=== PATIENT | female | born 1950 | race Caucasian/White ===

== ENCOUNTER → 2018-06-26 09:40 | Outpatient (CLI) | payer MEDICARE, OTHER, SELFPAY ==
--- NOTE | 2018-06-26 09:49 | XR_ITS ---
XR DEXA axial skeleton HISTORY: ITS.REASON: POST MENOPAUSAL ORDERING PHYSICIAN: Saranya Gonzalez PATIENT AGE: 67 years COMPARISON: None FINDINGS: The BMD measured at the Right femoral neck is 0.884 g/cm squared with a T score of -1.1. This is considered Osteopenic according to the World Health Organization criteria. Fracture risk is Moderate. Treatment is advised. L1 L4 density has a T score of -0.4 IMPRESSION: Osteopenia with moderate fracture risk. Treatment is advised. Suggest follow-up exam June 2020
== END ==
PROVIDERS: PCP Emergency Medicine; Visit Provider Nurse Practitioner
DX: Z13.820 Encounter for screening for osteoporosis (principal); Z78.0 Asymptomatic menopausal state
CPT/HCPCS: 77080

== ENCOUNTER → 2020-05-05 09:56 | Outpatient (POV) | payer MEDICARE, OTHER, SELFPAY | PROVIDERS: Visit Provider Otolaryngology | DX: Z00.00 Encounter for general adult medical examination without abnormal findings (principal) ==

== ENCOUNTER 2020-05-26 08:40 | Outpatient (CLI) | payer MEDICARE, OTHER, SELFPAY ==
[2020-05-26 09:05] VITALS: BP 154/55; PULSE 65; RESP 18; TEMP 36.3; O2SAT 99
[2020-05-26 09:30] VITALS: BP 136/63; PULSE 56; RESP 18; O2SAT 98
== END 2020-05-26 09:30 | disposition home or self-care (01) ==
LOC: INF 08:40
PROVIDERS: Visit Provider Allergy & Immunology
DX: J45.50 Severe persistent asthma, uncomplicated (principal)
CPT/HCPCS: 96372; J2182

== ENCOUNTER 2020-06-26 08:48 | Outpatient (CLI) | payer MEDICARE, OTHER, SELFPAY ==
[2020-06-26 09:10] VITALS: BP 132/75; PULSE 65; RESP 20; TEMP 36.9; O2SAT 95
== END 2020-06-26 09:05 | disposition home or self-care (01) ==
LOC: INF 08:48
PROVIDERS: Visit Provider Allergy & Immunology
DX: J45.50 Severe persistent asthma, uncomplicated (principal)
CPT/HCPCS: 96372; J2182

== ENCOUNTER 2020-07-21 09:15 | Outpatient (CLI) | payer MEDICARE, OTHER, SELFPAY ==
[2020-07-21 09:20] VITALS: BP 120/69; PULSE 61; RESP 18; TEMP 36.4; O2SAT 95
== END 2020-07-21 09:45 | disposition home or self-care (01) ==
PROVIDERS: Visit Provider Allergy & Immunology
DX: J45.50 Severe persistent asthma, uncomplicated (principal)
CPT/HCPCS: 96372; J2182

== ENCOUNTER → 2020-08-13 14:47 | Outpatient (CLI) | payer MEDICARE, OTHER, SELFPAY ==
[2020-08-13 15:03] LABS: Basophils # 0.1 K/mm3 (0-0.2); Basophils % 0.6 % (0.1-2.0); Eosinophils # 0.1 K/mm3 (0.0-0.4); Eosinophils % 1.2 % (0.1-12.0); Hematocrit 32.3 % (37.0-47.0); Hemoglobin 10.3 g/dL (12.2-16.2); Lymphocytes % 35.4 % (10-50); Mean Corpuscular HGB Conc 31.9 g/dL (31.8-35.4); Mean Corpuscular Hemoglobin 24.1 pg (27.0-31.2); Mean Corpuscular Volume 75.4 fl (81-99); Mean Platelet Volume 7.8 fl (7.4-10.4); Monocytes # 0.6 K/mm3 (0.1-1.0); Monocytes % 6.8 % (1.7-9.3); Neutrophils # 4.7 K/mm3 (1.8-7.8); Neutrophils % 56.1 % (37.0-80.0); Platelet Count 449 K/mm3 (142-424); Red Blood Count 4.29 M/mm3 (4.20-5.40); Red Cell Distribution Width 15.5 % (11.5-17.5); White Blood Count 8.4 K/mm3 (4.8-10.8)
[2020-08-13 15:12] LABS: Alanine Aminotransferase 23 U/L (12-78); Albumin Level 4.6 g/dl (3.5-5.0); Albumin/Globulin Ratio 1.7 (1.1-1.8); Alkaline Phosphatase 78 U/L (38-126); Anion Gap 16.2 mEq/L (5-15); Aspartate Amino Transferase 38 U/L (14-36); Benzodiazepines Screen,Urine Negative ng/ml (<200); Bilirubin,Total 0.3 mg/dl (0.2-1.3); Blood Urea Nitrogen 13 mg/dl (7-17); Calcium 9.9 mg/dl (8.4-10.2); Carbon Dioxide 24 mmol/L (22.0-30.0); Chloride 103 mmol/L (98-107); Chol/HDL Ratio 6.9 (1-3.5); Cholesterol 288 mg/dl (140-200); Estimated Glomerular Filt Rate 62 ml/min (>60); GFR (African American) 75 ML/MIN (>60); Globulin 2.7 g/dL (1.3-3.2); Glucose 101 mg/dl (74-100); HDL Cholesterol 42 mg/dl (40-60); Potassium 5.2 mmoL/L (3.5-5.1); Sodium 138 mmol/L (136-145); Total Protein,Serum 7.3 g/dl (6.3-8.2)
[2020-08-13 15:13] LABS: Amphetamine/Metha Screen,Urine Negative ng/ml (<1000)
[2020-08-13 15:14] LABS: Barbiturates Screen,Urine Negative ng/ml (<200); Cannabinoid Screen,Urine Negative ng/ml (<50); Triglycerides 473 mg/dl (30-150)
[2020-08-13 15:15] LABS: Cocaine Screen,Urine Negative ng/ml (<300)
[2020-08-13 15:16] LABS: Methadone Screen,Urine Negative ng/ml (<300); Opiate Screen,Urine Positive ng/ml (<300)
[2020-08-13 15:17] LABS: Phencyclidine Screen,Urine Negative ng/ml (<25)
[2020-08-13 15:22] LABS: Direct LDL Cholesterol 172.83 mg/dL (100-129)
[2020-08-13 15:29] LABS: Free T4 (Free Thyroxine) 1.15 ng/dl (0.78-2.19)
[2020-08-13 15:37] LABS: 25-OH Vitamin D, Total 19.2 ng/mL (30-100)
[2020-08-13 15:42] LABS: Thyroid Stimulating Hormone 2.44 uIU/mL (0.465-4.68)
== END ==
PROVIDERS: Visit Provider Physician Assistant
DX: Z00.00 Encounter for general adult medical examination without abnormal findings (principal); Z79.899 Other long term (current) drug therapy; E55.9 Vitamin D deficiency, unspecified
CPT/HCPCS: 80053; 80061; 80305; 82306; 84439; 84443; 85025

== ENCOUNTER → 2020-08-19 14:48 | Outpatient (CLI) | payer MEDICARE, OTHER, SELFPAY ==
[2020-08-19 15:11] LABS: Iron 48 ug/dL (37-170)
[2020-08-19 15:26] LABS: Total Iron Binding Capacity 455 ug/dL (265-497)
== END ==
PROVIDERS: Visit Provider Physician Assistant
DX: D64.9 Anemia, unspecified (principal)
CPT/HCPCS: 83540; 83550

== ENCOUNTER → 2020-10-14 19:19 | Outpatient (CLI) | payer MEDICARE, OTHER, SELFPAY ==
[2020-10-14 20:03] LABS: Amphetamine/Metha Screen,Urine Negative ng/ml (<1000)
[2020-10-14 20:05] LABS: Benzodiazepines Screen,Urine Negative ng/ml (<200)
[2020-10-14 20:07] LABS: Cocaine Screen,Urine Negative ng/ml (<300)
[2020-10-14 20:10] LABS: Phencyclidine Screen,Urine Negative ng/ml (<25)
[2020-10-14 20:27] LABS: Barbiturates Screen,Urine Negative ng/ml (<200)
[2020-10-14 20:29] LABS: Methadone Screen,Urine Negative ng/ml (<300)
[2020-10-14 20:36] LABS: Cannabinoid Screen,Urine Negative ng/ml (<50)
[2020-10-14 21:19] LABS: Opiate Screen,Urine Positive ng/ml (<300)
== END ==
PROVIDERS: Visit Provider Nurse Practitioner Family
DX: Z79.899 Other long term (current) drug therapy (principal)
CPT/HCPCS: 80305

== ENCOUNTER 2020-12-06 09:54 | Emergency (ER) | payer MEDICARE, OTHER, SELFPAY ==
[2020-12-06 10:04] VITALS: BP 139/73; PULSE 67; RESP 15; TEMP 36.3; O2SAT 100; BMI 31.2
[2020-12-06 10:25] LABS: Apearance,Urine Turbid (Clear); Color,Urine Dark Yellow (Yellow); Glucose,Urine (UA) Negative (Negative); Protein,Urine Trace (Negative); Specific Gravity, Urine 1.025 (1.005-1.030)
[2020-12-06 10:26] LABS: Bilirubin,Urine 2+ (Negative); Blood, Urine Negative (Negative); Ketones,Urine SMALL (Negative); UTC Leukocyte Esterase,Urine 1+ (Negative); UTC Nitrate,Urine Negative (Negative); Urobilinogen,Urine 1 EU/dl (0.2)
--- NOTE | 2020-12-06 10:31 | HMH.EDUTC ---
[facility] [place] Disposition Clinical Impression: Low back pain Qualifiers: Chronicity: acute Back pain laterality: right Sciatica presence: without sciatica Qualified Code(s): M54.5 - Low back pain UTI (urinary tract infection) Qualifiers: Urinary tract infection type: site unspecified Hematuria presence: without hematuria Qualified Code(s): N39.0 - Urinary tract infection, site not specified Disposition: Home, Self-Care Condition on Discharge: Good Instructions: Urinary Tract Infection Additional Instructions: Drink plenty of fluids. Take tylenol for pain or fever. Take the medications as directed. Follow up with your regular doctor. GO TO THE ER FOR ANY WORSENING SYMPTOMS The pyridium will make your urine turn orange, this is an expected side effect. It will stain your clothes if it comes into contact with them. Prescriptions: Ciprofloxacin HCl [Cipro 500mg Tab] 500 mg PO BID 7 Days #14 tab Transmission Status: Received by [facility] #[id number] Phenazopyridine HCl [Pyridium 200mg Tablet] 200 pow PO TID #6 tab Transmission Status: Received by [facility] #[id number] Referrals: Ben Antonio MD [Primary Care Provider] - Time of Disposition: 10:43 Medical Decision Making - Medical Records Medical records reviewed: No: I reviewed the patient's medical records. - Ryan Inquiry Pt receiving controlled substance: No Vital Signs: 12/06/20 10:04 12/06/20 11:09 Temperature 97.4 F L 98 F Temperature Source Oral Pulse Rate 76 Pulse Rate [Left] 67 Respiratory Rate 15 16 Blood Pressure 143/73 H Blood Pressure [Right Arm] 139/73 Blood Pressure Mean [Right Arm] 95 02 Sat by Pulse Oximetry 100 Oxygen Delivery Method Room Air - Lab Data Lab results reviewed: Yes: I reviewed the patient's lab results. Lab Results 12/06/20 10:15: Urine Color Dark yellow, Urine Appearance Turbid, Urine pH 5.0, Ur Specific [place] 1.025, Urine Protein Trace, Urine Glucose (UA) Negative, Urine Ketones Small, Urine Blood Negative, Urine Nitrate Negative, Urine Bilirubin 2+ A, Urine Urobilinogen 1, Ur Leukocyte Esterase 1+ A Orders (Tests/Meds): ED MEDICATIONS Discontinued Medications Generic Name Dose Route Start Last Admin Trade Name Freq PRN Reason Stop Dose Admin Ceftriaxone Sodium 1 gm 12/06/20 10:41 12/06/20 11:05 Ceftriaxone 1gm Vial IM 12/06/20 10:42 1 gm ONCE ONE Administration Protocol Ketorolac Tromethamine 60 mg 12/06/20 10:39 12/06/20 11:05 Ketorolac 60mg/2ml Vial IM 12/06/20 10:40 60 mg ONCE ONE Administration Lidocaine HCl 0 ml 12/06/20 10:41 12/06/20 11:04 Lidocaine 1% 5ml Pf Vial IM 12/06/20 10:42 2.5 ml ONCE ONE Administration ORDERS Category Date Time Status Urine Culture Stat Micro 12/06/20 11:09 Ordered Medical Decision Narrative: I want to transfer her to the ER for further evaluation and possible ct scan for kidney stone, but she refuses. She states that she will return if it gets worse and follow up with her primary care doctor first thing in the morning regardless. [facility] [place] HPI - General Stated complaint: lower back pain Time Seen by Provider: 12/06/20 10:31 Mode of Arrival: Ambulatory Source of Information: Patient Limitations: No Limitations Description of Symptoms (Recalled from Triage Doc. by RN): Pt c/o R flank pain that is sharp and aching in nature at a 10/10. pt has a hx of kidney stones and states it feels like the same kind of pain. HEENT Symptoms (Recalled from RN notes): No Resp Symptoms (Recalled from RN notes): No Skin Symptoms (Recalled from RN notes): No MS Symptoms (Recalled from RN notes): No Functional Status (Recalled from RN notes): na - History of Present Illness Provider Complaint: She states that for the past 2 days she has had right sided lower back pain that does not radiate any where. It has been just about constant. She denies any known injury. She does have a history of h
[2020-12-06 11:09] VITALS: BP 143/73; PULSE 76; RESP 16; TEMP 36.6
== END 2020-12-06 11:13 | disposition home or self-care (01) ==
PROVIDERS: Emergency Provider Nurse Practitioner Family; PCP Emergency Medicine
DX: M54.5 Low back pain (principal); N30.00 Acute cystitis without hematuria; I10 Essential (primary) hypertension; K21.9 Gastro-esophageal reflux disease without esophagitis; Z79.899 Other long term (current) drug therapy
CPT/HCPCS: G0463; 81003; 87086; 90471; 99202

== ENCOUNTER 2021-01-10 09:06 | Emergency (ER) | payer MEDICARE, OTHER, SELFPAY ==
[2021-01-10 09:30] VITALS: BP 135/74; PULSE 67; RESP 18; TEMP 37.2; O2SAT 96; BMI 26.6
--- NOTE | 2021-01-10 09:54 | HMH.EDUTC ---
[facility] [place] Clinical Impression: Maxillary sinusitis, acute Qualifiers: Recurrence: non-recurrent Qualified Code(s): J01.00 - Acute maxillary sinusitis, unspecified Disposition: Home, Self-Care Condition on Discharge: Good Instructions: Sinusitis, Sinus Headache, DI for Sinusitis Additional Instructions: Start antibiotic patient to take as ordered for a full length of time even if you feel better. Sinus infections do not get better overnight. It may take 2-3 days to notice much improvement so be sure to use conservative measures as discussed for symptoms. Flonase 1 spray each nostril daily to help with nasal congestion, sinus and ear pressure/information Increase fluids Humidifier/vaporizer as needed Tylenol and ibuprofen as needed for fever or pain. If symptoms do not improve or get worse return or be seen in the ER Follow-up with primary care this week Prescriptions: Fluticasone Propionate [Flonase 50mcg nasal spray 16gm] 1 spr NS DAILY 7 Days #1 bottle Prescription Printed Azithromycin [Zithromax 250mg tab] 250 mg PO DIRECTED #6 tab Prescription Printed Referrals: Ben Antonio MD [Primary Care Provider] - Time of Disposition: 09:59 Medical Decision Making - Ryan Inquiry Pt receiving controlled substance: No Vital Signs: 01/10/21 09:30 Temperature 99.0 F Temperature Source Oral Pulse Rate [Right Brachial] 67 Respiratory Rate 18 Blood Pressure [Right Arm] 135/74 Blood Pressure Mean [Right Arm] 94 Blood Pressure Source [Right Arm] Automatic Cuff Blood Pressure Position [Right Arm] Sitting 02 Sat by Pulse Oximetry 96 Oxygen Delivery Method Room Air [facility] [place] - General Chief complaint: [facility] Stated complaint: fever, cough Time Seen by Provider: 01/10/21 09:54 Mode of Arrival: Ambulatory Source of Information: Patient Limitations: No Limitations Description of Symptoms (Recalled from Triage Doc. by RN): PATIENT C/O CONGESTION, FEVER, AND PRODUCTIVE COUGH WITH GREEN/WHITE SPUTUM SINCE MONDAY NIGHT HEENT Symptoms (Recalled from RN notes): No Resp Symptoms (Recalled from RN notes): Yes Skin Symptoms (Recalled from RN notes): No MS Symptoms (Recalled from RN notes): No Functional Status (Recalled from RN notes): WNL - History of Present Illness Provider Complaint: 70 yr old female presents for sinus congestion,sinus pressure, green drainage, cough and chest congestion since monday. pt does not want covid swab utd on vaccine - Related Data Home Medications Medication Instructions Recorded Confirmed diclofenac sodium 75 mg 75 mg PO BID 08/13/20 01/05/21 tablet,delayed release fluticasone 100 mcg-salmeterol 50 2 inh INHALATION BID each 08/13/20 01/05/21 mcg/dose blistr powdr for inhalation omeprazole 40 mg capsule,delayed 40 mg PO DAILY 08/13/20 01/05/21 release Previous Rx's Medication Instructions Recorded duloxetine 60 mg capsule,delayed 60 mg PO DAILY #90 cap 08/13/20 release levocetirizine 5 mg tablet 5 mg PO DAILY #90 tab 08/13/20 montelukast 10 mg tablet 10 mg PO PM #90 tab 08/13/20 nystatin 100,000 unit/mL oral 10 ml PO QID 10 Days #400 ml 08/13/20 suspension tiotropium bromide 2.5 See Rx Instructions .ROUTE 10/23/20 mcg/actuation mist for inhalation .COMPLEX #4 g atorvastatin 10 mg tablet 10 mg PO HS #30 tab 10/26/20 cholecalciferol (vitamin D3) 25 25 mcg PO DAILY #30 cap 10/26/20 mcg (1,000 unit) capsule albuterol sulfate 90 mcg/actuation See Rx Instructions .ROUTE 11/02/20 aerosol inhaler .COMPLEX #8.5 g ergocalciferol (vitamin D2) 1,250 1,250 mcg PO WEEKLY #14 cap 01/05/21 mcg (50,000 unit) capsule gabapentin 300 mg capsule 300 mg PO TID #90 cap 01/05/21 hydrocodone 10 mg-acetaminophen 1 tab PO Q6H PRN #120 tab 01/05/21 325 mg tablet hydroxyzine pamoate 25 mg capsule 25 mg PO TID PRN #60 cap 01/05/21 metoprolol succinate 25 mg See Rx Instructions .ROUTE 01/05/21 tablet,extended release 24 hr .COMPLEX #90 tab Essie
[2021-01-10 09:55] VITALS: BP 135/74; PULSE 67; RESP 18; TEMP 37.2; O2SAT 96
== END 2021-01-10 10:00 | disposition home or self-care (01) ==
PROVIDERS: Emergency Provider Nurse Practitioner Family; PCP Emergency Medicine
DX: J01.00 Acute maxillary sinusitis, unspecified (principal); K21.9 Gastro-esophageal reflux disease without esophagitis; Z79.899 Other long term (current) drug therapy; Z88.0 Allergy status to penicillin; Z88.5 Allergy status to narcotic agent
CPT/HCPCS: 99202; G0463

== ENCOUNTER 2021-01-13 09:25 | Emergency (ER) | payer MEDICARE, OTHER, SELFPAY ==
[2021-01-13 10:18] VITALS: BP 115/54; PULSE 78; RESP 18; TEMP 36.6; O2SAT 99; BMI 30.2
[2021-01-13 10:31] VITALS: BP 119/63; PULSE 82; RESP 16; TEMP 36.7
--- NOTE | 2021-01-13 10:32 | HMH.EDUTC ---
[facility] [place] Disposition Clinical Impression: Encounter for laboratory testing for COVID-19 virus Disposition: Home, Self-Care Condition on Discharge: Good Instructions: DI for COVID-19 (Suspected or Confirmed ), Coronavirus Disease 2019, Preventing the Spread of Coronavirus Discharge Instructions Additional Instructions: *Monitor Temp, Over the counter Motrin or Tylenol as directed/as needed Tylenol every 4 hours and Motrin every 6 hours (as long as your family doctor has told you that you can take it) for fever or pain. and straight to ER if unable to lower temp less than 101.0 after medication given Follow up IMMEDIATELY for new or worsening symptoms or no Noticeable improvement over the next 48-72 hours. 911 for difficulty breathing or swallowing You were tested for today for COVID19 your test result should be back in the next 24-48 hours, you may call to the [facility] to see if your test results are back in the next 48 hours [phone] [facility] hours are 9am-9pm You was given a handout with instructions for Self Quarantine and Self isolation for while you wait on test results and what to do if they are positive If you are positive the Health Dept will be contacting you also Make sure to take your Vitamins Vit. C Vit D and Zinc if you can take them Prescriptions: Benzonatate [Tessalon Perle 100mg Cap*] 100 mg PO TID PRN #15 cap PRN Reason: Cough Transmission Status: Received by [facility] Referrals: Ben Antonio MD [Primary Care Provider] - As needed Time of Disposition: 10:37 Medical Decision Making - Ryan Inquiry Pt receiving controlled substance: No Ryan was queried for this patient: No Vital Signs: 01/13/21 10:18 01/13/21 10:31 Temperature 97.8 F 98.1 F Temperature Source Oral Pulse Rate 82 Pulse Rate [Left] 78 Respiratory Rate 18 16 Blood Pressure 119/63 Blood Pressure [Right Arm] 115/54 L Blood Pressure Mean [Right Arm] 74 02 Sat by Pulse Oximetry [address] [facility] [place] HPI - General Stated complaint: covid test Time Seen by Provider: 01/13/21 10:32 Mode of Arrival: Ambulatory Source of Information: Patient Limitations: No Limitations Description of Symptoms (Recalled from Triage Doc. by RN): pt c/o fever and a cough ongoing for two days. HEENT Symptoms (Recalled from RN notes): No Resp Symptoms (Recalled from RN notes): Yes (cough) Skin Symptoms (Recalled from RN notes): No MS Symptoms (Recalled from RN notes): No Functional Status (Recalled from RN notes): fever - History of Present Illness Provider Complaint: Patient state that she has been having a fever, cough and body aches x 2 days State that grandson was recently exposed to COVID and also being tested due to having symptoms State that she wanted to get tested - Related Data Home Medications Medication Instructions Recorded Confirmed diclofenac sodium 75 mg 75 mg PO BID 08/13/20 01/05/21 tablet,delayed release fluticasone 100 mcg-salmeterol 50 2 inh INHALATION BID each 08/13/20 01/05/21 mcg/dose blistr powdr for inhalation omeprazole 40 mg capsule,delayed 40 mg PO DAILY 08/13/20 01/05/21 release Previous Rx's Medication Instructions Recorded duloxetine 60 mg capsule,delayed 60 mg PO DAILY #90 cap 08/13/20 release levocetirizine 5 mg tablet 5 mg PO DAILY #90 tab 08/13/20 montelukast 10 mg tablet 10 mg PO PM #90 tab 08/13/20 nystatin 100,000 unit/mL oral 10 ml PO QID 10 Days #400 ml 08/13/20 suspension tiotropium bromide 2.5 See Rx Instructions .ROUTE 10/23/20 mcg/actuation mist for inhalation .COMPLEX #4 g atorvastatin 10 mg tablet 10 mg PO HS #30 tab 10/26/20 cholecalciferol (vitamin D3) 25 25 mcg PO DAILY #30 cap 10/26/20 mcg (1,000 unit) capsule albuterol sulfate 90 mcg/actuation See Rx Instructions .ROUTE 11/02/20 aerosol inhaler .COMPLEX #8.5 g ergocalciferol (vitamin D2) 1,250 1,250 mcg PO WEEKLY #14 cap 01/05/21 mcg (50,000 unit) capsule gabapentin 300 mg capsule 300 mg PO TID #90 cap
--- NOTE | 2021-01-14 09:04 | PC.NURSE ---
notified pt of positive covid swab result
== END 2021-01-13 11:08 | disposition home or self-care (01) ==
PROVIDERS: Emergency Provider Nurse Practitioner; PCP Emergency Medicine
DX: U07.1 COVID-19 (principal); J45.909 Unspecified asthma, uncomplicated; I10 Essential (primary) hypertension; K21.9 Gastro-esophageal reflux disease without esophagitis; Z88.0 Allergy status to penicillin; Z88.5 Allergy status to narcotic agent
CPT/HCPCS: G0463; 99202; U0003

== ENCOUNTER → 2021-03-02 14:26 | Outpatient (CLI) | payer MEDICARE, OTHER, SELFPAY ==
[2021-03-02 14:48] LABS: Basophils # 0.1 K/mm3 (0-0.2); Basophils % 0.9 % (0.1-2.0); Eosinophils # 0.1 K/mm3 (0.0-0.4); Eosinophils % 0.9 % (0.1-12.0); Hematocrit 35.6 % (37.0-47.0); Hemoglobin 11.1 g/dL (12.2-16.2); Lymphocytes # 2.3 K/mm3 (0.7-4.5); Lymphocytes % 33.5 % (10-50); Mean Corpuscular HGB Conc 31.3 g/dL (31.8-35.4); Mean Corpuscular Hemoglobin 24.6 pg (27.0-31.2); Mean Corpuscular Volume 78.8 fl (81-99); Mean Platelet Volume 8.5 fl (7.4-10.4); Monocytes # 0.4 K/mm3 (0.1-1.0); Monocytes % 6.5 % (1.7-9.3); Neutrophils % 58.2 % (37.0-80.0); Platelet Count 498 K/mm3 (142-424); Red Blood Count 4.52 M/mm3 (4.20-5.40); Red Cell Distribution Width 15.5 % (11.5-17.5); White Blood Count 6.8 K/mm3 (4.8-10.8)
[2021-03-02 16:36] LABS: Alanine Aminotransferase 15 U/L (12-78); Albumin Level 4.3 g/dl (3.5-5.0); Albumin/Globulin Ratio 1.4 (1.1-1.8); Alkaline Phosphatase 81 U/L (38-126); Anion Gap 14.4 mEq/L (5-15); Aspartate Amino Transferase 29 U/L (14-36); Bilirubin,Total 0.3 mg/dl (0.2-1.3); Blood Urea Nitrogen 11 mg/dl (7-17); Calcium 9.6 mg/dl (8.4-10.2); Carbon Dioxide 23 mmol/L (22.0-30.0); Chloride 99 mmol/L (98-107); Chol/HDL Ratio 4.6 (1-3.5); Cholesterol 208 mg/dl (140-200); Estimated Glomerular Filt Rate 55 ml/min (>60); GFR (African American) 66 ML/MIN (>60); Glucose 95 mg/dl (74-100); HDL Cholesterol 45 mg/dl (40-60); Iron 44 ug/dL (37-170); Potassium 5.4 mmoL/L (3.5-5.1); Sodium 131 mmol/L (136-145); Total Protein,Serum 7.3 g/dl (6.3-8.2); Triglycerides 310 mg/dl (30-150); VLDL Cholesterol 62 mg/dL (0-40)
[2021-03-02 16:48] LABS: Direct LDL Cholesterol 103.48 mg/dL (100-129)
[2021-03-02 16:54] LABS: T4 (Thyroxine) 7.2 ug/dl (5.53-11.0)
[2021-03-02 17:07] LABS: Thyroid Stimulating Hormone 1.73 uIU/mL (0.465-4.68)
[2021-03-02 17:29] LABS: Total Iron Binding Capacity 421 ug/dL (265-497)
[2021-03-02 23:55] LABS: 25-OH Vitamin D, Total 57.9 ng/mL (30-100)
== END ==
PROVIDERS: Visit Provider Physician Assistant
DX: D64.9 Anemia, unspecified (principal); I10 Essential (primary) hypertension; J45.909 Unspecified asthma, uncomplicated; M79.7 Fibromyalgia; E55.9 Vitamin D deficiency, unspecified
CPT/HCPCS: 80053; 80061; 82306; 83540; 83550; 84436; 84443; 85025

== ENCOUNTER → 2021-03-09 08:57 | Outpatient (CLI) | payer MEDICARE, OTHER, SELFPAY ==
[2021-03-09 09:22] LABS: Basophils # 0.1 K/mm3 (0-0.2); Basophils % 0.7 % (0.1-2.0); Eosinophils % 0.5 % (0.1-12.0); Hematocrit 36.6 % (37.0-47.0); Lymphocytes # 2.1 K/mm3 (0.7-4.5); Lymphocytes % 29.1 % (10-50); Mean Corpuscular Hemoglobin 24.2 pg (27.0-31.2); Mean Corpuscular Volume 80.5 fl (81-99); Mean Platelet Volume 7.2 fl (7.4-10.4); Monocytes # 0.5 K/mm3 (0.1-1.0); Neutrophils # 4.5 K/mm3 (1.8-7.8); Neutrophils % 62.8 % (37.0-80.0); Platelet Count 438 K/mm3 (142-424); Red Blood Count 4.55 M/mm3 (4.20-5.40); White Blood Count 7.2 K/mm3 (4.8-10.8)
[2021-03-09 09:47] LABS: Chloride 96 mmol/L (98-107); Potassium 5.5 mmoL/L (3.5-5.1); Sodium 133 mmol/L (136-145)
[2021-03-09 09:49] LABS: Alanine Aminotransferase 19 U/L (12-78); Anion Gap 17.5 mEq/L (5-15); Aspartate Amino Transferase 29 U/L (14-36); Blood Urea Nitrogen 9 mg/dl (7-17); Carbon Dioxide 25 mmol/L (22.0-30.0); Estimated Glomerular Filt Rate 62 ml/min (>60); GFR (African American) 74 ML/MIN (>60)
[2021-03-09 09:50] LABS: Albumin Level 4.5 g/dl (3.5-5.0); Albumin/Globulin Ratio 1.5 (1.1-1.8); Alkaline Phosphatase 84 U/L (38-126); Bilirubin,Total 0.4 mg/dl (0.2-1.3); Calcium 9.7 mg/dl (8.4-10.2); Glucose 121 mg/dl (74-100); Iron 51 ug/dL (37-170); Total Protein,Serum 7.5 g/dl (6.3-8.2)
[2021-03-09 09:58] LABS: Total Iron Binding Capacity 462 ug/dL (265-497)
[2021-03-09 10:25] LABS: Ferritin 8.91 ng/ml (11.1-264)
[2021-03-09 15:51] LABS: Hemoglobin A1C 9.9 % (4.0-6.0)
[2021-03-11 09:00] LABS: Peripheral Smear Review Scanned Result
== END ==
PROVIDERS: Physician Assistant; Visit Provider Nurse Practitioner Family
DX: D64.9 Anemia, unspecified (principal); E87.5 Hyperkalemia; R73.09 Other abnormal glucose
CPT/HCPCS: 36415; 80053; 82728; 83036; 83540; 83550; 85025

== ENCOUNTER → 2021-03-10 09:33 | Outpatient (CLI) | payer MEDICARE, OTHER, SELFPAY ==
[2021-03-10 10:39] LABS: Chloride 98 mmol/L (98-107)
[2021-03-10 10:40] LABS: Potassium 5.6 mmoL/L (3.5-5.1); Sodium 135 mmol/L (136-145)
[2021-03-10 10:42] LABS: Alanine Aminotransferase 19 U/L (12-78); Albumin Level 4.5 g/dl (3.5-5.0); Albumin/Globulin Ratio 1.5 (1.1-1.8); Alkaline Phosphatase 84 U/L (38-126); Anion Gap 15.6 mEq/L (5-15); Aspartate Amino Transferase 31 U/L (14-36); Bilirubin,Total 0.4 mg/dl (0.2-1.3); Blood Urea Nitrogen 8 mg/dl (7-17); Carbon Dioxide 27 mmol/L (22.0-30.0); Estimated Glomerular Filt Rate 62 ml/min (>60); GFR (African American) 74 ML/MIN (>60); Total Protein,Serum 7.5 g/dl (6.3-8.2)
[2021-03-10 10:43] LABS: Calcium 9.5 mg/dl (8.4-10.2); Glucose 112 mg/dl (74-100)
== END ==
PROVIDERS: Visit Provider Physician Assistant
DX: E87.5 Hyperkalemia (principal)
CPT/HCPCS: 36415; 80053

== ENCOUNTER 2021-03-12 08:40 | Outpatient (CLI) | payer MEDICARE, OTHER, SELFPAY ==
[2021-03-12 09:10] VITALS: BP 131/60; PULSE 74; RESP 18; TEMP 36.4; O2SAT 98
== END 2021-03-12 09:25 | disposition home or self-care (01) ==
LOC: INF 08:41
PROVIDERS: PCP Emergency Medicine; Visit Provider Nurse Practitioner
DX: J45.50 Severe persistent asthma, uncomplicated (principal); Z79.899 Other long term (current) drug therapy
CPT/HCPCS: 36415; 80048; 83036; 96372; J2182

== ENCOUNTER → 2021-03-12 09:17 | Outpatient (CLI) | payer MEDICARE, OTHER, SELFPAY ==
[2021-03-12 10:12] LABS: Hemoglobin A1C 6.3 % (4.0-6.0)
[2021-03-12 10:59] LABS: Anion Gap 15.9 mEq/L (5-15); Blood Urea Nitrogen 11 mg/dl (7-17); Calcium 9.5 mg/dl (8.4-10.2); Carbon Dioxide 24 mmol/L (22.0-30.0); Chloride 96 mmol/L (98-107); Estimated Glomerular Filt Rate 62 ml/min (>60); GFR (African American) 74 ML/MIN (>60); Glucose 159 mg/dl (74-100); Potassium 4.9 mmoL/L (3.5-5.1); Sodium 131 mmol/L (136-145)
== END ==
PROVIDERS: Nurse Practitioner Family; Visit Provider Physician Assistant
DX: R73.09 Other abnormal glucose (principal); E87.5 Hyperkalemia
CPT/HCPCS: 36415; 80048; 83036

== ENCOUNTER → 2021-03-22 09:46 | Outpatient (CLI) | payer MEDICARE, OTHER, SELFPAY ==
[2021-03-22 10:46] LABS: Chloride 97 mmol/L (98-107); Potassium 5.3 mmoL/L (3.5-5.1); Sodium 132 mmol/L (136-145)
[2021-03-22 10:49] LABS: Anion Gap 15.3 mEq/L (5-15); Blood Urea Nitrogen 11 mg/dl (7-17); Calcium 9.4 mg/dl (8.4-10.2); Carbon Dioxide 25 mmol/L (22.0-30.0); Estimated Glomerular Filt Rate 55 ml/min (>60); GFR (African American) 66 ML/MIN (>60); Glucose 92 mg/dl (74-100)
== END ==
PROVIDERS: Visit Provider Nurse Practitioner Family
DX: E87.1 Hypo-osmolality and hyponatremia (principal)
CPT/HCPCS: 36415; 80048

== ENCOUNTER → 2021-04-05 09:30 | Outpatient (CLI) | payer MEDICARE, OTHER, SELFPAY ==
[2021-04-05 11:20] LABS: Anion Gap 13.4 mEq/L (5-15); Blood Urea Nitrogen 9 mg/dl (7-17); Calcium 9.4 mg/dl (8.4-10.2); Carbon Dioxide 27 mmol/L (22.0-30.0); Chloride 99 mmol/L (98-107); Estimated Glomerular Filt Rate 62 ml/min (>60); GFR (African American) 74 ML/MIN (>60); Glucose 117 mg/dl (74-100); Potassium 5.4 mmoL/L (3.5-5.1); Sodium 134 mmol/L (136-145)
== END ==
PROVIDERS: Visit Provider Nurse Practitioner Family
DX: E87.5 Hyperkalemia (principal)
CPT/HCPCS: 36415; 80048

== ENCOUNTER 2021-04-08 09:43 | Outpatient (CLI) | payer MEDICARE, OTHER, SELFPAY | END 2021-04-08 10:16 | disposition home or self-care (01) | LOC: INF 09:44 | PROVIDERS: PCP Emergency Medicine; Visit Provider Nurse Practitioner | DX: J45.50 Severe persistent asthma, uncomplicated (principal) | CPT/HCPCS: 96372; J2182 ==

== ENCOUNTER → 2021-04-19 09:12 | Outpatient (CLI) | payer SELFPAY ==
--- NOTE | 2021-04-19 09:14 | CT_ITS ---
PROCEDURE: CT HEART W CALCIUM SCORE CLINICAL HISTORY: eval for cad COMPARISON: No exams were available for comparison TECHNIQUE: Axial images obtained with sagittal and coronal reformats. All CT scans at the facility use one or more dose reduction, viz: automated exposure control, ma/kV adjustment per patient size (including targeted exams where dose is matched to indication, i.e. head), or iterative reconstruction technique. FINDINGS: Coronary artery calcium score is 0. No identifiable calcific atherosclerotic plaque with very low cardiovascular disease risk Minimal pericardial thickening anteriorly. 3 mm nodular opacity along the left major fissure nonspecific. Degenerative changes thoracic spine IMPRESSION: No identifiable calcific atherosclerotic plaque with very low cardiovascular disease risk Dictated by: Robb Almaraz MD 04/19/2021 10:17 Robb Almaraz MD in [place] 04/19/2021 10:17
== END ==
PROVIDERS: PCP Emergency Medicine; Visit Provider Internal Medicine Cardiovascular Disease
DX: R06.00 Dyspnea, unspecified (principal); I10 Essential (primary) hypertension; K21.9 Gastro-esophageal reflux disease without esophagitis; Z13.6 Encounter for screening for cardiovascular disorders
CPT/HCPCS: 75571

== ENCOUNTER → 2021-04-19 09:35 | Outpatient (CLI) | payer MEDICARE, OTHER, SELFPAY ==
--- NOTE | 2021-04-19 | CA_ITS ---
APPROVED REPORT Exam: Pharmacologic Technologist: Sharron Jackson, Ht: 5 ft 0 in Wt: 140 lbs BSA: 1.60 m2 HR: 78 bpm BP: 148/83 mmHg Rhythm: Sinus rhythm Medical History Medical History: Diabetic ??? Noninsulin, HTN Medications: Omeprazole,,,,, Metoprolol,,,,, Asa,,,,, Metformin,,,,, Gabapentin,,,,, Albuterol,,,,, Montelukast,,,,, D3,,,,, Diclofenac,,,,, DulOXETINE,,,,, FluTICASONE,,,,, Levocetirizine,,,,, Cardiac Risk Factors: HTN, Diabetes (non-insulin) Stress Test Details Test: LEXISCAN HR Resting HR: 83 bpm Max Heart Rate (APMHR): 148.444692 bpm Max HR Achieved: 114 bpm Target HR (85% APMHR): 125.429815 bpm % of APMHR: 77.03 Recovery HR: 106 bpm BP Resting BP: 148/83 mmHg Max BP: 162/86 mmHg Recovery BP: 144.0/83.0 mmHg ECG Resting ECG: Sinus rhythm Clinical Exercise duration: 04:00 min Highest Stage Achieved: Exercise capacity: 1.0 METs Stress ECG Conclusion During lexiscan pt experinced SOB during peak infusion, resolved in recovery. No CP noted. Occasional PAC and occasional PVC. Less than 1.5mm ST depression. Images to follow. Test Summary REST . . . . . . . Sitting REST 35:32 . . 83 . 148/ 83 . . Stage 1 . . . . . . . Myoview Injected Stage 1 01:00 . . 106 . . . . Stage 2 01:00 . . 105 . 128/ 54 . . Stage 3 01:00 . . 103 . 139/ 70 . . Stage 4 01:00 . . 102 . 145/ 68 . Stop exercise at 04:00 RECOVERY 01:00 . . 113 . 144/ 83 . . RECOVERY 02:00 . . 106 . 144/ 83 . . RECOVERY 03:00 . . 106 . 154/ 84 . . RECOVERY 03:56 . . 105 . 162/ 86 . . Electronically signed by : Wilder Webster MD 04/19/2021 18:14:15
--- NOTE | 2021-04-19 09:35 | NM_ITS ---
APPROVED REPORT Exam: Nuclear Stress Test Indication: SOB, HTN, DM, High cholesterol Patient Location: Outpatient Stress Tech: Sharron Jackson NM Tech:Elizabeth Stephens, ARRT, RT (R)(N) Ht: 5 ft 0 in Wt: 140 lbs Bra Size: 38B HR: 78 bpm BP: 148/83 mmHg BSA: 1.60 m2 History: SOB, HTN, DM, High cholesterol Procedure: Patient received a 0.4 mg of intravenous Lexiscan, resting heart rate 78 bpm, resting blood pressure 148/83 mmHg, with Lexiscan maximum heart rate achived was 108 bpm which is Less than 85 % of the maximum predicted heart rate and blood pressure was 128/54 mmHg. With Lexiscan, patient denied any complaint of chest pain. Electrocardiogram Resting electrocardiogram shows sinus rhythm, nonspecific ST-T changes, with Lexiscan there is less than 1.[address] segment depression noted from the baseline EKG. The EKG portion of the Lexiscan is nondiagnostic. Cardiac Stress and Resting SPECT Images: Cardiac Stress and Resting SPECT images were obtained using technetium 99m Myoview 31.1 mCi stress and 10.32 mCi at rest. Gated SPECT for analysis of segmental wall motion and calculation of the ejection fraction also done. Cardiac stress and resting SPECT images show uniform myocardial activity without segmental perfusion abnormality, computer derived ejection fraction is 58% with no regional wall motion abnormality, right ventricle is normal size and contractility. Conclusion: 1. The EKG portion of the Lexiscan is nondiagnostic. 2. No scintigraphic evidence of reversible ischemia seen, computer derived ejection fraction is 58% with no regional wall motion abnormality, right ventricle is normal size and contractility. 3. Normal Lexiscan Myoview study. Electronically signed by : Wilder Webster MD 04/19/2021 19:04:06
--- NOTE | 2021-04-19 10:53 | CA_ITS ---
APPROVED REPORT EXAM: Comprehensive 2D, Doppler, and color-flow Echocardiogram [employer]ed [employer] Assembly Repairer: Anna Yancey RT(R) Ht: 5 ft 0 in Wt: 140lbs BSA: 1.60 BP: 121/50 mmHg Indications: COPD, HTN, DM, SOB, GERD, Bradycardia Echo Enhancing Agent Indication: Endocardial border delineation Agent(s) / Amount(s) Used: Definity 2 cc 2D Dimensions LVOT 1.96 cm (M/F) 1.5-2.5 M-Mode Dimensions RVDd 2.82 cm (0.9-2.6) LA Diam 2.98 cm (1.9-4.0) LVDd 4.71 cm (3.5-5.7) Ao Diam 2.40 cm (2.0-3.7) LVDs 3.53 cm (3.5-5.7) IVSd 0.64 cm (0.6-1.1) PWd 0.71 cm (0.6-1.1) EF (Teich) 49.60% FS 25.10% EDV (Teich) 102.90 mL ESV (Teich) 51.90 mL LV Diastology E Decel Time 210.00 (160-240 msec) E/A Ratio 0.9 MED E' 7.40 (< 7 cm/sec) E'/MED E' Ratio 11.76 (>14) LAT E' 7.60 (<10 cm/sec) E/LAT E' Ratio 11.45 (>14) Mitral Valve MV E Max Ronak. 87.00 (40-130 cm/s) MV A Velocity 94.00 (40-130 cm/s) E/A Ratio 0.93 MV Decel. Time 210.00 (160-240 ms) MV PHT 62.00 ms Tricuspid Valve TR P. Velocity 252.00 cm/s RAP Estimate 10.00 mmHg RVSP 35.50 mmHg Left Ventricle Left atrium is mildly enlarged, left ventricle is normal size, visually estimated ejection fraction 50% with no regional wall motion abnormality, grade 1 diastolic dysfunction seen without tissue Doppler evidence of raise left atrial pressure. Definity contrast was utilized to delineate the endocardial surfaces, there is no left ventricular thrombus seen. Right Ventricle Right atrium and right ventricle mildly enlarged with normal contractility. Aortic Valve Aortic valve is minimally thickened and fibrosed, there is no aortic stenosis or aortic insufficiency. Mitral Valve Motor is grossly normal, there is trace mitral regurgitation. Tricuspid Valve Tricuspid grossly normal, there is trace tricuspid regurgitation, tricuspid regurgitation jet velocity is inadequate for calculation of the right ventricular systolic pressure. Pulmonic Valve Pulmonic valve is poorly visualized. Great Vessels Aortic root is normal size. Inferior vena cava is normal size with normal inspiratory collapse. Pericardium No significant pericardial effusion noted. Conclusion 1. Normal left ventricular size, preserved left ventricular systolic function, visually estimated ejection fraction 50% with grade 1 diastolic dysfunction seen, there is no regional wall motion abnormality, Definity contrast visualized to delineate the endocardial surfaces. There is no left ventricular thrombus seen. 2. Mildly enlarged right ventricle with normal contractility. 3. Trace mitral and tricuspid regurgitation. 4. No significant pericardial effusion noted. 5. Inferior vena cava is normal size with normal inspiratory collapse. Electronically signed by : Wilder Webster MD 04/19/2021 20:40:56
--- NOTE | 2021-04-19 12:49 | HMH.ITSHM ---
Current Home Medications as stated by this patient Shaunna Flynn or help desk representative. []OMEPRAZOLE MONTELUKAST METOPROLOL IPRATROPIUM HYDROXYZINE GABAPENTIN FLUTICASONE DICLOFENAC SPIRIVA METFORMIN LEVOCETERIZINE VITAMIN D2 CYMBALTA VITAMIN D3 ATORVASTATIN ASA ALBUTEROL
== END ==
PROVIDERS: PCP Emergency Medicine; Visit Provider Internal Medicine Cardiovascular Disease
DX: I10 Essential (primary) hypertension (principal); K21.9 Gastro-esophageal reflux disease without esophagitis; R06.00 Dyspnea, unspecified
CPT/HCPCS: 78452; 93017; 93306; A9502; J2785; Q9957

== ENCOUNTER → 2021-04-22 13:34 | Outpatient (CLI) | payer MEDICARE, OTHER, SELFPAY ==
[2021-04-22 14:40] LABS: Basophils % 0.6 % (0.1-2.0); Eosinophils % 0.7 % (0.1-12.0); Hematocrit 30.9 % (37.0-47.0); Hemoglobin 9.8 g/dL (12.2-16.2); Lymphocytes % 33.2 % (10-50); Mean Corpuscular HGB Conc 31.9 g/dL (31.8-35.4); Mean Corpuscular Hemoglobin 24.8 pg (27.0-31.2); Mean Corpuscular Volume 77.7 fl (81-99); Mean Platelet Volume 7.6 fl (7.4-10.4); Monocytes # 0.4 K/mm3 (0.1-1.0); Monocytes % 7.4 % (1.7-9.3); Neutrophils # 3.4 K/mm3 (1.8-7.8); Neutrophils % 57.9 % (37.0-80.0); Platelet Count 441 K/mm3 (142-424); Red Blood Count 3.97 M/mm3 (4.20-5.40); Red Cell Distribution Width 15.4 % (11.5-17.5); White Blood Count 5.9 K/mm3 (4.8-10.8)
[2021-04-22 15:28] LABS: Iron 23 ug/dL (37-170)
[2021-04-22 15:39] LABS: Total Iron Binding Capacity 410 ug/dL (265-497)
[2021-04-22 16:36] LABS: Vitamin B12 395 pg/mL (239-931)
[2021-04-22 16:41] LABS: Folate 8.46 ng/mL
[2021-04-22 17:34] LABS: Ferritin 6.58 ng/ml (11.1-264)
== END ==
PROVIDERS: Internal Medicine Medical Oncology; Visit Provider Surgery
DX: D50.9 Iron deficiency anemia, unspecified (principal)
CPT/HCPCS: 36415; 82607; 82728; 82746; 83540; 83550; 85025

== ENCOUNTER 2021-05-07 09:25 | Outpatient (CLI) | payer MEDICARE, OTHER, SELFPAY ==
[2021-05-07 09:58] VITALS: BP 114/65; PULSE 90; RESP 18; TEMP 36.3; O2SAT 100
== END 2021-05-07 10:15 | disposition home or self-care (01) ==
LOC: INF 09:26
PROVIDERS: PCP Emergency Medicine; Visit Provider Allergy & Immunology
DX: J45.50 Severe persistent asthma, uncomplicated (principal)
CPT/HCPCS: 96372; J2182

== ENCOUNTER → 2021-05-11 09:40 | Outpatient (CLI) | payer MEDICARE, OTHER, SELFPAY ==
[2021-05-11 10:35] LABS: Basophils % 0.4 % (0.1-2.0); Eosinophils % 0.3 % (0.1-12.0); Hematocrit 36.7 % (37.0-47.0); Hemoglobin 11.6 g/dL (12.2-16.2); Lymphocytes # 1.5 K/mm3 (0.7-4.5); Lymphocytes % 23.1 % (10-50); Mean Corpuscular HGB Conc 31.5 g/dL (31.8-35.4); Mean Corpuscular Hemoglobin 25.3 pg (27.0-31.2); Mean Corpuscular Volume 80.5 fl (81-99); Mean Platelet Volume 6.9 fl (7.4-10.4); Monocytes # 0.5 K/mm3 (0.1-1.0); Monocytes % 7.1 % (1.7-9.3); Neutrophils # 4.5 K/mm3 (1.8-7.8); Platelet Count 427 K/mm3 (142-424); Red Blood Count 4.56 M/mm3 (4.20-5.40); Red Cell Distribution Width 16.7 % (11.5-17.5); White Blood Count 6.5 K/mm3 (4.8-10.8)
[2021-05-14 16:23] LABS: D001-IgE D pteronyssinus <0.10 kU/L (Class 0); D002-IgE D farinae <0.10 kU/L (Class 0); E001-IgE Cat Dander <0.10 kU/L (Class 0); E005-IgE Dog Dander <0.10 kU/L (Class 0); E072-IgE Mouse Urine <0.10 kU/L (Class 0); G002-IgE Bermuda Grass <0.10 kU/L (Class 0); G006-IgE Timothy Grass <0.10 kU/L (Class 0); I006-IgE Cockroach, German <0.10 kU/L (Class 0); Immunoglobulin E, Total 7 IU/mL (6-495); M001-IgE Penicillium chrysogen <0.10 kU/L (Class 0); M002-IgE Cladosporium herbarum <0.10 kU/L (Class 0); M003-IgE Aspergillus fumigatus <0.10 kU/L (Class 0); M006-IgE Alternaria alternata <0.10 kU/L (Class 0); T001-IgE Maple/Box Elder <0.10 kU/L (Class 0); T003-IgE Common Silver Birch <0.10 kU/L (Class 0); T006-IgE Cedar, Mountain <0.10 kU/L (Class 0); T007-IgE Oak, White <0.10 kU/L (Class 0); T008-IgE Elm, American <0.10 kU/L (Class 0); T010-IgE Walnut <0.10 kU/L (Class 0); T011-IgE Maple Leaf Sycamore <0.10 kU/L (Class 0); T014-IgE Cottonwood <0.10 kU/L (Class 0); T015-IgE Ash, White <0.10 kU/L (Class 0); T022-IgE Pecan, Hickory <0.10 kU/L (Class 0); T070-IgE White Mulberry <0.10 kU/L (Class 0); W001-IgE Ragweed, Short <0.10 kU/L (Class 0); W011-IgE Thistle, Russian <0.10 kU/L (Class 0); W014-IgE Pigweed, Common <0.10 kU/L (Class 0); W018-IgE Sheep Sorrel <0.10 kU/L (Class 0)
== END ==
PROVIDERS: Internal Medicine Pulmonary Disease; Visit Provider Surgery
DX: J45.909 Unspecified asthma, uncomplicated (principal)
CPT/HCPCS: 36415; 82785; 85025; 86003; C9803; U0003; U0005

== ENCOUNTER 2021-05-13 06:09 | Day surgery (SDC) | payer MEDICARE, OTHER, SELFPAY ==
[2021-05-10 13:23] VITALS: BMI 26.7
[2021-05-13 06:26] VITALS: BP 155/61; PULSE 90; RESP 18; TEMP 36.8; O2SAT 99
--- NOTE | 2021-05-13 07:26 | HMH.ANESCL ---
[facility] Anesthesia Checklist - Patient Identification Patient Identification: Arm Band - Structural Data Admitted From: Home Planned Operative Procedure/s: colonoscopy Consent for Planned Operative Procedure(s) Verified: Yes Verified Documents: Surgical Consent, History and Physical - NPO Status Verified Time NPO: 00:00 - Additional verifications Anesthesia Reactions: No - Airway Assessment C-Spine Mobility Assessed: Yes (mp2) TMJ Mobility Assessed: Yes Dentition: Edentulous - Neurological Assessment Level of Consciousness: Awake, Alert - Anesthesia Plan Anesthesia Risk discussed: Yes Anesthesia Plan: Verified ASA Class: III Anesthesia Type: MAC [facility] History I have reviewed the patient's past medical history: Yes Medical History: Reports:: Asthma, Diabetes Mellitus Type 2, Gastroesophageal Reflux Disease(GERD), Hyperlipidemia, Hypertension, Lung Disease Denies:: Cancer, Diabetes Mellitus Type 1, Internal Pacemaker, MRSA, Seizures *Have you ever received a pneumonia vaccine?: No *Have you received a flu vaccine this season?: No Other Medical History: Reports: Arthritis, Cataracts, Sinus Problems Anesthesia experience/problems:: nac Laterality Cases: Left: Arthroscopy Knee, Bilateral: Cataract, Tonsillectomy Other Surgeries: Yes: Appendectomy, Colonoscopy, EGD. No: Pacemaker Amputation: No Fractures: No - *Social History Last grade of school completed: GED Smoking Status: Never smoker Alcohol Intake: never Substance Use Type: denies use *Occupational Status:: retired Housing: house Household Members: spouse *Travel in the last 8 weeks: None Family Hx:: Cancer
[2021-05-13 07:30] VITALS: O2SAT 97
--- NOTE | 2021-05-13 07:40 | HMH.SCOPE ---
- Procedure: Date: 05/13/21 Patient Date of :: 1950 Procedure Performed:: Colonoscopy (aborted secondary to exceedingly poor bowel preparation) Indications:: Anemia Family history of colon cancer Performing Provider:: Oumar Rivas MD Referring Provider:: . Sedation:: Monitored anesthesia care Procedure:: After informed consent was obtained the patient was taken to the endoscopy suite. Sedation ensued after the patient was transferred to the left lateral decubitus position. Pulse, blood pressure, and oxygen saturation were monitored throughout the procedure. Digital rectal exam revealed hemorrhoidal tag/cushions. The colonoscope was placed in position. Bowel preparation was exceptionally poor. The decision was made to abort the procedure and schedule short-term repeat colonoscopy with extended bowel preparation. The colonoscope was carefully removed and the patient was transferred to recovery in stable condition. Please see findings and specimens below for detail. Findings:: Hemorrhoidal tag/cushions Exceptionally poor bowel preparation Colonoscopy aborted secondary to poor bowel preparation Specimens:: None Recommendations:: Short-term repeat colonoscopy with extended bowel preparation Complications:: Colonoscopy aborted secondary to poor bowel preparation Estimated blood obtained (mL): 0
[2021-05-13 07:42] VITALS: BP 105/62; PULSE 69; RESP 18; TEMP 36.9; O2SAT 99
[2021-05-13 08:00] VITALS: BP 119/72; PULSE 73; RESP 18; TEMP 36.9; O2SAT 98
[2021-05-13 08:38] VITALS: BP 135/80; PULSE 67; RESP 18; TEMP 36.9; O2SAT 98
[2022-02-17 10:55] LABS: POC Glucose,Bedside 92 (70-110)
== END 2021-05-13 08:45 | disposition home or self-care (01) ==
LOC: OUTP 06:11
PROVIDERS: PCP Emergency Medicine; Visit Provider Surgery
PROC: 0DJD8ZZ Inspection of Lower Intestinal Tract, Via Natural or Artificial Opening Endoscopic (ICD-10-PCS; principal; 2021-05-13 07:30)
DX: D64.9 Anemia, unspecified (principal); Z80.0 Family history of malignant neoplasm of digestive organs; Z91.19 Patient's noncompliance with other medical treatment and regimen; K64.0 First degree hemorrhoids
CPT/HCPCS: 45378; 82962

== ENCOUNTER → 2021-06-02 09:28 | Outpatient (CLI) | payer MEDICARE, OTHER, SELFPAY ==
[2021-06-02 10:30] VITALS: PULSE 76; PULSE 80
== END ==
PROVIDERS: PCP Emergency Medicine; Visit Provider Internal Medicine Pulmonary Disease
DX: R06.00 Dyspnea, unspecified (principal)
CPT/HCPCS: 94060; 94618; 94640; 94727; 94729

== ENCOUNTER → 2021-08-31 16:19 | Outpatient (CLI) | payer MEDICARE, OTHER, SELFPAY ==
[2021-08-31 18:15] LABS: Basophils # 0.1 K/mm3 (0-0.2); Basophils % 1.1 % (0.1-2.0); Eosinophils # 0.1 K/mm3 (0.0-0.4); Eosinophils % 1.7 % (0.1-12.0); Hematocrit 41.9 % (37.0-47.0); Hemoglobin 13.8 g/dL (12.2-16.2); Lymphocytes # 2.2 K/mm3 (0.7-4.5); Lymphocytes % 26.8 % (10-50); Mean Corpuscular HGB Conc 32.9 g/dL (31.8-35.4); Mean Corpuscular Hemoglobin 29.5 pg (27.0-31.2); Mean Corpuscular Volume 89.7 fl (81-99); Mean Platelet Volume 9.1 fl (7.4-10.4); Monocytes # 0.4 K/mm3 (0.1-1.0); Monocytes % 5.5 % (1.7-9.3); Neutrophils # 5.2 K/mm3 (1.8-7.8); Platelet Count 404 K/mm3 (142-424); Red Blood Count 4.68 M/mm3 (4.20-5.40); Red Cell Distribution Width 14.4 % (11.5-17.5); White Blood Count 8.1 K/mm3 (4.8-10.8)
[2021-08-31 18:24] LABS: Chloride 98 mmol/L (98-107); Sodium 135 mmol/L (136-145)
[2021-08-31 18:27] LABS: Alanine Aminotransferase 24 U/L (12-78); Albumin Level 4.6 g/dl (3.5-5.0); Albumin/Globulin Ratio 1.5 (1.1-1.8); Alkaline Phosphatase 105 U/L (38-126); Aspartate Amino Transferase 36 U/L (14-36); Bilirubin,Total 0.6 mg/dl (0.2-1.3); Blood Urea Nitrogen 16 mg/dl (7-17); Calcium 9.2 mg/dl (8.4-10.2); Carbon Dioxide 27 mmol/L (22.0-30.0); Chol/HDL Ratio 4.2 (1-3.5); Cholesterol 220 mg/dl (140-200); Estimated Glomerular Filt Rate 71 ml/min (>60); GFR (African American) 85 ML/MIN (>60); Glucose 83 mg/dl (74-100); HDL Cholesterol 52 mg/dl (40-60); Total Protein,Serum 7.6 g/dl (6.3-8.2); Triglycerides 275 mg/dl (30-150); VLDL Cholesterol 55 mg/dL (0-40)
[2021-08-31 18:48] LABS: 25-OH Vitamin D, Total 67.4 ng/mL (30-100)
[2021-08-31 18:58] LABS: Direct LDL Cholesterol 119.86 mg/dL (100-129)
[2021-08-31 19:47] LABS: Thyroid Stimulating Hormone 1.53 uIU/mL (0.465-4.68)
[2021-08-31 22:52] LABS: Hemoglobin A1C 6.3 % (4.0-6.0)
== END ==
PROVIDERS: Visit Provider Physician Assistant
DX: E55.9 Vitamin D deficiency, unspecified (principal); E11.9 Type 2 diabetes mellitus without complications; F32.A Depression, unspecified; Z79.84 Long term (current) use of oral hypoglycemic drugs
CPT/HCPCS: 80053; 80061; 82043; 82306; 83036; 84443; 85025

== ENCOUNTER → 2021-12-28 17:16 | Outpatient (CLI) | payer MEDICARE, OTHER, SELFPAY ==
[2021-12-28 16:10] LABS: Amphetamine/Metha Screen,Urine Negative ng/ml (<1000)
[2021-12-28 16:11] LABS: Barbiturates Screen,Urine Negative ng/ml (<200); Benzodiazepines Screen,Urine Negative ng/ml (<200)
[2021-12-28 16:12] LABS: Cannabinoid Screen,Urine Negative ng/ml (<50)
[2021-12-28 16:13] LABS: Cocaine Screen,Urine Negative ng/ml (<300); Methadone Screen,Urine Negative ng/ml (<300)
[2021-12-28 16:14] LABS: Opiate Screen,Urine Positive ng/ml (<300)
[2021-12-28 16:16] LABS: Phencyclidine Screen,Urine Negative ng/ml (<25)
== END ==
PROVIDERS: PCP Physician Assistant; Visit Provider Physician Assistant
DX: M79.7 Fibromyalgia (principal)
CPT/HCPCS: 80305

== ENCOUNTER → 2022-04-27 14:20 | Outpatient (CLI) | payer MEDICARE, OTHER, SELFPAY ==
[2022-04-27 14:30] LABS: Barbiturates Screen,Urine Negative ng/ml (<200)
[2022-04-27 14:31] LABS: Amphetamine/Metha Screen,Urine Negative ng/ml (<1000); Benzodiazepines Screen,Urine Negative ng/ml (<200)
[2022-04-27 14:32] LABS: Methadone Screen,Urine Negative ng/ml (<300)
[2022-04-27 14:33] LABS: Cannabinoid Screen,Urine Negative ng/ml (<50); Cocaine Screen,Urine Negative ng/ml (<300)
[2022-04-27 14:34] LABS: Opiate Screen,Urine Positive ng/ml (<300)
[2022-04-27 14:35] LABS: Phencyclidine Screen,Urine Negative ng/ml (<25)
[2022-04-27 15:13] LABS: Microalbumin/Creatinine Ratio 8.9
[2022-04-27 15:17] LABS: Basophils # 0.1 K/mm3 (0-0.2); Basophils % 0.7 % (0.1-2.0); Eosinophils # 0.1 K/mm3 (0.0-0.4); Eosinophils % 1.5 % (0.1-12.0); Hematocrit 35.4 % (37.0-47.0); Hemoglobin 11.8 g/dL (12.2-16.2); Lymphocytes # 2.4 K/mm3 (0.7-4.5); Lymphocytes % 27.5 % (10-50); Mean Corpuscular HGB Conc 33.4 g/dL (31.8-35.4); Mean Corpuscular Volume 89.8 fl (81-99); Mean Platelet Volume 8.3 fl (7.4-10.4); Monocytes # 0.6 K/mm3 (0.1-1.0); Monocytes % 6.3 % (1.7-9.3); Neutrophils # 5.6 K/mm3 (1.8-7.8); Platelet Count 430 K/mm3 (142-424); Red Blood Count 3.94 M/mm3 (4.20-5.40); Red Cell Distribution Width 12.9 % (11.5-17.5); White Blood Count 8.7 K/mm3 (4.8-10.8)
[2022-04-27 15:19] LABS: Creatinine,Urine Random 73 mg/dL (Not Estab.)
[2022-04-27 16:41] LABS: Alanine Aminotransferase 24 U/L (12-78); Albumin Level 4.6 g/dl (3.5-5.0); Albumin/Globulin Ratio 1.9 (1.1-1.8); Alkaline Phosphatase 101 U/L (38-126); Anion Gap 15.5 mEq/L (5-15); Aspartate Amino Transferase 33 U/L (14-36); Bilirubin,Total 0.4 mg/dl (0.2-1.3); Blood Urea Nitrogen 17 mg/dl (7-17); Calcium 9.9 mg/dl (8.4-10.2); Carbon Dioxide 26 mmol/L (22.0-30.0); Chloride 93 mmol/L (98-107); Chol/HDL Ratio 4.5 (1-3.5); Cholesterol 179 mg/dl (140-200); Estimated Glomerular Filt Rate 61 ml/min (>60); GFR (African American) 74 ML/MIN (>60); Globulin 2.4 g/dL (1.3-3.2); Glucose 80 mg/dl (74-100); HDL Cholesterol 40 mg/dl (40-60); Potassium 5.5 mmoL/L (3.5-5.1); Sodium 129 mmol/L (136-145); Triglycerides 268 mg/dl (30-150); VLDL Cholesterol 54 mg/dL (0-40)
[2022-04-27 16:51] LABS: Direct LDL Cholesterol 88.18 mg/dL (100-129)
[2022-04-27 17:11] LABS: Thyroid Stimulating Hormone 1.41 uIU/mL (0.465-4.68)
[2022-04-27 19:55] LABS: Hemoglobin A1C 6.1 % (4.0-6.0)
== END ==
PROVIDERS: PCP Physician Assistant; Visit Provider Physician Assistant
DX: G89.4 Chronic pain syndrome; E11.69 Type 2 diabetes mellitus with other specified complication; J45.40 Moderate persistent asthma, uncomplicated
CPT/HCPCS: 80053; 80061; 80305; 82043; 82570; 83036; 84443; 85025

== ENCOUNTER → 2022-04-29 14:36 | Outpatient (CLI) | payer MEDICARE, OTHER, SELFPAY ==
[2022-04-29 14:56] LABS: Anion Gap 15.7 mEq/L (5-15); Blood Urea Nitrogen 17 mg/dl (7-17); Calcium 9.7 mg/dl (8.4-10.2); Carbon Dioxide 26 mmol/L (22.0-30.0); Chloride 92 mmol/L (98-107); Estimated Glomerular Filt Rate 70 ml/min (>60); GFR (African American) 85 ML/MIN (>60); Glucose 87 mg/dl (74-100); Potassium 5.7 mmoL/L (3.5-5.1); Sodium 128 mmol/L (136-145)
== END ==
PROVIDERS: PCP Physician Assistant; Visit Provider Physician Assistant
DX: E87.5 Hyperkalemia (principal)
CPT/HCPCS: 80048

== ENCOUNTER → 2022-05-27 09:17 | Outpatient (CLI) | payer MEDICARE, OTHER, SELFPAY | PROVIDERS: PCP Student in an Organized Health Care Education/Training Program; Visit Provider Student in an Organized Health Care Education/Training Program | DX: U07.1 COVID-19 | CPT/HCPCS: C9803; U0003; U0005 ==

== ENCOUNTER → 2022-06-27 10:32 | Outpatient (CLI) | payer MEDICARE, OTHER, SELFPAY ==
[2022-06-27 16:20] LABS: Barbiturates Screen,Urine Negative ng/ml (<200)
[2022-06-27 16:22] LABS: Cannabinoid Screen,Urine Negative ng/ml (<50); Cocaine Screen,Urine Negative ng/ml (<300)
[2022-06-27 16:32] LABS: Benzodiazepines Screen,Urine Negative ng/ml (<200)
[2022-06-27 16:35] LABS: Methadone Screen,Urine Negative ng/ml (<300)
[2022-06-27 16:38] LABS: Opiate Screen,Urine Positive ng/ml (<300)
[2022-06-27 16:39] LABS: Phencyclidine Screen,Urine Negative ng/ml (<25)
[2022-06-29 18:49] LABS: Amphetamine/Metha Screen,Urine Negative ng/ml (<1000)
== END ==
PROVIDERS: PCP Physician Assistant; Visit Provider Physician Assistant
DX: G89.4 Chronic pain syndrome (principal)
CPT/HCPCS: 80305

== ENCOUNTER → 2022-10-05 23:07 | Outpatient (CLI) | payer MEDICARE, OTHER, SELFPAY ==
[2022-10-05 22:03] LABS: Amphetamine/Metha Screen,Urine Negative ng/ml (<1000); Barbiturates Screen,Urine Negative ng/ml (<200)
[2022-10-05 22:04] LABS: Benzodiazepines Screen,Urine Negative ng/ml (<200)
[2022-10-05 22:05] LABS: Cannabinoid Screen,Urine Negative ng/ml (<50); Cocaine Screen,Urine Negative ng/ml (<300)
[2022-10-05 22:06] LABS: Methadone Screen,Urine Negative ng/ml (<300)
[2022-10-05 22:07] LABS: Opiate Screen,Urine Positive ng/ml (<300); Phencyclidine Screen,Urine Negative ng/ml (<25)
== END ==
PROVIDERS: PCP Physician Assistant; Visit Provider Physician Assistant
DX: G89.4 Chronic pain syndrome (principal)
CPT/HCPCS: 80305

== ENCOUNTER → 2022-10-24 08:00 | Outpatient (CLI) | payer MEDICARE, OTHER, SELFPAY ==
--- NOTE | 2022-10-24 08:09 | XR_ITS ---
FINAL REPORT CLINICAL HISTORY: Foot Pain COMPARISON: None FINDINGS: AP, oblique and lateral views of the right foot were obtained. There is no prior exam for comparison. There is no acute fracture or dislocation. Soft tissues are normal. There is a hallux valgus deformity of the 1st metatarsophalangeal joint present. In addition there is lateral subluxation of the 3rd distal interphalangeal joint. Multi joint degenerative change is present most prominent in the midfoot. IMPRESSION: No acute osseous abnormality of the right foot. Hallux valgus deformity and lateral subluxation of the 3rd distal interphalangeal joint. Multilevel degenerative change most prominently in the midfoot. Reviewed, Interpreted and Dictated by Swathi Frye MD Transcribed by Josefina Chiang Authenticated and [facility]
--- NOTE | 2022-10-24 08:09 | XR_ITS ---
FINAL REPORT CLINICAL HISTORY: Foot Pain COMPARISON: None FINDINGS: AP, oblique and lateral views of the left foot were obtained. There is no prior exam for comparison. There is no acute fracture or dislocation. Soft tissues are normal. There is a hallux valgus deformity of the 1st metatarsophalangeal joint. There is multilevel joint degenerative change most prominent at the 1st metatarsophalangeal joint and midfoot. IMPRESSION: No acute osseous abnormality of the left foot. Hallux valgus deformity of the 1st metatarsophalangeal joint and multi joint degenerative change of the 1st metatarsophalangeal joint and midfoot. Reviewed, Interpreted and Dictated by Swathi Frye MD Transcribed by Josefina Chiang Authenticated and [facility]
== END ==
PROVIDERS: PCP Emergency Medicine; Visit Provider Podiatrist
DX: M20.41 Other hammer toe(s) (acquired), right foot (principal); M20.42 Other hammer toe(s) (acquired), left foot
CPT/HCPCS: 73630

== ENCOUNTER → 2022-11-30 12:43 | Outpatient (CLI) | payer MEDICARE, OTHER, SELFPAY ==
[2022-11-30 13:07] LABS: Microalbumin/Creatinine Ratio 5.1
[2022-11-30 13:13] LABS: Creatinine,Urine Random 145 mg/dL (Not Estab.)
== END ==
PROVIDERS: PCP Physician Assistant; Visit Provider Physician Assistant
DX: E11.9 Type 2 diabetes mellitus without complications (principal); Z79.84 Long term (current) use of oral hypoglycemic drugs
CPT/HCPCS: 82043; 82570

== ENCOUNTER 2023-03-21 14:13 | Outpatient (CLI) | payer MEDICARE, OTHER, SELFPAY ==
[2023-03-21 14:31] VITALS: BP 91/46; PULSE 71; RESP 18; TEMP 36.8; O2SAT 96
[2023-03-21 15:30] VITALS: BP 101/64; PULSE 78; O2SAT 96
== END 2023-03-21 15:35 | disposition home or self-care (01) ==
LOC: INF 14:14
PROVIDERS: PCP Physician Assistant; Visit Provider Physician Assistant
DX: E86.0 Dehydration (principal)
CPT/HCPCS: 96360

== ENCOUNTER → 2023-03-21 14:43 | Outpatient (CLI) | payer MEDICARE, OTHER, SELFPAY ==
[2023-03-21 12:02] LABS: Basophils % 0.2 % (0.1-2.0); Eosinophils % 0.4 % (0.1-12.0); Hematocrit 33.4 % (37.0-47.0); Hemoglobin 11.9 g/dL (12.2-16.2); Lymphocytes % 20.5 % (10-50); Mean Corpuscular HGB Conc 35.6 g/dL (31.8-35.4); Mean Platelet Volume 7.6 fl (7.4-10.4); Monocytes # 0.6 K/mm3 (0.1-1.0); Monocytes % 6.3 % (1.7-9.3); Neutrophils % 72.6 % (37.0-80.0); Platelet Count 481 K/mm3 (142-424); Red Blood Count 3.84 M/mm3 (4.20-5.40); Red Cell Distribution Width 13.2 % (11.5-17.5); White Blood Count 9.7 K/mm3 (4.8-10.8)
[2023-03-21 12:17] LABS: Alanine Aminotransferase 21 U/L (12-78); Albumin Level 4.6 g/dl (3.5-5.0); Albumin/Globulin Ratio 1.8 (1.1-1.8); Alkaline Phosphatase 74 U/L (38-126); Anion Gap 15.1 mEq/L (5-15); Aspartate Amino Transferase 33 U/L (14-36); Bilirubin,Total 0.4 mg/dl (0.2-1.3); Blood Urea Nitrogen 13 mg/dl (7-17); Calcium 9.6 mg/dl (8.4-10.2); Carbon Dioxide 26 mmol/L (22.0-30.0); Chloride 89 mmol/L (98-107); Chol/HDL Ratio 3.5 (1-3.5); Cholesterol 145 mg/dl (140-200); Estimated Glomerular Filt Rate 61 ml/min (>60); GFR (African American) 74 ML/MIN (>60); Globulin 2.5 g/dL (1.3-3.2); Glucose 101 mg/dl (74-100); HDL Cholesterol 42 mg/dl (40-60); Potassium 4.1 mmoL/L (3.5-5.1); Sodium 126 mmol/L (136-145); Total Protein,Serum 7.1 g/dl (6.3-8.2); Triglycerides 240 mg/dl (30-150); VLDL Cholesterol 48 mg/dL (0-40)
[2023-03-21 12:29] LABS: Direct LDL Cholesterol 62.57 mg/dL (100-129)
[2023-03-21 12:34] LABS: 25-OH Vitamin D, Total 87.2 ng/mL (30-100)
[2023-03-21 12:49] LABS: Thyroid Stimulating Hormone 0.94 uIU/mL (0.465-4.68)
[2023-03-21 14:58] LABS: Hemoglobin A1C 6.1 % (4.0-6.0)
== END ==
PROVIDERS: PCP Physician Assistant; Visit Provider Physician Assistant
DX: J45.40 Moderate persistent asthma, uncomplicated; E11.69 Type 2 diabetes mellitus with other specified complication; E55.9 Vitamin D deficiency, unspecified; E86.0 Dehydration; Z79.84 Long term (current) use of oral hypoglycemic drugs
CPT/HCPCS: 80053; 80061; 82306; 83036; 84443; 85025; 96360

== ENCOUNTER → 2023-03-23 07:38 | Outpatient (CLI) | payer MEDICARE, OTHER, SELFPAY ==
[2023-03-23 09:47] LABS: Anion Gap 16.4 mEq/L (5-15); Blood Urea Nitrogen 10 mg/dl (7-17); Calcium 9.4 mg/dl (8.4-10.2); Carbon Dioxide 26 mmol/L (22.0-30.0); Chloride 90 mmol/L (98-107); Estimated Glomerular Filt Rate 82 ml/min (>60); GFR (African American) 99 ML/MIN (>60); Glucose 116 mg/dl (74-100); Potassium 4.4 mmoL/L (3.5-5.1); Sodium 128 mmol/L (136-145)
== END ==
PROVIDERS: PCP Emergency Medicine; Visit Provider Physician Assistant
DX: E86.0 Dehydration (principal)
CPT/HCPCS: 36415; 80048

== ENCOUNTER → 2023-03-27 07:16 | Outpatient (CLI) | payer MEDICARE, OTHER, SELFPAY ==
[2023-03-27 08:35] LABS: Alanine Aminotransferase 21 U/L (12-78); Albumin Level 4.3 g/dl (3.5-5.0); Albumin/Globulin Ratio 1.7 (1.1-1.8); Alkaline Phosphatase 68 U/L (38-126); Anion Gap 15.8 mEq/L (5-15); Aspartate Amino Transferase 31 U/L (14-36); Bilirubin,Total 0.4 mg/dl (0.2-1.3); Blood Urea Nitrogen 11 mg/dl (7-17); Calcium 9.6 mg/dl (8.4-10.2); Carbon Dioxide 24 mmol/L (22.0-30.0); Chloride 98 mmol/L (98-107); Estimated Glomerular Filt Rate 70 ml/min (>60); GFR (African American) 85 ML/MIN (>60); Globulin 2.5 g/dL (1.3-3.2); Glucose 110 mg/dl (74-100); Potassium 4.8 mmoL/L (3.5-5.1); Sodium 133 mmol/L (136-145); Total Protein,Serum 6.8 g/dl (6.3-8.2)
== END ==
PROVIDERS: PCP Physician Assistant; Visit Provider Physician Assistant
DX: E87.1 Hypo-osmolality and hyponatremia (principal)
CPT/HCPCS: 36415; 80053

== ENCOUNTER → 2023-04-24 14:52 | Outpatient (CLI) | payer MEDICARE, OTHER, SELFPAY ==
[2023-04-24 15:08] LABS: Amphetamine/Metha Screen,Urine Negative ng/ml (<1000); Barbiturates Screen,Urine Negative ng/ml (<200)
[2023-04-24 15:09] LABS: Benzodiazepines Screen,Urine Negative ng/ml (<200); Cannabinoid Screen,Urine Negative ng/ml (<50)
[2023-04-24 15:10] LABS: Cocaine Screen,Urine Negative ng/ml (<300)
[2023-04-24 15:11] LABS: Methadone Screen,Urine Negative ng/ml (<300); Opiate Screen,Urine Negative ng/ml (<300)
[2023-04-24 15:12] LABS: Phencyclidine Screen,Urine Negative ng/ml (<25)
== END ==
PROVIDERS: PCP Physician Assistant; Visit Provider Family Medicine
DX: G89.4 Chronic pain syndrome (principal); Z79.899 Other long term (current) drug therapy
CPT/HCPCS: 80305

== ENCOUNTER 2023-05-07 17:58 | Emergency (ER) | payer MEDICARE, OTHER, SELFPAY ==
[2023-05-07 18:10] VITALS: BP 153/76; PULSE 70; RESP 20; TEMP 36.6; O2SAT 97; BMI 26.9
--- NOTE | 2023-05-07 18:15 | EXP.UTC ---
Discharge Plan Disposition Patient Disposition: Still a Patient Condition: Fair Prescriptions Prescriptions: No Action albuterol sulfate 90 mcg/actuation HFA aerosol inhaler 1 inh INHALATION Q6H PRN (Reason: shortness of breath or wheezing) 90 Days Qty: 8.5 3RF ipratropium bromide 42 mcg (0.06 %) spray,non-aerosol 2 spray INTRANASAL BID Qty: 15 3RF Rx Instructions: administer into each nostril ipratropium-albuterol 0.5 mg-3 mg(2.5 mg base)/3 mL solution for nebulization 3 ml INHALATION QID PRN (Reason: shortness of breath or wheezing) 90 Days Qty: 270 3RF Linzess 145 mcg capsule 145 mcg PO DAILY Qty: 90 1RF Arexvy (PF) 120 mcg/0.5 mL suspension for reconstitution 0.5 ml IM ONCE Qty: 1 0RF cyclobenzaprine 10 mg tablet 10 mg PO Q8H Qty: 90 2RF hydrochlorothiazide 25 mg tablet See Rx Instructions .ROUTE .COMPLEX Qty: 90 3RF Dose Instruction: TAKE ONE TABLET BY MOUTH EVERY DAY IN THE MORNING Rx Instructions: TAKE ONE TABLET BY MOUTH EVERY DAY IN THE MORNING metoprolol succinate 25 mg tablet extended release 24 hr See Rx Instructions .ROUTE .COMPLEX Qty: 90 3RF Dose Instruction: TAKE ONE TABLET BY MOUTH EVERY DAY Rx Instructions: TAKE ONE TABLET BY MOUTH EVERY DAY losartan 50 mg tablet See Rx Instructions .ROUTE .COMPLEX Qty: 90 3RF Dose Instruction: TAKE ONE TABLET BY MOUTH EVERY DAY Rx Instructions: TAKE ONE TABLET BY MOUTH EVERY DAY Nucala 100 mg recon soln 100 mg SQ ergocalciferol (vitamin D2) 1,250 mcg (50,000 unit) capsule See Rx Instructions .ROUTE .COMPLEX Qty: 14 5RF Dose Instruction: TAKE ONE CAPSULE BY MOUTH ONCE A WEEK Rx Instructions: TAKE ONE CAPSULE BY MOUTH ONCE A WEEK ferrous sulfate [FeroSul] 325 mg (65 mg iron) tablet See Rx Instructions .ROUTE .COMPLEX Qty: 90 2RF Dose Instruction: TAKE ONE TABLET BY MOUTH TWICE DAILY Rx Instructions: TAKE ONE TABLET BY MOUTH TWICE DAILY triamcinolone acetonide 55 mcg aerosol,spray 2 spray NS DAILY Qty: 16.9 5RF azelastine 137 mcg (0.1 %) aerosol,spray 2 spray intranasal DAILY Qty: 30 5RF ketotifen fumarate 0.025 % (0.035 %) drops 1 drp Eye-Both BID Qty: 5 0RF diclofenac sodium [Voltaren Arthritis Pain] 1 % gel 2 g topical QID Qty: 100 5RF Rx Instructions: apply to single elbow, wrist or hand; for hand includes palm/fingers/back of hand gabapentin 300 mg capsule 300 mg PO TID Qty: 90 1RF atorvastatin 40 mg tablet 40 mg PO DAILY Qty: 90 3RF metformin 500 mg tablet extended release 24 hr See Rx Instructions .ROUTE .COMPLEX Qty: 90 3RF Dose Instruction: TAKE ONE TABLET BY MOUTH EVERY DAY Rx Instructions: TAKE ONE TABLET BY MOUTH EVERY DAY diclofenac sodium 75 mg tablet,delayed release (DR/EC) See Rx Instructions .ROUTE .COMPLEX Qty: 180 5RF Dose Instruction: TAKE ONE TABLET BY MOUTH TWICE DAILY --TAKE WITH FOOD-- Rx Instructions: TAKE ONE TABLET BY MOUTH TWICE DAILY --TAKE WITH FOOD-- trazodone 100 mg tablet See Rx Instructions .ROUTE .COMPLEX Qty: 90 3RF Dose Instruction: TAKE ONE TABLET BY MOUTH EVERY DAY AT BEDTIME Rx Instructions: TAKE ONE TABLET BY MOUTH EVERY DAY AT BEDTIME duloxetine 60 mg capsule,delayed release(DR/EC) See Rx Instructions .ROUTE .COMPLEX Qty: 180 3RF Dose Instruction: TAKE ONE CAPSULE BY MOUTH TWICE DAILY Rx Instructions: TAKE ONE CAPSULE BY MOUTH TWICE DAILY (DME) lancets [OneTouch Delica Plus Lancet] 30 gauge misc See Rx Instructions .ROUTE .COMPLEX Qty: 100 2RF Dose Instruction: USE TO test blood sugar TWICE DAILY Rx Instructions: USE TO test blood sugar TWICE DAILY fluticasone propion-salmeterol [Advair HFA] 230-21 mcg/actuation HFA aerosol inhaler 2 puff IH BID 90 Days Qty: 12 3RF montelukast 10 mg tablet 10 mg PO PM Qty: 90 3RF oxybutynin chloride 5 mg tabl
--- NOTE | 2023-05-07 18:45 | PC.NURSE ---
PATIENT SENT TO ER PER Ruben YOUNG APRN FOR FURTHER EVALUATION. PATIENT TRANSPORTED TO ER VIA WHEELCHAIR WITH [facility] STAFF ASSIST. FAMILY AT BEDSIDE
--- NOTE | 2023-05-07 18:58 | ECG_ITS ---
APPROVED REPORT Exam: Resting ECG HR:69 bpm ECG Measurements Heart Rate 69 AXES ME 151 P 38 QRSd 82 QRS -22 QT 381 T 14 QTc 401 Conclusion SINUS RHYTHM LOW QRS VOLTAGE IN PRECORDIAL LEADS [QRS DEFLECTION < 1.0 mV IN CHEST LEADS] POSSIBLE ANTERIOR MYOCARDIAL INFARCTION , PROBABLY OLD [30 ms Q WAVE IN V3/V4, OR R < 0.2 mV IN V4] INFERIOR MYOCARDIAL INFARCTION , PROBABLY OLD [40+ ms Q WAVE AND/OR ST/T ABNORMALITY IN II/aVF] ABNORMAL ECG UNCONFIRMED REPORT Electronically signed by : Raphael Brooks MD 05/08/2023 14:45:34
[2023-05-07 19:06] VITALS: BP 178/75; PULSE 79; RESP 19; TEMP 37.5; O2SAT 98; BMI 25.2
[2023-05-07 19:27] LABS: Chloride 94 mmol/L (98-107); Sodium 129 mmol/L (136-145)
[2023-05-07 19:28] LABS: Potassium 4.4 mmoL/L (3.5-5.1)
[2023-05-07 19:30] LABS: Alanine Aminotransferase 23 U/L (12-78); Albumin Level 4.8 g/dl (3.5-5.0); Albumin/Globulin Ratio 1.7 (1.1-1.8); Alkaline Phosphatase 82 U/L (38-126); Anion Gap 14.4 mEq/L (5-15); Aspartate Amino Transferase 36 U/L (14-36); Bilirubin,Total 0.4 mg/dl (0.2-1.3); Blood Urea Nitrogen 17 mg/dl (7-17); Calcium 9.4 mg/dl (8.4-10.2); Carbon Dioxide 25 mmol/L (22.0-30.0); Creatinine Clearance Estimated 49 mL/min (50-200); Estimated Glomerular Filt Rate 61 ml/min (>60); GFR (African American) 74 ML/MIN (>60); Globulin 2.8 g/dL (1.3-3.2); Glucose 110 mg/dl (74-100); Total Protein,Serum 7.6 g/dl (6.3-8.2)
--- NOTE | 2023-05-07 19:55 | HMH.EDGENADL ---
Discharge Plan Disposition Patient Disposition: Home, Self-Care Condition: Fair Prescriptions Prescriptions: New prednisone 20 mg tablet 40 mg PO BID 5 Days Qty: 20 0RF methocarbamol 750 mg tablet 1,500 mg PO TID 5 Days Qty: 30 0RF No Action albuterol sulfate 90 mcg/actuation HFA aerosol inhaler 1 inh INHALATION Q6H PRN (Reason: shortness of breath or wheezing) 90 Days Qty: 8.5 3RF ipratropium bromide 42 mcg (0.06 %) spray,non-aerosol 2 spray INTRANASAL BID Qty: 15 3RF Rx Instructions: administer into each nostril ipratropium-albuterol 0.5 mg-3 mg(2.5 mg base)/3 mL solution for nebulization 3 ml INHALATION QID PRN (Reason: shortness of breath or wheezing) 90 Days Qty: 270 3RF Linzess 145 mcg capsule 145 mcg PO DAILY Qty: 90 1RF Arexvy (PF) 120 mcg/0.5 mL suspension for reconstitution 0.5 ml IM ONCE Qty: 1 0RF cyclobenzaprine 10 mg tablet 10 mg PO Q8H Qty: 90 2RF hydrochlorothiazide 25 mg tablet See Rx Instructions .ROUTE .COMPLEX Qty: 90 3RF Dose Instruction: TAKE ONE TABLET BY MOUTH EVERY DAY IN THE MORNING Rx Instructions: TAKE ONE TABLET BY MOUTH EVERY DAY IN THE MORNING metoprolol succinate 25 mg tablet extended release 24 hr See Rx Instructions .ROUTE .COMPLEX Qty: 90 3RF Dose Instruction: TAKE ONE TABLET BY MOUTH EVERY DAY Rx Instructions: TAKE ONE TABLET BY MOUTH EVERY DAY losartan 50 mg tablet See Rx Instructions .ROUTE .COMPLEX Qty: 90 3RF Dose Instruction: TAKE ONE TABLET BY MOUTH EVERY DAY Rx Instructions: TAKE ONE TABLET BY MOUTH EVERY DAY Nucala 100 mg recon soln 100 mg SQ ergocalciferol (vitamin D2) 1,250 mcg (50,000 unit) capsule See Rx Instructions .ROUTE .COMPLEX Qty: 14 5RF Dose Instruction: TAKE ONE CAPSULE BY MOUTH ONCE A WEEK Rx Instructions: TAKE ONE CAPSULE BY MOUTH ONCE A WEEK ferrous sulfate [FeroSul] 325 mg (65 mg iron) tablet See Rx Instructions .ROUTE .COMPLEX Qty: 90 2RF Dose Instruction: TAKE ONE TABLET BY MOUTH TWICE DAILY Rx Instructions: TAKE ONE TABLET BY MOUTH TWICE DAILY triamcinolone acetonide 55 mcg aerosol,spray 2 spray NS DAILY Qty: 16.9 5RF azelastine 137 mcg (0.1 %) aerosol,spray 2 spray intranasal DAILY Qty: 30 5RF ketotifen fumarate 0.025 % (0.035 %) drops 1 drp Eye-Both BID Qty: 5 0RF diclofenac sodium [Voltaren Arthritis Pain] 1 % gel 2 g topical QID Qty: 100 5RF Rx Instructions: apply to single elbow, wrist or hand; for hand includes palm/fingers/back of hand gabapentin 300 mg capsule 300 mg PO TID Qty: 90 1RF atorvastatin 40 mg tablet 40 mg PO DAILY Qty: 90 3RF metformin 500 mg tablet extended release 24 hr See Rx Instructions .ROUTE .COMPLEX Qty: 90 3RF Dose Instruction: TAKE ONE TABLET BY MOUTH EVERY DAY Rx Instructions: TAKE ONE TABLET BY MOUTH EVERY DAY diclofenac sodium 75 mg tablet,delayed release (DR/EC) See Rx Instructions .ROUTE .COMPLEX Qty: 180 5RF Dose Instruction: TAKE ONE TABLET BY MOUTH TWICE DAILY --TAKE WITH FOOD-- Rx Instructions: TAKE ONE TABLET BY MOUTH TWICE DAILY --TAKE WITH FOOD-- trazodone 100 mg tablet See Rx Instructions .ROUTE .COMPLEX Qty: 90 3RF Dose Instruction: TAKE ONE TABLET BY MOUTH EVERY DAY AT BEDTIME Rx Instructions: TAKE ONE TABLET BY MOUTH EVERY DAY AT BEDTIME duloxetine 60 mg capsule,delayed release(DR/EC) See Rx Instructions .ROUTE .COMPLEX Qty: 180 3RF Dose Instruction: TAKE ONE CAPSULE BY MOUTH TWICE DAILY Rx Instructions: TAKE ONE CAPSULE BY MOUTH TWICE DAILY (DME) lancets [OneTouch Delica Plus Lancet] 30 gauge misc See Rx Instructions .ROUTE .COMPLEX Qty: 100 2RF Dose Instruction: USE TO test blood sugar TWICE DAILY Rx Instructions: USE TO test blood sugar TWICE DAILY fluticasone propion-salmeterol [Advair HFA] 230-21 mcg/actuation HFA ae
[2023-05-07 20:38] VITALS: BP 159/77; PULSE 58; RESP 17; TEMP 36.6; O2SAT 97
== END 2023-05-07 20:39 | disposition home or self-care (01) ==
LOC: UTC 18:02 → ER 18:52
PROVIDERS: Emergency Medicine; Emergency Provider Nurse Practitioner Family; PCP Physician Assistant
DX: M54.2 Cervicalgia (principal); M25.512 Pain in left shoulder; J45.909 Unspecified asthma, uncomplicated; E11.9 Type 2 diabetes mellitus without complications; I10 Essential (primary) hypertension; E78.5 Hyperlipidemia, unspecified
CPT/HCPCS: 80053; 93005; 96361; 96374; 99284; J3475

== ENCOUNTER 2023-05-23 13:46 | Outpatient (CLI) | payer MEDICARE, OTHER, SELFPAY ==
[2023-05-23 17:22] LABS: Amphetamine/Metha Screen,Urine Negative ng/ml (<1000); Barbiturates Screen,Urine Negative ng/ml (<200); Benzodiazepines Screen,Urine Negative ng/ml (<200); Cannabinoid Screen,Urine Negative ng/ml (<50); Cocaine Screen,Urine Negative ng/ml (<300); Methadone Screen,Urine Negative ng/ml (<300); Opiate Screen,Urine Negative ng/ml (<300); Phencyclidine Screen,Urine Negative ng/ml (<25)
== END 2023-05-23 23:59 ==
LOC: LAB.DROPOF 13:47
PROVIDERS: PCP Physician Assistant; Visit Provider Physician Assistant
DX: G89.4 Chronic pain syndrome (principal)
CPT/HCPCS: 80307

== ENCOUNTER 2023-06-26 08:00 | Outpatient (RCR) | payer MEDICARE, OTHER, SELFPAY ==
--- NOTE | 2023-06-19 16:26 | HMH.PTOPEV ---
PT Outpatient Evaluation Rehab PT Outpatient Evaluation Start: 06/19/23 16:04 Freq: Status: Active Protocol: Document 06/19/23 16:07 FILIPE (Rec: 06/19/23 16:26 FILIPE [id number]) E-signed By Pk Woodson, PT Outpatient Therapy Subjective History Subjective History This is the initial PT eval for Shaunna Flynn, 72 yowf who presents with c/o chronic neck pain and new onset of L anterior elbow pain x 2-3 mos. She is unable to localize her neck pain and describes it as being on both sides. She localizes her L albow pain to the distal biceps tendon. She also reports intermittne numbness in B hands for some time, I shake them a lot and it goes away. 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 New diagnosis of cancer in past 12 No months? Chief Complaint Pain,Stiff Symptom Type Ache,Sharp Symptoms Relieved By Rest/Positioning,Heat,Ice,OTC Meds Symptoms Aggravated By Physical Activity,Lifting Prior Functional Limitations None Current Functional Limitations Lifting,Housework Symptom Description Constant but Variable Level of pain today (0-10) 3 Pain scale - at its worst (0-10) 10 Cervical Eval Palpation Cervical Muscles R Cervical Paraspinal,L Cervical Paraspinal,R Upper Trapezius,L Upper Trapezius Cervical/Thoracic Palpation Findings Tenderness Flexibility Deficits Upper Trapezius Muscle Length (R) Moderate Tightness,(L) Moderate Tightness Levaetor Scapulae Muscle Length (R) Mild Tightness,(L) Mild Tightness Pectoralis Minor Muscle Length (R) Mild Tightness,(L) Mild Tightness Passive Joint Mobility Cervical PIVM Dec: R C4/5 L C4/5 R C5/6 L C5/6 R C6/7 L C6/7 R C7/T1 L C7/T1 WNL: R OA L OA R AA L AA R C2/3 L C2/3 R C3/4 L C3/4 AROM Cervical Spine Extension Active Range of 0-60 Motion (degrees) Cervical Spine Flexion Active Range of 0-35 Motion (degrees) Cervical Spine Right Lateral Flexion 0-25 Active Range of Motion (degrees) Cervical Spine Left Lateral Flexion 0-25 Active Range of Motion (degrees) Cervical Spine Right Rotation Active 0-50 Range of Motion (degrees) Cervical Spine Left Rotation Active 0-50 Range of Motion (degrees) MMT Bilateral Deltoid (C5) 4 Good Biceps Brachii Strength Grade 3+ Fair+ Wrist Extension Strength Grade 4 Good Triceps Brachii Strength Grade 3+ Fair+ Wrist Flexion Strength Grade 4 Good Extensor Pollicis Longus Strength Grade 4 Good Finger Abduction Strength Grade 4 Good Special Test C-Spine Foraminal Compression (Spurling) Negative Left,Negative Right Test C-Spine Foraminal Distraction Test Positive C-Spine Compression Test Negative Left,Negative Right Shoulder/Elbow Eval Shoulder Objective Measurements Elbow Objective Measurements Elbow ROM Left Elbow Extension Active Range of Motion ( -15 degrees) Elbow Flexion Active Range of Motion ( 15-145 degrees) Neck Disability Index Neck Disability Index Section 1: Pain Intensity The pain is fairly severe at the moment Section 2: Personal Care (washing, It is painful to look after dressing, etc.) myself and I am slow and careful Section 3: Lifting I can only lift very light weights Section 4: Reading I can't read as much as I want because of moderate pain in my neck Section 5: Headaches I have moderate headaches, which come infrequently Section 6: Concentration I can concentrate fully when I want to with slight difficulty Section 7: Work I can do most of my usual work , but no more Section 8: Driving I can drive my car as long as I want with moderate pain in my neck Section 9: Sleeping My sleep is midly disturbed (1 -2 hrs sleepless) Section 10: Recreation I am able to engage in a few of my usual recreation activities because NDI Score 24 Outpatient Therapy Assessment Impairments Problems/Impairmments Palpation Tenderness,Impaired Range of Motion,Impaired Strength,Impaired Endurance, Impaired Lifting,Impaired Shower/Bathing,Impaired Household Care,Impaired Recreational Activities, Subjective C/O Pain,Impaired Self Care/Self Management Prognosis Rehab Potential Fair Clinical Impression Consistent with Diagnosis Yes Short Term Goals Number of Weeks 2 Decreased Palpation Tenderness Yes: 1 B UT, L Bicep Increase Range of Motion Yes: L elbow ext by 5 deg Increase Strength Yes: B UE 4/5 throughout Improve Neck Disability Index Score Yes: <21 Decrease Subjective C/O Pain Yes: 07/01 Patient to be Ind w/ 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 Number of Weeks 4 Decreased Palpation Tenderness Yes: 0/ B UT, L Bicep Increase Range of Motion Yes: L elbow ext by 10 deg Increase Strength Yes: B UE 4+/5 throughout Increase Ability to Drive/Ride in Car Yes Improve Ability For Household Care Yes: without pain Improve Neck Disability Index Score Yes: <18 Decrease Subjective C/O Pain Yes: 05/31 Patient to be Ind w/ Advanced HEP Yes Outpatient Therapy Plan of Care Treatment Plan May Include Therapeutic Exercise Including Home Yes Exercise Program Manual Therapy Techniques Yes Neuromuscular Re-education Yes Therapeutic Activities to Return to Yes Previous Functional/Work Level ADL/Self Care Education Yes Thermal Modalities Yes Electrical Stimulation Yes Ultrasound/Phonophoresis Yes Orthotics/Bracing/Splinting Yes Massage Yes Eval/Re-Eval Yes Frequency Times per week 2 Duration Number of Weeks 4 Addendums This patient is a candidate for social No or vocational rehab? Patient/Guardian verbally acknowledges Yes understanding of treatment program and consents to further treatment? Patient/Guardian verbally acknowledges Yes understanding of diagnosis, prognosis and goals for treatment? Eval Complexity PT Charges 23484 - High Complexity PHYSICIAN CERTIFICATION: I certify the specified therapy services for Shaunna Flynn are required, authorized, and reviewed every 30 days.
== END 2023-06-26 09:00 | disposition home or self-care (01) ==
LOC: PT 08:00
PROVIDERS: PCP Physician Assistant; Visit Provider Physician Assistant
DX: M54.2 Cervicalgia (principal); M79.602 Pain in left arm; G58.9 Mononeuropathy, unspecified
CPT/HCPCS: 97010; 97014; 97035; 97110; 97140; 97163; G0283

== ENCOUNTER 2024-01-24 18:51 | Outpatient (CLI) | payer MEDICARE, OTHER, SELFPAY ==
[2024-01-24 19:06] LABS: Basophils % 0.6 % (0.1-2.0); Eosinophils # 0.2 K/mm3 (0.0-0.4); Eosinophils % 2.4 % (0.1-12.0); Hematocrit 37.9 % (37.0-47.0); Hemoglobin 12.5 g/dL (12.2-16.2); Lymphocytes # 1.7 K/mm3 (0.7-4.5); Lymphocytes % 22.5 % (10-50); Mean Corpuscular Hemoglobin 29.6 pg (27.0-31.2); Mean Corpuscular Volume 89.7 fl (81-99); Mean Platelet Volume 9.7 fl (7.4-10.4); Monocytes # 0.5 K/mm3 (0.1-1.0); Monocytes % 6.6 % (1.7-9.3); Neutrophils # 5.3 K/mm3 (1.8-7.8); Platelet Count 413 K/mm3 (142-424); Red Blood Count 4.23 M/mm3 (4.20-5.40); Red Cell Distribution Width 13.3 % (11.5-17.5); White Blood Count 7.7 K/mm3 (4.8-10.8)
[2024-01-24 19:31] LABS: Alanine Aminotransferase 24 U/L (12-78); Albumin Level 4.2 g/dl (3.5-5.0); Albumin/Globulin Ratio 1.5 (1.1-1.8); Alkaline Phosphatase 49 U/L (38-126); Anion Gap 11.9 mEq/L (5-15); Aspartate Amino Transferase 30 U/L (14-36); Bilirubin,Total 0.4 mg/dl (0.2-1.3); Blood Urea Nitrogen 15 mg/dl (7-17); Calcium 9.6 mg/dl (8.4-10.2); Carbon Dioxide 24 mmol/L (22.0-30.0); Chloride 93 mmol/L (98-107); Cholesterol 245 mg/dl (140-200); Estimated Glomerular Filt Rate 82 ml/min (>60); GFR (African American) 99 ML/MIN (>60); Globulin 2.8 g/dL (1.3-3.2); Glucose 98 mg/dl (74-100); HDL Cholesterol 41 mg/dl (40-60); Potassium 4.9 mmoL/L (3.5-5.1); Sodium 124 mmol/L (136-145)
[2024-01-24 19:32] LABS: Triglycerides 436 mg/dl (30-150)
[2024-01-24 19:41] LABS: NT Pro Brain Natriuretic Pep. 41.5 pg/mL (0-450)
[2024-01-24 19:43] LABS: Direct LDL Cholesterol 126.94 mg/dL (100-129)
[2024-01-24 19:47] LABS: 25-OH Vitamin D, Total 50.1 ng/mL (30-100)
[2024-01-24 20:02] LABS: Thyroid Stimulating Hormone 1.18 uIU/mL (0.465-4.68)
[2024-01-25 12:52] LABS: HIV (1&2) Antibody Rapid NONREACTIVE (NONREACTIVE)
[2024-01-26 05:12] LABS: HCV Ab Non Reactive (Non Reactive)
== END 2024-01-24 23:59 | disposition home or self-care (01) ==
LOC: LAB.DROPOF 18:51
PROVIDERS: PCP Family Medicine; Visit Provider Family Medicine
DX: E07.9 Disorder of thyroid, unspecified (principal); I10 Essential (primary) hypertension; E78.5 Hyperlipidemia, unspecified; I50.31 Acute diastolic (congestive) heart failure; Z00.00 Encounter for general adult medical examination without abnormal findings; E55.9 Vitamin D deficiency, unspecified; E11.9 Type 2 diabetes mellitus without complications
CPT/HCPCS: 80050; 80053; 80061; 82306; 83880; 84443; 85025

== ENCOUNTER 2024-01-31 09:57 | Outpatient (CLI) | payer MEDICARE, OTHER, SELFPAY ==
--- NOTE | 2024-01-31 10:04 | US_ITS ---
FINAL REPORT TECHNIQUE: Ultrasound images of the kidneys and bladder were obtained. CLINICAL HISTORY: HTN COMPARISON: None FINDINGS: The right kidney measures 9.8 cm in length. It is normal in echogenicity. There is no hydronephrosis. The left kidney measures 9.8 cm in length. It is normal in echogenicity. There is mild hydronephrosis noted on the left side. Note is made of mild fatty infiltration of the liver. IMPRESSION: Mild left hydronephrosis. Kidneys are normal in size and echogenicity. Mild fatty infiltration of the liver. Reviewed, Interpreted and Dictated by Jeremiah Gomez III, MD Transcribed by Josefina Chiang Authenticated and [facility]
== END 2024-01-31 23:59 | disposition home or self-care (01) ==
LOC: RAD 09:59
PROVIDERS: PCP Family Medicine; Visit Provider Family Medicine
DX: I10 Essential (primary) hypertension (principal)
CPT/HCPCS: 76770

== ENCOUNTER 2024-02-01 08:00 | Outpatient (CLI) | payer MEDICARE, OTHER, SELFPAY ==
--- NOTE | 2024-02-01 08:07 | CA_ITS ---
APPROVED REPORT EXAM: Comprehensive 2D, Doppler, and color-flow Echocardiogram Lead Custodian: Briseida Farr RDCS Ht: 5 ft 0 in Wt: 147lbs BSA: 1.64 BP: 148/53 mmHg Indications: LOUISE,HTN,DM,HLP M-Mode Dimensions RVDd 1.38 cm (0.9-2.6) LA Diam 2.99 cm (1.9-4.0) LVDd 5.31 cm (3.5-5.7) LVDs 3.83 cm (3.5-5.7) IVSd 0.71 cm (0.6-1.1) PWd 0.67 cm (0.6-1.1) EF (Teich) 53.60% FS 27.90% EDV (Teich) 135.90 mL TAPSE 2.05 (<1.7) ESV (Teich) 63.10 mL LV Diastology E Decel Time 223 (160-240 msec) E/A Ratio 0.6 Mitral Valve MV E Max Ronak. 55.0 (40-130 cm/s) MV A Velocity 92.0 (40-130 cm/s) E/A Ratio 0.60 MV PHT 65.0 ms Tricuspid Valve TR P. Velocity 225.00 cm/s RAP Estimate 10.00 mmHg RVSP 30.20 mmHg Left Ventricle The left ventricle is normal size. The left ventricular systolic function is normal. The left ventricular ejection fraction is within the normal range. There is increased LV wall thickness. There is normal LV segmental wall motion. Transmitral Doppler flow pattern suggests impaired LV relaxation. LVEF is 55%. Right Ventricle The right ventricle is mildly dilated. The right ventricular systolic function is normal. Atria The left atrium size is normal. The right atrium size is normal. There is no Doppler evidence of interatrial shunt. Aortic Valve Aortic valve is mildly thickened. There is no aortic valvular stenosis. No aortic regurgitation is present. Mitral Valve The mitral valve is normal in structure. No evidence of mitral valve stenosis. Mild mitral regurgitation. Tricuspid Valve The tricuspid valve leaflets are thin and pliable. Mild tricuspid regurgitation. RVSP is 20-25 mmHg. Pulmonic Valve The pulmonary valve is normal in structure. Trace pulmonic regurgitation. Great Vessels The aortic root is normal in size. The ascending aorta is normal in size. IVC is normal in size and collapses >50% with inspiration. Pericardium There is no pericardial effusion. Other Information Study Quality: Fair Conclusion Normal biventricular systolic function. Mild RV dilation. Mild MR, mild TR. Electronically signed by : Cesilia Donohue MD 02/07/2024 12:19:57
== END 2024-02-01 23:59 | disposition home or self-care (01) ==
LOC: RT 08:03
PROVIDERS: PCP Family Medicine; Visit Provider Family Medicine
DX: R06.09 Other forms of dyspnea (principal); I51.7 Cardiomegaly
CPT/HCPCS: 93306

== ENCOUNTER 2024-02-16 07:45 | Outpatient (CLI) | payer MEDICARE, OTHER, SELFPAY ==
--- NOTE | 2024-02-16 07:50 | CA_ITS ---
FINAL REPORT TECHNIQUE: Spectral and color Doppler exam CLINICAL HISTORY: uncontrolled htn, previous renal scan 01/31/24 FINDINGS: DOPPLER RENAL VESSELS HISTORY: Hypertension . FINDINGS: Intrarenal resistive indices on the right are 0.70-0.7, normal . Intrarenal resistive indices on the left are 0.73-0.78, normal . Renal size is normal and symmetric. Right main renal artery systolic velocity: 283 cm/sec. Aortic-right renal artery flow velocity ratio: 4.32 COMMENT: No evidence of hemodynamically significant renal artery stenosis . Left main renal artery systolic velocity: 204 cm/sec. Aortic-left renal artery flow velocity ratio: 3.1 COMMENT: No evidence of hemodynamically significant renal artery stenosis . IMPRESSION: Greater than 50% stenosis bilaterally. CTA or gadolinium-enhanced MR may be considered as a more sensitive exam. Alternatively noncontrast MRI may be considered for assessing main renal arteries for stenosis as a more sensitive exam if the patient has renal insufficiency. Reviewed, Interpreted and Dictated by Ruben Cerrato MD Transcribed by Sultana Ballard Authenticated and [facility]
== END 2024-02-16 23:59 | disposition home or self-care (01) ==
LOC: RT 07:46
PROVIDERS: PCP Family Medicine; Visit Provider Family Medicine
DX: I10 Essential (primary) hypertension (principal)
CPT/HCPCS: 93976

== ENCOUNTER 2024-03-07 07:44 | Day surgery (SDC) | payer MEDICARE, OTHER, SELFPAY ==
[2024-03-07] VITALS (17 sets, daily range): BP systolic 120–162; BP diastolic 55–79; PULSE 7–81; RESP 16–18; TEMP 36.9; O2SAT 96–100; BMI 28.9
--- NOTE | 2024-03-07 07:05 | IR_ITS ---
APPROVED REPORT Patient Location: Outpatient [facility] Supervisor: Ben Hutchins RT (R) PROCEDURES Bilateral selective renal angiogram INDICATION Hypertension, Abnormal renal duplex Informed consent was obtained prior to the procedure. COMPLICATIONS none Estimated Blood Loss: less than 10ml TECHNIQUE 1% lidocaine used to anesthetize the right femoral groin. The right femoral artery was accessed via the Seldinger technique. A 4 Maltese sheath was placed in the right femoral artery. The JR4 catheter was used to selectively intubate each renal artery. The 4 Maltese JR4 catheter was advanced past the lesion in the right renal artery and a hemodynamic recording was undertaken with pullback of the catheter from the right renal artery into the aorta. There was a 10 mm Araujo stenotic gradient. At the end the procedure the apparatus was removed the patient was transferred to the postop putting in stable condition for sheath removal ANGIOGRAPHIC RESULTS Left renal artery singular normal Right renal artery singular with a ostial proximal 20 to 30% stenosis IMPRESSION Mild right renal artery stenosis PLAN 1. Treatment of essential hypertension with associated risk factor modification 2. Evaluate for coronary artery disease based on the presence of peripheral artery disease Electronically signed by : Truman Gordon MD 03/07/2024 14:28:03
[2024-03-07 08:18] LABS: Basophils # 0.1 K/mm3 (0-0.2); Basophils % 0.9 % (0.1-2.0); Eosinophils # 0.3 K/mm3 (0.0-0.4); Eosinophils % 3.6 % (0.1-12.0); Hemoglobin 13.5 g/dL (12.2-16.2); Lymphocytes # 1.6 K/mm3 (0.7-4.5); Lymphocytes % 20.1 % (10-50); Mean Corpuscular HGB Conc 35.5 g/dL (31.8-35.4); Mean Corpuscular Volume 84.5 fl (81-99); Mean Platelet Volume 6.9 fl (7.4-10.4); Monocytes # 0.5 K/mm3 (0.1-1.0); Monocytes % 5.8 % (1.7-9.3); Neutrophils # 5.6 K/mm3 (1.8-7.8); Neutrophils % 69.5 % (37.0-80.0); Platelet Count 382 K/mm3 (142-424); Red Blood Count 4.49 M/mm3 (4.20-5.40); Red Cell Distribution Width 13.4 % (11.5-17.5); White Blood Count 8.1 K/mm3 (4.8-10.8)
[2024-03-07 08:25] LABS: Chloride 95 mmol/L (98-107); Sodium 134 mmol/L (136-145)
[2024-03-07 08:26] LABS: Potassium 3.8 mmoL/L (3.5-5.1)
[2024-03-07 08:28] LABS: Blood Urea Nitrogen 14 mg/dl (7-17); Creatinine Clearance Estimated 52 mL/min (50-200); Estimated Glomerular Filt Rate 70 ml/min (>60); GFR (African American) 85 ML/MIN (>60)
[2024-03-07 08:29] LABS: Anion Gap 13.8 mEq/L (5-15); Calcium 9.8 mg/dl (8.4-10.2); Carbon Dioxide 29 mmol/L (22.0-30.0); Glucose 104 mg/dl (74-100)
[2024-03-07] MEDS: HEPARIN 1,000 UNITS/500ML NS (CATH LAB) 3000 UNIT IV (12:50)
[2024-03-07] MEDS: diphenhydrAMINE 50MG/ML VIAL 50 MG IV (12:50)
[2024-03-07] MEDS: LIDOCAINE 1% 10ML MDV 20 ML IJ (12:50)
[2024-03-07] MEDS: 0.9 % SODIUM CHLORIDE 500 ML 25 ML IV (12:51)
[2024-03-07] MEDS: FENTANYL 100MCG/2ML VIAL 50 MCG IV (13:27)
[2024-03-07] MEDS: MIDAZOLAM HCL 1MG/ML 5ML VIAL 1 MG IV (13:27)
[2024-03-07] MEDS: IOPAMIDOL-370 (76%);100ML BOTTLE 20 ML IV (14:41)
== END 2024-03-07 16:33 | disposition home or self-care (01) ==
PROVIDERS: PCP Family Medicine; Visit Provider Internal Medicine
DX: I70.1 Atherosclerosis of renal artery (principal); I10 Essential (primary) hypertension; R93.1 Abnormal findings on diagnostic imaging of heart and coronary circulation; Z79.899 Other long term (current) drug therapy; E11.9 Type 2 diabetes mellitus without complications; E78.5 Hyperlipidemia, unspecified; Z79.84 Long term (current) use of oral hypoglycemic drugs
CPT/HCPCS: 36252; 80048; 85025; 99152; C1725; C1769; J1200; J1644; J2250; J3010; Q9967

== ENCOUNTER 2024-03-18 15:17 | Outpatient (CLI) | payer MEDICARE, OTHER, SELFPAY ==
--- NOTE | 2024-03-18 15:18 | CT_ITS ---
PROCEDURE INFORMATION: Exam: CT Abdomen Without Contrast Exam date and time: 03/18/2024 3:23 PM Age: 73 years old Clinical indication: Abdominal pain; Flank; Prior surgery; Surgery date: <1 month; Surgery type: Cl renal angiogram bilat; Additional info: Back pain post procedure- R/O retroperitoneal blee TECHNIQUE: Imaging protocol: Computed tomography of the abdomen without contrast. Radiation optimization: All CT scans at this facility use at least one of these dose optimization techniques: automated exposure control; mA and/or kV adjustment per patient size (includes targeted exams where dose is matched to clinical indication); or iterative reconstruction. COMPARISON: No relevant prior studies available. FINDINGS: Lungs: There is a calcified granuloma in the subpleural left lower lobe. There are a few basilar pulmonary nodules such as adjacent 4 mm nodules in the left lower lobe (image 3 series 3). For patients at low risk (minimal or absent history of smoking and of other known risk factors), no routine follow-up is indicated. For patients at high risk (history of smoking or of other known risk factors), consider optional CT Chest at 12 months. (Reference: Isaías). Scattered areas of bronchial wall thickening which are likely chronic inflammatory. A few areas of subpleural reticulation are noted, nonspecific. Liver: Normal. No mass. Gallbladder and biliary ducts: Normal. No calcified stones. No ductal dilation. Pancreas: Normal. No ductal dilation. Spleen: Normal. No splenomegaly. Adrenal glands: Normal. No mass. Kidneys: There are bilateral renal cortical calcifications. Stomach and bowel: There is large volume stool throughout the colon. There are scattered colonic diverticula. Intraperitoneal space: Unremarkable. No free air. No significant fluid collection. Vasculature: There is atherosclerotic disease of the visualized aorta and its major branch vessels. Lymph nodes: Unremarkable. No enlarged lymph nodes. Bones/joints: There is diffuse degenerative disease of the visualized osseous structures. Soft tissues: Unremarkable. IMPRESSION: 1. No evidence for retroperitoneal hemorrhage. 2. There are a few basilar pulmonary nodules such as adjacent 4 mm nodules in the left lower lobe (image 3 series 3). For patients at low risk (minimal or absent history of smoking and of other known risk factors), no routine follow-up is indicated. For patients at high risk (history of smoking or of other known risk factors), consider optional CT Chest at 12 months. (Reference: Isaías). REFERENCES: Isaías Wild et al. Guidelines for Management of Incidental Pulmonary Nodules Detected on CT Images: From the Fleischner Society 2017. Radiology. 2017;284(1):228-243.
== END 2024-03-18 23:59 | disposition home or self-care (01) ==
LOC: RAD 15:18
PROVIDERS: PCP Family Medicine; Visit Provider Nurse Practitioner Family
DX: M54.50 Low back pain, unspecified (principal)
CPT/HCPCS: 74150

== ENCOUNTER 2024-06-14 07:46 | Outpatient (CLI) | payer MEDICARE, OTHER, SELFPAY ==
--- NOTE | 2024-06-14 08:04 | MR_ITS ---
FINAL REPORT CLINICAL HISTORY: neck pain. BILATERAL ARM PAIN, NUMBNESS AND TINGLING COMPARISON: None FINDINGS: Multi planar MR imaging was obtained of the cervical spine with and without contrast. There is abnormal decreased signal throughout the cervical discs. There is loss of height of the C5-6 disc. The vertebrae are of normal height. There is grade 1 spondylolisthesis of C5 on C6. The cervical cord demonstrates normal signal and configuration. C2-C3: There is no evidence of significant disc bulge or protrusion. There is no significant facet hypertrophy. C3-C4: There is a mild to moderate broad-based disc protrusion present with endplate hypertrophy and facet hypertrophy. Moderate to severe bilateral neural foraminal narrowing is present. C4-C5: There is no evidence of significant disc bulge or protrusion. There is no significant facet hypertrophy. C5-C6: A moderate annular bulge is present with a left posterolateral disc protrusion accentuated by spondylolisthesis. There is severe left and moderate right neural foraminal narrowing. C6-C7: A moderate annular bulge is present, with endplate hypertrophy, moderate canal stenosis, and moderate to severe bilateral neural foraminal narrowing. C7-T1: There is no evidence of significant disc bulge or protrusion. There is no significant facet hypertrophy. There is no abnormal contrast enhancement. IMPRESSION: Cervical degenerative changes present, most prominent at the C5-6 and C6-7 levels as described. Reviewed, Interpreted and Dictated by Reji House MD Transcribed by Josefina Chiang Authenticated and [facility]
[2024-06-14 08:30] LABS: Blood Urea Nitrogen 19 mg/dl (7-17); Estimated Glomerular Filt Rate 54 ml/min (>60); GFR (African American) 65 ML/MIN (>60)
[2024-06-14] MEDS: GADOTERIDOL INJ 20ML SYRINGE 13 ML IV (09:06)
[2024-06-14] MEDS: SODIUM CHLORIDE 0.9% 10ML SYR (RAD ONLY) 10 ML IV (09:06)
== END 2024-06-14 23:59 | disposition home or self-care (01) ==
PROVIDERS: PCP Family Medicine; Visit Provider Family Medicine
DX: M54.2 Cervicalgia (principal); G58.9 Mononeuropathy, unspecified
CPT/HCPCS: 36415; 72156; 82565; 84520; A9576

== ENCOUNTER 2024-08-02 09:40 | Outpatient (CLI) | payer MEDICARE, OTHER, SELFPAY ==
[2024-08-02 18:03] LABS: Basophils # 0.1 K/mm3 (0-0.2); Basophils % 0.6 % (0.1-2.0); Eosinophils # 0.3 K/mm3 (0.0-0.4); Eosinophils % 2.6 % (0.1-12.0); Hematocrit 31.1 % (37.0-47.0); Hemoglobin 10.1 g/dL (12.2-16.2); Lymphocytes # 2.1 K/mm3 (0.7-4.5); Lymphocytes % 19.7 % (10-50); Mean Corpuscular HGB Conc 32.5 g/dL (31.8-35.4); Mean Corpuscular Hemoglobin 28.6 pg (27.0-31.2); Mean Corpuscular Volume 88.1 fl (81-99); Mean Platelet Volume 10.9 fl (7.4-10.4); Monocytes # 0.8 K/mm3 (0.1-1.0); Monocytes % 7.3 % (1.7-9.3); Neutrophils # 7.3 K/mm3 (1.8-7.8); Neutrophils % 69.4 % (37.0-80.0); Platelet Count 126 K/mm3 (142-424); Red Blood Count 3.53 M/mm3 (4.20-5.40); Red Cell Distribution Width 12.5 % (11.5-17.5); White Blood Count 10.5 K/mm3 (4.8-10.8)
[2024-08-02 19:30] LABS: Free T4 (Free Thyroxine) 1.21 ng/dl (0.78-2.19)
[2024-08-02 20:00] LABS: Albumin Level 4.4 g/dl (3.5-5.0); Chloride 94 mmol/L (98-107)
[2024-08-02 20:01] LABS: Potassium 4.3 mmoL/L (3.5-5.1); Sodium 129 mmol/L (136-145)
[2024-08-02 20:03] LABS: Alanine Aminotransferase 28 U/L (12-78); Albumin/Globulin Ratio 2.3 (1.1-1.8); Alkaline Phosphatase 59 U/L (38-126); Anion Gap 12.3 mEq/L (5-15); Aspartate Amino Transferase 33 U/L (14-36); Bilirubin,Direct 0.2 mg/dl (0.0-0.4); Bilirubin,Indirect 0.2 mg/dL (0.0-0.9); Bilirubin,Total 0.4 mg/dl (0.2-1.3); Bilirubin,Unconjugated 0.3 mg/dL (0.0-1.1); Blood Urea Nitrogen 21 mg/dl (7-17); Carbon Dioxide 27 mmol/L (22.0-30.0); Cholesterol 158 mg/dl (140-200); Estimated Glomerular Filt Rate 54 ml/min (>60); GFR (African American) 65 ML/MIN (>60); Globulin 1.9 g/dL (1.3-3.2); Total Protein,Serum 6.3 g/dl (6.3-8.2); Triglycerides 300 mg/dl (30-150); VLDL Cholesterol 60 mg/dL (0-40)
[2024-08-02 20:04] LABS: Calcium 9.1 mg/dl (8.4-10.2); Chol/HDL Ratio 4.5 (1-3.5); Glucose 84 mg/dl (74-100); HDL Cholesterol 35 mg/dl (40-60); Iron 84 ug/dL (37-170); Magnesium 1.5 mg/dl (1.6-2.3)
[2024-08-02 20:13] LABS: Total Iron Binding Capacity 290 ug/dL (265-497)
[2024-08-02 20:15] LABS: Direct LDL Cholesterol 74.19 mg/dL (100-129)
[2024-08-02 20:16] LABS: NT Pro Brain Natriuretic Pep. 121 pg/mL (0-450)
[2024-08-02 20:33] LABS: Hemoglobin A1C 6.1 % (4.0-6.0)
[2024-08-02 20:42] LABS: Ferritin 140 ng/ml (11.1-264)
== END 2024-08-02 23:59 | disposition home or self-care (01) ==
LOC: LAB.DROPOF 08-05 12:08
PROVIDERS: PCP Family Medicine; Visit Provider Family Medicine
DX: Z00.00 Encounter for general adult medical examination without abnormal findings (principal); E78.49 Other hyperlipidemia; E61.1 Iron deficiency; E11.51 Type 2 diabetes mellitus with diabetic peripheral angiopathy without gangrene; I70.1 Atherosclerosis of renal artery; F51.01 Primary insomnia; J45.40 Moderate persistent asthma, uncomplicated; I10 Essential (primary) hypertension
CPT/HCPCS: 80053; 80061; 80076; 82728; 83036; 83540; 83550; 83735; 83880; 84439; 85025

== ENCOUNTER 2024-11-27 08:49 | Outpatient (CLI) | payer MEDICARE, OTHER, SELFPAY ==
--- NOTE | 2024-11-27 08:50 | XR_ITS ---
FINAL REPORT CLINICAL HISTORY: left knee pain COMPARISON: None FINDINGS: LEFT KNEE 3 views of the left knee were obtained. There is no acute fracture or dislocation. Advanced medial compartment narrowing is noted. There is lateral subluxation of the proximal tibial related to the femur. Soft tissues are unremarkable. IMPRESSION: Advanced changes of osteoarthritis without acute bony abnormality. Reviewed, Interpreted and Dictated by Reji House MD Transcribed by Josefina Chiang Authenticated and . [facility]
--- OUTSIDE RECORDS SUMMARY | 2024-11-27 08:52 | XMS_ITS ---
Laboratory report Created on: November 14, 2024 MARILOU BRO : 1950 Sex: Female Author Name ISELA HDEZ Organization Unknown PROBLEMS Problems List Code Description E66.9 Z11.4 Z13.0 Z13.21 Z13.220 Z13.228 RESULTS Laboratory Orders Date Order Code Test 2024-09-13 [id number] HEMOGLOBIN A1C 2024-09-13 [id number] COMP. METABOLIC PANEL (14) 2024-09-13 [id number] LIPID PANEL 2024-09-13 [id number] TSH RFX ON ABNOR MAL TO FREE T4 2024-09-13 299673 VITAMIN D, 25-HY DROXY Laboratory Results Date LOINC Test Value Unit Reference Range Interpre tation 2024-09-13 4548-4 HEMOGLOBIN A1C 6.3 % 4.8-5.6 H 2024-09-13 2345-7 GLUCOSE 85 MG/DL 70-99 2024-09-13 3094-0 BUN 11 MG/DL 8-27 2024-09-13 2160-0 CREATININE .94 MG/DL 0.57-1.00 2024-09-13 15716-4 EGFR 63 ML/MIN/1.7 3 >59 2024-09-13 3097-3 BUN/CREATININE RATIO 12 05-182024-09-13 2951-2 SODIUM 139 MMOL/L 615-873 4523-04-25 2823-3 POTASSIUM 4.1 MMOL/L 3.5-5.2 2024-09-13 2075-0 CHLORIDE 100 MMOL/L 96-106 2024-09-13 2028-9 CARBON DIOXIDE, TOTAL 22 MMOL/L -2024-09-13 34351-6 CALCIUM 9.8 MG/DL 8.7-10.3 2024-09-13 2885-2 PROTEIN, TOTAL 7 G/DL 6.0-8.5 2024-09-13 1751-7 ALBUMIN 4.7 G/DL 3.8-4.8 2024-09-13 02980-6 GLOBULIN, TOTAL 2.3 G/DL 1.5-4.5 2024-09-13 1975-2 BILIRUBIN, TOTAL .3 MG/DL 0.0-1.2 2024-09-13 6768-6 ALKALINE PHOSPHATASE 64 IU/L 44-121 2024-09-13 1920-8 AST (SGOT) 22 IU/L 0-40 2024-09-13 1742-6 ALT (SGPT) 18 IU/L 0-32 2024-09-13 2093-3 CHOLESTEROL, TOTAL 183 MG/DL 221-792 1622-04-25 2571-8 TRIGLYCERIDES 318 MG/DL 0-149 H 2024-09-135-9 HDL CHOLESTEROL 41 MG/DL >39 2024-09-13 51919-8 VLDL CHOLESTEROL DIANNA 53 MG/DL 5-40 H 2024-09-13 23648-7 LDL CHOL CALC ([facility]) 89 MG/DL 0-99 2024-09-13 54030-0 TSH 1.5 UIU/ML 0.450-4.500 2024-09-13 45485-3 VITAMIN D, 25-HYDROXY 95.9 NG/ML 30.0-100.0
--- OUTSIDE RECORDS SUMMARY | 2024-11-27 08:52 | XMS_ITS | Data Portability ---
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 For new Patients, I review the referral documents available including labs. Global Risk Assessment Score: High Risk. I have review the most recent DONNA report available. I verify the patient's last fill date as per Donna. I base the next prescription date to be filled 30 days after the last fill date, unless there are additional circumstances (pharmacy closed, patient traveling, missed appointment, etc) If I have concerns based on my review of the patient's DONNA report, I will address it with the patient at the visit. New patient evaluation assessment and plan Based on everything the patient has shared with me at this first visit, I am primarily concerned about her emotional lability and the potential of medication diversion. For sure she has generalized osteoarthritis and moderate and advanced spondylosis of the neck which is a painful condition, and we are happy to help her manage that. In addition to that she cares for her ailing she shares with me that she does not have really any social support. She states her daughter is not very kind to her and has mental issues of her own. Because this patient was not able to tell me who picked up her last prescription of pain medicine (which according to Donna was done on 22 July last month) I am concerned about the possibility of Diversion. She was adamant that she has stopped her pain medicine over 4 months ago because they didn't work. So when I pressed her about who picked up her medication in July she said that was probably my daughter Alek. So we will see her back in one month. In the meantime, she has been advised that before we can consider medical therapy, I am requiring her to 1. Receive mental health evaluation and 2. Find out who has filled her pain medication on 07/22/24. eliza Not available 09/06/2024 17:39:17 Plan of Treatment Reminders Order Date Submit Date Provider Last Modified By Organization Details Last Modified Time Details Appointments None recorded. Lab drug screen, urine - Meds: HYDROCODONE , GABAPENTIN 2024 025 FELTON Cerna MD [facility] (In House Lab), [facility] [place], [address], 5 11:55:33 CMP, serum or plasma 2024 025 eliza Cerna MD [facility] (In House Lab), [address] [place], [place] [address], [address], 5 12:07:51 gamma-gluta myl transferase (ggt), serum 2024 025 eliza Cerna MD [facility] (In House Lab), [address] [place] [address], [id number], 5 12:07:51 CBC w/ auto diff 2024 025 eliza Cerna MD [facility] (In House Lab), [address] [place], [place] [address], [address], 5 12:07:51 venipunctur e 2024 025 eliza Cerna MD [facility] (In House Lab), [address] [place], [place] [address], [address], 5 12:07:51 Referral behavioral psychothera py referral 2024 025 [email or web address] Not available 15:44:42 Procedures None recorded. Surgeries None recorded. Imaging None recorded. Medication Orders None recorded. Patient TargetsNo targets recorded. Patient Instructions Encounter Date Encounter Id Patient Instructions Last Modified By Organization Details Last Modified Time 09/06/2024 [id number] chronic pain: care instructions Not available 09/06/2024 17:40:34 depression treatment: care instructions Not available 09/06/2024 17:40:34 learning about mood disorders Not available 09/06/2024 17:40:34 recovering from depression: care instructions Not available 09/06/2024 17:40:34 home exercise program* [email or web address] Not available 09/16/2024 14:08:48 Reason for Referral Behavioral Psychotherapy Ref erral for Mood swings Referring Physician: Maggie Desir, Pain Management, Encounter Date: 09/06/2024 Results Created Date Observation Date Name Description Value Unit Range Abnormal Flag Note LastModifiedBy Organization Detail LastModifiedTime 09/07/1909/12/2024 OPIAT E DEFIN ITIVE PANEL LC/MS codeine 0.0 NG/mL <75.0 Not Available Mallory Cerna MD [facility] (In House Lab) [address] [place] [address], [id number], 09/12/2024 11:55:34 09/07/19 25 09/12/2024 OPIAT E DEFIN ITIVE PANEL LC/MS morphine 0 NG/mL <75.0 Not Available Mallory Cerna MD [facility] (In House Lab) [address] [place] [address], [id number], 09/12/2024 11:55:34 09/07/19 25 09/12/2024 OPIAT E DEFIN ITIVE PANEL LC/MS 6-CRISTO 0 NG/mL <15.0 Not Available Mallory Cerna MD [facility] (In House Lab) [address] [place] [address], [id number], 09/12/2024 11:55:34 09/07/19 25 09/12/2024 OPIAT E DEFIN ITIVE PANEL LC/MS hydromorphon e 0 NG/mL <75.0 Not Available Wale Cerna MD [facility] (In House Lab) [address] [place] [address], [id number], 09/12/2024 11:55:34 09/07/19 25 09/12/2024 OPIAT E DEFIN ITIVE PANEL LC/MS hydrocodone 0 NG/mL <75.0 Not Available Wale Cerna MD [facility] (In House Lab) [address] [place] [address], [id number], 09/12/2024 11:55:34 09/07/19 25 09/12/2024 OPIAT E DEFIN ITIVE PANEL LC/MS norhydrocodo ne 0 NG/mL <75.0 Not Available Wale Cerna MD [facility] (In House Lab) [address] [place] [address], [address], 09/12/2024 11:55:34 09/07/19 25 09/12/2024 GABAP ENTIN DEFIN ITIVE PANEL -LC/M S gabapentin <5000 NG/mL <5000. 0 Not Available Mallory Cerna MD [facility] (In House Lab) [address] [place] [address], [address], 09/12/2024 11:55:34 09/07/19 25 09/06/2024 D-PRE SUMPT MIKEL URINE DRUG REPOR T amphetamine NEGATI VE NG/mL <1000. 0 Not Available Mallory Cerna MD [facility] (In House Lab) [address] [place] [address], [address], 09/12/2024 11:55:33 09/07/19 25 09/06/2024 D-PRE SUMPT MIKEL URINE DRUG REPOR T benzodiazepi ne <3.3 NG/mL <200.0 Curre nt metho d may not detec t low level s of Klono pin Not Available Mallory Cerna MD [facility] (In House Lab) [address] [place] [address], [address], 09/12/2024 11:55:33 09/07/19 25 09/06/2024 D-PRE SUMPT MIKEL URINE DRUG REPOR T buprenorphin e NEGATI VE NG/mL <10.0 Not Available Mallory Cerna MD [facility] (In House Lab) [address] [place] [address], [address], 09/12/2024 11:55:33 09/07/19 25 09/06/2024 D-PRE SUMPT MIKEL URINE DRUG REPOR T cannabinoid NEGATI VE NG/mL <50.0 Not Available Mallory Cerna MD [facility] (In House Lab) [address] [place] [address], [address], 09/12/2024 11:55:33 09/07/19 25 09/06/2024 D-PRE SUMPT MIKEL URINE DRUG REPOR T cocaine NEGATI VE NG/mL <300.0 Not Available Mallory Cerna MD [facility] (In House Lab) [address] [place] [address], [address], 09/12/2024 11:55:33 09/07/19 25 09/06/2024 D-PRE SUMPT MIKEL URINE DRUG REPOR T ethanol NEGATI VE mg/dL <50.0 Not Available Mallory Cerna MD [facility] (In House Lab) [address] [place] [address], [id number], 09/12/2024 11:55:33 09/07/19 25 09/06/2024 D-PRE SUMPT MIKEL URINE DRUG REPOR T methadone <0.8 NG/mL <300.0 Not Available Mallory Cerna MD [facility] (In House Lab) [address] [place] [address], [address], 09/12/2024 11:55:33 09/07/19 25 09/06/2024 D-PRE SUMPT MIKEL URINE DRUG REPOR T opiates <6.4 NG/mL <300.0 Opiat es inclu yana Codei ne,Mo rphin e, Gotebo morph one,H ydroc odone Not Available Mallory Cerna MD [facility] (In House Lab) [address] [place] [address], [address], 09/12/2024 11:55:33 09/07/19 25 09/06/2024 D-PRE SUMPT MIKEL URINE DRUG REPOR T oxycodone 0 NG/mL <300.0 Not Available Mallory Cerna MD [facility] (In House Lab) [address] [facility], [place], [address], 09/12/2024 11:55:33 09/07/19 25 09/06/2024 D-PRE SUMPT MIKEL URINE DRUG REPOR T urine creatinine (validity test) 55.2 mg/dL 20.0 - 300.0 Not Available Mallory Cerna MD [facility] (In House Lab) [address] [facility], [place], [address], 09/12/2024 11:55:33 09/20/19 MRI, cervi josh spine , w/o contr ast No observ ation record ed. [email or web address] Not Available 2024 11:12:54 Result Notes None recorded. Problems Name Problem SNOMED Code Status Onset Date Resolution Date Notes Provider Name and Address Organization Details Recorded Time Chronic low back pain 988331044 Active 2024 Maggie Desir MD [address] [place], [address], [facility] 5 03:57:45 Chronic neck pain 5345124098317 [place] 2024 [place] [address] [place] [address], [address], [facility] 5 03:57:55 Fibromyalgi a 064291409 Active 2024 [place] [address] [place] [address], [address], [facility] 5 03:58:05 Osteoarthri tis 768565913 Active 2024 [place] [address] [place] [address], [address], [facility] 5 03:58:19 Peripheral neuropathy due to type 2 diabetes mellitus 6884763848099 Active 2024 Maggie Desir MD [address] [place], [place] [address], [address], [facility] 5 04:01:42 Cervical spondylosis without myelopathy 963860863 Active 2024 MD [address] [place], [place] [address], [address], [facility] 5 17:26:18 Degeneratio n of cervical interverteb ral disc 78216392 Active 2024 MD [address] [place], [place] [address], [address], [facility] 5 17:26:23 Depressed mood 233025222 Active 2024 MD [address]a [address] [place], [place] [address], [address], [facility] 5 17:26:59 Mood swings 11211509 Active 2024 Maggie Desir MD [address] [place], [place] [address], [address], [facility] 5 17:27:10 Stability of mood - finding 823679748 Active 2024 Maggie Desir MD [address] [place], [place] [address], [address], [facility] 5 17:27:17 Problem Notes None recorded. Medical Equipment None Reported. Allergies Allergen ID Allergen Name Allergen Category Reaction Reaction Severity Criticality Documentation Date Start Date Code Code System Note Provider Name and Address Organization Details Recorded Time 05558 Product containin g penicilli n (product) medicatio n itching Not available Not available 09/06/2024 54086 8001 SNOMED Elyse Wilfred[place], [place] - [facility] 5 09:33:35 Medications Name Sig Start Date Stop Date Status Note LastModified by Organization Details LastModified Time losartan 50 mg tablet TAKE ONE TABLET BY MOUTH EVERY DAY active Not Available Not Available No t Available cyclobenzap rine 10 mg tablet TAKE ONE TABLET BY MOUTH EVERY 8 HOURS NEEDED FOR MUSCLE SPASMS active Not Available Not Available No t Available atorvastati n 40 mg tablet TAKE ONE TABLET BY MOUTH EVERY DAY active Not Available Not Available No t Available bupropion HCl SR 150 mg tablet,12 hr sustained-r elease TAKE ONE TABLET BY MOUTH EVERY DAY active Not Available Not Available No t Available tizanidine 2 mg tablet TAKE ONE TABLET BY MOUTH TWICE DAILY NEEDED FOR MUSCLE SPASMS MAY CAUSE DROWSINES S active Not Available Not Available No t Available metoprolol succinate ER 50 mg tablet,exte nded release 24 hr TAKE ONE TABLET BY MOUTH EVERY DAY active Not Available Not Available No t Available ondansetron HCl 4 mg tablet TAKE ONE TABLET BY MOUTH EVERY 8 HOURS NEEDED FOR NAUSEA AND VOMITING active Not Available Not Available No t Available famotidine 40 mg tablet TAKE ONE TABLET BY MOUTH EVERY NIGHT AT BEDTIME active Not Available Not Available No t Available alendronate 70 mg tablet TAKE ONE TABLET BY MOUTH ONCE A WEEK active Not Available Not Available No t Available valsartan 80 mg tablet TAKE ONE TABLET BY MOUTH EVERY DAY active Not Available Not Available No t Available fexofenadin e 180 mg tablet TAKE ONE TABLET BY MOUTH EVERY DAY active Not Available Not Available No t Available omeprazole 40 mg capsule,del ayed release TAKE ONE CAPSULE BY MOUTH EVERY DAY active Not Available Not Available No t Available losartan 100 mg-hydrochl orothiazide 25 mg tablet TAKE ONE TABLET BY MOUTH EVERY DAY active Not Available Not Available No t Available trazodone 100 mg tablet TAKE ONE TABLET BY MOUTH EVERY DAY AT BEDTIME 10/07 completed Not Available Not Available Not Available hydrocodone 7.5 mg-acetamin ophen 325 mg tablet TAKE ONE TABLET BY MOUTH EVERY 8 HOURS MAY CAUSE DROWSINES S active Not Available Not Available No t Available trazodone 150 mg tablet TAKE ONE TABLET BY MOUTH EVERY DAY AT BEDTIME NEEDED active Not Available Not Available No t Available oxybutynin chloride ER 5 mg tablet,exte nded release 24 hr TAKE ONE TABLET BY MOUTH AT BEDTIME active Not Available Not Available No t Available gabapentin 300 mg capsule TAKE ONE CAPSULE BY MOUTH THREE TIMES DAILY FOR PAIN MAY CAUSE DROWSINES S active Not Available Not Available No t Available diclofenac sodium 75 mg tablet,cari yed release TAKE ONE TABLET BY MOUTH TWICE DAILY NEEDED FOR PAIN --TAKE WITH FOOD-- active Not Available Not Available No t Available montelukast 10 mg tablet TAKE ONE TABLET BY MOUTH EVERY EVENING FOR BREATHING PROBLEMS active Not Available Not Available No t Available hydroxyzine HCl 25 mg tablet TAKE ONE TABLET BY MOUTH TWICE DAILY NEEDED FOR nerves/an xiety MAY CAUSE DROWSINES S active Not Available Not Available No t Available hydrochloro thiazide 25 mg tablet TAKE ONE TABLET BY MOUTH EVERY MORNING active Not Available Not Available No t Available metoprolol succinate ER 25 mg tablet,exte nded release 24 hr TAKE ONE TABLET BY MOUTH EVERY DAY active Not Available Not Available No t Available ergocalcife rol (vitamin D2) 1,250 mcg (50,000 unit) capsule TAKE ONE CAPSULE BY MOUTH ONCE WEEKLY FOR 12 WEEKS active Not Available Not Available No t Available azelastine 137 mcg (0.1 %) nasal spray instill 2 SPRAYS IN EACH NOSTRIL EVERY DAY active Not Available Not Available No t Available albuterol sulfate HFA 90 mcg/actuati on aerosol inhaler INHALE TWO PUFFS BY MOUTH EVERY 4 TO 6 HOURS NEEDED active Not Available Not Available No t Available oxybutynin chloride 5 mg tablet TAKE 1/2 TABLET BY MOUTH TWICE DAILY active Not Available Not Available No t Available metformin ER 500 mg tablet,exte nded release 24 hr TAKE ONE TABLET BY MOUTH EVERY DAY active Not Available Not Available No t Available rosuvastati n 20 mg tablet TAKE ONE TABLET BY MOUTH EVERY DAY active Not Available Not Available No t Available duloxetine 30 mg capsule,del ayed release TAKE ONE CAPSULE BY MOUTH EVERY DAY active Not Available Not Available No t Available 8 Hour Pain Reliever 650 mg tablet,exte nded release TAKE ONE TABLET BY MOUTH EVERY 6 HOURS WITH water NEEDED -SWALLOW WHOLE. DO NOT CRUSH OR CHEW- dissolve OR break active Not Available Not Available No t Available losartan 100 mg-hydrochl orothiazide 12.5 mg tablet TAKE ONE TABLET BY MOUTH EVERY DAY 05/19 /2025 completed Not Available Not Available Not Available Advair HFA 230 mcg-21 mcg/actuati on aerosol inhaler INHALE TWO PUFFS BY MOUTH TWICE DAILY active Not Available Not Available No t Available cholecalcif darnell (vitamin D3) 1,250 mcg (50,000 unit) capsule TAKE ONE CAPSULE BY MOUTH ONCE A WEEK active Not Available Not Available No t Available FeroSul 325 mg (65 mg iron) tablet TAKE ONE TABLET BY MOUTH TWICE DAILY active Not Available Not Available No t Available diclofenac 1 % topical gel apply 2 grams topically TO affected area(s) FOUR TIMES DAILY active Not Available Not Available No t Available melatonin 5 mg tablet TAKE ONE TABLET BY MOUTH EVERY NIGHT prior TO SLEEP active Not Available Not Available No t Available Eye Itch Relief 0.025 % (0.035 %) drops INSTILL ONE DROP IN EACH EYE TWICE DAILY active Not Available Not Available No t Available Accu-Chek Guide test strips USE DIRECTED TO test TWICE DAILY active Not Available Not Available No t Available Airsupra 90 mcg-80 mcg/actuati on HFA aerosol inhaler INHALE TWO PUFFS BY MOUTH NEEDED; DO not exceed 6 doses PER DAY active Not Available Not Available No t Available Vitals Date Recorded Body weight Body temperature Body mass index (BMI) Body height Heart rate Respiratory rate Systolic And Diastolic Provider Name and Address Organization Details Last Updated DateTime 5 07759.8 2 g 97.9 [degF] 31.3 kg/m2 149.86 cm 68 /min 16 /min 160/70 mm[Hg] [facility] 09:29:00 Social History Question Answer Notes LastModified by Organizat ion Details LastModified Time Tobacco Smoking Status Never Smoker [facility] 09/06/2024 09:33:58 What Is Your Level Of Caffeine Consumption? Occasional 1 Pd Information not available 09/06/2024 Sex: Unknown Functional Status Question Answer Note LastModified by Organization D etails LastModified Time What is your level of alcohol consumption? None Information not available 09/06/2024 Mental Status None recorded. Family History Nothing Reported. Medical History No medical history recorded. Gynecological HistoryNo gynecological history recorded. Obstetrics History GPAL:G 0 P 0 0 0 0 Immunizations Vaccine Type Date Status Note Provider Nam e and Address Organization Details Recorded Time SARS-COV-2 (COVID-19) vaccine, UNSPECIFIED 08/21/2024 completed [place], [place] - [facility] 09/06/2024 09:33:43 Past Encounters Encounter ID Performer Location Encounter Start Date Encounter Closed Date Diagnosis/Indication Diagnosis SNOMED-CT Code Diagnosis ICD10 Code Diagnosis Note [id number] Maggie Desir MD [address] [place] [address] 09/06/2024 08:29:29 09/10/2024 10:03:39 Chronic neck pain 0043136171 107 M54.2 G89.29 Fibromyalgia 774126659 M 79.7 Peripheral neuropathy due to type 2 diabetes mellitus 9516542451 107 E11.42 Long-term current use of opiate analgesic drug 6650430199 79925 Z79.891 Diagnostic /Lab: Order Presumptiv e UDT (necessary for rapid results) with Definitive confirmati on for chronic pain patient, to define treatment and reinforce therapeuti c compliance ; the following apply: [Presumpti ve UDT includes: (Amp, Sally, Amrik, Bup, THC, GIFTY, ETOH, Meth, Opi, Oxy )] *-Patient is receiving controlled medication s. *-Presumpt mikel UDT to identify presence of illicit/no n-prescrib ed substance( s) - Confirm positive for ongoing safe prescribin g of controlled substances . *-Presumpt mikel UDT to identify presence of licit/pres cribed substance( s)-Confirm unexpected results, identify specific drug(s) in large class and ensure appropriat e use of prescribed medication (s). *-Definiti ve UDT inadequate ly detected by Presumptiv e UDT (gabapenti n, pregabalin , tramadol, fentanyl, tapentadol and carisoprod ol). HP2 (CBC/CMP/G GT) CBC - ordered to monitor the effects of prescribed medication CMP/GGT - ordered to obtain baseline levels for renal and hepatic functions and electrolyt e statusdraw n to monitor the jail effects of current medication . Cervical s pondylosis without myelopathy 500056773 M47.812 Degenerati on of cervical intervertebral disc 58518502 M50.30 Depressed mood 630234876 R45.89 Mood swings 82269260 R45 .86 Stability of mood - finding 211713649 R45.89 Health Concerns Section Related Observation LastModified by Organization Detai ls LastModified Time None Recorded Concern Status LastModified by Organization Details LastModified Time None Recorded Advance Directives Directive None Recorded Payers Insurance Date Sequence Insurance Name Policy Number Policy Barnett Covered Member ID Barnett Member ID Guarantor Name 10/08/2024 1 [facility] (MEDICARE REPLACEMENT/A DVANTAGE - HMO) [place] Shaunna E Warmout [id number] [facility] 10/08/2024 2 [facility] (MEDICAID HMO) Shaunna [place]outh [id number] Shaunna Warmout Notes Date Note Type Note Provider Name and Address Organization Details Recorded Time 09/06/2024 text/html Dr. Desir dictating a new patient evaluation September 06, 2024 Patient is here for pain in her neck she states that it is daily and constant, neck pain with episodic BL UE radiating. She states this has been going on for 40 years. 2 years ago she completed physical therapy and did not feel that it was effective.She was previously in the pain management through her primary care provider and was taking gabapentin 300 mg 3 times per day as well as hydrocodone 7.5 mg 3 times per day, . For at least the past 12 months.According to the patient she stopped taking this many months ago because it was just not effective. She states that she could not tell a difference when she took it and it provided no relief.She is not interested in any injective therapyHer MRI report from May of this year supports her symptoms and indicates moderate and severe degenerative changes in her spine at C5/6 and C6/7 Her past medical history is significant for depression, hypertension, GERD high cholesterol, loneliness. New patient evaluation assessment and planBased on everything the patient has shared with me at this first visit, I am primarily concerned about her emotional lability and the potential of medication diversion. For sure she has generalized osteoarthritis and moderate and advanced spondylosis of the neck which is a painful condition, and we are happy to help her manage that. In addition to that she cares for her ailing she shares with me that she does not have really any social support. She states her daughter is not very kind to her and has mental issues of her own. Because this patient was not able to tell me who picked up her last prescription of pain medicine (which according to Donna was done on 22 July last month) I am concerned about the possibility of Diversion. She was adamant that she has stopped her pain medicine over 4 months ago because they didn't work. So when I pressed her about who picked up her medication in July she said that was probably my daughter Alek. So we will see her back in one month.In the meantime, she has been advised that before we can consider medical therapy, I am requiring her to1. Receive mental health evaluation and2. Find out who has filled her pain medication on 07/22/24. Maggie Desir MD [address] [facility], [place], [address], [facility] 09/06/2024 17:40:46 OBGyn Episode No OBEpisode recorded.
--- OUTSIDE RECORDS SUMMARY | 2024-11-27 08:52 | XMS_ITS ---
Laboratory report Created on: September 28, 2024 ANNAMARILOU Wild : 1950 Sex: Female Author Name ISELA HDEZ Organization Unknown PROBLEMS Problems List Code Description E66.9 Z11.4 Z13.0 Z13.21 Z13.220 Z13.228 RESULTS Laboratory Orders Date Order Code Test 2024-09-13 025636 HEMOGLOBIN A1C 2024-09-13 950268 COMP. METABOLIC PANEL (14) 2024-09-13 077333 TSH RFX ON ABNOR MAL TO FREE T4 2024-09-13 359435 VITAMIN D, 25-HY DROXY 2024-09-13 273446 LIPID PANEL Laboratory Results Date LOINC Test Value Unit Reference Range Interpre tation 2024-09-13 4548-4 HEMOGLOBIN A1C 6.3 % 4.8-5.6 H 2024-09-13 2345-7 GLUCOSE 85 MG/DL 70-99 2024-09-13 3094-0 BUN 11 MG/DL 8-27 2024-09-13 2160-0 CREATININE .94 MG/DL 0.57-1.00 2024-09-13 31095-0 EGFR 63 ML/MIN/1.7 3 >59 2024-09-13 3097-3 BUN/CREATININE RATIO 12 05-182024-09-13 2951-2 SODIUM 139 MMOL/L 632-239 4144-04-25 2823-3 POTASSIUM 4.1 MMOL/L 3.5-5.2 2024-09-13 2075-0 CHLORIDE 100 MMOL/L 96-106 2024-09-13 2028-9 CARBON DIOXIDE, TOTAL 22 MMOL/L -2024-09-13 30971-1 CALCIUM 9.8 MG/DL 8.7-10.3 2024-09-13 2885-2 PROTEIN, TOTAL 7 G/DL 6.0-8.5 2024-09-13 1751-7 ALBUMIN 4.7 G/DL 3.8-4.8 2024-09-13 21871-3 GLOBULIN, TOTAL 2.3 G/DL 1.5-4.5 2024-09-13 1975-2 BILIRUBIN, TOTAL .3 MG/DL 0.0-1.2 2024-09-13 6768-6 ALKALINE PHOSPHATASE 64 IU/L 44-121 2024-09-13 1920-8 AST (SGOT) 22 IU/L 0-40 2024-09-13 1742-6 ALT (SGPT) 18 IU/L 0-32 2024-09-13 77981-7 TSH 1.5 UIU/ML 0.450-4.500 2024-09-13 53858-3 VITAMIN D, 25-HYDROXY 95.9 NG/ML 30.0-100.0 2024-09-13 2093-3 CHOLESTEROL, TOTAL 183 MG/DL 966-609 7201-04-25 2571-8 TRIGLYCERIDES 318 MG/DL 0-149 H 2024-09-13 2085-9 HDL CHOLESTEROL 41 MG/DL >39 2024-09-13 28073-3 VLDL CHOLESTEROL DIANNA 53 MG/DL 5-40 H 2024-09-13 81059-9 LDL CHOL CALC ([facility]) 89 MG/DL 0-99
--- OUTSIDE RECORDS SUMMARY | 2024-11-27 08:53 | XMS_ITS | Data Portability ---
Author Organization TONG Paredes [facility]OS[facility] Address [address] [facility] [address] [place] [address] Assessment No assessment recorded. Plan of Treatment Reminders Order Date Submit Date Provider Last Modified By Organization Details Last Modified Time Details Appointments None recorded. Lab None recorded. Referral None recorded. Procedures None recorded. Surgeries None recorded. Imaging None recorded. Medication Orders Hanover 5 mg-325 mg tablet 2020 021 [facility], [address] [place] [address] E Richy Velazquez [place], [place], [id number], 1 09:19:48 Hanover 5 mg-325 mg tablet 2020 021 [facility], [address] [place] [address] Cedric Han [place], [place], [id number], 1 08:26:41 gabapentin 300 mg capsule 2019 020 [facility], [address] [place] [address] Cedric Han [place], [place], [id number], 0 09:07:47 diclofenac sodium 75 mg tablet,del ayed release 2019 020 [facility], [address] [place] [address] [place], [id number], 0 09:07:47 cyclobenza jo ann 10 mg tablet 2019 020 [place] [address] Joaquín Pisano [place], [id number], 0 09:07:47 Hanover 5 mg-325 mg tablet 2019 [facility], [address] [place] [address] E Joaquín Han [place], [id number], 0 09:07:47 Hanover 5 mg-325 mg tablet 2019 [facility], [address] [place] [address] E Joaquín Han [place], [id number], 0 08:51:48 Hanover 5 mg-325 mg tablet 2019 [facility], [address] [place] [address] E Joaquín Han [place], [id number], 0 14:11:17 Patient TargetsNo targets recorded. Patient Instructions Encounter Date Encounter Id Patient Instructions Last Modified By Organization Details Last Modified Time 03/04/2020 [id number] osteoarthritis: care instructions smoberly Not available 03/04/2020 14:09:58 04/01/2020 [id number] osteoarthritis: care instructions smoberly Not available 04/01/2020 08:50:24 05/01/2020 [id number] osteoarthritis: care instructions smoberly Not available 05/01/2020 09:06:21 06/01/2020 [id number] osteoarthritis: care instructions smoberly Not available 06/01/2020 08:25:19 07/01/2020 [id number] osteoarthritis: care instructions smoberly Not available 07/01/2020 09:17:45 Reason for Referral None Reported. Problems Name Problem SNOMED Code Status Onset Date Resolution Date Notes Provider Name and Address Organization Details Recorded Time Pain in left foot 76327629943 9107 Active 2014 From Automated Load;Prov ider: Janet Paredes;Sta tus: Active Not Available [facility] 6 08:14:16 Pain in right foot 54794872980 9107 Active 2014 From Automated Load;Prov ider: Janet Paredes;Sta tus: Active Not Available [facility] 6 08:14:20 Low back pain 699301700 Active 2014 From Automated Load;Prov ider: Janet Paredes;Sta tus: Active Not Available [facility] 6 08:14:20 Idiopathi c osteoarth ritis 980001091 Active 2014 From Automated Load;Prov ider: Saranya Frederick;Sunny tatus: Active Not Available [facility] 6 08:14:20 Carpal tunnel syndrome 02618443 Active 2015 From Automated Load;Prov ider: Saranya Frederick;Sunny tatus: Active Not Available [facility] 6 08:14:20 Idiopathi c chronic neuropath y 078846451 Active 2017 bilateral feet SARANYA FREDERICK, HOB MILL OPERATOR [address] [place], [address] , [facility] 8 10:44:55 Fibromyal natalio 351970972 Active 2018 SARANYA FREDERICK, HOB MILL OPERATOR [address] [place], [address] , [facility] 9 10:28:45 Generaliz ed osteoarth ritis 849260427 Active 2018 SARANYA FREDERICK, HOB MILL OPERATOR [address] [place], [address] , [facility] 9 10:28:48 Problem Notes None recorded. Procedures Surgical History Date Name Laterality Status Provider Name and Address Organization Details Recorded Time 07/02/19 20 Injection Joint/Bursa, Major, w/o US completed SARANYA FREDERICK APRN [address] [place], [address], [facility] 07/14/2019 12:59:50 07/04/19 17 Injection Joint/Bursa, Major, w/o US completed SARANYA FREDERICK [employer] OPERATOR [address] [place], [address], [facility] 07/04/2016 11:43:14 Remove tonsils and adenoids completed [facility] 11/25/2016 10:51:52 Appendectomy completed [facility] 11/25/2016 10:51:59 Other completed [facility] 11/25/2016 10:52:20 Imaging Results None recorded. Procedure Notes None recorded. Medical Equipment None Reported. Allergies Allergen ID Allergen Name Allergen Category Reaction Reaction Severity Criticality Documentation Date Start Date Code Code System Note Provider Name and Address Organization Details Recorded Time 752550 naproxen sodium medicatio n Not available Not available Not available 04/15/20162010 03956 2 RxNorm Comme nt: Creat ed By: Gabriel thompson;Cre ated Date: 05/03 1:57: 04 PM; Not Available [facility] 6 05:00:12 690235 Product containin g penicilli n (product) medicatio n Not available Not available Not available 04/15/20162010 87411 8001 SNOMED Comme nt: Creat ed By: Gabriel thompson;Cre ated Date: 05/03 1:56: 47 PM; Not Available [facility] 6 09:14:31 199080 Flonase medicatio n Not available Not available Not available 04/15/20162010 45103 RxNorm Comme nt: Creat ed By: Gabriel thompson;Cre ated Date: 05/03 1:58: 11 PM; Not Available [facility] 6 09:14:32 Medications Name Sig Start Date Stop Date Status Note LastModified by Organization Details LastModified Time Singulair 10 mg tablet Daily active Frequenc y: daily;Me dication Descript ion: monteluk ast; Dosage:1 ; Route:or al; refills: 5; Quantity :30 tablet Not Available Not Available Not Available cyclobenz aprine 10 mg tablet TAKE ONE TABLET BY MOUTH EVERY DAY MAY CAUSE DROWSINE SS active Not Available Not Available No t Available trazodone 50 mg tablet Bedtime active Frequenc y: hs;Alt Frequenc y: as direct.; Medicati on Descript ion: trazodon e; Dosage:1 -2; Route:or al; refills: 0 Not Available Not Available Not Available Prilosec 20 mg capsule,d elayed release Every night at bedtime active Frequenc y: qhs;Medi cation Descript ion: omeprazo le; Dosage:1 ; Route:or al; refills: 5; Quantity :30 enteric coated capsule Not Available Not Available Not Available Zyrtec 10 mg tablet 09/28 completed Duration : 10 days;Med ication Descript ion: cetirizi ne; Dosage:a s directed ; Route:or al; refills: 0; Quantity :30 tablet Not Available Not Available Not Available amlodipin e 5 mg tablet Daily 08/29 completed Frequenc y: daily;Me dication Descript ion: amlodipi ne; Dosage:1 ; Route:or al; refills: 0 Not Available Not Available Not Available Lipitor 20 mg tablet Every night at bedtime active Frequenc y: qhs;Medi cation Descript ion: atorvast atin; Dosage:1 ; Route:or al; refills: 0; Quantity :30 tablet Not Available Not Available Not Available Depo-Medr ol 80 mg/mL suspensio n for injection Take 120 mg by injectio n route. 04/27 completed Not Available Not Available Not Available baclofen 10 mg tablet TAKE 1 TABLET BY MOUTH TWICE DAILY MAY CAUSE DROWSINE SS 12/01 completed Not Available Not Available Not Available lidocaine 5 % topical patch APPLY 1 PATCH TOPICALL Y EVERY 12 HOURS DIRECTED (APPLY FOR 12 HOURS THEN REMOVE FOR 12 HOURS DIRECTED ) active Not Available Not Available No t Available gabapenti n 300 mg capsule Take 1 capsule 3 times a day by oral route. 2019 active Saranya Frederick Not Available Not Available Not Available diclofena c sodium 75 mg tablet,de layed release TAKE ONE TABLET BY MOUTH TWICE DAILY --TAKE WITH FOOD-- active Not Available Not Available No t Available Hanover 7.5 mg-325 mg tablet Take 1 tablet 3 times a day by oral route as needed for 30 days. 09/30 completed Not Available Not Available Not Available oxybutyni n chloride 5 mg tablet TAKE 1 TABLET BY MOUTH THREE TIMES DAILY MAY CAUSE DROWSINE SS 2018 active Not Available Not Available Not Avai lable Hanover 5 mg-325 mg tablet Take 1 tablet 3 times a day by oral route for 30 days. 2020 active Not Available Not Available Not Avai lable diazepam 5 mg tablet Two times a day 10/19 completed Duration : 10 days;Ins truction s: 1 tablet as directed as needed for spasm ;Frequen cy: bid;Alt Frequenc y: as direct.; Medicati on Descript ion: diazepam ; Dosage:1 ; Route:or al; refills: 0; Quantity :30 tablet Not Available Not Available Not Available Ventolin HFA 90 mcg/actua tion aerosol inhaler active Medicati on Descript ion: albutero l; Dosage:a s directed ; Route:in halation ; refills: 0 Not Available Not Available Not Available duloxetin e 60 mg capsule,d elayed release TAKE ONE CAPSULE BY MOUTH EVERY DAY IN THE MORNING 2019 active Not Available Not Available Not Avai lable Synvisc active NO PA required per [employer] ref #[id number] Not Available Not Available Not Available NyQuil prn active Not Available Not Availa ble Not Available calcium 600 mg (as carbonate )-vitamin D3 10 mcg (400 unit) tablet Take 1 tablet twice a day by oral route. 2018 active Not Available Not Available Not Avai lable diclofena c 1 % topical gel APPLY TOPICALL Y TO AFFECTED AREA(S) EVERY 6-8 HOURS DIRECTED 2017 active Not Available Not Available Not Avai lable Vitals Date Recorded Body height Provider Name an d Address Organization Details Last Updated DateTime 06/01/2020 152.4 cm SARANYA FREDERICK, DARLING [address] [place], [address] [place] [address] 06/01/2020 08:23:42 Date Recorded Body height Provider Name an d Address Organization Details Last Updated DateTime 07/01/2020 152.4 cm SARANYA FREDERICK, DARLING [address] [place], [address] 07/01/2020 09:16:45 Date Recorded Body height Provider Name an d Address Organization Details Last Updated DateTime 03/04/2020 152.4 cm SARANYA FREDERICK, HOB MILL OPERATOR [address] [place], [address] 03/04/2020 14:08:12 Date Recorded Body height Provider Name an d Address Organization Details Last Updated DateTime 04/01/2020 152.4 cm SARANYA FREDERICK, HOB MILL OPERATOR [address] [place], [address] 04/01/2020 08:44:51 Date Recorded Body height Provider Name an d Address Organization Details Last Updated DateTime 05/01/2020 152.4 cm SARANYA FREDERICK, HOB MILL OPERATOR [address] [place], [address] 05/01/2020 09:03:48 Social History Question Answer Notes LastModified by [employer] Details LastModified Time Tobacco Smoking Status Former Smoker [facility] 06/01/2016 10:42:17 How Much Tobacco Do You Chew? None Information not available 08/16/2018 What Was The Date Of Your Most Recent Tobacco Screening? 07/02/2019 [email or web address] Information not available 07/02/2019 How Much Tobacco Do You Smoke? No [email or web address] Information not available 08/16/2018 Has Tobacco Cessation Counseling Been Provided? No [email or web address] Information not available 08/16/2018 How Many Years Have You Smoked Tobacco? 5 Information not available 08/16/2018 Sex: Unknown Functional Status Question Answer Note LastModified by [employer] Details LastModified Time What is your level of alcohol consumption? None [email or web address] Information not available 09/28/2016 Do you or have you ever used smokeless tobacco? Never used smokeless tobacco Information not available 01/11/2019 Do you or have you ever used e-cigarettes or vape? Never used electronic cigarettes Information not available 01/11/2019 Mental Status None recorded. Family History Relationship Description Onset Age of this Age Resolved Age Notes LastModified by Organization Details LastModified Time Father No current problems or disability Not available 06/01 10:41:21 Mother No current problems or disability [email or web address] Not available 06/01 10:41:21 Paternal Aunt Diabetes mellitus [email or web address] Not available 11/25 10:51:07 Sister Myocardial infarction Not available 11/2016 10:51:18 Sister Arthritis Not availa ble 11/25/2016 10:51:33 Medical History Condition Response Diabetes N Bleeding Disorder N Arthritis Y Emphysema N Acid Reflux (GERD) Y Heart Disease N Rheumatoid Arthritis N Hypertension Y COPD N Asthma N Gynecological HistoryNo gynecological history recorded. Obstetrics History GPAL:G 0 P 0 0 0 0 Past Encounters Encounter ID Performer Location Encounter Start Date Encounter Closed Date Diagnosis/Indication Diagnosis SNOMED-CT Code Diagnosis ICD10 Code Diagnosis Note [id number] SARANYA FREDERICK APRN [facility] [address] [place] [address] 06/01/2016 10:32:42 06/01/2016 11:17:18 Osteoarthritis 014351990 M19.90 Long-term drug therapy 300898850 Z79.899 Idiopathic osteoarthritis 923612878 M19.91 Muscle weakness 26420823 M62.81 Low back pain 871361092 M54.5 Carpal ulises dedrick syndrome 21321250 G56.01 G56.02 Muscle pain 32670689 M79 .1 Falls 888185678 R29.6 [id number] SARANYA FREDERICK [place]N [facility] [place] [facility] [address] [place] [address] 07/04/2016 11:00:12 07/04/2016 12:04:53 Osteoarthritis 874025976 M19.90 Seropositi ve rheumatoid arthritis 400082081 M05.9 Idiopathic osteoarthritis 573223420 M19.[address] ochanteric pain syndrome 4001247 M70.62 Fibromyalgia 000562417 M 79.7 Pain of oulder region 53863991 M25.819 [id number] SARANYA FREDERICK APRN [facility] [address] [place] [address] 07/28/2016 09:31:32 07/28/2016 11:21:43 Osteoarthritis 176192119 M19.90 chronic and recurring oa with some dip and pip changesno synovitis or dactylitis normal systemic examstable and without crippling deformityw ill provide with refills of norco todaykaspe r todayopioi d screening today Idiopathic osteoarthritis 106823010 M19.91 Long-term drug therapy 387573006 Z79.553 [id number] SARANYA FREDERICK APRN [facility] [address] [place] [address] 08/29/2016 10:28:32 08/29/2016 11:51:31 Seropositive rheumatoid arthritis 281081035 M05.9 no seropositi ve RA; oa only Osteoarthritis 369205910 M19.90 chronic and recurring oa with some dip and pip changesno synovitis or dactylitis normal systemic examstable and without crippling deformityw ill provide with refills of norco todaykaspe r todayopioi d screening today Idiopathic osteoarthritis 259205700 M19.91 Long-term drug therapy 336700809 Z79.806 [id number] SARANYA FREDERICK APRN [facility] [address] [place] [address] 09/28/2016 09:16:10 09/28/2016 10:37:21 Osteoarthritis 628203606 M19.90 chronic and recurring oa with some dip and pip changesno synovitis or dactylitis normal systemic examstable and without crippling deformityw ill provide with refills of norco todaykaspe r todayopioi d screening today Idiopathic osteoarthritis 089758734 M19.91 Long-term drug therapy 429617839 Z79.899 Seropositi ve rheumatoid arthritis 218894177 M05.9 no seropositi ve RA; oa only [id number] [place] [address] [place] [address] 1 10/19/2016 10:48:26 10/19/2016 14:43:30 Osteoarthritis 778587442 M19.90 chronic and recurring oa with some dip and pip changesno synovitis or dactylitis normal systemic examstable and without crippling deformityw ill provide with refills of norco todaykaspe r todayopioi d screening today Idiopathic osteoarthritis 792156456 M19.91 [id number] SARANYA FREDERICK APRN [facility] [address] [place] [address] 1 11/25/2016 09:53:51 11/25/2016 13:06:09 Osteoarthritis 697615655 M19.90 chronic and recurring oa with some dip and pip changesno synovitis or dactylitis normal systemic examstable and without crippling deformityw ill provide with refills of norco todaykaspe r todayopioi d screening today Long-term drug therapy 933054767 Z79.899 Idiopathic osteoarthritis 109042587 M19.91 Neuropathy 904550689 G62 .9 [id number] SARANYA FREDERICK APRN [facility]OL [facility] [address] [place] [address] 12/23/2016 09:47:48 12/23/2016 10:25:56 Osteoarthritis 483636491 M19.90 chronic and recurring oa with some dip and pip changesno synovitis or dactylitis normal systemic examstable and without crippling deformityw ill provide with refills of norcogabap entin provided last monthkaspe r todayopioi d screening today Body mass index 25-29 - overweight 320647006 Z68.27 Long-term drug therapy 671055723 Z79.899 Seropositi ve rheumatoid arthritis 385591723 M05.9 no seropositi ve RA; oa only Pruritic rash 45592556 L 28.2 bilateral armsusing benadryl and benadryl creammay be sun relatedwil l further assess after having her stay out of the [facility] provide with 120 mg IM injection today [id number] SARANYA FREDERICK APRN [place] [address] 01/25/2017 09:59:54 01/25/2017 12:41:39 Osteoarthritis 419896313 M19.90 chronic and recurring oa with some dip and pip changesno synovitis or dactylitis normal systemic examstable and without crippling deformityw ill provide with refills of norcogabap entin provided last monthkaspe r todayopioi d screening today Long-term drug therapy 492386355 Z79.899 Idiopathic osteoarthritis 288227705 M19.91 Intercosta l post-herpetic neuralgia 132628410 B02.29 chronic and recurringh as worn lidoderm patches in the pastrecent flarewill prescribe again [id number] [facility] [address] [place] [address] 02/22/2017 09:37:59 02/22/2017 10:47:06 Osteoarthritis 723622750 M19.90 chronic and recurring oa with some dip and pip changesno synovitis or dactylitis normal systemic examstable and without crippling deformityw ill provide with refills of norcogabap entin provided last monthkaspe r todayopioi d screening today Long-term drug therapy 458554347 Z79.899 refills and labs today Pain in right arm 685443 004 M79.601 occuring at nightshe is concerned about carpal tunnel syndromeaw akening at night; she reports she has been taking a muscle relaxer to help and it doeswill have her start one every night before bedtime and will make her a referral if it's needed [id number] SARANYA FREDERICK APRN [facility] [address] [place] [address] 03/27/2017 09:52:48 03/27/2017 10:31:51 Osteoarthritis 782509264 M19.90 chronic and recurring oa with some dip and pip changesno synovitis or dactylitis normal systemic examstable and without crippling deformityw ill provide with refills of norcokaspe r today opioid screening today Long-term drug therapy 120347615 Z79.899 refills and labs today Pain in right arm 224212 004 M79.601 occuring at nightsjarocho is concerned about carpal tunnel syndromeaw akening at night; she reports she has been taking a muscle relaxer to help and it doeswill have her start one every night before bedtime and will make her a referral if it's needed Neuropathy 129877800 G62 .9 chronic and recurring with bilateral arm and leg painsburni ng and tingling [id number] GRACE KRAFT APRN [facility] [address] [place] [address] 04/27/2017 09:42:35 04/27/2017 11:26:13 Osteoarthritis 193518579 M19.90 OA chronic and symptomati c.no synovitis or effusions. normal systemic examMainta in [place] TID. lissa and UDS today.rech turner 1 month, sooner if needed. Long-term drug therapy 145441194 Z79.571 [id number] GRACE KRAFT APRN [place] [address] 1 05/26/2017 10:09:20 05/26/2017 11:20:59 Fibromyalgia 133133836 M79.7 fibromyalg iaWith diffuse tenderness .Refill cymbalta today. Osteoarthritis 760763120 M19.90 OA remains symptomati c.no synovitis or effusions. Maintain norco TID. lissa today.rech turner 1 month, sooner if needed. [id number] SARANYA FREDERICK APRN [place] [address] 1 06/26/2017 09:36:39 06/26/2017 10:21:23 Osteoarthritis 087311818 M19.90 OA remains symptomati c.no synovitis or effusions. Maintain norco TID. lissa today.rech turner 1 month, sooner if needed. Fibromyalgia 241674772 M 79.7 fibromyalg iaWith diffuse tenderness .Refill cymbalta today. Neuropathy 919257300 G62 .9 chronic and recurring with bilateral arm and leg painsburni ng and tingling Long-term drug therapy 859497272 Z79.899 refills and labs today Idiopathic osteoarthritis 579078316 M19.91 [id number] SARANYA FREDERICK APRN [place] [address] 1 07/24/2017 09:59:03 07/24/2017 11:19:29 Osteoarthritis 768023169 M19.90 OA remains symptomati cno synovitis or effusionsn o obvious nodulesMai ntain norco TIDkasper todaydiscu ssed today Idiopathic chronic neuropathy 856728758 G60.9 recurring; takes neurontin tid no refills needed today gabapentin filled last month [id number] RIVER SAUCEDA APRN [place] [address] 1 08/21/2017 09:52:27 08/21/2017 11:14:40 Osteoarthritis 367313779 M19.90 OA remains symptomati c lower back, hands, knees, feetno synovitis or effusions. Maintain norco TID.lissa today. CS consent in place.rech turner 1 month, sooner if needed. Fibromyalgia 609326623 M 79.7 fibromyalg iaWith diffuse tenderness .Refill cymbalta today.main tain gabapentin Neuropathy 661574813 G62 .9 chronic and recurring with bilateral arm and leg painsburni ng and tinglingne eds EMG, start with BUE rule out CTS vs cervical vs idiopathic ;after results, consider BLE; Long-term drug therapy 903951867 Z79.899 refills and labs today Generalize d osteoarthritis 715189775 M15.9 get images of bilateral knees, declined injection today, but worsening knee pain; Pain of bi lateral hands 3684984212 7917641 M79.641 M79.642 symptoms and exam suggestive of CTS she is dropping items will get EMG/NCS, work up for potential repair of CTS xray bilat hands today will trial cock up wrist brace bilateral, wear for house work/use at home, and for sleep [id number] SARANYA FREDERICK APRN [place] [place] [address] [place] [address] 09/21/2017 10:01:31 09/21/2017 11:43:54 Osteoarthritis 860396375 M19.90 OA remains symptomati c lower back, hands, knees, feetno synovitis or effusions. Maintain norco TID.lissa today. CS consent in place.rech turner 1 month, sooner if needed. Fibromyalgia 783935661 M 79.7 fibromyalg iaWith diffuse tenderness .Refill cymbalta today.main tain gabapentin --filled two months ago and again last month [id number] SARANYA FREDERICK APRN [facility] [address] [place] [address] 10/23/2017 10:09:03 10/23/2017 11:59:12 Osteoarthritis 637381825 M19.90 OA remains symptomati c lower back, hands, knees, feetunable to tolerate nsaidscont inues on norco tidkasper today; controlled substance agreement signedneed s refillsuri ne ok, no need for assessment today Fibromyalgia 118638319 M 79.7 fibromyalg iaWith diffuse tenderness .Refill cymbalta today.main tain gabapentin --filled two months ago and again last month [id number] RIVER DARLING SAUCEDA RHEUMATOL [facility] [address] [place] [address] 11/20/2017 10:18:37 11/20/2017 16:53:38 Osteoarthritis 337296956 M19.90 OA remains symptomati c lower back, hands, knees, feetunable to tolerate nsaidscont inues on norco tid-reques ts refill [place] and cymbalta today she is also taking trazodone at bedtime, plus flexeril at bedtime plus baclofen in AM and 12-2pm (bid early in the day), as well as gabapentin , which is a lot of sedating medication . We discussed change her meds to a single muscle relaxer, however she reports no drowsiness with baclofen but does get drowsy with flexeril, so for now will try to stop the trazodone and continue baclofen in Am and early noon time 2nd dose only if needed, but must leave 8 hrs between baclofen and nighttime dose of flexeril. She will discuss with her usual provider next visit. lissa reviewed, CS agreement in place.repe at S today with urine gabapentin . Fibromyalgia 709862686 M 79.7 fibromyalg iahaving a good day, few tender trigger points today.Refi ll cymbalta today.main tains gabapentin also, denies need for refill today [id number] RIVER SAUCEDA APRN RHEUMATOL [facility] [address] [place] [address] 12/21/2017 10:18:10 12/21/2017 14:54:02 Osteoarthritis 629195054 M19.90 OA remains symptomati c lower back,knees have severe changes needs spine imaging, consider injections Knee steroid has not benefitted in past, will try approval for simvisc series of 3. continues on norco tid-reques ts refill Hanover and gabapentin , diclofenac topical todayUDS recently appropriat e.maintain lowest effective dose of Norcomaint ain gabapentin for radicular symptom from her low back pain She did stop the flexeril at my request ( was combining with baclofen) and only on the baclofen now, doing fine and no worsening, less sedating.m aintain topical and po diclofenac . recent Creatinine normal. lissa reviewed, CS agreement in place. Fibromyalgia M 79.7 fibromyalg iahaving a good day, few tender trigger points today.Refi ll cymbalta today.main tains gabapentin also, denies need for refill today Lumbar radiculopathy 128 M54.16 order for aquatic pool therapy for severe OA in knees and lumbar pain/radic ulopathy, with fibromyalg ia component. Neck pain 44717200 M54.2 [id number] AWILDA SANCHEZ MD [facility] [address] [place] [address] 01/17/2018 10:41:41 01/17/2018 12:07:01 Osteoarthritis 580654782 M19.90 OA chronic and diffuse. remains symptomati c lower back and knees. Anticipati ng knee ARECHIGA injections , but wants to do them locally in her area. Knee steroid has not benefitted her in past. due to leg edema minimize the use of oral NSAIDS. OK to continue on norco 7.5 mg tid. UDS recently appropriat e.maintain lowest effective dose of Hanover she will also maintain gabapentin for radicular symptom from her low back pain She did stop the flexeril at my request ( was combining with baclofen) and only on the baclofen now, doing fine and no worsening, less sedating.m aintain topical and po diclofenac . recent Creatinine normal. Fibromyalgia M 79.7 fibromyalg ia, chronic. Good days and bad days!. Few tender trigger points at usual sites. strength is stable. maintain the cymbalta 60 mg poqd along with gabapentin 300mg tid. no refills given today. Lumbar radiculopathy 128 M54.16 order for aquatic pool therapy for severe OA in knees and lumbar pain/radic ulopathy, with fibromyalg ia component. xrays reviewed with patient: Rather diffuse DDD as stated below. Vertebral body heights are normal. Diffuse narrowing of the disc spaces with diffuse degenerati ve spurring. Grade 1 6 mm degenerati ve anterior listhesis of L4 relative to L5. No instabilit y is seen on flexion or extension. No radiograph ic evidence of injury is noted. Calcificat ions project over both kidneys including a cluster projected over the left kidney.he alignment is within normal limits with no subluxatio n. Diffuse narrowing of the disc spaces with spurring C4-C7. No prevertebr al soft tissue swelling. No radiograph ic evidence of injury is seen. She is suggested to talk to Ms Sauceda about seeing Dr Rosario for management of her neck and back pains. [id number] R[place] DARLING SAUCEDA [facility] [address] [place] [address] 02/21/2018 10:07:38 02/21/2018 15:04:00 Fibromyalgia 447038330 M79.7 fibromyalg iahaving a good day, few tender trigger points today.Refi ll medication s gabapentin , cymbalta Osteoarthritis 961617894 M19.90 In the knees and the spine, chronic. Not interested in spine injections hsa been to PT long ago, did not help a lot. OA remains symptomati c lower back, knees have severe changes She is interested in knee hyaluronat e injections , but needs closer to home location-- advised to f/u PCP for referral to Ortho near home for these. continues on norco tid- refilled todayUDS recently appropriat e in past, repeat todaymaint ain lowest effective dose of Norcomaint ain gabapentin for radicular symptom from her low back pain and the fibromyalg iamaintain topical and po diclofenac . recent Creatinine normal. lissa reviewed, CS agreement in place. Long-term drug therapy 817634425 Z79.899 refills and labs today [id number] SARANYA FREDERICK APRN [facility] [address] [place] [address] 03/20/2018 09:24:01 03/20/2018 10:11:53 Fibromyalgia 677855133 M79.7 fibromyalg iastable with normal labs and refills 02/21/18 Osteoarthritis 326057304 M19.90 In the knees and the spine, chronic. Not interested in spine injections hsa been to PT long ago, did not help a lot. OA remains symptomati c lower back, knees have severe changes continues on norco tid- refilled todayUDS recently appropriat emaintain lowest effective dose of Hanover lissa reviewed, CS agreement in place. Long-term drug therapy 767575550 Z79.899 refills today; labs are good [id number] SARANYA FREDERICK APRN [facility] [address] [place] [address] 04/19/2018 10:18:23 04/20/2018 09:41:55 Osteoarthritis 644419307 M19.90 In the knees and the spine, chronic. Not interested in spine injections hsa been to PT long ago, did not help a lot. OA remains symptomati c lower back, knees have severe changes continues on norco tid- refilled today maintain lowest effective dose of Hanover lissa reviewed, CS agreement in place Fibromyalgia 175261820 M 77.7 fibromyalg iastable with normal labs and refills 02/21/18 Long-term drug therapy 806923187 Z79.899 refills today; labs are good [id number] SARANYA FREDERICK APRN [facility] [address] [place] [address] 05/18/2018 09:13:40 05/23/2018 09:22:57 Fibromyalgia 350492520 M79.7 fibromyalg iahaving a good day, few tender trigger points today.Refi ll medication s gabapentin , cymbalta Osteoarthritis 777810335 M19.90 In the knees and the spine, chronic. Not interested in spine injections hsa been to PT long ago, did not help a lot. OA remains symptomati c lower back, knees have severe changes She is interested in knee hyaluronat e injections , but needs closer to home location-- advised to f/u PCP for referral to Ortho near home for these. continues on norco tid- refilled todayUDS recently appropriat e in past, repeat todaymaint ain lowest effective dose of Norcomaint ain gabapentin for radicular symptom from her low back pain and the fibromyalg iamaintain topical and po diclofenac . recent Creatinine normal. lissa reviewed, CS agreement in place. Long-term drug therapy 797126886 Z79.899 refills today labs are good from 02.21.18 [id number] SARANYA FREDERICK APRN [facility] [address] [place] [address] 06/21/2018 11:01:50 06/26/2018 09:36:56 Osteoarthritis 698046697 M19.90 chronic recurring the knees and the spine, Not interested in spine injections with pain management hsa been to PT and reports it did not help OA remains symptomati c lower back, knees have severe changes continues on norco tid- refilled today maintain lowest effective dose of Norcomaint ain gabapentin for radicular symptom from her low back pain and the fibromyalg iamaintain topical and po diclofenac . recent Creatinine normal. [employer] rolled substance agreement signedno need for urine today Fibromyalgia 352522171 M 77.7 fibromyalg iahaving a good day, few tender trigger points today.refi lls sent last month Long-term drug therapy 809512696 Z79.899 refills today labs are good from 10.3.18 Screening for osteoporosis 829914208 Z13.820 with deep bone pain and tenderness reports no dexa in the past [id number] SARANYA FREDERICK APRN [facility] [address] [place] [address] 07/19/2018 08:42:39 07/31/2018 15:57:51 Osteopenia 497148188 M85.80 Lumbar radiculopathy 128 888132 M54.16 Osteoarthritis 533505466 M19.90 chronic recurring the knees and the spine, Not interested in spine injections with pain management hsa been to PT and reports it did not help OA remains symptomati c lower back, knees have severe changes continues on norco tid- refilled today maintain lowest effective dose of Norcomaint ain gabapentin for radicular symptom from her low back pain and the fibromyalg iamaintain topical and po diclofenac . recent Creatinine normal. [employer] rolled substance agreement signedno need for urine today [id number] AWILDA SANCHEZ MD [facility] [address] [place] [address] 08/16/2018 09:33:23 08/17/2018 09:54:47 Lumbar radiculopathy 136136108 M54.16 she is chronic mechanical neck and back pain with typical degenerati ve disc disease. It looks like that she has had some radicular symptoms in the past but clinically she seems to be fairly stable. She is currently on combinatio n of gabapentin 300 mg 3 times a day along with hydrocodon e. Further she takes baclofen and sodium twice a day. I have reviewed the x-rays of lumbar spine, with Diffuse narrowing of the disc spaces with diffuse degenerati ve spurring. Grade 1 6 mm degenerati ve anterior listhesis of L4 relative to L5. No instabilit y is seen on flexion or extension. No radiograph ic evidence of injury is noted. Calcificat ions project over both kidneys including a cluster projected over the left kidney. alignment is within normal limits with no subluxatio n. Diffuse narrowing of the disc spaces with spurring C4-C7. No prevertebr al soft tissue swelling. No radiograph ic evidence of injury is seen. she will follow with Loyda Frederick as planned. Further evaluation with more specialize d pain clinic such as Dr. Chapman and Dr. Rosario would be very reasonable . I would leave this decision to Dr. Frederick. Generalize d osteoarthritis 073256736 M15.9 she has generalize d osteoarthr itis, with chronic mechanical back, hips and knee pains.she needs to consider left total knee arthroplas ty. However I would leave this decision between her and Kerrei Frederick. Further she has chronic diffuse degenerati ve disease involving her first carpometac arpal joints, shoulders besides spine.I would suggest to maintain lowest effective dose of Hanover. [place] rolled substance agreement signedno need for urine today Long-term drug therapy 295784839 Z79.899 she will follow with the opioid drug screen. [id number] SARANYA FREDERICK APRN [facility]ATOL [address] [place] [address] 09/14/2018 09:17:58 09/18/2018 16:05:23 Fibromyalgia 410204224 M79.7 fibromyalg iahaving a good day, few tender trigger points today.refi lls sent last month Generalize d osteoarthritis 457017142 M15.9 [id number] SARANYA FREDERICK APRN [facility] [address] [place] [address] 10/12/2018 09:22:18 10/17/2018 13:06:43 Generalized osteoarthritis 417904717 M15.9 chronic and recurring djd and on norco for years she will maintain the norco, low dose and has titrated down from 4/10 mg tablets daily lissa foster Long-term drug therapy 242070250 Z79.899 refills today labs are good from 10.3.18 [id number] [place] [address] [place], [place] [address] 11/12/2018 09:56:35 11/14/2018 10:33:37 Generalized osteoarthritis 343059485 M15.9 chronic and recurring djd and on norco for years unable to take nsaids she will maintain the norco, low dose and has titrated down from 4/10 mg tablets daily to 3/7.5 mg daily lissa today; no need for opitates urine today; normal on last assessment refills today Long-term drug therapy 518781800 Z79.899 refills today [id number] SAR[place] [address] [place] [address] 1 12/12/2018 09:57:21 12/14/2018 10:22:47 Generalized osteoarthritis 187118186 M15.9 chronic and recurring djd and on norco for years unable to take nsaids she will maintain the norco, low dose and has titrated down from 4/10 mg tablets daily to 3/7.5 mg daily lissa today; no need for opiates urine today; normal on last assessment refills today Long-term drug therapy 053816416 Z79.899 refills today Fibromyalgia 200372941 M 79.7 fibromyalg iahaving a good day, few tender trigger points today.refi lls sent last month [id number] SARANYA FREDERICK [facility] [address] [place], [place] [address] 01/11/2019 09:57:39 01/11/2019 14:16:36 Generalized osteoarthritis 020304814 M15.9 chronic and recurring djd and on norco for years unable to take nsaids she will maintain the norco, low dose and has titrated down from 4/10 mg tablets daily to 3/7.5 mg daily lissa today; no need for opiates urine today; normal on last assessment refills today [id number] SARANYA FREDERICK APRN [facility] [address] [place] [address] 02/11/2019 09:43:50 02/13/2019 09:41:54 Body mass index 30+ - obesity 950635895 Z68.30 Generalize d osteoarthritis 580034910 M15.9 chronic and recurring djd and on norco for years unable to take nsaids she will maintain the norco, low dose and has titrated down from 4/10 mg tablets daily to 3/7.5 mg daily lissa today; no need for opiates urine today; normal on last assessment refills today [id number] SARANYA FREDERICK APRN [facility] [address] [place] [address] 03/13/2019 09:25:17 03/15/2019 10:45:20 Generalized osteoarthritis 572044929 M15.9 chronic and recurring djd and on norco for years unable to take nsaids she will maintain the norco, low dose and has titrated down from 4/10 mg tablets daily to 3/7.5 mg daily lissa today; no need for opiates urine today; normal on last assessment refills today Body mass index 30+ - obesity 374338516 Z68.30 Fibromyalgia 497780037 M 79.7 fibromyalg iahaving a good day, few tender trigger points today.refi lls sent last month [id number] SARANYA FREDERICK APRN [facility] [address] [place] [address] 04/12/2019 09:48:04 04/13/2019 18:34:16 Generalized osteoarthritis 515244573 M15.9 chronic and recurring djd and on norco for years unable to take nsaids she will maintain the norco, low dose and has titrated down from 4/10 mg tablets daily to 3/7.5 mg daily lissa today; no need for opiates urine today; normal on last assessment refills today Fibromyalgia 178138861 M 79.7 fibromyalg iahaving a good day, few tender trigger points today.refi lls sent last month Body mass index 30+ - obesity 212808811 Z68.30 Long-term drug therapy 662796115 Z79.899 refills today [id number] SARANYA FREDERICK APRN [facility] [address] [place] [address] 05/31/2019 08:33:20 05/31/2019 09:19:47 Generalized osteoarthritis 962685701 M15.9 chronic and recurring djd and on norco for years unable to take nsaids she will maintain the norco, low dose and has titrated down from 4/10 mg tablets daily to 3/7.5 mg daily lissa today; no need for opiates urine today; normal on last assessment refills today Fibromyalgia 729428269 M 79.7 fibromyalg iahaving a good day, few tender trigger points today.refi lls sent last month Body mass index 30+ - obesity 982022510 Z68.30 Long-term drug therapy 718847520 Z79.899 refills today [id number] SARANYA FREDERICK APRN [facility] [address] [place] [address] 07/02/2019 09:42:08 07/02/2019 11:21:03 Generalized osteoarthritis 870713174 M15.9 chronic and recurring djd and on norco for years unable to take nsaids she will maintain the norco, low dose and has titrated down from 4/10 mg tablets daily to 3/7.5 mg daily lissa today; no need for opiates urine today; normal on last assessment refills today Body mass index 30+ - obesity 016277025 Z68.30 Pain in left knee 679410 9518 74762 M25.562 with left knee pain and tenderness requests injections today; will provide injection into left knee today h/o the same, though it has been a long time will obtain further xrays today [id number] AWILDA SANCHEZ MD [facility] [address] [place] [address] 09/02/2019 08:03:53 09/02/2019 15:34:46 Generalized osteoarthritis 108184365 M15.9 she has generalize d osteoarthr itis, with chronic mechanical back, hips and knee pains.she has severe bilateral knee osteoarthr itis and needs to consider left total knee arthroplas ty. Further she has chronic diffuse degenerati ve disease involving her first carpometac arpal joints, shoulders besides spine.I would suggest to maintain lowest effective dose of Hanover.I have suggested to reduce the dose of hydrocodon e to 5 mg every 8 hours. Fibromyalgia 104875689 M 79.7 she has chronic fibromyalg ia syndrome with typical good days and bad days. Overall her pains are well controlled . she can maintain the cymbalta 60 mg poqd along with gabapentin 300mg tid. no refills given today. [id number] AWILDA SANCHEZ MD RHEUMATOL [address] [address] 10/01/2019 09:00:20 10/01/2019 12:34:08 Generalized osteoarthritis 613956682 M15.9 68-year-ol d female with generalize d osteoarthr itis. followed by Saranya Frederick and is currently covered on at 7.5 mg 3 times a day. I suggested her to reduce the dose to 5 mg 3 times a day. she can't take over-the-c ounter Aleve once or twice a day for breakthrou gh pain. Follow-up in one month. [id number] SARANYA FREDERICK APRN RHEUMATOL [address] [address] 11/01/2019 07:52:25 11/01/2019 08:12:51 Generalized osteoarthritis 131670826 M15.9 68-year-ol d female with generalize d osteoarthr itis. reduced the dose to 5 mg 3 times a day. she can take over-the-c ounter diclofenac once or twice a day for breakthrou gh pain. Follow-up in one month. [id number] SARANYA FREDERICK APRN RHEUMATOL [address] [address] 12/02/2019 08:26:06 12/02/2019 09:37:43 Fibromyalgia 150987602 M79.7 fibromyalg iahaving a good day, few tender trigger points today.refi lls today of gabapentin 300 mg tid; cyclobenza jo ann prn for muscle spasms; baclofen didn't work for her;no s/e with meds; stable disease process Generalize d osteoarthritis 373804746 M15.9 68-year-ol d female with generalize d osteoarthr itis. reduced the dose to 5 mg 3 times a day. she can take over-the-c ounter diclofenac once or twice a day for breakthrou gh pain. Follow-up in one month. [id number] SARANYA [place] [address] [place] [address] 01/03/2020 08:03:32 01/03/2020 09:00:29 Generalized osteoarthritis 655904336 M15.9 68-year-ol d female with generalize d osteoarthr itis. reduced the dose to 5 mg 3 times a day. she can take over-the-c ounter diclofenac once or twice a day for breakthrou gh pain. Follow-up in one month. Fibromyalgia 141423761 M 79.7 fibromyalg iahaving a good day, few tender trigger points today.refi lls today of gabapentin 300 mg tid; cyclobenza jo ann prn for muscle spasms; baclofen didn't work for her;no s/e with meds; stable disease process [id number] SARANYA FREDERICK APRN RHEUMATOL [address] [address] 01/31/2020 08:05:37 01/31/2020 09:46:50 Generalized osteoarthritis 391681252 M15.9 68-year-ol d female with generalize d osteoarthr itis. reduced the dose to 5 mg 3 times a day. she can take over-the-c ounter diclofenac once or twice a day for breakthrou gh pain. Follow-up in one month. Fibromyalgia 509955987 M 79.7 fibromyalg iahaving a good day, few tender trigger points today.refi lls today of gabapentin 300 mg tid; cyclobenza jo ann prn for muscle spasms; baclofen didn't work for her;no s/e with meds; stable disease process [id number] SARANYA FREDERICK APRN RHEUMATOL [facility] [address] [place] [address] 03/04/2020 08:08:31 03/04/2020 14:20:54 Generalized osteoarthritis 763176840 M15.9 68-year-ol d female with generalize d osteoarthr itis. reduced the dose to 5 mg 3 times a day. she can take over-the-c ounter diclofenac once or twice a day for breakthrou gh pain. phone call for 5 minutes Follow-up in one month. Fibromyalgia 870674318 M 79.7 fibromyalg iahaving a good day, few tender trigger points today.refi lls today of gabapentin 300 mg tid; cyclobenza jo ann prn for muscle spasms; baclofen didn't work for her;no s/e with meds; stable disease process [id number] SARANYA FREDERICK APRN RHEUMATOL [address] [address] 04/01/2020 08:06:12 04/01/2020 09:03:16 Generalized osteoarthritis 818756420 M15.9 68-year-ol d female with generalize d osteoarthr itis. reduced the dose to 5 mg 3 times a day. she can take over-the-c ounter diclofenac once or twice a day for breakthrou gh pain. phone call for 7 minutes Follow-up in one month. [id number] SARANYA FREDERICK APRN R[facility] [place] [address] 05/01/2020 08:06:40 05/01/2020 09:06:59 Generalized osteoarthritis 013478956 M15.9 68-year-ol d female with generalize d osteoarthr itis. reduced the dose to 5 mg 3 times a day. she can take over-the-c ounter diclofenac once or twice a day for breakthrou gh pain. phone call for 6 minutes Follow-up in one month. Fibromyalgia 559994302 M 79.7 fibromyalg iahaving a good day, few tender trigger points today.refi lls today of gabapentin 300 mg tid; cyclobenza jo ann prn for muscle spasms; baclofen didn't work for her;no s/e with meds; stable disease process [id number] SARANYA FREDERICK APRN RHEUMATOL [place] [address] 06/01/2020 08:07:10 06/01/2020 08:58:12 Generalized osteoarthritis 718290258 M15.9 68-year-ol d female with generalize d osteoarthr itis. reduced the dose to 5 mg 3 times a day. she can take over-the-c ounter diclofenac once or twice a day for breakthrou gh pain. phone call for 4 minutes Follow-up in one month. [id number] SARANYA FREDERICK APRN RHEUMATOL [place] [address] 07/01/2020 08:03:42 07/01/2020 09:41:37 Generalized osteoarthritis 822640610 M15.9 68-year-ol d female with generalize d osteoarthr itis. reduced the dose to 5 mg 3 times a day. she can take over-the-c ounter diclofenac once or twice a day for breakthrou gh pain. phone call for 6 minutes Follow-up in one month. Health Concerns Section Related Observation LastModified by Organization Detai ls LastModified Time None Recorded Concern Status LastModified by Organization Details LastModified Time None Recorded Advance Directives Directive None Recorded Payers Insurance Date Sequence Insurance Name Policy Number Policy Barnett Covered Member ID Barnett Member ID Guarantor Name 07/08/2020 1 [place] Shaunna E Warmouth [id number] Shaunna E Warmouth 07/27/[address] [facility] (MEDICARE REPLACEMENT/A DVANTAGE - HMO) [id number] Shaunna E [place] [id number] Shaunna E Warmouth 07/04/2016 2 [employer] BETTER [facility] (MEDICAID HMO) Shaunna E Warmouth [id number] Shaunna E Warmouth 04/15/2020 1 [place] Shaunna E Warmouth [id number] Shaunna E Warmouth 04/15/2020 [place] Shaunna E Warmouth [id number] Shaunna E Warmouth 10/06/2016 2 [place] Shaunna E Warmouth [id number] Shaunna E Warmouth 09/28/2016 3 [employer]ET[employer] BETTER [facility] (MEDICAID HMO) Shaunna E Warmouth [id number] Shaunna E Warmouth 07/30/2020 2 [employer] BETTER [facility] (MEDICAID HMO) Shaunna E Warmouth [id number] Shaunna E Warmouth 09/28/2016 2 [employer] (MEDICARE REPLACEMENT/A DVANTAGE - PPO) Shaunna E Warmouth [id number] Shaunna E Warmouth 10/06/2016 3 [place] CHO[place] - FFS/TRADITION AL Shaunna E Warmouth [id number] Shaunna E Warmouth 09/21/2017 1 [place] Shaunna E Warmouth [id number] Shaunna E Warmouth 09/21/2017 [place] Shaunna E Warmouth [id number] Shaunna E Warmouth Notes Date Note Type Note Provider Name and Address Organization Details Recorded Time 03/04/2020 text/html Visit today is b eing conducted via telehealth using both audio and video. Patient has expressed an understanding of the telehealth process and has consented. Patient confirms that he/she is physically located in [place] at the time of this visit. phone call only. Chronic pain management for generalized osteoarthritis mechanical pains. On hydrocodone 5 mg every 8 hours. Denies any side effects. Denies any interval infections. SARANYA FREDERICK APRN [address] [place], [address], [facility] 03/04/2020 14:10:44 05/01/2020 text/html Visit today is b eing conducted via telehealth using both audio and video. Patient has expressed an understanding of the telehealth process and has consented. Patient confirms that he/she is physically located in [place] at the time of this visit. phone call only. Chronic pain management for generalized osteoarthritis mechanical pains. On hydrocodone 5 mg every 8 hours. Denies any side effects. Denies any interval infections. SARANYA FREDERICK APRN [address] [place], [address], [facility] 05/01/2020 09:06:57 06/01/2020 text/html Visit today is b eing conducted via telehealth using both audio and video. Patient has expressed an understanding of the telehealth process and has consented. Patient confirms that he/she is physically located in [place] at the time of this visit. phone call only. Chronic pain management for generalized osteoarthritis mechanical pains. On hydrocodone 5 mg every 8 hours. Denies any side effects. Denies any interval infections. SARANYA FREDERICK APRN [address] [place], [address], [facility] 06/01/2020 08:25:42 07/01/2020 text/html Visit today is b eing conducted via telehealth using both audio and video. Patient has expressed an understanding of the telehealth process and has consented. Patient confirms that he/she is physically located in [place] at the time of this visit. phone call only. Chronic pain management for generalized osteoarthritis mechanical pains. On hydrocodone 5 mg every 8 hours. Denies any side effects. Denies any interval infections. SARANYA FREDERICK, [employer] O[employer]ATOR [address] [place], [address], [facility] 07/01/2020 09:18:55 OBGyn Episode No OBEpisode recorded.
--- OUTSIDE RECORDS SUMMARY | 2024-11-27 08:53 | XMS_ITS ---
Laboratory report Created on: November 14, 2024 MARILOU BRO : 1950 Sex: Female Author Name ISELA HDEZ Organization Unknown PROBLEMS Problems List Code Description E11.9 E78.5 RESULTS Laboratory Orders Date Order Code Test 2024-09-13 092213 UA/M W/RFLX CULT URE, ROUTINE 2024-09-13 [id number] ALBUMIN, RANDOM URINE Laboratory Results Date LOINC Test Value Unit Reference Range Interpre tation 2024-09-13 5811-5 SPECIFIC GRAVITY 1.014 1.005-1.030 2024-09-13 5803-2 PH 5.5 5.0-7.5 2024-09-13 5778-6 URINE-COLOR YL YELLOW 2024-09-13 5767-[address] CLEAR 2024-09-13 5799-2 WBC ESTERASE UR1 NEGATIVE A 2024-09-13 22458-2 PROTEIN N 2024-09-13 97473-4 GLUCOSE N NEGATIVE 2024-09-13 2514-8 KETONES N NEGATIVE 2024-09-13 5794-3 OCCULT BLOOD N NEGATIVE 2024-09-13 5770-3 BILIRUBIN N NEGATIVE 2024-09-13 37040-7 UROBILINOGEN,SEMI-QN .2 MG/DL 0.2-1.0 2024-09-13 5802-4 NITRITE, URINE N NEGATIVE 2024-09-13 60522-5 MICROSCOPIC EXAMINATION MICRO 2024-09-13 5821-4 WBC 0-5W /HPF 0 - 5 2024-09-13 75645-3 RBC 0-2R /HPF 0 - 2 2024-09-13 5787-7 EPITHELIAL CELLS (NON RENAL) 0-10E /HPF 0 - 10 2024-09-13 57891-8 CASTS NOSEE /LPF NONE SEEN 2024-09-13 5769-5 BACTERIA NOSEE 2024-09-13 URINALYSIS REFLEX FLEX 2024-09-13 630-4 URINE CULTURE, ROUTINE FINAL 2024-09-13 630-4 RESULT 1 MUG 2024-09-13 89871-5 ALBUMIN, URINE 4.4 UG/ML
== END 2024-11-27 23:59 | disposition home or self-care (01) ==
LOC: RAD 08:50
PROVIDERS: PCP Nurse Practitioner Family; Visit Provider Physician Assistant
DX: M17.12 Unilateral primary osteoarthritis, left knee (principal)
CPT/HCPCS: 73562

== ENCOUNTER 2024-11-27 10:02 | Outpatient (RCR) | payer MEDICARE, OTHER, SELFPAY | END 2024-11-27 23:59 | disposition home or self-care (01) | LOC: PT 10:02 | PROVIDERS: Visit Provider Physician Assistant | DX: M25.562 Pain in left knee (principal) | CPT/HCPCS: 97760 ==

== ENCOUNTER 2024-12-17 08:53 | Outpatient (CLI) | payer MEDICARE, OTHER, SELFPAY ==
[2024-12-17 10:14] LABS: Hemoglobin 11.6 g/dL (12.2-16.2); Red Blood Count 4.15 M/mm3 (4.20-5.40); White Blood Count 7.9 K/mm3 (4.8-10.8)
[2024-12-17 10:15] LABS: Hematocrit 35.8 % (37.0-47.0); Immature Granulocytes % 0.5 %; Mean Corpuscular HGB Conc 32.4 g/dL (31.8-35.4); Mean Corpuscular Hemoglobin 28.0 pg (27.0-31.2); Mean Corpuscular Volume 86.3 fl (81-99); Nucleated Red Blood Cells % 0 %; Platelet Count 269 K/mm3 (142-424); Red Cell Distribution Width-SD 39.6 fL
[2024-12-17 10:50] LABS: T4 (Thyroxine) 7.1 ug/dl (5.53-11.0)
[2024-12-17 10:51] LABS: Free Thyroxine Index 3.1 ug/dL (5.93-13.13); Thyroid Stimulating Hormone 1.17 uIU/mL (0.465-4.68); Triiodothryronine (T3) Uptake 43 % (23.5-40.5)
[2024-12-17 11:23] LABS: Anion Gap 13.4 mEq/L (5-15); Bilirubin,Total 0.4 mg/dl (0.2-1.3); Blood Urea Nitrogen 17 mg/dl (7-17); Calcium 10.1 mg/dl (8.4-10.2); Carbon Dioxide 28 mmol/L (22.0-30.0); Chloride 97 mmol/L (98-107); Creatinine,Serum 1.10 mg/dl (0.52-1.04); Estimated Glomerular Filt Rate 48 ml/min (>60); GFR (African American) 59 ML/MIN (>60); Glucose 108 mg/dl (74-100); Potassium 5.4 mmoL/L (3.5-5.1); Sodium 133 mmol/L (136-145)
[2024-12-17 11:24] LABS: Alanine Aminotransferase 20 U/L (12-78); Albumin Level 4.6 g/dl (3.5-5.0); Albumin/Globulin Ratio 2.3 (1.1-1.8); Alkaline Phosphatase 65 U/L (38-126); Aspartate Amino Transferase 26 U/L (14-36); Globulin 2.0 g/dL (1.3-3.2); Total Protein,Serum 6.6 g/dl (6.3-8.2)
== END 2024-12-17 23:59 | disposition home or self-care (01) ==
PROVIDERS: PCP Nurse Practitioner Family; Visit Provider Physician Assistant
DX: I73.9 Peripheral vascular disease, unspecified (principal); I10 Essential (primary) hypertension; E78.49 Other hyperlipidemia; E61.1 Iron deficiency; I49.8 Other specified cardiac arrhythmias
CPT/HCPCS: 36415; 80053; 84436; 84443; 84479; 85025; 93270

== ENCOUNTER 2025-01-07 09:28 | Outpatient (CLI) | payer MEDICARE, OTHER, SELFPAY ==
--- OUTSIDE RECORDS SUMMARY | 2024-12-27 04:45 | XMS_ITS | Continuity of Care Document ---
Author Organization [facility] Address [address] [place] [address] Phone Care Team Providers Care Application Development Director Name Role Phone Kyle MSN, UTILITY PERSON, Kelsea Unavailable Unavai lable Allergies, Adverse Reactions, Alerts Substance Reaction Status Criticality Penicillins Hives / Skin Rash(moderate)Itching(modera te) Active No Information Medications Medication Instructions Dosage Effective Dates (start - stop) Status Comments melatonin 5 mg tablet TAKE ONE TABLET BY MOUTH EVERY NIGHT prior TO SLEEP - Active Airsupra 90 mcg-80 mcg/actuation HFA aerosol inhaler INHALE TWO PUFFS BY MOUTH NEEDED; DO not exceed 6 doses PER DAY - Active oxybutynin chloride 5 mg tablet TAKE 1/2 TABLET BY MOUTH TWICE DAILY - Active 8 Hour Pain Reliever 650 mg tablet,extended release TAKE ONE TABLET BY MOUTH EVERY 6 HOURS WITH water NEEDED -SWALLOW WHOLE. DO NOT CRUSH OR CHEW- dissolve OR break - Active valsartan 80 mg tablet TAKE ONE TABLET BY MOUTH EVERY DAY - Active rosuvastatin 20 mg tablet TAKE ONE TABLET BY MOUTH EVERY DAY - Active duloxetine 30 mg capsule,delayed release TAKE ONE CAPSULE BY MOUTH EVERY DAY - Active metoprolol succinate ER 50 mg tablet,extended release 24 hr TAKE ONE TABLET BY MOUTH EVERY DAY - Active famotidine 40 mg tablet TAKE ONE TABLET BY MOUTH EVERY NIGHT AT BEDTIME - Active nystatin 100,000 unit/mL oral suspension take 5 milliliter by oral route 4 times every day [id number] UNITS - Active albuterol sulfate HFA 90 mcg/actuation aerosol inhaler inhale 2 puff by inhalation route every 4 - 6 hours as needed 180 MCG - Active Indira Allergy 180 mg tablet take 1 tablet by oral route every day 180 MG - Active montelukast 10 mg tablet take 1 tablet by oral route every day in the evening 10 MG - Active ferrous sulfate 325 mg (65 mg iron) tablet take 1 tablet by oral route every day 325 MG - Active melatonin 5 mg capsule Take one capsule at night prior to sleep. - Active diclofenac sodium 75 mg tablet,delayed release take 1 tablet by oral route every other day - Active metformin ER 500 mg tablet,extended release 24 hr take 1 tablet by oral route every day with the evening meal 500 MG - Active diclofenac 1 % topical gel apply 2 gram by topical route 4 times every day to the affected area(s) 2.00 gram - Active Procedures Procedure Date ROUTINE VENIPUNCTURE Advance Directives Directive Yes / No Effective Date File Name No Information Encounters Encounter Description Practice Location Reason(s) For Visit Diagnoses Date Provider [facility], [address] [place] [address], [facility], tel:[phone] [facility] [place] FASTING LABS (chief complaint) Essential (primary) hypertension 5 Wright Kelsea[address] [place], [place], [address] [place] [address] , . tel: [phone] [facility], [address] [place] [address], [facility], tel:[phone] [facility] [place] No Information 5 Wright Kelsea. [address] [place], [place], [id number] , . tel: [phone] [facility], [address] [place] [address], [facility], tel:[phone] [facility] [place] No Information 5 Wright Kelsea. [address] [place], [place], [id number] , . tel:[phone] [facility], [address] [place] [address], [facility], tel:[phone] [facility] [place] T2DM (chief complaint) left knee pain (chief complaint) Type 2 diabetes mellitus without complicationsObesity, unspecifiedPain in left kneeEssential (primary) hypertensionOther hammer toe of left footOther hammer toe of right footBody mass index [BMI] 30.0-30.9, adult 5 Wright Kelsea[address] [place], [place], [id number] , . tel: [phone] [facility], [address] [place] [address], [facility], tel:[phone] [facility] [place] MIGUEL[place] f/u on labs (chief complaint) Essential (primary) hypertensionHyperlipidemi a, unspecifiedObesity, unspecifiedType 2 diabetes mellitus without complicationsAsthmaOral candidiasisBody mass index [BMI] 32.0-32.9, adult Wright Kelsea. [address] [place] [address], [id number] , [place]. tel:[phone] [facility], [address] [place] [address], [facility], tel:[phone] [facility] CYNTHIEME[place] New to establish care (chief complaint) Depression screening (chief complaint) Prapare (chief complaint) Encntr for general adult medical exam w/o abnormal findingsExtreme povertyEncounter for screening for depressionBack painEssential (primary) hypertensionDepressionAnx ietySleep disorder, unspecifiedObesity, unspecifiedType 2 diabetes mellitus without complicationsAnemiaHyperl ipidemia, unspecifiedGERD without esophagitisAsthmaEnuresis Other seasonal allergic rhinitis 5 Wright Kelsea. [address] [place], [place], [id number] , [place]. tel: [phone] Family History Family Member Type Diagnosis Age At Onset Mother Problem HX UNKNOWN Father Problem Cancer, prostate (Cause Of D eath) Daughter Problem Alive and well Paternal grandmother Problem (finding) Maternal grandmother Problem (finding) Sister Problem Kidney disease (Cause Of Azul th) Daughter Problem Alive and well Paternal grandfather Problem (finding) Maternal grandfather Problem (finding) Son Problem Alive and well Immunizations Vaccine Date Status Comments Influenza, High Dose administered Source: Other Registry RSV, recombinant subunit administered Mai rce: Other Registry PCV20 administered Source: Other R egistry Fluzone High-Dose Quad administered Sourc e: Other Registry PCV13 administered Source: Other R egistry COVID-19 Vector-NR (JSN) administered Mai rce: Other Registry Influenza, Seasonal administered Source: Other Registry Payers Payer name Insurance type Covered republican ID Authoriza tion(s) Mcr Adv [facility] [id number] Hc- Medicaid Aet[place] [facility] [id number] Hc- Medicaid Aetna Wrap Payer [id number] Social History Type Description Quantity Date Captured Comments Alcohol Use Details Unknown Caffeine Use Details Unknown Tobacco Use Status No Information Smoking Status No Information Sex Female Sexual Orientation Straight or heterosexual Aug Gender Identity Female Chief Complaint And Reason For Visit From encounter dated '12/27/2024 08:45'. FASTING LABS (chief complaint). Description: Pt is here today to have fasting labs collected. 1x attempt in right ac with butterfly needle. Successfully collected 3 tubes, pt tolerated well, gauze and coban applied, pt instructed to remove in 5-10 minutes, pt voiced understanding. Pt is scheduled to rtc in 2 weeks to follow up on lab results. Plan Of Treatment Date Type Action Status Goal TSH. Due on due Goal Hemoglobin A1C. Due on due Goal GFR. Due on due Goal Foot exam. Due on due Goal Lipid panel. Due on due Goal ASCVD 10 year risk. Due on A due Goal Urine microalbumin. Due on A due Goal Dental exam. Due on due Goal Dilated eye exam. Due on Dec due Goal Diabetes screening. Due on due Goal Unhealthy drug use screening due Goal Obtain Height, Weight, and B AR. Due on due Goal DEXA scan. Due on due Goal Drug Abuse Scree milad Test (DAST-10). Due on due Goal Vitamin B12. Due on due Goal Follow up Plan f or abnormal BMI (Less than 18.5, greater than 25). 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 Due on due Goal Tobacco screening. Due on due Goal CMP. Due on due Goal CBC. Due on due Goal Tobacco Use Screening. Due o n due Goal Vitamin D. Due on due Goal Depression screening. Due on due Goal Pneumococcal vaccine due Goal Influenza vaccine. Due on due Goal Urinalysis due Goal Obtain blood Pressure. Due o n due Goal ECG. Due on due Goal Hemoglobin (Pree michelle/HR 9 months). Due on due Goal Hematocrit/Hemoglobin. Due o n due Goal Lipid 17-20 y due Goal Lipid 9-11 y due Goal Dental exam. Due on due Goal GFR. Due on due Goal Hemoglobin A1C. Due on due Goal ASCVD 10 year risk. Due on due Goal Lipid panel. Due on due Goal Foot exam. Due on due Goal Dilated eye exam. Due on Nov due Goal Urine microalbumin. Due on due Goal Vitamin D. Due on due Goal Drug Abuse Scree milad Test (DAST-10). Due on due Goal DEXA scan. Due on due Goal Follow up Plan f or abnormal BMI (Less than 18.5, greater than 25). 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 Due on due Goal Vitamin B12. Due on due Goal TSH. Due on due Goal Diabetes screening. Due on A due Goal CMP. Due on due Goal Tobacco Use Screening. Due o n due Goal Tobacco screening. Due on due Goal CBC. Due on due Goal Unhealthy drug use screening due Goal Obtain Height, Weight, and B AR. Due on due Goal Pneumococcal vaccine due Goal Influenza vaccine. Due on due Goal Depression screening. Due on due Goal Obtain blood Pressure. Due o n due Goal Urinalysis due Goal ECG. Due on due Goal Lifestyle education regardin g diet completed Goal Foot exam. Due on due Goal Hemoglobin A1C. Due on due Goal GFR. Due on due Goal Urinalysis due Goal ECG. Due on due Goal ASCVD 10 year risk. Due on due Goal Dilated eye exam. Due on September due Goal Urine microalbumin. Due on A due Goal Lipid panel. Due on due Goal Dental exam. Due on due Goal Obtain Height, Weight, and B AR. Due on due Goal Vitamin D. Due on due Goal Vitamin B12. Due on due Goal Diabetes screening. Due on A due Goal Drug Abuse Scree milad Test (DAST-10). Due on due Goal Unhealthy drug use screening due Goal Tobacco Use Screening. Due o n due Goal CMP. Due on due Goal DEXA scan. Due on due Goal Tobacco screening. Due on Ma due Goal TSH. Due on due Goal CBC. 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 Due on due Goal Follow up Plan f or abnormal BMI (Less than 18.5, greater than 25). Due on due Goal Influenza vaccine. Due on due Goal Pneumococcal vaccine due Goal Depression screening. Due on due Goal Obtain blood Pressure. Due o n due Goal Lifestyle education regardin g diet completed Goal Tobacco screening. Due on Ap due Goal DEXA scan. Due on due Goal Lipid panel. Due on 026 due Goal Drug Abuse Scree milad Test (DAST-10). Due on due Goal Pneumococcal vaccine due Goal Obtain Height, Weight, and B AR. Due on due Goal Vitamin D. Due on due Goal Unhealthy drug use screening due Goal Tobacco Use Screening. Due o n due Goal Vitamin B12. Due on 026 due Goal Depression screening. Due on due Goal TSH. Due on due Goal Influenza vaccine. Due on Ap due Goal Diabetes screening. 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 Due on due Goal CMP. Due on due Goal CBC. Due on due Goal Follow up Plan f or abnormal BMI (Less than 18.5, greater than 25). Due on due Goal ASCVD 10 year risk. Due on A due Goal Foot exam. Due on due Goal Urine microalbumin. Due on A due Goal Hemoglobin A1C. Due on due Goal Dental exam. Due on 025 due Goal GFR. Due on due Goal Dilated eye exam. Due on Aug due Goal Urinalysis due Goal ECG. Due on due Goal Obtain blood Pressure. Due o n due Goal Lifestyle education vicentein g diet completed [facility] Ordered: Referrals[facility] Location: [place]. Evaluate and treat Appointment date/timeframe: 11/27/2024 ordered Appointment Shaunna Flynn - F/U Lab R esults BOOKED History Of Present Illness Encounter Date Complaint History Of Prese nt Illness FASTING LABS Pt is here today to have fasting labs collected. 1x attempt in right ac with butterfly needle. Successfully collected 3 tubes, pt tolerated well, gauze and coban applied, pt instructed to remove in 5-10 minutes, pt voiced understanding. Pt is scheduled to rtc in 2 weeks to follow up on lab results. T2DM Due for her DM f oot exam today:Micro 09/13/24DM eye [id number] 6.3Needs repeat labs after 12/13/24 left knee pain Onset: gradual. Duration: more than 1 hour. Severity level is moderate. It occurs constantly and is worsening. Location: left knee. The pain is sharp. Context: there is no injury. The pain is aggravated by bending, movement and walking. The pain is relieved by brace/splint. Associated symptoms include joint tenderness, limping and swelling. Pertinent negatives include bruising, crepitus, decreased mobility, joint instability, numbness, popping, spasms, tingling in the arms, tingling in the legs and weakness. f/u on labs Shaunna is a 73 y o female here today for f/u on recent labs. Vit D 95.9A1c 6.1DM foot exam today - mild peeling on left foot between 4th and 5th digitsLDL 89Trig 318BP improved 142/60states she is sleeping betterpain is betterdoing ok with the cymbalta New to establish care Shaunna is a 73 yo female here today to establish care. She is a previous pt of [facility] and feels she has been there too long. She also sees pain management Dr. Desir. - back pain/leg painwas on gabapentin, hyrdocodone but not longer taking- didn't work She states that she takes her diclofenac twice daily, but the script says to take once weekly.Shaunna states she is on Vit D3 and has been for some time- however confirmed med list shows D2 34293 IU weeklyShenedina has depression- on trazadone, but would like to switch to serroquel- r/t her pain doctor, Dr. Desir said to fix myself w/ depression before she could help her.. difficulty sleeping- falling asleep is hard r/t worry-rushing thoughts, Staying asleep is hard r/t leg pain and waking up to urinate in the night. She is up 2-3 times dailyShe has not tried melatonin in the pastWill wean off trazidone over 3 weeks. Start melatonin, and start Cymbalta for depression/anxiety and pain.Depression- Anxiety - feels down at time- cares for her sick - throat cancer, doesn't have a lot of moneysupport from daughters-emotionallyHx of HTNwas on valsartan-hctz, but stopped r/t K+ being highRenal US 03/07/24 showed right renal artery stenosisShe had heart cath on 03/07/24- procedure results not availabletaking metoprolol 25 mg bidSees Sue at [facility], but has not been seen recentlyBP is 182/73, repeat 151/76I am adding valsartan 80 mg dailyAnemia- on iron dailyOsteoarthritis- was taking both alieve and diclofenac dailyadvised to stop aleive r/t NSAID/HTN/GI complicationMay take diclofenac every other day as needed and use tylenol arthritis as adjunct therapyContinue with main managementdiscussed alternative therapies such as heat application, OTC diclofenac gel (topical)[id number] w/ metformin ER 500 mg dailydoes not check bsdoes not have bs machinediet education provided- eliminate simple sugars and carbsSleep d/o- wean trazidone, better pain control/anxiety/depression w/ cymbalta and add melatoninsleep hygiene discussedno liquids after 6 pmshe does limit caffeine to 2 cups daily in the am (tea and coffee)no screen time 2 hrs prior to sleep- says she is compliantonly sleeps in the bedno naps in the dayAsthmaShe is not on a maintenance inhaleruses albuterol dailysometimes 2-3 time weekly in addition to daily in the am- states that worse when she walks a loton montelukastcough -in the am and nightrainy weather makes it worsewill add budesonide-albuterol, indira, and continue montelukastpneumonia, flu, and covid vaccines currentMamm- none in yearsPap- none in yearscolonoscopy incomplete/aborted 05/13/2021eclines to complete at this timenon-smoker, but + for second hand smoke Depression screening Depression screening completed 09/13/24. Pt scored 21, provider aware. -AW,CM Oscar Moore complete d 09/13/24. -ERMA NEAL Instructions Date Instruction Additional Infor fiona rest, ice, and compr ession as instructed to reduce post joint injection(s) pain and swelling.RTC 2 days if not improved or complicationOtherwise RTC as scheduled for fasting labs on 12/29/24. Related to Pain in left knee Patient currently do ing well. BP in goal range. No medication changes. Patient instructed to follow a low salt diet, continuing taking blood pressure medications as prescribed. Keep routine follow up with clinic. Related to Essential (primary) hypertension Dietary Instructions for a healthy weight: BMI should be between the range of 18.5-24.9 for an adult; and Caloric intake should be around 9875-6131 for a female, and 7983-1736 for an adult male. Fiber intake should be about 14 grams for 1000 calories per day. That is about 20-30 grams daily. Good sources of fiber are oatmeal, fortified grains, and green leafy vegetables, apples. You can also use Carbohydrate counting to maintain a healthy weight. One serving is equal to 15 grams (1 piece of bread, small fruit, or 1 cup of milk). Men should have 45-75, Women about 30-65 per meal, and snacks are recommend to be 13-30 grams each. Myplate.gov is a good source for meal planning and dietary education. You may also refer to the [place] [employer] website for further low sodium, health heart diet information. Mediterainian diet would be a suitable diet for your current health conditions. Related to Obesity, unspecified Patient educated on the importance of maintaining glycemic control. Counseled on diet, exercise and other lifestyle factors that can impact glucose control. Monitor blood glucose and keep a log as instructed by checking fasting glucose in the AM and non fasting before bedtime with any additional checks as instructed. Patient instructed to bring glucose log to all scheduled appointments. Instructed on the importance of taking all medications as prescribed. Patient aware of the importance of diabetic eye exams, dental check ups, foot exams and diabetic foot care. Patient verbalized understanding. Related to Type 2 diabetes mellitus without complications Giving encouragement to exercise Related to Body mass index [BMI] 30.0-30.9, adult Lifestyle education regarding di et Related to Body mass index [BMI] 30.0-30.9, adult Use nystatin oral sw tutu and swallow solution x 10 days, 4 times daily.Stop airsuprastart albuterol.RTC if not improving as expected in 11 days Related to Oral candidiasis Use your maintainenc e inhaler daily as instructed. Always rinse your mouth out with water after each use. Monitor for thrush infections. Identify asthma triggers and avoid them. Monitor for worsening of symptoms.Stop airsuprastart albuterol Related to Asthma Patient educated on the importance of maintaining glycemic control. Counseled on diet, exercise and other lifestyle factors that can impact glucose control. Monitor blood glucose and keep a log as instructed by checking fasting glucose in the AM and non fasting before bedtime with any additional checks as instructed. Patient instructed to bring glucose log to all scheduled appointments. Instructed on the importance of taking all medications as prescribed. Patient aware of the importance of diabetic eye exams, dental check ups, foot exams and diabetic foot care. Patient verbalized understanding. Related to Type 2 diabetes mellitus without complications Dietary Instructions for a healthy weight: BMI should be between the range of 18.5-24.9 for an adult; and Caloric intake should be around 5765-4248 for a female, and 2702-8164 for an adult male. Fiber intake should be about 14 grams for 1000 calories per day. That is about 20-30 grams daily. Good sources of fiber are oatmeal, fortified grains, and green leafy vegetables, apples. You can also use Carbohydrate counting to maintain a healthy weight. One serving is equal to 15 grams (1 piece of bread, small fruit, or 1 cup of milk). Men should have 45-75, Women about 30-65 per meal, and snacks are recommend to be 13-30 grams each. Myplate.gov is a good source for meal planning and dietary education. You may also refer to the [place] [employer] website for further low sodium, health heart diet information. Mediterainian diet would be a suitable diet for your current health conditions. Related to Obesity, unspecified Low fat, low cholest darnell diet. Avoid fatty, fried, and greasy foods. Physical activity as tolerated. Counseled on risks of associated comorbidities, such as heart disease and stroke. Encouraged avoidance of tobacco products. Related to Hyperlipidemia, unspecified Patient instructed o f the importance of taking medications as prescribed, following a low salt diet as well as getting physical activity as tolerated. Patient advised to keep BP log daily checking each morning and before bed. Patient to call the clinic if systolic blood pressure is greater than 150 and/or diastolic blood pressure is staying greater than 90.Improvedcontinue valsartanRTC 3 months repeat fasting labs Related to Essential (primary) hypertension Giving encouragement to exercise Related to Body mass index [BMI] 32.0-32.9, adult Lifestyle education regarding di et Related to Body mass index [BMI] 32.0-32.9, adult Patient instructed o f the importance of taking medications as prescribed, following a low salt diet as well as getting physical activity as tolerated. Patient advised to keep BP log daily checking each morning and before bed. Patient to call the clinic if systolic blood pressure is greater than 150 and/or diastolic blood pressure is staying greater than 90. Related to Essential (primary) hypertension Drink plenty of flui ds. Use nasal saline rinses. Nasal steroid spray if tolerated. Antihistamines as needed. Avoid allergy triggers when possible.START INDIRA 180 MG DAILY Related to Other seasonal allergic rhinitis Dietary Instructions for a healthy weight: BMI should be between the range of 18.5-24.9 for an adult; and Caloric intake should be around 5329-4170 for a female, and 9479-8737 for an adult male. Fiber intake should be about 14 grams for 1000 calories per day. That is about 20-30 grams daily. Good sources of fiber are oatmeal, fortified grains, and green leafy vegetables, apples. You can also use Carbohydrate counting to maintain a healthy weight. One serving is equal to 15 grams (1 piece of bread, small fruit, or 1 cup of milk). Men should have 45-75, Women about 30-65 per meal, and snacks are recommend to be 13-30 grams each. Myplate.gov is a good source for meal planning and dietary education. You may also refer to the [place] [employer] website for further low sodium, health heart diet information. Mediterainian diet would be a suitable diet for your current health conditions. Physical activity as tolerated. Try to engage in some form of moderate physical activity for 30 minutes most days of the week. May modify activity as needed to reduce discomfort. Try to achieve/maintain a healthy body weight to reduce strain on musculoskeletal system. Verbalizes an understanding. Related to Obesity, unspecified USE OXYBUTIN INST RUCTED, 1/2 TABLET TWO TIMES DAILY.LIMIT ORAL INTAKE OF LIMITS AFTER 6 MPEMPTY YOUR BLADDER PRIOR TO SLEEP Related to Enuresis Discussed stress red uction techniques. Take medications as prescribed. Limit caffeine and nicotine. Try to follow a set sleep schedule. Get daily moderate exercise if able to tolerate. Related to Anxiety Take medications as prescribed. Follow a sleep schedule. Try to engage in 30 minutes of moderate activity daily if tolerated, as exercise has been shown to improve depression symptoms Related to Depression Counseled on importa nce of sleep hygiene. Maintain a consistent sleep schedule. Avoid caffeine for at least 6 hours prior to bed. Limit screen time (TV, phone, video games) before bed. Make sure bedroom is cool and dark, which improves sleep quality. If taking medications to help with insomnia, try to take at least 30 minutes before goal bed time. Do not smoke or drink alcohol just before bedtime. Got to bed and get up at the same time daily.WEAN OFF TRAZADONETAKE 1 TAB EVERY OTHER DAY X 1 WEEKTHEN 1 TAB EVERY 2 DAYS X 1 WEEKTHEN TAKE 1 TABE EVERY 3 DAYS (X2 TIMES)THEN STOPSTART MELATONIN 1-2 HOURS PRIOR TO SLEEPSTOP LIQUID CONSUMPTION AFTER 6 PMNO CAFFEINE AFTER 3 PMLIMIT SCREEN TIME TO 2 HOURS, AND NO SCREEN TIME 2 HRS PRIOR TO SLEEP Related to Sleep disorder, unspecified Patient instructed o n appropriate use of medications prescribed for back pain. Discussed conservative measures such as heat, ice, gentle strength stretching, and core muscle strengthening. Avoid heavy lifting, pulling, or tugging. Contact the clinic if any worsening or new symptoms related to back pain occur. Related to Back pain Take any medications as prescribed, Follow a nutrient dense diet. Notify the provider of any signs of active bleeding (easy bruising, hematemesis, hematuria, melena, bright red blood per rectum), or new symptoms, such as: increased fatigue, dyspnea, chest pain, weakness, dizziness, or palpitations. Verbalized an understanding of all. Do not take Iron with other medications. Take on an empty stomach if possible, and two hours prior to any other foods or medications. Do not drink milk or take tums within two hours of your iron. Increase water intake. Take any medications prescribed as directed. May use OTC medications prn for symptom relief of constipation. Iron can make you stool appear black, like blood. Follow a nutrient dense diet to include high fiber. Notify the provider of any signs of active bleeding (easy bruising, hematemesis, hematuria, melena, bright red blood per rectum), or new symptoms, such as: increased fatigue, dyspnea, chest pain, weakness, dizziness, or palpitations. Verbalized an understanding of all. Related to Anemia Use your maintainenc e inhaler daily as instructed. Always rinse your mouth out with water after each use. Monitor for thrush infections. Identify asthma triggers and avoid them. Monitor for worsening of symptoms. Related to Asthma Counseled patients o n medications for reflux. Discussed lifestyle modifications including but not limited to elevating the head of the bed, limiting fatty, greasy, spicy food intake. Avoid heavy meals and caffeine intake within 2 hours of bedtime. If applicable, reduce/discontinue tobacco use and/or alcohol use, as both can make reflux symptoms worse. Related to GERD without esophagitis Low fat, low cholest darnell diet. Avoid fatty, fried, and greasy foods. Physical activity as tolerated. Counseled on risks of associated comorbidities, such as heart disease and stroke. Encouraged avoidance of tobacco products. Related to Hyperlipidemia, unspecified Patient educated on the importance of maintaining glycemic control. Counseled on diet, exercise and other lifestyle factors that can impact glucose control. Instructed on the importance of taking all medications as prescribed. Patient aware of the importance of diabetic eye exams, dental check ups, foot exams and diabetic foot care. Patient verbalized understanding. Related to Type 2 diabetes mellitus without complications Giving encouragement to exercise Related to Obesity, unspecified Lifestyle education regarding di et Related to Obesity, unspecified Assessments Type Assessment Date assessment Essential (primary) hypertension
--- OUTSIDE RECORDS SUMMARY | 2025-01-07 09:39 | XMS_ITS ---
Laboratory report Created on: January 01, 2025 MARILOU BRO : 1950 Sex: Female Author Name ISELA HDEZ Organization Unknown PROBLEMS Problems List Code Description D64.9 E11.9 E66.9 E78.5 F32.A I10 K21.9 RESULTS Laboratory Orders Date Order Code Test 2024-12-27 393124 HEMOGLOBIN A1C 2024-12-27 [id number] LIPID PANEL 2024-12-27 [id number] ANEMIA PROFILE B 2024-12-27 [id number] COMP. METABOLIC PANEL (14) 2024-12-27 [id number] TSH RFX ON ABNOR MAL TO FREE T4 2024-12-27 944154 VITAMIN D, 25-HY DROXY Laboratory Results Date LOINC Test Value Unit Reference Range Interpre tation 2024-12-27 4548-4 HEMOGLOBIN A1C 6.6 % 4.8-5.6 H 2024-12-27 2093-3 CHOLESTEROL, TOTAL 127 MG/DL 603-578 4678-08-08 2571-8 TRIGLYCERIDES 225 MG/DL 0-149 H 2024-12-27 2085-9 HDL CHOLESTEROL 38 MG/DL >39 L 2024-12-27 40538-0 VLDL CHOLESTEROL DIANNA 36 MG/DL 5-40 2024-12-27 87252-9 LDL CHOL CALC ([facility]) 53 MG/DL 0-99 2024-12-27 2500-7 IRON BINDCAP(TIBC) 267 UG/DL 179-164 9687-08-08 2501-5 UIBC 192 UG/DL 438-634 8823-08-08 2498-4 IRON 75 UG/DL 27-139 2024-12-27 2502-3 IRON SATURATION 28 % 15-55 2024-12-27 2276-4 FERRITIN 260 NG/ML 15-150 H 2024-12-27 2132-9 VITAMIN B12 314 PG/ML 232-1245 2024-12-27 2284-8 FOLATE (FOLIC ACID), SERUM 8.7 NG/ML >3.0 2024-12-27 6690-2 WBC 8.1 X10E3/UL 3.4-10.8 2024-12-27 789-8 RBC 4.29 X10E6/UL 3.77-5.28 2024-12-27 718-7 HEMOGLOBIN 12.2 G/DL 11.1-15.9 2024-12-27 4544-3 HEMATOCRIT 39.4 % 34.0-46.6 2024-12-27 787-2 MCV 92 FL 79-97 2024-12-27 785-6 MCH 28.4 PG 26.6-33.0 2024-12-27 786-4 MCHC 31 G/DL 31.5-35.7 L 2024-12-27 788-0 RDW 13.4 % 11.7-15.4 2024-12-27 777-3 PLATELETS 227 X10E3/UL 130-523 4698-08-08 770-8 NEUTROPHILS 66 % 2024-12-27 736-9 LYMPHS 23 % 2024-12-27 5905-5 MONOCYTES 7 % 2024-12-27 713-8 EOS 3 % 2024-12-27 706-2 BASOS 1 % 2024-12-27 751-8 NEUTROPHILS (ABSOLUTE) 5.4 X10E3/UL 1.4-7.0 2024-12-27 731-0 LYMPHS (ABSOLUTE) 1.9 X10E3/UL 0.7-3.1 2024-12-27 742-7 MONOCYTES(ABSOLUTE) .5 X10E3/UL 0.1-0.9 2024-12-27 711-2 EOS (ABSOLUTE) .2 X10E3/UL 0.0-0.4 2024-12-27 704-7 BASO (ABSOLUTE) .1 X10E3/UL 0.0-0.2 2024-12-27 72470-0 IMMATURE GRANULOCYTES 0 % 2024-12-27 58279-4 IMMATURE GRANS (ABS) 0 X10E3/UL 0.0-0.1 2024-12-27 20196-3 RETICULOCYTE COUNT 1.1 % 0.6-2.6 2024-12-27 2345-7 GLUCOSE IMSPUN MG/DL 70-99 2024-12-27 3094-0 BUN 23 MG/DL 8-27 2024-12-27 2160-0 CREATININE 1.12 MG/DL 0.57-1.00 H 2024-12-27 41688-9 EGFR 51 ML/MIN/1.7 3 >59 L 2024-12-27 3097-3 BUN/CREATININE RATIO 21 12-28 2024-12-27 2951-2 SODIUM 135 MMOL/L 388-001 3983-08-08 2823-3 POTASSIUM IMSPUN MMOL/L 3.5-5.2 2024-12-27 2075-0 CHLORIDE 98 MMOL/L 96-106 2024-12-27 2028-9 CARBON DIOXIDE, TOTAL 17 MMOL/L 20-29 L 2024-12-27 77657-5 CALCIUM 9.4 MG/DL 8.7-10.3 2024-12-27 2885-2 PROTEIN, TOTAL 6.5 G/DL 6.0-8.5 2024-12-27 1751-7 ALBUMIN 4.5 G/DL 3.8-4.8 2024-12-27 38229-3 GLOBULIN, TOTAL 2 G/DL 1.5-4.5 2024-12-27 1975-2 BILIRUBIN, TOTAL .3 MG/DL 0.0-1.2 2024-12-27 6768-6 ALKALINE PHOSPHATASE 65 IU/L 44-121 2024-12-27 1920-8 AST (SGOT) 20 IU/L 0-40 2024-12-27 1742-6 ALT (SGPT) 15 IU/L 0-32 2024-12-27 93462-8 TSH 1.28 UIU/ML 0.450-4.500 2024-12-27 05223-1 VITAMIN D, 25-HYDROXY 107 NG/ML 30.0-100.0 H
[2025-01-07 10:24] LABS: Chloride 101 mmol/L (98-107); Potassium 4.9 mmoL/L (3.5-5.1); Sodium 133 mmol/L (136-145)
[2025-01-07 10:27] LABS: Anion Gap 13.9 mEq/L (5-15); Carbon Dioxide 23 mmol/L (22.0-30.0)
[2025-01-07 10:28] LABS: Calcium 9.2 mg/dl (8.4-10.2); Glucose 108 mg/dl (74-100)
[2025-01-07 10:33] LABS: Blood Urea Nitrogen 22 mg/dl (7-17); Creatinine,Serum 1.10 mg/dl (0.52-1.04); Estimated Glomerular Filt Rate 48 ml/min (>60); GFR (African American) 58 ML/MIN (>60)
== END 2025-01-07 23:59 | disposition home or self-care (01) ==
LOC: LAB 09:29
PROVIDERS: PCP Nurse Practitioner Family; Visit Provider Physician Assistant
DX: I10 Essential (primary) hypertension (principal)
CPT/HCPCS: 36415; 80048

== ENCOUNTER 2025-02-05 07:29 | Outpatient (CLI) | payer MEDICARE, OTHER, SELFPAY ==
--- OUTSIDE RECORDS SUMMARY | 2025-01-14 04:45 | XMS_ITS | Continuity of Care Document ---
Author Organization [facility] Address [address] [place] [address] Phone Care Team Providers Care Well Reactivator Operator Name Role Phone Kyle MSN, POWER HOUSE ENGINEER, Kelsea Unavailable Unavai lable Allergies, Adverse Reactions, [...] by oral route 4 times every day [id number] UNITS - Active diclofenac sodium 75 mg tablet,delayed release take 1 tablet by oral route every other day - Active Procedures Procedure Date OFFICE/OUTPATIENT VISIT, [facility] Advance Directives Directive Yes / No Effective Date File Name No Information Encounters Encounter Description Practice Location Reason(s) For Visit Diagnoses Date Provider OFFICE/OUTPA TIENT VISIT, [facility], [address] [place] [address], [address], tel:[phone] [employer]-G[facility] [place] Follow up on Lab Results (chief complaint) Medication s (chief complaint) Body mass index [BMI] 29.0-29.9, adultAnemiaDepressionEsse ntial (primary) hypertensionHyperlipidemi a, unspecifiedObesity, unspecifiedType 2 diabetes mellitus without complicationsVitamin B12 deficiency 5 Kyle Enamorado. [address] [place], [place], [id number] , [place]. tel:[phone] [facility], [address] [place] [address], [address], tel:[phone] FEDERA-G-H HRSA DEJAN FASTING LABS (chief complaint) Essential (primary) hypertension 5 Wright Kelsea. [address] [place], [place], [address] , [place]. tel: [phone] [facility], [address] [place] [address], [facility], tel:[phone] [facility]ERA-G[facility] [place] No Information 5 Wright Kelsea. [address] [place], [place], [id number] , . tel: [phone] [facility], [address] [place] [address], [facility], tel:[phone] [facility]A-G[facility] [place] No Information 5 Wright Kelsea. [address] [place], [place], [id number] , . tel: [phone] [facility], [address] [place] [address], [facility], tel:[phone] [facility]-G[facility] [place] T2DM (chief complaint) left knee pain (chief complaint) Type 2 diabetes mellitus without complicationsObesity, unspecifiedPain in left kneeEssential (primary) hypertensionOther hammer toe of left footOther hammer toe of right footBody mass index [BMI] 30.0-30.9, adult 5 Wright Kelsea. [address] [place], [place], [id number] , . tel: [phone] [facility], [address] [place] [address], [facility], tel:[phone] FEDERA-G-H [facility] [place] f/u on labs (chief complaint) Essential (primary) hypertensionHyperlipidemi a, unspecifiedObesity, unspecifiedType 2 diabetes mellitus without complicationsAsthmaOral candidiasisBody mass index [BMI] 32.0-32.9, adult 5 Wright Kelsea. [address] [place], [place], [id number] , [place]. tel: [phone] [facility], [address] [place], [address], tel:[phone] [employer]-G-H [facility] [place] New to establish care (chief complaint) Depression screening (chief complaint) Prapare (chief complaint) Encntr for general adult medical exam w/o abnormal findingsExtreme povertyEncounter for screening for depressionBack painEssential (primary) hypertensionDepressionAnx ietySleep disorder, unspecifiedObesity, unspecifiedType 2 diabetes mellitus without complicationsAnemiaHyperl ipidemia, unspecifiedGERD without esophagitisAsthmaEnuresis Other seasonal allergic rhinitis Wrightcristopher Enamorado. [address] [place], [place], [address] , . 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 Due on due Goal Hematocrit/Hemoglobin. Due o n due Goal Dental exam. Due on 025 due Goal Tobacco Use Screening. Due o n due Goal Follow up Plan f or abnormal BMI (Less than 18.5, greater than 25). Due on due Goal Unhealthy drug use screening due Goal ASCVD 10 year risk. Due on A due Goal Vitamin B12. Due on 026 due Goal Dilated eye exam. Due on Dec due Goal CBC. Due on due Goal Influenza vaccine. Due on due Goal DEXA scan. Due on due Goal Hemoglobin A1C. Due on due Goal Vitamin D. Due on 6 due Goal Pneumococcal vaccine due Goal GFR. Due on due Goal Drug Abuse Scree milad Test (DAST-10). Due on due Goal ECG. Due on due Goal Tobacco screening. Due on due Goal TSH. Due on due Goal Urine microalbumin. Due on due Goal Hemoglobin (Pree michelle/HR 9 months). Due on due Goal Lipid panel. Due on due Goal Obtain blood Pressure. Due o n due Goal Diabetes screening. Due on due Goal Depression screening. Due on due Goal Foot exam. Due on due Goal Obtain Height, Weight, and B OH. Due on due Goal CMP. Due on due Goal Urinalysis due Goal Lifestyle education regardin g diet completed Goal Hemoglobin A1C. Due on due Goal Urinalysis due Goal TSH. Due on due Goal Hemoglobin (Pree michelle/HR 9 months). Due on due Goal GFR. Due on due Goal Foot exam. Due on due Goal Lipid panel. Due on due Goal Depression screening. Due on due Goal ASCVD 10 year risk. Due on due Goal Diabetes screening. Due on A due Goal Obtain blood Pressure. Due o n due Goal Pneumococcal vaccine due Goal ECG. Due on due Goal Unhealthy drug use screening due Goal Obtain Height, Weight, and B OH. Due on due Goal Urine microalbumin. Due on A due Goal DEXA scan. Due on due Goal Lipid 17-20 y due Goal Drug Abuse Scree milad Test (DAST-10). Due on due Goal Lipid 9-11 y due Goal Vitamin B12. Due on due Goal Follow up Plan f or abnormal BMI (Less than 18.5, greater than 25). 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 Due on due Goal Tobacco screening. Due on due Goal Influenza vaccine. Due on due Goal Hematocrit/Hemoglobin. Due o n due Goal CMP. Due on due Goal Dental exam. Due on due Goal Dilated eye exam. Due on Dec due Goal CBC. Due on due Goal Tobacco Use Screening. Due o n due Goal Vitamin D. Due on due Goal Dental exam. Due on due Goal GFR. Due on due Goal Vitamin D. Due on due Goal Hemoglobin A1C. Due on due Goal Obtain blood Pressure. Due o n due Goal ASCVD 10 year risk. Due on due Goal Drug Abuse Scree milad Test (DAST-10). Due on due Goal Lipid panel. Due on due Goal Urinalysis due Goal DEXA scan. Due on due Goal Foot exam. Due on due Goal Dilated eye exam. Due on Nov due Goal Follow up Plan f or abnormal BMI (Less than 18.5, greater than 25). 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 Due on due Goal Vitamin B12. Due on due Goal ECG. Due on due Goal Influenza vaccine. Due on due Goal TSH. Due on due Goal Diabetes screening. Due on due Goal CMP. Due on due Goal Depression screening. Due on due Goal Tobacco Use Screening. Due o n due Goal Urine microalbumin. Due on due Goal Tobacco screening. Due on due Goal CBC. Due on due Goal Unhealthy drug use screening due Goal Obtain Height, Weight, and B OH. Due on due Goal Lifestyle education regardin g diet completed Goal Foot exam. Due on due Goal Influenza vaccine. Due on due Goal Hemoglobin A1C. Due on due Goal Obtain Height, Weight, and B OH. Due on due Goal Vitamin D. Due on due Goal Vitamin B12. Due on due Goal Diabetes screening. Due on A due Goal GFR. Due on due Goal ASCVD 10 year risk. Due on due Goal Urinalysis due Goal Dilated eye exam. Due on September due Goal Urine microalbumin. Due on A due Goal ECG. Due on due Goal Lipid panel. Due on due Goal Dental exam. Due on due Goal TSH. Due on due Goal Follow up Plan f or abnormal BMI (Less than 18.5, greater than 25). Due on due Goal CBC. 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 Due on due Goal DEXA scan. Due on due Goal Tobacco screening. Due on due Goal CMP. Due on due Goal Drug Abuse Scree milad Test (DAST-10). Due on due Goal Unhealthy drug use screening due Goal Tobacco Use Screening. Due o n due Goal Obtain blood Pressure. Due o n due Goal Pneumococcal vaccine due Goal Depression screening. Due on due Goal Lifestyle education regardin g diet completed Goal Tobacco screening. Due on due Goal CBC. Due on due Goal Vitamin B12. Due on due Goal Tobacco Use Screening. Due o n due Goal CMP. Due on due Goal Depression screening. Due on due Goal Pneumococcal vaccine due Goal Influenza vaccine. Due on due Goal TSH. Due on due Goal Lipid panel. Due on due Goal Follow up Plan f or abnormal BMI (Less than 18.5, greater than 25). Due on due Goal Diabetes screening. 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 Due on due Goal Unhealthy drug use screening due Goal DEXA scan. Due on due Goal Obtain Height, Weight, and B OH. Due on due Goal Vitamin D. Due on due Goal Drug Abuse Scree milad Test (DAST-10). Due on due Goal Dental exam. Due on due Goal Urine microalbumin. Due on A due Goal Foot exam. Due on due Goal ASCVD 10 year risk. Due on A due Goal GFR. Due on due Goal Dilated eye exam. Due on Aug due Goal Hemoglobin A1C. Due on due Goal Obtain blood Pressure. Due o n due Goal ECG. Due on due Goal Urinalysis due Goal Lifestyle education regardin g diet completed Referral Referred To: Psychiatric Ordered: Referrals: Orthopedic Surgery. Psychiatric. Location: [place]. Evaluate and treat Appointment date/timeframe: 11/27/2024 ordered [...] DM f oot exam today:Micro 09/13/24DM eye [id number] 6.3Needs repeat labs after 12/13/24 left knee [...] time- however confirmed med list shows D2 91068 IU weeklyShenedina has depression- on trazadone, but [...] availabletaking metoprolol 25 mg bidSees Sue at [facility], but has not been seen recentlyBP is 182/73, repeat 151/76I am adding valsartan 80 mg dailyAnemia- on iron dailyOsteoarthritis- was taking both alieve and diclofenac dailyadvised to stop aleive r/t NSAID/HTN/GI complicationMay take diclofenac every other day as needed and use tylenol arthritis as adjunct therapyContinue with main managementdiscussed alternative therapies such as heat application, OTC diclofenac gel (topical)[id number] w/ metformin ER 500 mg dailydoes not [...] that worse when she walks a loton montelukaLIBCASTcough -in the am and nightrainy weather makes [...] adult; and Caloric intake should be around 4305-6914 for a female, and 6102-4835 for an adult male. Fiber intake should [...] education. You may also refer to the [place] [employer] website for further low sodium, [...] adult; and Caloric intake should be around 7382-9878 for a female, and 9034-6284 for an adult male. Fiber intake should [...] education. You may also refer to the [place] [employer] website for further low sodium, [...] adult; and Caloric intake should be around 9453-0538 for a female, and 4796-6992 for an adult male. Fiber intake should [...] education. You may also refer to the [place] [employer] website for further low sodium, [...] adult; and Caloric intake should be around 2734-3531 for a female, and 9081-2620 for an adult male. Fiber intake should [...] are recommend to be 13-30 grams each. [email or web address] is a good source for meal planning and dietary education. You may also refer to the [place] [employer] website for further low sodium, [...] Mental Status Date Cognitive Assessment Orientation - [place] ed to time, place, person, situation.
--- NOTE | 2025-02-05 | CA_ITS ---
APPROVED REPORT Exam: Pharmacologic Technologist: Radha Jones Stress Nurse: Monica Jain Ht: 5 ft 0 in Wt: 138 lbs BSA: 1.59 m2 HR: 58 bpm BP: 115/82 mmHg Stress Test Details Test: Lexiscan HR Resting HR: 58 bpm Max Heart Rate (APMHR): 144.452537 bpm Max HR Achieved: 84 bpm Target HR (85% APMHR): 122.290546 bpm % of APMHR: 58.33 Recovery HR: 71 bpm BP Resting BP: 115.0/82.0 mmHg Max BP: 178.0/80.0 mmHg Recovery BP: 178.0/80.0 mmHg ECG Resting ECG: Sinus rhythm, PVC Stress ECG Conclusion Lungs CTA Symptoms: None Arrhythmias/Ectopy: PAC/PVC ST-T Changes: Less than 0.[address] segment changes. Conclusion: Non-diagnostic ECG/Lexiscan Electronically signed by : Cesilia Donohue MD 02/05/2025 12:40:20
--- NOTE | 2025-02-05 08:00 | NM_ITS ---
APPROVED REPORT Exam: Nuclear Stress Test Indication: soa Patient Location: Outpatient Stress Tech: Radha Jones LA Tech:Deyanira RITA De Souza RT(R)(N) Ht: 4 ft 11 in Wt: 138 lbs Bra Size: 34b HR: 60 bpm BP: 115/82 mmHg BSA: 1.58 m2 TID: 1.08 BMI: 27.8 History: soa Procedure: Patient received 0.4 mg of intravenous Lexiscan, resting heart rate 60 bpm, resting blood pressure 115/82 mmHg, with Lexiscan maximum heart rate achieved was 79 bpm which is 85 % of the maximum predicted heart rate and blood pressure was 169/85 mmHg. With Lexiscan, patient denied any complaint of chest pain. Cardiac Stress and Resting SPECT Images: Cardiac Stress and Resting SPECT images were obtained using technetium 99m Myoview 29.6 mCi stress and 10.69 mCi at rest. Resting and stress imaging in supine and prone positions demonstrate no evidence of fixed or reversible perfusion defects. Gated imaging demonstrates mild reduction in global LV systolic function. LVEF is calculated 42%. Conclusion: No evidence of fixed or reversible perfusion defects. Gated imaging demonstrates mild reduction in global LV systolic function. LVEF is calculated 42%. Correlation with your recent TTE is suggested. Electronically signed by : Cesilia Donohue MD 02/05/2025 12:23:57
[2025-02-05 09:30] VITALS: BP 115/82; PULSE 58; RESP 16
[2025-02-05] MEDS: ISOTOPE MYOVIEW (PER STUDY) 1 DOSE IV (10:24)
[2025-02-05] MEDS: SODIUM CHLORIDE 0.9% 10ML SYR (RAD ONLY) 10 ML IV ×2 (10:24)
--- NOTE | 2025-02-05 10:30 | CA_ITS ---
APPROVED REPORT EXAM: Comprehensive 2D, Doppler, and color-flow Echocardiogram Pbx Repairer: Padmini Agudelo CRT Ht: 5 ft 0 in Wt: 138lbs BSA: 1.59 BP: 150/55 mmHg Indications: Shortness of Breath, Peripheral Edema, Hypertension/HDD 2D Dimensions LA Volume 32.00 mL LA Volume Index 19.60 mL/m2 (M/F) 16-34 M-Mode Dimensions RVDd 2.72 cm (0.9-2.6) LA Diam 3.58 cm (1.9-4.0) LVDd 4.93 cm (3.5-5.7) LVDs 2.87 cm (3.5-5.7) IVSd 1.25 cm (0.6-1.1) PWd 0.91 cm (0.6-1.1) EF (Teich) 72.60% FS 41.80% EDV (Teich) 114.40 mL ESV (Teich) 31.40 mL LV Diastology E Decel Time 187 (160-240 msec) E/A Ratio 0.77 MED A' 7.30 cm/s LAT A' 13.70 cm/s Aortic Valve AO Peak GR. 6.80 mmHg Mitral Valve MV A Velocity 107.0 (40-130 cm/s) E/A Ratio 0.77 Pulmonary Valve PV Peak Velocity 77.0 (50-150 cm/s) Tricuspid Valve TR P. Velocity 280.00 cm/s RAP Estimate 10.00 mmHg RVSP 41.30 mmHg Left Ventricle The left ventricle is normal size. Left ventricular systolic function is mildly reduced. There is increased left ventricular wall thickness. There is mild global hypokinesis present. The septum is asynchronous. Grade 1 diastolic dysfunction is present. LVEF is 45% Right Ventricle The right ventricle is moderately dilated. The right ventricular systolic function is mildly reduced. Atria The left atrium is moderately dilated. The right atrium is moderately dilated. There is no color Doppler evidence of interatrial shunt. Aortic Valve The aortic valve is mildly thickened. There is no hemodynamically significant aortic valvular stenosis. Trace aortic regurgitation is present. Mitral Valve The mitral valve is normal in structure. No evidence of mitral valve stenosis. Mild mitral regurgitation is present. Tricuspid Valve The tricuspid valve leaflets are thin and pliable. Mild tricuspid regurgitation. RVSP is 20-25 mmHg. Pulmonic Valve The pulmonary valve is grossly normal in structure. Trace pulmonic valve regurgitation is present. Great Vessels The aortic root is normal in size. IVC is normal in size and collapses >50% with inspiration. Pericardium There is no pericardial effusion. Other Information Study Quality: Technically Difficult Conclusion Mildly reduced LV systolic function (LVEF 45%). Asynchronous septum. Moderate RV dilation with mild reduction in RV function. Biatrial dilation. Mild MR, mild TR. Electronically signed by : Cesilia Donhoue MD 02/09/2025 16:16:47
== END 2025-02-05 23:59 | disposition home or self-care (01) ==
LOC: RAD 07:30
PROVIDERS: PCP Nurse Practitioner Family; Visit Provider Physician Assistant
DX: I08.1 Rheumatic disorders of both mitral and tricuspid valves (principal); I11.9 Hypertensive heart disease without heart failure; I49.1 Atrial premature depolarization; I49.3 Ventricular premature depolarization; I49.5 Sick sinus syndrome; I70.1 Atherosclerosis of renal artery; R93.1 Abnormal findings on diagnostic imaging of heart and coronary circulation; R94.39 Abnormal result of other cardiovascular function study; R06.02 Shortness of breath
CPT/HCPCS: 78452; 93017; 93018; 93306; A9502; J2785

== ENCOUNTER 2025-02-07 07:37 | Outpatient (CLI) | payer MEDICARE, OTHER, SELFPAY ==
--- OUTSIDE RECORDS SUMMARY | 2025-01-14 04:45 | XMS_ITS | Continuity of Care Document ---
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 Name Role Phone Kyle MSN, [facility], Kelsea Unavailable Unavai lable Allergies, Adverse Reactions, [...] by oral route 4 times every day [id number] UNITS - Active diclofenac sodium 75 mg tablet,delayed release take 1 tablet by oral route every other day - Active Procedures Procedure Date OFFICE/OUTPATIENT VISIT, [facility] [[email or web address] Advance Directives Directive Yes / No Effective Date File Name No Information Encounters Encounter Description Practice Location Reason(s) For Visit Diagnoses Date Provider OFFICE/OUTPA TIENT VISIT, [facility], [address] [place] [address], [id number], tel:[phone] [id number] Follow up on Lab Results (chief complaint) Medication s (chief complaint) Body mass index [BMI] 29.0-29.9, adultAnemiaDepressionEsse ntial (primary) hypertensionHyperlipidemi a, unspecifiedObesity, unspecifiedType 2 diabetes mellitus without complicationsVitamin B12 deficiency 5 Kyle Enamorado. [address] [employer] [address] [employer], [place], [id number] , [place]. tel:[phone] [facility], [address] [place] [address], [address], tel:[phone] FEDERA-G-[facility] DEJAN [facility] (chief complaint) Essential (primary) hypertension 5 Wright Kelsea. [address] [employer], [place], [id number] , [place]. tel: [phone] [facility], [address] [place] [address], [facility], tel:[phone] [facility] [place] No Information 5 Wright Kelsea. [address] [employer], [place], [id number] , . tel: [phone] [facility], [address] [place] [address], [facility], tel:[phone] [facility] [place] No Information 5 Wright Kelsea. [address] [employer], [place], [id number] , . tel: [phone] [facility], [address] [place] [address], [facility], tel:[phone] [facility] [place] T2DM (chief complaint) left knee pain (chief complaint) Type 2 diabetes mellitus without complicationsObesity, unspecifiedPain in left kneeEssential (primary) hypertensionOther hammer toe of left footOther hammer toe of right footBody mass index [BMI] 30.0-30.9, adult 5 Wright Kelsea. [address] [employer], [place], [id number] , . tel: [phone] [facility], [address] [place] [address], [facility], tel:[phone] [facility] [place] f/u on labs (chief complaint) Essential (primary) hypertensionHyperlipidemi a, unspecifiedObesity, unspecifiedType 2 diabetes mellitus without complicationsAsthmaOral candidiasisBody mass index [BMI] 32.0-32.9, adult 5 Wright Kelsea. [address] [employer], [place], [id number] , [place]. tel: [phone] [facility], [address] [place], [address], tel:[phone] [facility] DEJAN New to establish care (chief complaint) Depression screening (chief complaint) Prapare (chief complaint) Encntr for general adult medical exam w/o abnormal findingsExtreme povertyEncounter for screening for depressionBack painEssential (primary) hypertensionDepressionAnx ietySleep disorder, unspecifiedObesity, unspecifiedType 2 diabetes mellitus without complicationsAnemiaHyperl ipidemia, unspecifiedGERD without esophagitisAsthmaEnuresis Other seasonal allergic rhinitis Wrightcristopher Enamorado. [address] [employer], [place], [id number] , . tel: [phone] Family History Family Member Type Diagnosis Age [...] Registry Payers Payer name Insurance type Covered constitution party ID Authoriza tion(s) Mcr Adv [facility] [id number] CI [id number] Hc- Medicaid Aet[employer] [facility] [place] CI [id number] [facility]- Medicaid Aetna Wrap Payer [id number] [facility]- Medicare MB [id number] Social History Type Description Quantity Date Captured [...] Of Treatment Date Type Action Status Goal Dental exam. Due on 025 due Goal ASCVD 10 year risk. Due on A due Goal Dilated eye exam. Due on Dec due Goal Depression screening. Due on due Goal Hemoglobin A1C. Due on due Goal ECG. Due on due Goal GFR. Due on due Goal Urine microalbumin. Due on A due Goal Lipid panel. Due on 026 due Goal Pneumococcal vaccine due Goal Foot exam. 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 Due on due Goal Tobacco Use Screening. Due o n due Goal Follow up Plan f or abnormal BMI (Less than 18.5, greater than 25). Due on due Goal Unhealthy drug use screening due Goal Vitamin B12. Due on due Goal CBC. Due on due Goal DEXA scan. Due on due Goal Vitamin D. Due on due Goal Drug Abuse Scree milad Test (DAST-10). Due on due Goal Tobacco screening. Due on due Goal TSH. Due on due Goal Diabetes screening. Due on A due Goal Obtain Height, Weight, and B RI. Due on due Goal CMP. Due on due Goal Influenza vaccine. Due on due Goal Obtain blood Pressure. Due o n due Goal Urinalysis due Goal Hematocrit/Hemoglobin. Due o n due Goal Hemoglobin (Pree michelle/HR 9 months). Due on due Goal Lifestyle education regardin g diet completed Goal TSH. Due on due Goal Hemoglobin A1C. Due on due Goal GFR. Due on due Goal Foot exam. Due on due Goal Lipid panel. Due on due Goal ASCVD 10 year risk. Due on A due Goal Urine microalbumin. Due on A due Goal Dental exam. Due on 025 due Goal Dilated eye exam. Due on Dec due Goal Diabetes screening. Due on A due Goal Unhealthy drug use screening due Goal Obtain Height, Weight, and B RI. Due on due Goal DEXA scan. Due on due Goal Drug Abuse Scree milad Test (DAST-10). Due on due Goal Vitamin B12. Due on 026 due Goal Follow up Plan f or [...] y due Goal Dental exam. Due on 025 [...] due Goal Obtain Height, Weight, and B RI. Due on due Goal Pneumococcal vaccine due [...] Goal ASCVD 10 year risk. Due on M due Goal Dilated eye exam. Due on September due Goal Urine microalbumin. Due on A due Goal Lipid panel. Due on due Goal Dental exam. Due on due Goal Obtain Height, Weight, and B RI. Due on due Goal Vitamin D. Due [...] Goal Tobacco screening. Due on due Goal DEXA scan. Due on due Goal Lipid panel. Due on due Goal Drug Abuse Scree milad Test (DAST-10). Due on due Goal Pneumococcal vaccine due Goal Obtain Height, Weight, and B RI. Due on due Goal Vitamin D. Due on due Goal Unhealthy drug use screening due Goal Tobacco Use Screening. Due o n due Goal Vitamin B12. Due on due Goal Depression screening. Due on due Goal TSH. Due on due Goal Influenza vaccine. Due on due Goal Diabetes screening. Due [...] vicentein g diet completed Referral Referred To: [facility] Ordered: Referrals: Orthopedic Surgery. [facility]. Location: [place]. Evaluate and treat Appointment date/timeframe: 11/27/2024 ordered [...] DM f oot exam today:Micro 09/13/24DM eye [id number] 6.3Needs repeat labs after 12/13/24 left knee [...] time- however confirmed med list shows D2 43895 IU weeklyShenedina has depression- on trazadone, but [...] such as heat application, OTC diclofenac gel (topical)[id number] w/ metformin ER 500 mg dailydoes not [...] that worse when she walks a loton montelukaSpotwishcough -in the am and nightrainy weather makes [...] adult; and Caloric intake should be around 5102-9256 for a female, and 6880-5093 for an adult male. Fiber intake should [...] education. You may also refer to the [place] [employer] website for further low sodium, [...] adult; and Caloric intake should be around 4275-8574 for a female, and 3491-5859 for an adult male. Fiber intake should [...] education. You may also refer to the [place] [employer] website for further low sodium, [...] adult; and Caloric intake should be around 3434-7842 for a female, and 9371-0152 for an adult male. Fiber intake should [...] education. You may also refer to the [place] [employer] website for further low sodium, [...] adult; and Caloric intake should be around 3902-8551 for a female, and 8117-5836 for an adult male. Fiber intake should [...] are recommend to be 13-30 grams each. [employer] is a good source for meal planning and dietary education. You may also refer to the [place] [employer] website for further low sodium, [...] Mental Status Date Cognitive Assessment Orientation - Henderson ed to time, place, person, situation.
--- NOTE | 2025-02-07 08:00 | CA_ITS ---
FINAL REPORT TECHNIQUE: Spectral and color Doppler exam CLINICAL HISTORY: HTN,HLD,DM FINDINGS: DOPPLER RENAL VESSELS HISTORY: Hypertension . FINDINGS: Intrarenal resistive indices on the right are 0.52-0.69, normal . Intrarenal resistive indices on the left are 0.56-0.75, normal . Right kidney measures 8.7 cm and left kidney measures 10.5 cm. Right kidney is mildly atrophic relative to the left. Right main renal artery systolic velocity: 150 cm/sec. Aortic-right renal artery flow velocity ratio: 1.85 COMMENT: No evidence of hemodynamically significant renal artery stenosis . Left main renal artery systolic velocity: 123 cm/sec. Aortic-left renal artery flow velocity ratio: 1.52 COMMENT: No evidence of hemodynamically significant renal artery stenosis . IMPRESSION: No evidence of hemodynamically significant renal artery stenosis CTA or gadolinium-enhanced MR may be considered as a more sensitive exam. Alternatively noncontrast MRI may be considered for assessing main renal arteries for stenosis as a more sensitive exam if the patient has renal insufficiency. Reviewed, Interpreted and Dictated by Ruben Cerrato MD Transcribed by Karina Hunt Authenticated and [facility]
== END 2025-02-07 23:59 | disposition home or self-care (01) ==
LOC: RT 07:38
PROVIDERS: PCP Nurse Practitioner Family; Visit Provider Physician Assistant
DX: I08.1 Rheumatic disorders of both mitral and tricuspid valves (principal); I49.5 Sick sinus syndrome; I70.1 Atherosclerosis of renal artery; R22.2 Localized swelling, mass and lump, trunk; E78.5 Hyperlipidemia, unspecified; E11.9 Type 2 diabetes mellitus without complications; I10 Essential (primary) hypertension
CPT/HCPCS: 93976

== ENCOUNTER 2025-02-08 23:41 | Inpatient (IN) | payer MEDICARE, OTHER, SELFPAY ==
--- OUTSIDE RECORDS SUMMARY | 2025-01-14 04:45 | XMS_ITS | Continuity of Care Document ---
Author Organization [facility] Address [address] [place] [address] Phone Care Team Providers Care Patternmaker Plaster Name Role Phone Kyle MSN, ALTERATION MANAGER, Kelsea Unavailable Unavai lable Allergies, Adverse Reactions, Alerts Substance Reaction Status Criticality Penicillins Hives / Skin Rash(moderate)Itching(modera te) Active No Information Medications Medication Instructions Dosage Effective Dates (start - stop) Status Comments Indira Allergy 180 mg tablet take 1 tablet by oral route every day 180 MG - Active albuterol sulfate HFA 90 mcg/actuation aerosol inhaler inhale 2 puff by inhalation route every 4 - 6 hours as needed 180 MCG - Active montelukast 10 mg tablet take 1 tablet by oral route every day in the evening 10 MG - Active melatonin 5 mg capsule Take one capsule at night prior to sleep. - Active ferrous sulfate 325 mg (65 mg iron) tablet take 1 tablet by oral route every day 325 MG - Active metformin ER 500 mg tablet,extended release 24 hr take 1 tablet by oral route every day with the evening meal 500 MG - Active diclofenac 1 % topical gel apply 2 gram by topical route 4 times every day to the affected area(s) 2.00 gram - Active melatonin 5 mg tablet TAKE ONE TABLET [...] by oral route 4 times every day [id number] UNITS - Active diclofenac sodium 75 mg tablet,delayed release take 1 tablet by oral route every other day - Active Procedures Procedure Date OFFICE/OUTPATIENT VISIT, [facility] Advance Directives Directive Yes / No Effective Date File Name No Information Encounters Encounter Description Practice Location Reason(s) For Visit Diagnoses Date Provider OFFICE/OUTPA TIENT VISIT, [facility], [address] [place] [address], [address], tel:[phone] [facility] Follow up on Lab Results (chief complaint) Medication s (chief complaint) Body mass index [BMI] 29.0-29.9, adultAnemiaDepressionEsse ntial (primary) hypertensionHyperlipidemi a, unspecifiedObesity, unspecifiedType 2 diabetes mellitus without complicationsVitamin B12 deficiency 5 Kyle Enamorado. [address] [place], [place], [id number] , [place]. tel:[phone] [facility], [address] [place] [address], [address], tel:[phone] FEDERA-G-H HR[facility] DEJAN FA[facility]S (chief complaint) Essential (primary) hypertension 5 Wright Kelsea. [address] [place], [place], [id number] , [place]. tel: [phone] [facility], [address] [place] [address], [facility], tel:[phone] [facility] [place] No Information 5 Wright Kelsea. [address] [place], [place], [id number] , . tel: [phone] [facility], [address] [place] [address], [facility], tel:[phone] [facility] [place] No Information 5 Wright Kelsea. [address] [place], [place], [id number] , . tel: [phone] [facility], [address] [place] [address], [facility], tel:[phone] [facility] [place] T2DM (chief complaint) left knee pain (chief complaint) Type 2 diabetes mellitus without complicationsObesity, unspecifiedPain in left kneeEssential (primary) hypertensionOther hammer toe of left footOther hammer toe of right footBody mass index [BMI] 30.0-30.9, adult 5 Wright Kelsea. [address] [place], [place], [id number] , . tel: [phone] [facility], [address] [place] [address], [facility], tel:[phone] [facility]A-[facility] [place] f/u on labs (chief complaint) Essential (primary) hypertensionHyperlipidemi a, unspecifiedObesity, unspecifiedType 2 diabetes mellitus without complicationsAsthmaOral candidiasisBody mass index [BMI] 32.0-32.9, adult 5 Wright Kelsea. [address] [place], [place], [id number] , [place]. tel: [phone] [facility], [address] [place], [address], tel:[phone] [facility] [place] New to establish care (chief complaint) Depression screening (chief complaint) Prapare (chief complaint) Encntr for general adult medical exam w/o abnormal findingsExtreme povertyEncounter for screening for depressionBack painEssential (primary) hypertensionDepressionAnx ietySleep disorder, unspecifiedObesity, unspecifiedType 2 diabetes mellitus without complicationsAnemiaHyperl ipidemia, unspecifiedGERD without esophagitisAsthmaEnuresis Other seasonal allergic rhinitis Wrightcristopher Enamorado. [address] [place], [place], [id number] , . tel: [phone] Family History Family Member Type Diagnosis Age [...] Registry Payers Payer name Insurance type Covered democrat ID Authoriza tion(s) Mcr Adv [facility] 5240 CI [id number] Hc- Medicaid [place]et[place] [facility] [place] [id number] Formerly [facility]- Medicaid Aetna Wrap Payer [id number] Formerly [facility]- Medicare MB [id number] Social History Type Description Quantity Date Captured Comments Alcohol Use Details No Caffeine Use Details coffee and tea 2 cups per day 2024 Tobacco Use Status Current non-smoker Smoking Status Never smoker Non-Smoking Tobacco Use Details : No Details Available : No Details Available Sex Female Sexual Orientation Straight or heterosexual Gender Identity Female Vital Signs Date / Time: Height Weight BMI Pulse Rate Blood Pressure Temperature Respiratory Rate Body Surface Area Head Circumference Head Circ. Percentile Wt./Meek. Percentile BMI percentile Pulse Ox Inhaled Ox 8:50 AM 57.50 in 62.686 kg (138.20 lbs) 29.3 9 kg/m eter (2) 63 /min 143/55 mm[Hg] 98.60 F 18 /min 96 % 8:59 AM 180/71 mm[Hg] Chief Complaint And Reason For Visit From encounter dated '01/14/2025 08:45'. Follow up on Lab Results (chief complaint). Description: Shaunna is here today to follow up on recent lab results.CBC:Ferritin elevated at 260Folate 8.7B12 314- will give b12 injection here todayhgb/hct/rbc wnlTaking iron- improvedTSH: wnlon cardiology labs 12/17/24 T3 was elevated, but TSH was normalI will plan on repeating Thyroid studies in the end of Jan.Creatinine 1.12, Gfr improved to 58 from 48 (cardiology labs).encouraged her to drink more water- she states she is drinking 3 bottles a daywill repeat CMP in 1 monthDM:DM foot exam 09/26/24A1c 6.6compliant w/ metforminworking on dietdoesnot check her BS at home Medications (chief complaint). Description: Shaunna is here today to discuss her medications.Currently, Shaunna reports she is taking her medications correctly, and uses a pill box organizer.However, when asked specifics about her medications, she is unable to clearly answer. She mentioned having daily headaches, and that she felt it may be her allergies. She reported taking cetirizine, however I have her on Indira. I am not sure which she is taking.Many of her medications should have ran out inthe end of November, however she reports she is not out of her medication. She states she is fatigue and under a tremendous amount of stress. 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 On Monday was 126/60, but she states, that was the best one of all. Mostly runs in the upper 140's systolic and 50-60 diastolic.Renal angiogram was completed 02/2024Not sure if we need to repeat an US of renal artery/kidneys for revaluation.She is taking rosuvastatin- and has had some improvement in ldl and trigs.HLD:LDL 53, trigs 225Goal LDL <55, Trigs <150diet modificationwas discussed. She reports baking more foods, and not frying them. Plan Of Treatment Date Type Action Status Goal Depression screening. Due on due Goal Foot exam. Due on due Goal Urine microalbumin. Due on A due Goal Lipid panel. 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 Due on due Goal Dental exam. Due on 025 due Goal Tobacco Use Screening. Due o n due Goal Follow up Plan f or abnormal BMI (Less than 18.5, greater than 25). Due on due Goal Unhealthy drug use screening due Goal ASCVD 10 year risk. Due on A due Goal Vitamin B12. Due on due Goal Dilated eye exam. Due on Dec due Goal CBC. Due on due Goal DEXA scan. Due on due Goal Hemoglobin A1C. Due on due Goal Vitamin D. Due on due Goal Pneumococcal vaccine due Goal GFR. Due on due Goal Drug Abuse Scree milad Test (DAST-10). Due on due Goal ECG. Due on due Goal Tobacco screening. Due on due Goal TSH. Due on due Goal Influenza vaccine. Due on due Goal Hematocrit/Hemoglobin. Due o n due Goal Obtain blood Pressure. Due o n due Goal Diabetes screening. Due on due Goal Hemoglobin (Pree michelle/HR 9 months). Due on due Goal Obtain Height, Weight, and B WV. Due on due Goal CMP. Due on due Goal Urinalysis due Goal Lifestyle education regardin g diet completed Goal TSH. Due on due Goal Hemoglobin A1C. Due on due Goal GFR. Due on due Goal Foot exam. Due on due Goal Lipid panel. Due on due Goal ASCVD 10 year risk. Due on due Goal Diabetes screening. Due on due Goal Unhealthy drug use screening due Goal Obtain Height, Weight, and B WV. Due on due Goal Urine microalbumin. Due on A due Goal DEXA scan. Due on due Goal Vitamin B12. Due on 026 due Goal Drug Abuse Scree milad Test (DAST-10). Due on due Goal Dental exam. Due on 025 due Goal Dilated eye exam. Due on Dec due Goal CBC. Due on due Goal Tobacco Use Screening. Due o n due Goal Vitamin D. Due on due Goal Follow up Plan f or abnormal BMI (Less than 18.5, greater than 25). 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 Due on due Goal Tobacco screening. Due on due Goal Influenza vaccine. Due on due Goal Hematocrit/Hemoglobin. Due o n due Goal CMP. Due on due Goal Obtain blood Pressure. Due o n due Goal Pneumococcal vaccine due Goal ECG. Due on due Goal Depression screening. Due on due Goal Urinalysis due Goal Hemoglobin (Pree michelle/HR 9 months). Due on due Goal Lipid 17-20 y due Goal Lipid 9-11 y due Goal ASCVD 10 year risk. Due on due Goal Drug Abuse Scree milad Test (DAST-10). Due on due Goal Lipid panel. Due on due Goal Dental exam. Due on 025 due Goal GFR. Due on due Goal Vitamin D. Due on due Goal Hemoglobin A1C. Due on due Goal DEXA scan. Due on due Goal Foot exam. Due on due Goal Dilated eye exam. Due on Nov due Goal Follow up Plan f or abnormal BMI (Less than 18.5, greater than 25). 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 Due on due Goal Vitamin B12. Due on due Goal Tobacco Use Screening. Due o n due Goal Urine microalbumin. Due on due Goal Tobacco screening. Due on due Goal TSH. Due on due Goal Diabetes screening. Due on due Goal CMP. Due on due Goal Depression screening. Due on due Goal CBC. Due on due Goal Unhealthy drug use screening due Goal Obtain Height, Weight, and B WV. Due on due Goal ECG. Due on due Goal Influenza vaccine. Due on due Goal Pneumococcal vaccine due Goal Obtain blood Pressure. Due o n due Goal Urinalysis due Goal Lifestyle education regardin g diet completed Goal Foot exam. Due on due Goal Hemoglobin A1C. Due on due Goal Obtain Height, Weight, and B WV. Due on due Goal Vitamin D. Due on due Goal Vitamin B12. Due on due Goal GFR. Due on due Goal Diabetes screening. Due on A due Goal Urinalysis due Goal Dilated eye exam. Due on September due Goal Urine microalbumin. Due on A due Goal ASCVD 10 year risk. Due on due Goal Lipid panel. Due on due Goal Dental exam. Due on due Goal ECG. Due on due Goal CBC. 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 Due on due Goal Follow up Plan f or abnormal BMI (Less than 18.5, greater than 25). Due on due Goal TSH. Due on due Goal CMP. Due on due Goal DEXA scan. Due on due Goal Tobacco screening. Due on due Goal Drug Abuse Scree milad Test (DAST-10). Due on due Goal Unhealthy drug use screening due Goal Tobacco Use Screening. Due o n due Goal Obtain blood Pressure. Due o n due Goal Influenza vaccine. Due on Ma due Goal Depression screening. Due on due Goal Pneumococcal vaccine due Goal Lifestyle education regardin g diet completed Goal Vitamin B12. Due on due Goal Tobacco Use Screening. Due o n due Goal CMP. Due on due Goal Depression screening. Due on due Goal Pneumococcal vaccine due Goal Influenza vaccine. Due on Ap due Goal TSH. Due on due Goal Tobacco screening. Due on Ap due Goal CBC. Due on due Goal Lipid panel. Due on due Goal Follow up Plan f or abnormal BMI (Less than 18.5, greater than 25). Due on due Goal DEXA scan. Due on due Goal Obtain Height, Weight, and B WV. Due on due Goal Vitamin D. Due on due Goal Drug Abuse Scree milad Test (DAST-10). Due on due Goal Diabetes screening. 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 Due on due Goal Unhealthy drug use screening due Goal GFR. Due on due Goal Dilated eye exam. Due on Aug due Goal Hemoglobin A1C. Due on due Goal Urine microalbumin. Due on A due Goal Foot exam. Due on due Goal Dental exam. Due on 025 due Goal ASCVD 10 year risk. Due on A due Goal Urinalysis due Goal ECG. Due on due Goal Obtain blood Pressure. Due o n due Goal Lifestyle education vicentein g diet completed Referral Referred To: [facility] Ordered: Referrals: Orthopedic Surgery. [facility]. Location: [place]. Evaluate and treat Appointment date/timeframe: 11/27/2024 ordered Appointment Shaunna Flynn - F/U BP, R epeat Labs BOOKED History Of Present Illness Encounter Date Complaint History Of Prese nt Illness Medications Shaunna is here t virgen to discuss her medications.Currently, Shaunna reports she is taking her medications correctly, and uses a pill box organizer.However, when asked specifics about her medications, she is unable to clearly answer. She mentioned having daily headaches, and that she felt it may be her allergies. She reported taking cetirizine, however I have her on Indira. I am not sure which she is taking.Many of her medications should have ran out in the end of November, however she reports she is not out of her medication. She states she is fatigue and under a tremendous amount of stress. 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 On Monday was 126/60, but she states, that was the best one of all. Mostly runs in the upper 140's systolic and 50-60 diastolic.Renal angiogram was completed 02/2024Not sure if we need to repeat an US of renal artery/kidneys for revaluation.She is taking rosuvastatin- and has had some improvement in ldl and trigs.HLD:LDL 53, trigs 225Goal LDL <55, Trigs <150diet modification was discussed. She reports baking more foods, and not frying them. Follow up on Lab Results Shaunna is here today to follow up on recent lab results.CBC:Ferritin elevated at 260Folate 8.7B12 314- will give b12 injection here todayhgb/hct/rbc wnlTaking iron- improvedTSH: wnlon cardiology labs 12/17/24 T3 was elevated, but TSH was normalI will plan on repeating Thyroid studies in the end of Jan.Creatinine 1.12, Gfr improved to 58 from 48 (cardiology labs).encouraged her to drink more water- she states she is drinking 3 bottles a daywill repeat CMP in 1 monthDM:DM foot exam 09/26/24A1c 6.6compliant w/ metforminworking on dietdoes not check her BS at home FASTING LABS Pt is here today to [...] DM f oot exam today:Micro 09/13/24DM eye jojsT1j 6.3Needs repeat labs after 12/13/24 left knee [...] time- however confirmed med list shows D2 94654 IU weeklyShenedina has depression- on trazadone, but [...] availabletaking metoprolol 25 mg bidSees Sue at [facility], but has not been seen recentlyBP is 182/73, repeat 151/76I am adding valsartan 80 mg dailyAnemia- on iron dailyOsteoarthritis- was taking both alieve and diclofenac dailyadvised to stop aleive r/t NSAID/HTN/GI complicationMay take diclofenac every other day as needed and use tylenol arthritis as adjunct therapyContinue with main managementdiscussed alternative therapies such as heat application, OTC diclofenac gel (topical)[id number] w/ metformin ER 500 mg dailydoes not [...] sleeps in the bedno naps in the dayAsthmaShenedina is not on a maintenance inhaleruses albuterol dailysometimes 2-3 time weekly in addition to daily in the am- states that worse when she walks a loton montelukaSportsgritcough -in the am and nightrainy weather makes it worsewill add budesonide-albuterol, nidira, and continue montelukastpneumonia, flu, and covid vaccines currentMamm- none in yearsPap- none in yearscolonoscopy incomplete/aborted 05/13/2021eclines to complete at this timenon-smoker, but + for second hand smoke Depression screening Depression screening completed 09/13/24. Pt scored 21, provider aware. -ERMA NEAL Praro Moore complete d 09/13/24. -ERMA NEAL Instructions Date Instruction Additional Infor fiona Dietary Instructions for a healthy weight: BMI should be between the range of 18.5-24.9 for an adult; and Caloric intake should be around 9609-1828 for a female, and 3060-0514 for an adult male. Fiber intake should [...] education. You may also refer to the [employer] website for further low sodium, [...] Verbalizes an understanding. Related to Obesity, unspecified B-12 injection given in office today. Eat foods rich in B-12. Additional oral B12 replacement if indicated. Related to Vitamin B12 deficiency Take medications as prescribed. Follow a sleep schedule. Try to engage in 30 minutes of moderate activity daily if tolerated, as exercise has been shown to improve depression symptoms Related to Depression Take any medications as prescribed, Follow a nutrient dense diet. Notify the provider of any signs of active bleeding (easy bruising, hematemesis, hematuria, melena, bright red blood per rectum), ornew symptoms, such as: increased fatigue, dyspnea, chest [...] an understanding of all. Related to Anemia Low fat, low cholest darnell diet. Avoid [...] diastolic blood pressure is staying greater than 90.Keep upcoming appointment with ALISE Bertrand[facility] 1 month for repeat labs, recheck BP Related to Essential (primary) hypertension Patient educated on the importance of maintaining [...] to Type 2 diabetes mellitus without complications Lifestyle education regarding di et Related to Body mass index [BMI] 29.0-29.9, adult Giving encouragement to exercise Related to Body mass index [BMI] 29.0-29.9, adult rest, ice, and compr ession as instructed [...] adult; and Caloric intake should be around 7279-6321 for a female, and 8475-1797 for an adult male. Fiber intake should [...] education. You may also refer to the [employer] website for further low sodium, [...] of symptoms.Stop airsuprastart albuterol Related to Asthma Dietary Instructions for a healthy weight: BMI should be between the range of 18.5-24.9 for an adult; and Caloric intake should be around 4207-1779 for a female, and 4753-1222 for an adult male. Fiber intake should [...] education. You may also refer to the [employer] website for further low sodium, [...] to Type 2 diabetes mellitus without complications Low fat, low cholest darnell diet. Avoid [...] than 90. Related to Essential (primary) hypertension USE OXYBUTIN INST RUCTED, 1/2 TABLET TWO TIMES DAILY.LIMIT ORAL INTAKE OF LIMITS AFTER 6 MPEMPTY YOUR BLADDER PRIOR TO SLEEP Related to Enuresis Dietary Instructions for a healthy weight: BMI should be between the range of 18.5-24.9 for an adult; and Caloric intake should be around 5454-8287 for a female, and 0261-7065 for an adult male. Fiber intake should [...] are recommend to be 13-30 grams each. [employer]mocha.xiao qu wu you is a good source for meal planning and dietary education. You may also refer to the [place] [employer] website for further low sodium, [...] Verbalizes an understanding. Related to Obesity, unspecified Drink plenty of flui ds. Use nasal saline rinses. Nasal steroid spray if tolerated. Antihistamines as needed. Avoid allergy triggers when possible.START INDIRA 180 MG DAILY Related to Other seasonal allergic rhinitis Discussed stress red uction techniques. Take medications [...] depression symptoms Related to Depression Counseled on vanessaa nce of sleep hygiene. Maintain a consistent [...] Obesity, unspecified Assessments Type Assessment Date assessment Body mass index [BMI] 29.0-29.9, adult assessment Anemia assessment Depression assessment Essential (primary) hypertension assessment Hyperlipidemia, unspecified assessment Obesity, unspecified assessment Type 2 diabetes mellitus without complications impression Rt Renal artery sten osis likely contributor to uncontrolled HTNCardiology collaboration needed assessment Vitamin B12 deficiency Mental Status Date Cognitive Assessment Orientation - [place] ed to time, place, person, situation.
--- OUTSIDE RECORDS SUMMARY | 2025-01-14 04:45 | XMS_ITS | Continuity of Care Document ---
Author Organization [facility] Address [address] [place] [address] Phone Care Team Providers Care Light Technician Name Role Phone Kyle MSN, CUTTER HEAD SHARPENER, Kelsea Unavailable Unavai lable Allergies, Adverse Reactions, [...] by oral route 4 times every day [id number] UNITS - Active diclofenac sodium 75 mg tablet,delayed release take 1 tablet by oral route every other day - Active Procedures Procedure Date OFFICE/OUTPATIENT VISIT, [facility] Advance Directives Directive Yes / No Effective Date File Name No Information Encounters Encounter Description Practice Location Reason(s) For Visit Diagnoses Date Provider OFFICE/OUTPA TIENT VISIT, [facility], [address] [place] [address], [address], tel:[phone] [facility] Follow up on Lab Results (chief complaint) Medication s (chief complaint) Body mass index [BMI] 29.0-29.9, adultAnemiaDepressionEsse ntial (primary) hypertensionHyperlipidemi a, unspecifiedObesity, unspecifiedType 2 diabetes mellitus without complicationsVitamin B12 deficiency 5 Kyle Enamorado. [address] [place], [place], [id number] , [place]. tel:[phone] [facility] [[email or web address]], [address] [place] [address], [address], tel:[phone] FEDERA-G-H HRSA DEJAN FASTING LABS (chief complaint) Essential (primary) hypertension 5 Wright Kelsea. [address] [place], [place], [address] , [place]. tel: [phone] [facility] [[email or web address]], [address] [place] [address], [facility], tel:[phone] [facility] [place] No Information 5 Wright Kelsea. [address] [place], [place], [id number] , . tel: [phone] [facility] [[email or web address]], [address] [place] [address], [facility], tel:[phone] [facility] [place] No Information 5 Wright Kelsea. [address] [place], [place], [id number] , . tel: [phone] [facility] [[email or web address]], [address] [place] [address], [facility], tel:[phone] [facility] [place] T2DM (chief complaint) left knee pain (chief complaint) Type 2 diabetes mellitus without complicationsObesity, unspecifiedPain in left kneeEssential (primary) hypertensionOther hammer toe of left footOther hammer toe of right footBody mass index [BMI] 30.0-30.9, adult 5 Wright Kelsea. [address] [place], [place], [address] , . tel: [phone] [facility] [[email or web address]], [address] [place] [address], [facility], tel:[phone] FEDERA-G-H [facility] [place] f/u on labs (chief complaint) Essential (primary) hypertensionHyperlipidemi a, unspecifiedObesity, unspecifiedType 2 diabetes mellitus without complicationsAsthmaOral candidiasisBody mass index [BMI] 32.0-32.9, adult 5 Wright Kelsea. [address] [place], [place], [address] , [place]. tel: [phone] [facility] [[email or web address]], [address] [place], [address], tel:[phone] FEDERA-G-H [facility] DEJAN New to establish care (chief complaint) Depression screening (chief complaint) Prapare (chief complaint) Encntr for general adult medical exam w/o abnormal findingsExtreme povertyEncounter for screening for depressionBack painEssential (primary) hypertensionDepressionAnx ietySleep disorder, unspecifiedObesity, unspecifiedType 2 diabetes mellitus without complicationsAnemiaHyperl ipidemia, unspecifiedGERD without esophagitisAsthmaEnuresis Other seasonal allergic rhinitis Wrightcristopher Enamorado. [address] [place], [place], [address] , . tel: [phone] Family History Family Member Type Diagnosis Age [...] Covered democrat ID Authoriza tion(s) Mc[facility] Adv [facility] 5240 CI [id number] Hc- Medicaid [employer] Better [place] [id number] [facility]- Medicaid Aetna Wrap Payer ZZ [id number] [facility]- Medicare MB [id number] Social History Type Description Quantity Date Captured [...] vicentein g diet completed Referral Referred To: [facility] Ordered: Referrals: Orthopedic Surgery. [facility]. Location: [place]. Evaluate and treat Appointment date/timeframe: 11/27/2024 ordered [...] DM f oot exam today:Micro 09/13/24DM eye [id number] 6.3Needs repeat labs after 12/13/24 left knee [...] time- however confirmed med list shows D2 37383 IU weeklyShenedina has depression- on trazadone, but [...] availabletaking metoprolol 25 mg bidSees Sue at [facility]- Cards, but has not been seen recentlyBP is 182/73, repeat 151/76I am adding valsartan 80 mg dailyAnemia- on iron dailyOsteoarthritis- was taking both alieve and diclofenac dailyadvised to stop aleive r/t NSAID/HTN/GI complicationMay take diclofenac every other day as needed and use tylenol arthritis as adjunct therapyContinue with main managementdiscussed alternative therapies such as heat application, OTC diclofenac gel (topical)[id number] w/ metformin ER 500 mg dailydoes not [...] that worse when she walks a loton montelukaThe Knowland Groupcough -in the am and nightrainy weather makes [...] adult; and Caloric intake should be around 8523-1711 for a female, and 0465-7191 for an adult male. Fiber intake should [...] education. You may also refer to the [place] [employer] website for further low sodium, [...] adult; and Caloric intake should be around 5546-0066 for a female, and 9233-9831 for an adult male. Fiber intake should [...] education. You may also refer to the [place] [employer] website for further low sodium, [...] adult; and Caloric intake should be around 0735-8212 for a female, and 9079-7506 for an adult male. Fiber intake should [...] education. You may also refer to the [place] [employer] website for further low sodium, [...] adult; and Caloric intake should be around 8778-8235 for a female, and 2356-4594 for an adult male. Fiber intake should [...] are recommend to be 13-30 grams each. [email or web address] is a good source for meal planning and dietary education. You may also refer to the [place] [employer] website for further low sodium, [...] Mental Status Date Cognitive Assessment Orientation - [place] ed to time, place, person, situation.
[2025-02-08 23:49] VITALS: BP 166/67; PULSE 43; O2SAT 100
[2025-02-08 23:50] VITALS: BP 166/78; PULSE 43; RESP 16; TEMP 36.8; O2SAT 100; BMI 26.9
--- NOTE | 2025-02-08 23:50 | ECG_ITS ---
APPROVED REPORT Exam: Resting ECG HR:82 bpm ECG Measurements Heart Rate 82 AXES AK 158 P 54 QRSd 81 QRS -13 QT 413 T 67 QTc 452 Conclusion Bigeminy SEPTAL MYOCARDIAL INFARCTION , PROBABLY OLD [40+ ms Q WAVE IN V1/V2] INFERIOR MYOCARDIAL INFARCTION , PROBABLY OLD [40+ ms Q WAVE AND/OR ST/T ABNORMALITY IN II/aVF] Electronically signed by : FARZAD MITCHELL, 02/11/2025 03:03:57
[2025-02-08 23:56] VITALS: BP 171/76; PULSE 71; RESP 16; TEMP 36.8; O2SAT 100
[2025-02-09] VITALS (18 sets, daily range): BP systolic 110–173; BP diastolic 61–89; PULSE 54–88; RESP 10–20; TEMP 36.6–36.8; O2SAT 97–100; BMI 27.2
--- NOTE | 2025-02-09 00:11 | CT_ITS ---
PROCEDURE INFORMATION: Exam: CT Lumbar Spine Without Contrast Exam date and time: 02/09/2025 12:52 AM Age: 74 years old Clinical indication: Other: Low back pain radiating into bilateral legs TECHNIQUE: Imaging protocol: Computed tomography of the lumbar spine without contrast. Radiation optimization: All CT scans at this facility use at least one of these dose optimization techniques: automated exposure control; mA and/or kV adjustment per patient size (includes targeted exams where dose is matched to clinical indication); or iterative reconstruction. COMPARISON: CT ABDOMEN WO CON 03/18/2024 3:23 PM FINDINGS: Bones/joints: Diffuse degenerative change of the visualized osseous structures. Levoconvex scoliosis of the lumbar spine. Probable moderate to severe spinal stenosis at L4-L5. Superimposed right severe neural foraminal narrowing. Kidneys and ureters: Multiple minute layering stones are seen in a fluid collection of the left kidney consistent with calyceal diverticulum. This is stable from prior cross-sectional comparison. Vasculature: Atherosclerotic disease. Soft tissues: Unremarkable. IMPRESSION: 1. No acute or aggressive osseous abnormality. 2. Probable moderate to severe spinal stenosis at L4-L5. Superimposed severe right neural foraminal narrowing at this level. Recommend MRI for assessment.
--- NOTE | 2025-02-09 00:14 | XR_ITS ---
PROCEDURE INFORMATION: Exam: XR Chest Exam date and time: 02/09/2025 1:00 AM Age: 74 years old Clinical indication: Other: General weakness TECHNIQUE: Imaging protocol: Radiologic exam of the chest. Views: 1 view. COMPARISON: CT ANGIO NECK 02/09/2025 12:57 AM FINDINGS: Lungs: No focal consolidation. Pleural spaces: Unremarkable. No pleural effusion. No pneumothorax. Heart/Mediastinum: Cardiomegaly. Bones/joints: Degenerative change of the visualized osseous structures. Bilateral humeri appear superiorly oriented with respect of the glenoid fossa suggesting bilateral superior rotator cuff injuries. Dextroconvex midthoracic scoliosis. IMPRESSION: 1. No acute cardiopulmonary findings. 2. Incidentals as listed above.
--- NOTE | 2025-02-09 00:21 | ECG_ITS ---
APPROVED REPORT Exam: Resting ECG HR:63 bpm ECG Measurements Heart Rate 63 AXES LA 167 P 63 QRSd 77 QRS -3 QT 424 T 56 QTc 432 Conclusion SINUS RHYTHM WITH SINUS ARRHYTHMIA SEPTAL MYOCARDIAL INFARCTION , PROBABLY OLD [40+ ms Q WAVE IN V1/V2] No STEM Electronically signed by : FARZAD MITCHELL, 02/09/2025 03:52:34
[2025-02-09] MEDS: LIDOCAINE 5% TRANSDERMAL PATCH 1 EACH TD (00:23)
[2025-02-09] MEDS: METHOCARBAMOL 500MG TABLET 500 MG PO (00:24)
--- NOTE | 2025-02-09 00:25 | HMH.EDGENADL ---
Discharge Plan Disposition Patient Disposition: Admitted Condition: Good Prescriptions Prescriptions: No Action albuterol sulfate 90 mcg/actuation HFA aerosol inhaler 1 inh INHALATION Q6H PRN (Reason: shortness of breath or wheezing) 90 Days Qty: 8.5 3RF duloxetine 30 mg capsule,delayed release(DR/EC) PO Patient Comments: TAKE ONE CAPSULE BY MOUTH EVERY DAY cholecalciferol (vitamin D3) 1,250 mcg (50,000 unit) capsule 1,250 mcg PO WEEKLY 42 Days Qty: 6 4RF fexofenadine 180 mg tablet 180 mg PO DAILY Patient Comments: TAKE ONE TABLET BY MOUTH EVERY DAY rosuvastatin 20 mg tablet 20 mg PO DAILY valsartan 320 mg tablet 320 mg PO DAILY Qty: 30 2RF ferrous sulfate [FeroSul] 325 mg (65 mg iron) tablet See Rx Instructions .ROUTE .COMPLEX Qty: 180 2RF Dose Instruction: TAKE ONE TABLET BY MOUTH TWICE DAILY Rx Instructions: TAKE ONE TABLET BY MOUTH TWICE DAILY oxybutynin chloride 5 mg tablet extended release 24hr See Rx Instructions .ROUTE .COMPLEX Qty: 30 5RF Dose Instruction: TAKE ONE TABLET BY MOUTH EVERY DAY AT BEDTIME Rx Instructions: TAKE ONE TABLET BY MOUTH EVERY DAY AT BEDTIME omeprazole 40 mg capsule,delayed release(DR/EC) See Rx Instructions .ROUTE .COMPLEX Qty: 90 11RF Dose Instruction: TAKE ONE CAPSULE BY MOUTH EVERY DAY Rx Instructions: TAKE ONE CAPSULE BY MOUTH EVERY DAY diclofenac sodium 75 mg tablet,delayed release (DR/EC) See Rx Instructions .ROUTE .COMPLEX PRN (Reason: pain) Qty: 60 5RF Dose Instruction: TAKE ONE TABLET BY MOUTH TWICE DAILY --TAKE WITH FOOD-- Rx Instructions: TAKE ONE TABLET BY MOUTH TWICE DAILY --TAKE WITH FOOD-- PRN; Referrals Follow up/Referrals: Provider,Referral, [Primary Care Provider, Medical] - See instructions Clinical Impressions Clinical Impression: Bigeminy, Spinal stenosis, Left shoulder pain, Cervical spondylosis, Elevated troponin Print Language Print Language: [place] Discharge ED Provider: Pb Rondon Adult HPI General Chief complaint: Weakness Stated complaint: Pain and Tingling in legs Time Seen by Provider: 02/08/25 23:47 Mode of Arrival: EMS Source of Information: Patient and EMS Description of Symptoms (Recalled from ER Triage Doc. by RN): Pt brought in from home by [facility] with complaints of hypertension, new onset of leg weakness & tingling, headache, and lower back pain. Pt states she woke up to use bathroom and her symptoms started. Pt NIH is neg. History of Present Illness HPI narrative: 74-year-old female with history of tricuspid regurg, mitral regurg, tachybradycardia syndrome, peripheral artery disease, chronic low back pain, type 2 diabetes, GERD, hypertension presents to the ER with complaints of tingling down the backs of both legs that originates in the back. She states she was resting and when she woke up she noticed the symptoms. She states with the tingling her legs felt weak but EMS reports she was able to ambulate at the house with them. She also states that she is having pain in the left shoulder radiating to the back of the head and states she is having headache. She reports the headache has been gradual in onset and at this time is actually getting better. She denies thunderclap onset or maximal intensity at onset. She has no vision changes, no ringing in the ears, no true numbness or weakness, no facial droop or difficulty speaking. EMS reports patient had a negative [place] stroke scale and unremarkable ECG but she was hypertensive. Patient reports no falls or injuries. She states she just had an extensive cardiac workup and that they are thinking about putting something under my skin to keep my blood pressure from going low . No fevers or chills, no cough or congestion, no chest pain or difficulty breathing, no nausea, vomiting, or diarrhea, no burning with urination or blood in the urine. Patient denies saddle anesthesia or bowel or bladder incontinence. No other complaints or concerns Related Data Home Medications ?Medication ?Instructions ?Recorded ?Confirmed duloxetine 30 mg capsule,delayed mg PO 12/17/24 01/28/25 release fexofenadine 180 mg tablet 180 mg PO DAILY 01/28/25 01/28/25 rosuvastatin 20 mg tablet 20 mg PO DAILY 01/28/25 01/28/25 Previous Rx's ?Medication ?Instructions ?Recorded albuterol sulfate 90 mcg/actuation 1 inh inhalation Q6H PRN shortness 06/20/23 aerosol inhaler of breath or wheezing 90 days #8.5 grams ferrous sulfate 325 mg (65 mg See Rx Instructions .Route 10/09/23 iron) tablet (FeroSul) .COMPLEX #180 tabs oxybutynin chloride 5 mg See Rx Instructions .Route 03/01/24 tablet,extended release 24 hr .COMPLEX #30 tabs omeprazole 40 mg capsule,delayed See Rx Instructions .Route 04/11/24 release .COMPLEX #90 caps cholecalciferol (vitamin D3) 1,250 1,250 mcg PO WEEKLY 6 weeks #6 caps 08/02/24 mcg (50,000 unit) capsule diclofenac sodium 75 mg See Rx Instructions .Route 09/17/24 tablet,delayed release .COMPLEX PRN pain #60 tabs valsartan 320 mg tablet 320 mg PO DAILY #30 tabs 01/28/25 Allergies Allergy/AdvReac Type Severity Reaction Status Date / Time Penicillins (PENICILLINS) Allergy Intermediate Rash Verified 01/28/25 10:26 codeine (CODEINE) AdvReac Severe Nausea Verified 01/28/25 10:26 [facility] Disclaimer: The information contained in this section may have been updated after the patient was seen, as this information can be updated by other users. Medical History (Updated 02/09/25 @ 03:34 by Pb Rondon MD) Tricuspid regurgitation Mitral regurgitation Edema Mass of chest Tachy-beth syndrome Hammertoes of both feet Bilateral foot pain Uncontrolled hypertension PAD (peripheral artery disease) Back pain Dyspnea on exertion Immunization due Hyperlipidemia Hallux valgus (acquired), right foot Hallux valgus (acquired), left foot Dislocation of toe, right, closed Dislocation of toe of left foot Seasonal allergies Family history of asthma Diabetic foot Depression Diabetes IBS (irritable bowel syndrome) HTN (hypertension) Gastroesophageal reflux disease Insomnia Fibromyalgia Osteoarthritis Chronic pain Asthma Surgical History History of tonsillectomy History of arthroscopic knee surgery Family History Other Cancer Social History Smoking Status: Never smoker alcohol intake: never substance use type: denies use current occupational status: retired Travel in the last 8 weeks?: None household members: spouse housing: house caffeine: Yes Other Medical History Have you received the Flu Vaccine for this season: No Have you received the Pneumonia Vaccine: Yes ROS Obtained: Yes Systems reviewed as appropriate & no additional complaints except as documented Per HPI Physical Exam General General appearance: alert and in no apparent distress Head Head exam: atraumatic and normocephalic Eye Eye exam: Present PERRL and EOMI ENT ENT exam: Present mucous membranes moist Neck Neck exam: Present normal inspection, full ROM, trachea midline and tenderness (Left trapezius muscle into the left cervical paraspinal area, only mild right trapezius tenderness); Absent meningismus or lymphadenopathy Chest Chest inspection: Present symmetric chest wall rise Respiratory Respiratory exam: Present normal lung sounds bilaterally; Absent respiratory distress, wheezes or stridor Cardiovascular Cardiovascular exam: Present regular rate and irregular rhythm Abdominal Exam Abdominal exam: Present soft; Absent distention or tenderness Extremities Exam Extremities exam: Present full ROM; Absent tenderness, edema, joint swelling or calf tenderness Back Exam Back exam: Present muscle spasm (Left trapezius) and vertebral tenderness (Very mild midline low back discomfort but no focal tenderness, deformity, or step-off); Absent CVA tenderness (R), CVA tenderness (L) or paraspinal tenderness Neurological Exam Neurological exam: Present alert, oriented X3 and other (NIH 0, normal finger-nose and [id number]-ey-fqip, no cerebellar symptoms); Absent motor sensory deficit (Full sensation to temperature, pain, proprioception, vibration, and strength intact in all extremities despite patient's report of numbness in the lower extremities) Psychiatric Psychiatric exam: Present normal affect and normal mood Skin Skin exam: Present warm and dry Medical Decision Making Medical Records Medical records reviewed: Yes I reviewed the patient's medical records. Screening: Per USPSTF and CDC recommendations, given the prevalence of disease in our region, it is our hospital?s policy to screen for HIV and viral Hepatitis for all patients aged 18 and over and those with ongoing risk factors. MR Comment: Cardiology note from 01/28/2015 reviewed demonstrating patient is being considered for dual-chamber pacemaker, plan for echo, Lexiscan, among other test, follow-up in 2 to 3 weeks. Exercise stress test demonstrates nondiagnostic ECG/Lexiscan. Myocardial perfusion nuclear medicine scan demonstrated no fixed or reversible perfusion defect, mild reduction in global LV systolic function, LVEF 42% Ryan Inquiry Pt receiving controlled substance: No Vital Signs: 02/08/25 23:49 02/08/25 23:50 02/08/25 23:56 Temperature 98.2 F 98.2 F Temperature Source Oral Oral Pulse Rate 43 L 71 Pulse Rate [Left] 43 L Respiratory Rate 16 16 Blood Pressure 166/67 H 171/76 H Blood Pressure [Right Arm] 166/78 H Blood Pressure Mean Blood Pressure Mean [Right Arm] 107 Blood Pressure Position [Right Arm] Supine 02 Sat by Pulse Oximetry 100 100 100 Oxygen Delivery Method Room Air Room Air 02/09/25 00:00 02/09/25 00:30 02/09/25 01:04 Temperature Temperature Source Pulse Rate 67 83 70 Pulse Rate [Left] Respiratory Rate 12 17 20 Blood Pressure 171/76 H 147/68 H 110/75 Blood Pressure [Right Arm] Blood Pressure Mean Blood Pressure Mean [Right Arm] Blood Pressure Position [Right Arm] 02 Sat by Pulse Oximetry 100 98 97 Oxygen Delivery Method 02/09/25 01:20 02/09/25 01:30 02/09/25 02:00 Temperature Temperature Source Pulse Rate 64 62 55 L Pulse Rate [Left] Respiratory Rate 14 10 L 14 Blood Pressure 154/61 H 154/61 H 149/61 H Blood Pressure [Right Arm] Blood Pressure Mean Blood Pressure Mean [Right Arm] Blood Pressure Position [Right Arm] 02 Sat by Pulse Oximetry 99 99 99 Oxygen Delivery Method Room Air 02/09/25 02:30 02/09/25 03:00 02/09/25 03:31 Temperature Temperature Source Pulse Rate 56 L 58 L 64 Pulse Rate [Left] Respiratory Rate 15 15 19 Blood Pressure 146/63 H 147/70 H 164/87 H Blood Pressure [Right Arm] Blood Pressure Mean 94 Blood Pressure Mean [Right Arm] Blood Pressure Position [Right Arm] 02 Sat by Pulse Oximetry 97 98 98 Oxygen Delivery Method Room Air Room Air Room Air Lab Data Lab Results 02/09/25 00:00: WBC 8.3, RBC 4.03 L, Hgb 11.6 L, Hct 34.4 L, MCV 85.4, MCH 28.8, MCHC 33.7, RDW 12.7, Plt Count 289, MPV 9.6, Neut % (Auto) 42.0, Lymph % (Auto) 41.9, [place] % (Auto) 10.2 H, Eos % (Auto) 4.9, Baso % (Auto) 0.6, Neut # (Auto) 3.5, Lymph # (Auto) 3.5, [place] # (Auto) 0.9, Eos # (Auto) 0.4, Baso # (Auto) 0.1, Sodium 134 L, Potassium 3.7, Chloride 97 L, Carbon Dioxide 25, Anion Gap 15.7 H, BUN 11, Creatinine 0.90, Estimated Creat Clear 47, Estimated GFR 61, Est GFR ( Amer) 74, Glucose 96, Calcium 9.4, Total Bilirubin 0.6, AST 38 H, ALT 18, Alkaline Phosphatase 52, Troponin I < 0.01, NT-Pro-B Natriuret Pep 216, Total Protein 7.4, Albumin 4.7, Globulin 2.7, Albumin/Globulin Ratio 1.7 02/09/25 02:38: Troponin I 0.15 H 02/09/25 00:00 02/09/25 00:00 Orders (Tests/Meds): ED MEDICATIONS Generic Name Dose Route Start Last Admin Trade Name Freq PRN Reason Stop Dose Admin Enoxaparin Sodium 65 mg 02/09/25 04:00 Enoxaparin 100mg/Ml Syringe 1 mg/kg (65 mg) 03/11/25 03:59 SUBCUT Q12H OLMAN Sodium Chloride 10 ml 02/09/25 01:05 02/09/25 01:07 Sodium Chloride 0.9% 10ml Syr (Rad Only) IV 03/11/25 01:04 10 ml NEEDED PRN Administration Maintain IV Site Discontinued Medications Generic Name Dose Route Start Last Admin Trade Name Freq PRN Reason Stop Dose Admin Acetaminophen 650 mg 02/09/25 00:22 02/09/25 00:31 Acetaminophen 325mg Tab PO 02/09/25 00:23 650 mg ONCE ONE Administration Aspirin 324 mg 02/09/25 03:37 02/09/25 03:43 Aspirin 81mg Chewable Tablet PO 02/09/25 03:38 324 mg ONCE ONE Administration Iopamidol 80 ml 02/09/25 01:05 02/09/25 01:07 Iopamidol-370 (76%);100ml Bottle IV 02/09/25 01:06 80 ml ONCE ONE Administration Ketorolac Tromethamine 15 mg 02/09/25 00:52 02/09/25 00:57 Ketorolac 15mg/Ml Vial IV 02/09/25 00:53 15 mg ONCE ONE Administration Lidocaine 1 each 02/09/25 00:11 02/09/25 00:23 Lidocaine 5% Transdermal Patch TD 02/09/25 00:12 1 each ONCE ONE Administration Methocarbamol 500 mg 02/09/25 00:14 02/09/25 00:24 Methocarbamol 500mg Tablet PO 02/09/25 00:15 500 mg ONCE ONE Administration Sodium Chloride 40 ml 02/09/25 01:05 02/09/25 01:07 0.9 % Sodium Chloride 50 Ml Vial IV 02/09/25 01:06 40 ml ONCE ONE Administration ORDERS Category Date Time Status CT angio head Stat Cat Scan 02/09/25 00:[address] angio neck Stat Cat Scan 02/09/25 00:[address] head/brain wo con Stat Cat Scan 02/09/25 00:[address] lumbar spine wo con Stat Cat Scan 02/09/25 00:11 Completed CXR --portable [XR chest portable] Stat Exams 02/09/25 00:14 Completed BNP [NT Pro Brain Natriuretic Pep.] Stat Lab 02/09/25 00:00 Completed CBC w/Auto Diff [Complete Blood Count Auto Diff] Stat Lab 02/09/25 00:00 Completed CMP [Comprehensive Metabolic Panel] Stat Lab 02/09/25 00:00 Completed Trop I [Troponin I] Stat Lab 02/09/25 00:00 Completed Troponin I Q3H Lab 02/09/25 02:38 Completed Troponin I Q3H Lab 02/09/25 06:15 Ordered Medical Decision Narrative: In summary, this 74-year-old female with comorbidities described in the HPI presents to the emergency department today with leg tingling and pain radiating down the backs of the legs into the back without acute injury, also having left shoulder pain with no neurologic deficits, no chest pain or difficulty breathing. On initial evaluation patient is hemodynamically stable but is in an irregular rhythm, on the monitor appears to be bigeminy. Physical exam notable for no peripheral edema, GCS 15, NIH 0, no cerebellar symptoms, full strength and sensation intact in all extremities with extensive testing despite patient's report of numbness in the legs which she further describes as a tingling sensation down the backs of the legs only. She states it is equal on both sides and not specifically exacerbated by anything. She has tenderness to palpation of the left trapezius more than the right, no evidence of cervical spine injury, abdominal exam benign, no other abnormalities identified on exam. Distal pulses throughout 2+. Differential diagnosis includes but is not limited to ACS, arrhythmia, muscle spasm, radiculopathy, I considered the possibility of stroke but patient has NIH 0, no neurologic deficits appreciated on exam, patient has very mild midline low back tenderness diffusely with no focal point of tenderness or evidence of trauma, considered tension headache, intracranial bleed though patient has no red flag symptoms of spontaneous subarachnoid, I additionally considered cauda equina but patient has no red flag symptoms of this either including no saddle anesthesia or bowel or bladder incontinence. I also considered arrhythmia potentially causing decreased perfusion which could have caused her transient symptoms since the patient later came out of bigeminy and reports her symptoms are improving. Based on these concerns, I ordered hematologic and serum labs, cardiac workup, CT imaging including angiography of the head and neck though I have lower suspicion for vascular pathology. Initial ECG personally interpreted demonstrates bigeminy, rate 82, normal FL and QTc, no STEMI, according to previous cardiology note patient has previous indeterminate age findings of ischemia which are consistent with the findings today but nothing acute on my ECG interpretation today. After patient came out of bigeminy on the monitor, repeat ECG was performed demonstrating sinus rhythm, rate 63, normal axis, normal FL and QTc, no STEMI. Patient received methocarbamol, lidocaine patch, Tylenol, Toradol for treatment. Labs personally reviewed demonstrate no leukocytosis, anemia stable from prior, platelets normal, CMP not acutely actionable, patient has slightly elevated anion gap which is nonspecific at this time, AST 38, nonactionable, troponin undetectably low less than 0.01 reassuring against acute cardiac pathology especially in the absence of acute ischemic ECG changes or chest pain. XR personally interpreted demonstrates no acute intrathoracic abnormality, see radiology read for final interpretation. CT imaging personally interpreted demonstrate no acute intracranial abnormality, see radiology read for final interpretation, I do not appreciate large vessel occlusion in the head or neck, see radiology reads for full interpretation. Radiology read does comment on loss of lordosis with degenerative changes in the neck and varying degrees of foraminal stenosis in the cervical spine. Patient does not have any radiculopathy type symptoms but this could be contributing to her headaches and muscle spasm of the left trapezius. See reads for full interpretations. Patient is sleeping comfortably on reassessment while awaiting final results of radiology reads. CT lumbar spine personally interpreted demonstrates degenerative changes without acute osseous injury, see radiology read for full interpretation. Radiologist does comment on spinal stenosis at L4-L5 with right neural foraminal narrowing. On reassessment patient's symptoms are resolved and she is resting comfortably. Postvoid residual bladder scan demonstrates 60 mL in the bladder after voiding, no significant urinary retention which is very reassuring against cauda equina as is the absence of other red flag symptoms such as paralysis, saddle anesthesia, incontinence. I do not believe patient requires emergent MRI especially with resolution of her symptoms. Repeat troponin is nearly elevated now 0.15. She has ambulated to the restroom and been asymptomatic in the ER but her new elevation in troponin increases my concern that her random episode of bigeminy may have truly contributed to her symptoms which are now resolved. Though I had extremely low suspicion initially for her heart contributing to her symptoms, with this troponin elevation I am more concerned for that and aspirin is being administered. I recommended admission to the hospital and patient and family are agreeable to this. Further repeat ECG personally interpreted demonstrates sinus bradycardia, rate 55, normal axis, normal FL and QTc, no STEMI. I discussed this case with Dr. Gordon and he agrees there are no ischemic changes on the ECGs but recommends therapeutic Lovenox and admission to the hospital with plans to cath this patient on Monday. I appreciate his recommendations. I discussed this case with the hospitalist including recommendations from cardiology after administering first dose of Lovenox in the ER. Patient was graciously accepted for admission and admitted in stable condition Critical Care Critical Care Time Critical Care Time: No
[2025-02-09 00:29] LABS: Hematocrit 34.4 % (37.0-47.0); Hemoglobin 11.6 g/dL (12.2-16.2); Immature Granulocytes % 0.4 %; Mean Corpuscular HGB Conc 33.7 g/dL (31.8-35.4); Mean Corpuscular Hemoglobin 28.8 pg (27.0-31.2); Mean Corpuscular Volume 85.4 fl (81-99); Nucleated Red Blood Cells % 0 %; Platelet Count 289 K/mm3 (142-424); Red Blood Count 4.03 M/mm3 (4.20-5.40); Red Cell Distribution Width-SD 39.1 fL; White Blood Count 8.3 K/mm3 (4.8-10.8)
[2025-02-09 00:30] LABS: Chloride 97 mmol/L (98-107); Potassium 3.7 mmoL/L (3.5-5.1); Sodium 134 mmol/L (136-145)
--- NOTE | 2025-02-09 00:30 | PC.NURSE ---
Lidocaine patch applied to left shoulder/trap area per dr leung
[2025-02-09] MEDS: ACETAMINOPHEN 325MG TAB 650 MG PO ×2 (00:31→21:16)
[2025-02-09 00:33] LABS: Alanine Aminotransferase 18 U/L (12-78); Alkaline Phosphatase 52 U/L (38-126); Aspartate Amino Transferase 38 U/L (14-36); Bilirubin,Total 0.6 mg/dl (0.2-1.3); Blood Urea Nitrogen 11 mg/dl (7-17); Calcium 9.4 mg/dl (8.4-10.2); Carbon Dioxide 25 mmol/L (22.0-30.0); Creatinine Clearance Estimated 47 mL/min (50-200); Creatinine,Serum 0.90 mg/dl (0.52-1.04); Estimated Glomerular Filt Rate 61 ml/min (>60); GFR (African American) 74 ML/MIN (>60); Glucose 96 mg/dl (74-100); Total Protein,Serum 7.4 g/dl (6.3-8.2)
[2025-02-09 00:34] LABS: Anion Gap 15.7 mEq/L (5-15)
--- NOTE | 2025-02-09 00:38 | CT_ITS ---
PROCEDURE INFORMATION: Exam: CTA Neck With Contrast Exam date and time: 02/09/2025 12:57 AM Age: 74 years old Clinical indication: Pain; Other: Ttp upper L shoulder, tingling legs resolved TECHNIQUE: Imaging protocol: Computed tomographic angiography of the neck with contrast. Exam focused on the cervical segments of the vasculature. 3D rendering (Not supervised by radiologist): MIP and/or 3D reconstructed images were created by the technologist. Radiation optimization: All CT scans at this facility use at least one of these dose optimization techniques: automated exposure control; mA and/or kV adjustment per patient size (includes targeted exams where dose is matched to clinical indication); or iterative reconstruction. Contrast material: ISOUVE 370; Contrast volume: 80 ml; Contrast route: INTRAVENOUS (IV); COMPARISON: MR CERVICAL SPINE WO/W CON 06/14/2024 8:32 AM FINDINGS: Limitations: Vessel tortuosity limits assessment. However, the exam is still of diagnostic value. Right common carotid artery: No stenosis. No dissection or occlusion. Right internal carotid artery: No stenosis of the extracranial segment. No dissection or occlusion. Right external carotid artery: No occlusion or stenosis of the origin. Left common carotid artery: No stenosis. No dissection or occlusion. Left internal carotid artery: No stenosis of the extracranial segment. No dissection or occlusion. Left external carotid artery: No occlusion or stenosis of the origin. Right vertebral artery: No stenosis. No dissection or occlusion. Left vertebral artery: No stenosis. No dissection or occlusion. Other arteries: Calcific plaque in the bilateral carotid arteries. Soft tissues: Normal. No significant soft tissue swelling. Bones/joints: Reversal of cervical lordosis and diffuse spondylosis with multi segmental canal and foraminal stenosis of variable degree. IMPRESSION: No large vessel occlusion, significant stenosis or dissection identified. REFERENCES: NASCET CRITERIA. The degree of stenosis in the cervical segment of the internal carotid artery is based on NASCET criteria. Normal is no stenosis. Mild is less than 50% stenosis. Moderate is 50-69% stenosis. Severe is 70% to 99% stenosis. Total occlusion is no detectable patent lumen.
--- NOTE | 2025-02-09 00:38 | CT_ITS ---
PROCEDURE INFORMATION: Exam: CTA Head With Contrast, Arteriography Exam date and time: 02/09/2025 12:57 AM Age: 74 years old Clinical indication: Pain; Headache; Additional info: ARECHIGA w/ tingling in bilateral legs now improved TECHNIQUE: Imaging protocol: Computed tomographic angiography of the head with contrast. Exam focused on the arteries. 3D rendering (Not supervised by radiologist): MIP and/or 3D reconstructed images were created by the technologist. Radiation optimization: All CT scans at this facility use at least one of these dose optimization techniques: automated exposure control; mA and/or kV adjustment per patient size (includes targeted exams where dose is matched to clinical indication); or iterative reconstruction. Contrast material: ISOUVE 370; Contrast volume: 80 ml; Contrast route: INTRAVENOUS (IV); COMPARISON: CT HEAD/BRAIN WO CON 02/09/2025 12:55 AM FINDINGS: ANTERIOR CIRCULATION: Right internal carotid artery: Intracranial segment is patent with no significant stenosis. No aneurysm. Right middle cerebral artery: No occlusion or significant stenosis. No aneurysm. Right anterior cerebral artery: No occlusion or significant stenosis. No aneurysm. Left internal carotid artery: Intracranial segment is patent with no significant stenosis. No aneurysm. Left middle cerebral artery: No occlusion or significant stenosis. No aneurysm. Left anterior cerebral artery: No occlusion or significant stenosis. No aneurysm. POSTERIOR CIRCULATION: Right vertebral artery: No occlusion or significant stenosis. No aneurysm. Left vertebral artery: No occlusion or significant stenosis. No aneurysm. Basilar artery: No occlusion or significant stenosis. No aneurysm. Right posterior cerebral artery: No occlusion or significant stenosis. No aneurysm. Left posterior cerebral artery: No occlusion or significant stenosis. No aneurysm. Brain: No definite mass, mass effect, or midline shift. Cerebral ventricles: No ventriculomegaly. Bones/joints: Unremarkable. No acute fracture. Soft tissues: Unremarkable. Other findings: There is calcific atherosclerosis of the bilateral cavernous ICA. IMPRESSION: No hemodynamically significant stenosis, large vessel occlusion or aneurysm is identified.
--- NOTE | 2025-02-09 00:38 | CT_ITS ---
PROCEDURE INFORMATION: Exam: CT Head Without Contrast Exam date and time: 02/09/2025 12:55 AM Age: 74 years old Clinical indication: Pain; Headache; Additional info: ARECHIGA TECHNIQUE: Imaging protocol: Computed tomography of the head without contrast. Radiation optimization: All CT scans at this facility use at least one of these dose optimization techniques: automated exposure control; mA and/or kV adjustment per patient size (includes targeted exams where dose is matched to clinical indication); or iterative reconstruction. COMPARISON: MR CERVICAL SPINE WO/W CON 06/14/2024 8:32 AM FINDINGS: Brain: There is mild periventricular white matter disease, nonspecific, most likely representing microvascular disease, although other etiologies are not excluded. Macro normal brain Cerebral ventricles: No ventriculomegaly. Paranasal sinuses: Visualized sinuses are unremarkable. No fluid levels. Mastoid air cells: Visualized mastoid air cells are well aerated. Orbital cavities: There are bilateral lens implants. Bones: Unremarkable. No acute fracture. Soft tissues: Unremarkable. IMPRESSION: No acute process, mass, or bleed.
[2025-02-09 00:43] LABS: NT Pro Brain Natriuretic Pep. 216 pg/mL (0-450)
[2025-02-09 00:54] LABS: Troponin I < 0.01 ng/ml (0.00-0.034)
[2025-02-09] MEDS: KETOROLAC 15MG/ML VIAL 15 MG IV (00:57)
[2025-02-09] MEDS: SODIUM CHLORIDE 0.9% 10ML SYR (RAD ONLY) 10 ML IV (01:07)
[2025-02-09] MEDS: 0.9 % SODIUM CHLORIDE 50 ML VIAL 40 ML IV (01:07)
[2025-02-09] MEDS: IOPAMIDOL-370 (76%);100ML BOTTLE 80 ML IV (01:07)
--- NOTE | 2025-02-09 01:21 | PC.NURSE ---
Pt taken to restroom, UA collected sent to lab
[2025-02-09 02:16] LABS: Albumin Level 4.7 g/dl (3.5-5.0); Albumin/Globulin Ratio 1.7 (1.1-1.8); Globulin 2.7 g/dL (1.3-3.2)
--- NOTE | 2025-02-09 02:41 | PC.NURSE ---
Pt bladder scan post void was 60ml
[2025-02-09 03:24] LABS: Troponin I 0.15 ng/ml (0.00-0.034)
--- NOTE | 2025-02-09 03:37 | ECG_ITS ---
APPROVED REPORT Exam: Resting ECG HR:55 bpm ECG Measurements Heart Rate 55 AXES OK 174 P 47 QRSd 72 QRS -21 QT 435 T 2 QTc 425 Conclusion SINUS BRADYCARDIA INFERIOR MYOCARDIAL INFARCTION , PROBABLY OLD [40+ ms Q WAVE AND/OR ST/T ABNORMALITY IN II/aVF] ANTEROSEPTAL MYOCARDIAL INFARCTION , PROBABLY OLD [40+ ms Q WAVE IN V1-V4] No STEMI Electronically signed by : FARZAD MITCHELL, 02/10/2025 03:37:52
[2025-02-09] MEDS: ASPIRIN 81MG CHEWABLE TABLET 324 MG PO (03:43)
--- NOTE | 2025-02-09 03:46 | PC.NURSE ---
Dr Rondon s/w Dr Gordon for Cardiac Consult
--- NOTE | 2025-02-09 03:48 | PC.NURSE ---
Dr Rondon s/w Dr Jones for admission
--- NOTE | 2025-02-09 03:54 | EXP.HP ---
History of Present Illness *Admission Date: 02/09/25 *Reason for visit:: [place] pain *History of present illness: Patient is a 74-year-old female with past medical history of bigeminy tachybradycardia syndrome, PAD, hypertension hyperlipidemia, osteoarthritis who presents to the hospital due to complaints of bilateral shoulder pain, upper back pain that radiates to her head. According to the patient she also has numbness tingling in bilateral both legs, she thinks she. Patient denied associated nausea vomiting shortness of breath. On further evaluation patient was found to have elevated troponin. Patient denied fever chills. [facility] Disclaimer: The information contained in this section may have been updated after the patient was seen, as this information can be updated by other users. Medical History (Updated 02/09/25 @ 03:34 by Pb Rondon MD) Tricuspid regurgitation Mitral regurgitation Edema Mass of chest Tachy-beth syndrome Hammertoes of both feet Bilateral foot pain Uncontrolled hypertension PAD (peripheral artery disease) Back pain Dyspnea on exertion Immunization due Hyperlipidemia Hallux valgus (acquired), right foot Hallux valgus (acquired), left foot Dislocation of toe, right, closed Dislocation of toe of left foot Seasonal allergies Family history of asthma Diabetic foot Depression Diabetes IBS (irritable bowel syndrome) HTN (hypertension) Gastroesophageal reflux disease Insomnia Fibromyalgia Osteoarthritis Chronic pain Asthma Surgical History History of tonsillectomy History of arthroscopic knee surgery Family History Other Cancer Social History Smoking Status: Never smoker alcohol intake: never substance use type: denies use current occupational status: retired Travel in the last 8 weeks?: None household members: spouse housing: house caffeine: Yes Other Medical History Have you received the Flu Vaccine for this season: No Have you received the Pneumonia Vaccine: Yes Review of Systems Review of Systems Review of systems:: pertinent systems reviewed and negative unless documented below Meds Home Medications and Allergies Home Medications ?Medication ?Instructions ?Recorded ?Confirmed ?Type albuterol sulfate 90 mcg/actuation 1 inh inhalation Q6H PRN shortness 06/20/23 02/09/25 Rx aerosol inhaler of breath or wheezing 90 days #8.5 grams cholecalciferol (vitamin D3) 1,250 1,250 mcg PO WEEKLY 6 weeks #6 caps 08/02/24 02/09/25 Rx mcg (50,000 unit) capsule duloxetine 30 mg capsule,delayed 30 mg PO DAILY 12/17/24 02/09/25 History release rosuvastatin 20 mg tablet 20 mg PO DAILY 01/28/25 02/09/25 History valsartan 320 mg tablet 320 mg PO DAILY #30 tabs 01/28/25 02/09/25 Rx diclofenac sodium 75 mg 75 mg PO BID PRN Pain 02/09/25 02/09/25 History tablet,delayed release ferrous sulfate 325 mg (65 mg 325 mg PO BID 02/09/25 02/09/25 History iron) tablet (FeroSul) melatonin 5 mg tablet 5 mg PO HS 02/09/25 02/09/25 History omeprazole 40 mg capsule,delayed 40 mg PO DAILY 02/09/25 02/09/25 History release oxybutynin chloride 5 mg 2.5 mg PO BID 02/09/25 02/09/25 History tablet,extended release 24 hr New Prescriptions to Start Prescriptions: Allergies Allergy/AdvReac Type Severity Reaction Status Date / Time Penicillins (PENICILLINS) Allergy Intermediate Rash Verified 01/28/25 10:26 codeine (CODEINE) AdvReac Severe Nausea Verified 01/28/25 10:26 Exam Data for Last 24 hours Vital signs and Labs for Last 24 Hours: Temp Pulse Resp BP Pulse Ox O2 Del Method 98.2 F 64 19 164/87 H 98 Room Air 02/08/25 23:56 02/09/25 03:31 02/09/25 03:31 02/09/25 03:31 02/09/25 03:31 02/09/25 03:31 Laboratory Results - last 24 hr 02/09/25 00:00: WBC 8.3, RBC 4.03 L, Hgb 11.6 L, Hct 34.4 L, MCV 85.4, MCH 28.8, MCHC 33.7, RDW 12.7, Plt Count 289, MPV 9.6, Neut % (Auto) 42.0, Lymph % (Auto) 41.9, [place] % (Auto) 10.2 H, Eos % (Auto) 4.9, Baso % (Auto) 0.6, Neut # (Auto) 3.5, Lymph # (Auto) 3.5, [place] # (Auto) 0.9, Eos # (Auto) 0.4, Baso # (Auto) 0.1, Sodium 134 L, Potassium 3.7, Chloride 97 L, Carbon Dioxide 25, Anion Gap 15.7 H, BUN 11, Creatinine 0.90, Estimated Creat Clear 47, Estimated GFR 61, Est GFR ( Amer) 74, Glucose 96, Calcium 9.4, Total Bilirubin 0.6, AST 38 H, ALT 18, Alkaline Phosphatase 52, Troponin I < 0.01, NT-Pro-B Natriuret Pep 216, Total Protein 7.4, Albumin 4.7, Globulin 2.7, Albumin/Globulin Ratio 1.7 02/09/25 02:38: Troponin I 0.15 H I & O for Last 24 hours: Intake & Output 02/06/25 02/07/25 02/08/25 02/09/25 23:59 23:59 23:59 23:59 Weight 62.596 kg Constitutional Constitutional: no acute distress *Routine HEENT Exam Head: Present normocephalic Eye: Present EOMI and PERRL ENT: Present mucous membranes moist *Routine Neck Exam Neck: Present supple; Absent lymphadenopathy *Routine Respiratory Exam Respiratory: Present CTA bilaterally *Routine Cardiovascular Exam Cardiovascular: Present RRR *Routine Abdominal Exam Abdominal: Present soft and normoactive bowel sounds; Absent tenderness *Routine Rectal Exam Rectal:: deferred *Routine Genitalia Exam Genitalia:: deferred *Routine Extremities Exam Extremities: Absent cyanosis, clubbing or edema *Routine Skin Exam Skin: Present warm; Absent rash *Routine Neurological Exam Neurological: Present alert and oriented X3 Assessment and Plan *Assessment and plan (1) Elevated troponin: Status: Acute Category: Medical Code(s): R79.89 - Other specified abnormal findings of blood chemistry (2) Left shoulder pain: Status: Acute Category: Medical Code(s): M25.512 - Pain in left shoulder (3) Bigeminy: Status: Acute Category: Medical Code(s): I49.8 - Other specified cardiac arrhythmias (4) Type 2 diabetes mellitus without complications: Status: Chronic Category: Medical Code(s): E11.9 - Type 2 diabetes mellitus without complications (5) HTN (hypertension): Status: Chronic Qualifiers: Hypertension type: essential hypertension Qualified Code(s): I10 - Essential (primary) hypertension Category: Medical Code(s): I10 - Essential (primary) hypertension Plan Patient is a 74-year-old female with past medical history of bigeminy tachybradycardia syndrome, PAD, hypertension hyperlipidemia, osteoarthritis who presents to the hospital due to complaints of bilateral shoulder pain, upper back pain that radiates to her head. According to the patient she also has numbness tingling in bilateral both legs, she thinks she. Patient denied associated nausea vomiting shortness of breath. On further evaluation patient was found to have elevated troponin. Patient denied fever chills. Assessment and plan Shoulder pain, elevated troponin, suspect NSTEMI Start therapeutic Lovenox Consult cardiology Order echocardiogram Monitor on cardiac quarryman troponin Aspirin, statin Diabetes mellitus Order insulin sliding scale Chronic medical conditions Hypertension Hyperlipidemia Tachybradycardia syndrome Resume home valsartan, rosuvastatin DVT prophylaxis-Lovenox
[2025-02-09 06:27] LABS: POC Glucose,Bedside 105 gm/dL (70-110)
--- NOTE | 2025-02-09 06:42 | PC.NURSE ---
Pt. was admitted to Med/surg overnight with Elevated troponin levels , suspected NSTEMI, Bigemny, and bilateral shoulder pain. Pt. had awoken at home to use the bathroom and had sudden onset of leg weakness, numbness, dizziness, headache, and felt like her BP was high. Pt. was evaluated in the ED and was negative for a stroke. Upon further evaluation pt. had elevated troponin levels. Dr. Gordon was consulted and pt. was admitted for an echo and possible heart cath on Monday. Pt. is alert and orientated x 4. Pt. is on room air. Pt. has had some intermittent Bigemny on the monitor. Pt. resting quietly. She denies Chest pains or shortness of breath. Personal items and call sal in reach. Bed in low and locked position. Safety measures in place.
[2025-02-09 07:24] LABS: Hematocrit 32.6 % (37.0-47.0); Hemoglobin 11.1 g/dL (12.2-16.2); Immature Granulocytes % 0.4 %; Mean Corpuscular HGB Conc 34.0 g/dL (31.8-35.4); Mean Corpuscular Hemoglobin 28.8 pg (27.0-31.2); Mean Corpuscular Volume 84.7 fl (81-99); Nucleated Red Blood Cells % 0 %; Platelet Count 269 K/mm3 (142-424); Red Blood Count 3.85 M/mm3 (4.20-5.40); Red Cell Distribution Width-SD 38.3 fL; White Blood Count 7.5 K/mm3 (4.8-10.8)
[2025-02-09 07:50] LABS: Chloride 97 mmol/L (98-107); Sodium 130 mmol/L (136-145)
[2025-02-09 07:51] LABS: Potassium 4.3 mmoL/L (3.5-5.1)
[2025-02-09 07:53] LABS: Blood Urea Nitrogen 9 mg/dl (7-17); Creatinine Clearance Estimated 48 mL/min (50-200); Creatinine,Serum 0.90 mg/dl (0.52-1.04); Estimated Glomerular Filt Rate 61 ml/min (>60); GFR (African American) 74 ML/MIN (>60)
[2025-02-09 07:54] LABS: Calcium 8.9 mg/dl (8.4-10.2); Carbon Dioxide 21 mmol/L (22.0-30.0); Glucose 100 mg/dl (74-100)
[2025-02-09 07:59] LABS: Anion Gap 16.3 mEq/L (5-15)
[2025-02-09 08:08] LABS: Troponin I 0.31 ng/ml (0.00-0.034)
--- NOTE | 2025-02-09 08:22 | ECG_ITS ---
APPROVED REPORT Exam: Resting ECG HR:50 bpm ECG Measurements Heart Rate 50 AXES TN 161 P 31 QRSd 98 QRS -21 QT 458 T 4 QTc 433 Conclusion SINUS BRADYCARDIA POSSIBLE ANTERIOR MYOCARDIAL INFARCTION , OF INDETERMINATE AGE [30 ms Q WAVE IN V3/V4, OR R < 0.2 mV IN V4] INFERIOR MYOCARDIAL INFARCTION , PROBABLY OLD [40+ ms Q WAVE AND/OR ST/T ABNORMALITY IN II/aVF] ABNORMAL ECG UNCONFIRMED REPORT Electronically signed by : Raphael Brooks MD 02/09/2025 20:23:02
[2025-02-09] MEDS: ASPIRIN EC 81MG TABLET 81 MG PO (08:59)
[2025-02-09] MEDS: IRBESARTAN 300MG TABLET 300 MG PO (08:59)
--- NOTE | 2025-02-09 09:53 | HMH.PHAINT1 ---
Pharmacy Intervention Comments: MEDICATION RECONCILIATION COMPLETED ON PATIENT USING EXTERNAL FILL HISTORY FROM PHARMACY. -PREET GUTIERREZ, MAHADD
[2025-02-09 14:06] LABS: Troponin I 0.42 ng/ml (0.00-0.034)
[2025-02-09 15:43] LABS: POC Glucose,Bedside 116 gm/dL (70-110)
[2025-02-09] MEDS: MELATONIN 5MG TABLET 5 MG PO (20:07)
[2025-02-09] MEDS: PANTOPRAZOLE 40MG TABLET 40 MG PO (20:07)
[2025-02-09] MEDS: ATORVASTATIN 20MG TABLET 20 MG PO (20:07)
[2025-02-09 20:08] LABS: POC Glucose,Bedside 120 gm/dL (70-110)
[2025-02-10] VITALS (15 sets, daily range): BP systolic 120–163; BP diastolic 68–89; PULSE 50–88; RESP 15–20; TEMP 36.7–36.9; O2SAT 92–99; BMI 26.5
--- NOTE | 2025-02-10 03:53 | CA_ITS ---
APPROVED REPORT EXAM: Limited 2D Echocardiogram with contrast Automation Tester: Padmini Agudelo CRT Ht: 5 ft 0 in Wt: 138lbs BSA: 1.59 BP: 050/55 mmHg Indications: EF Check Echo Enhancing Agent Indication: Endocardial border delineation Agent(s) / Amount(s) Used: Definity 2 cc Comments: Definity given M-Mode Dimensions RVDd 2.37 cm (0.9-2.6) LVDd 4.62 cm (3.5-5.7) LVDs 3.28 cm (3.5-5.7) IVSd 1.22 cm (0.6-1.1) PWd 0.84 cm (0.6-1.1) EF (Teich) 55.70% FS 29.00% EDV (Teich) 98.30 mL ESV (Teich) 43.50 mL Other Information Study Quality: Fair Conclusion This is a limited TTE to evaluate for LV systolic function. Limited windows are obtained. Ultrasound enhancing agent is administered to better delineate the LV endocardial borders. The left ventricle is normal in size. There is increased LV wall thickness. There is mild global hypokinesis present. There is moderate hypokinesis of the inferior, septal, and inferoseptal LV fu. LVEF is 45%. Administration of ultrasound enhancing agent demonstrates no evidence of LV thrombus. Electronically signed by : Cesilia Donohue MD 02/10/2025 12:32:59
[2025-02-10 06:16] LABS: Hematocrit 35.1 % (37.0-47.0); Hemoglobin 11.8 g/dL (12.2-16.2); Immature Granulocytes % 0.3 %; Mean Corpuscular HGB Conc 33.6 g/dL (31.8-35.4); Mean Corpuscular Hemoglobin 28.5 pg (27.0-31.2); Mean Corpuscular Volume 84.8 fl (81-99); Nucleated Red Blood Cells % 0 %; Platelet Count 291 K/mm3 (142-424); Red Blood Count 4.14 M/mm3 (4.20-5.40); Red Cell Distribution Width-SD 39.8 fL; White Blood Count 7.1 K/mm3 (4.8-10.8)
[2025-02-10 07:26] LABS: Albumin Level 4.5 g/dl (3.5-5.0); Chloride 97 mmol/L (98-107); Potassium 4.2 mmoL/L (3.5-5.1); Sodium 130 mmol/L (136-145)
[2025-02-10 07:29] LABS: Alanine Aminotransferase 15 U/L (12-78); Albumin/Globulin Ratio 1.9 (1.1-1.8); Alkaline Phosphatase 69 U/L (38-126); Anion Gap 14.2 mEq/L (5-15); Aspartate Amino Transferase 35 U/L (14-36); Bilirubin,Total 0.6 mg/dl (0.2-1.3); Blood Urea Nitrogen 8 mg/dl (7-17); Calcium 9.5 mg/dl (8.4-10.2); Carbon Dioxide 23 mmol/L (22.0-30.0); Creatinine Clearance Estimated 46 mL/min (50-200); Creatinine,Serum 0.80 mg/dl (0.52-1.04); Estimated Glomerular Filt Rate 70 ml/min (>60); GFR (African American) 84 ML/MIN (>60); Globulin 2.4 g/dL (1.3-3.2); Glucose 111 mg/dl (74-100); Total Protein,Serum 6.9 g/dl (6.3-8.2)
[2025-02-10 07:30] LABS: Magnesium 1.7 mg/dl (1.6-2.3)
[2025-02-10] MEDS: DEFINITY US ECHO CONTRAST 2ML INJ 2 MG IV (07:37)
[2025-02-10] MEDS: METOPROLOL SUCCINATE XL 50MG TABLET 50 MG PO (08:15)
[2025-02-10] MEDS: ASPIRIN EC 81MG TABLET 81 MG PO (08:15)
[2025-02-10] MEDS: IRBESARTAN 300MG TABLET 300 MG PO (08:15)
--- NOTE | 2025-02-10 09:42 | EXP.CARD.CON ---
History of Present Illness History of Present Illness Consult date: 02/10/25 Requesting physician: Manuel Nieves Consult reason: chest pain (back pain) Chief complaint: back pain and leg pain History of present illness: Shaunna Flynn is a 74-year-old white female with past medical history of tachybradycardia syndrome, peripheral artery disease, diabetes mellitus, hypertension, hyperlipidemia and osteoarthritis who presented to emergency department with complaints of bilateral shoulder pain, left worse than right, upper back pain and lower extremity numbness and tingling. Initial troponin on presentation was 0.15 trending up to 0.42. Initial EKG showed normal sinus rhythm without acute STEMI changes noted. Frequent PVCs noted. Creatinine is normal at 0.8. Of note patient has recently been worked up for tachybradycardia syndrome in the cardiology clinic. Her recent event monitor showed a 78% burden of bradycardia with the lowest in the 30s during the daytime. She also showed episodes of nonsustained VT, beta-blockers previously not initiated due to the bradycardia. Her heart rate has been well-controlled during this admission averaging in the 60s but frequent pvcs noted. Echo from January of this year showed a slightly reduced ejection fraction of 45% with moderate RV dilation with mild reduced function. A Brianna Myoview from the same time was normal. Renal arteries are normal. This morning patient denies chest pain or shortness of breath. She reports she does still have some pain in her back. A repeat limited echo is pending. [facility] Disclaimer: The information contained in this section may have been updated after the patient was seen, as this information can be updated by other users. Medical History (Updated 02/10/25 @ 10:04 by Sue Dean APRN) Tricuspid regurgitation Mitral regurgitation Edema Mass of chest Tachy-beth syndrome Hammertoes of both feet Bilateral foot pain Uncontrolled hypertension PAD (peripheral artery disease) Back pain Dyspnea on exertion Immunization due Hyperlipidemia Hallux valgus (acquired), right foot Hallux valgus (acquired), left foot Dislocation of toe, right, closed Dislocation of toe of left foot Seasonal allergies Family history of asthma Diabetic foot Depression Diabetes IBS (irritable bowel syndrome) HTN (hypertension) Gastroesophageal reflux disease Insomnia Fibromyalgia Osteoarthritis Chronic pain Asthma Surgical History History of tonsillectomy History of arthroscopic knee surgery Family History Other Cancer Social History (Updated 02/09/25 @ 04:59 by Nataly Roth RN) Smoking Status: Never smoker alcohol intake: never substance use type: denies use current occupational status: retired Travel in the last 8 weeks?: None household members: spouse housing: house caffeine: Yes Contact w/someone who lives/traveled outside [place] past 30 days?: No Exposure to someone with infectious disease in past 14 days?: No Do you have a fever (greater than 100.4 F or 38 C)?: No Have you tested positive for COVID-19?: No Exposed to someone with COVID-19 in past 14 days?: No Do you have a sore throat?: No Do you have a cough?: No Do you have any weakness?: No Are you experiencing any nausea/vomitting?: No Do you have any diarrhea?: No Are you experiencing any unusual bleeding?: No Do you have any muscle aches/pain?: No Do you have any abdominal pain?: No Are you experiencing loss of taste or smell?: No Review of Systems Review of Systems Review of systems:: pertinent systems reviewed and negative unless documented below *Cardiovascular Comments: back pain Exam Data for Last 24 hours Vital signs and Labs for Last 24 Hours: Temp Pulse Resp BP Pulse Ox O2 Del Method 98.2 F 60 16 133/78 97 Room Air 02/10/25 07:28 02/10/25 08:00 02/10/25 07:28 02/10/25 07:28 02/10/25 07:28 02/10/25 09:00 Laboratory Results - last 24 hr 02/09/25 13:10: Troponin I 0.42 H 02/09/25 15:35: POC Glucose 116 H 02/09/25 20:01: POC Glucose 120 H 02/10/25 05:25: WBC 7.1, RBC 4.14 L, Hgb 11.8 L, Hct 35.1 L, MCV 84.8, MCH 28.5, MCHC 33.6, RDW 12.9, Plt Count 291, MPV 9.4, Neut % (Auto) 58.1, Lymph % (Auto) 25.7, [place] % (Auto) 10.1 H, Eos % (Auto) 4.8, Baso % (Auto) 1.0, Neut # (Auto) 4.1, Lymph # (Auto) 1.8, [place] # (Auto) 0.7, Eos # (Auto) 0.3, Baso # (Auto) 0.1, Sodium 130 L, Potassium 4.2, Chloride 97 L, Carbon Dioxide 23, Anion Gap 14.2, BUN 8, Creatinine 0.80, Estimated Creat Clear 46, Estimated GFR 70, Est GFR ( Amer) 84, Glucose 111 H, Calcium 9.5, Magnesium 1.7, Total Bilirubin 0.6, AST 35, ALT 15, Alkaline Phosphatase 69, Total Protein 6.9, Albumin 4.5, Globulin 2.4, Albumin/Globulin Ratio 1.9 H I & O for Last 24 hours: Intake & Output 02/07/25 02/08/25 02/09/25 02/10/25 23:59 23:59 23:59 23:59 Intake Total 1190 / 1190 720 / 720 Output Total 1050 / 1050 600 / 600 Balance 140 / 140 120 / 120 Weight 138 lb 138 lb 12.8 oz 135 lb Constitutional Constitutional: no acute distress *Routine Respiratory Exam Respiratory: Present CTA bilaterally and symmetric chest movement *Routine Cardiovascular Exam Cardiovascular: Present RRR, Normal S1 and Normal S2 *Routine Abdominal Exam Abdominal: Present soft and normoactive bowel sounds; Absent tenderness *Routine Extremities Exam Extremities: Present full ROM and normal capillary refill; Absent edema *Routine Skin Exam Skin: Present intact, dry and warm Detailed Neck Exam: Thyroids Thyroid: Absent bruit Meds Home Medications and Allergies Home Medications ?Medication ?Instructions ?Recorded ?Confirmed ?Type cholecalciferol (vitamin D3) 1,250 1,250 mcg PO WEEKLY 6 weeks #6 caps 08/02/24 02/09/25 Rx mcg (50,000 unit) capsule duloxetine 30 mg capsule,delayed 30 mg PO DAILY 12/17/24 02/09/25 History release rosuvastatin 20 mg tablet 20 mg PO DAILY 01/28/25 02/09/25 History valsartan 320 mg tablet 320 mg PO DAILY #30 tabs 01/28/25 02/09/25 Rx albuterol sulfate 90 mcg/actuation 1 inh inhalation Q4HP PRN 02/09/25 02/09/25 History aerosol inhaler Shortness Of Breath diclofenac sodium 75 mg 75 mg PO BID 02/09/25 02/09/25 History tablet,delayed release famotidine 40 mg tablet 40 mg PO HS 02/09/25 02/09/25 History ferrous sulfate 325 mg (65 mg 325 mg PO BID 02/09/25 02/09/25 History iron) tablet (FeroSul) fexofenadine 180 mg tablet 180 mg PO DAILY 02/09/25 02/09/25 History melatonin 5 mg tablet 5 mg PO HS 02/09/25 02/09/25 History metformin 500 mg tablet,extended 500 mg PO QPMWITHMEAL 02/09/25 02/09/25 History release 24 hr metoprolol succinate 50 mg 50 mg PO DAILY 02/09/25 02/09/25 History tablet,extended release 24 hr omeprazole 40 mg capsule,delayed 40 mg PO DAILY 02/09/25 02/09/25 History release oxybutynin chloride 5 mg 5 mg PO HS 02/09/25 02/09/25 History tablet,extended release 24 hr New Prescriptions to Start Prescriptions: Allergies Allergy/AdvReac Type Severity Reaction Status Date / Time Penicillins (PENICILLINS) Allergy Intermediate Rash Verified 01/28/25 10:26 codeine (CODEINE) AdvReac Severe Nausea Verified 01/28/25 10:26 Assessment and Plan *Assessment and plan (1) Elevated troponin: Status: Acute Category: Medical Code(s): R79.89 - Other specified abnormal findings of blood chemistry (2) Left shoulder pain: Status: Acute Category: Medical Code(s): M25.512 - Pain in left shoulder (3) Tachy-beth syndrome: Status: Acute Category: Medical Code(s): I49.5 - Sick sinus syndrome (4) NSTEMI (non-ST elevated myocardial infarction): Status: Acute Category: Medical Code(s): I21.4 - Non-ST elevation (NSTEMI) myocardial infarction (5) HFrEF (heart failure with reduced ejection fraction): Status: Acute Category: Medical Code(s): I50.20 - Unspecified systolic (congestive) heart failure Plan NSTEMI Back and left shoulder pain Troponin 0.15 on admission trending up to 0.42 EKG negative for STEMI Normal Brianna Myoview 01/2025 but with new onset reduced EF of 45% Will proceed with left heart catheterization to evaluate for coronary artery disease. Discussed risk versus benefits with patient and she is agreeable to proceed. Continue aspirin, statin and Lovenox HFrEF Moderately dilated right ventricle with mildly reduced function No signs of volume overload on this admission-denies shortness of breath, chest x-ray negative for pleural effusion, no lower extremity edema present. BNP 216 on admission Will switch valsartan to Entresto 24/26 mg p.o. twice daily. Will initiate Toprol 12.5 mg p.o. daily as patient will tolerate due to history of bradycardia. Start Aldactone 25 mg p.o. daily and Jardiance 10 mg p.o. daily. Consider starting Kerendia on an outpatient basis Repeat limited echo shows an EF of 45% which is unchanged from 02/05/2025 Tachybradycardia syndrome Patient recently wore an event monitor which showed a 70% bradycardia burden, lowest heart rate was noted to be 30s during the daytime. Also had brief episodes of nonsustained VT. Will initiate a low-dose beta-jesus as patient can tolerate for NSVT and frequent PVCs Will need to be considered for possible pacemaker on an outpatient basis following heart cath on an outpatient basis. CV summary 02/10/2025: Left heart cath pending. Cardiac meds Aspirin 81 mg p.o. daily Lipitor 40 mg p.o. daily Entresto 24/26 mg p.o. twice daily Aldactone 25 mg p.o. daily Jardiance 10 mg p.o. daily Toprol 12.5 mg p.o. daily
--- NOTE | 2025-02-10 10:22 | IR_ITS ---
APPROVED REPORT [facility] Coordinator: Ben Hutchins RT (R) PROCEDURES 1. Left heart catheterization 2. Selective coronary arteriography 3. Left ventriculography INDICATION 1. Non-Q wave myocardial infarction, 2. Abnormal EKG SCAI INDICATION Patient is 74-year-old white female who presented with chest pain. Non-Q wave myocardial infarction. Abnormal EKG. Secondary to this referred for left heart catheterization Informed consent was obtained prior to the procedure. COMPLICATIONS None Estimated Blood Loss: Less than 10 mls TECHNIQUE One percent lidocaine used to anesthetize the right anterior aspect of the wrist. The right radial artery was accessed via the Seldinger technique. A 6 Frisian sheath was placed in the right radial artery. 2.5 mg of Verapamil, 800 mcg of nitroglycerin, 1mg Lidocaine and 5000 U Heparin were given through the arterial sheath. The JL3 catheter was also used to perform left heart catheterization, left ventriculogram and selective coronary angiogram. At the end of the procedure the sheath was removed good hemostasis was achieved using Traclet band, patient was transferred to the postop holding area in stable condition. ANGIOGRAPHIC RESULTS The left main artery Short and angiographically normal The left anterior descending artery Had smooth 30% mid stenosis followed by sequential smooth 30% napkin ring mid stenosis. Normal flow into the distal vessel as well as into the diagonal branches The circumflex artery Large in size and codominant with the right coronary artery. Small first obtuse marginal branch angiographically normal. The second obtuse marginal branch was very large in size. There were multiple branches that came off the second obtuse marginal branch. One of the branches was small in size and had an 85 to 90% proximal stenosis. Came off at a 90 degree angle from the true second obtuse marginal branch. Normal PARISH-3 flow into that small branch The right coronary artery Moderate in size with smooth eccentric 30 to 40% proximal stenosis. Normal flow into the distal vessel The WEATHERS ventriculogram reveals Normal left ventricular systolic function with an ejection fraction of 55 to 60% The left ventricular end-diastolic pressure 10 Patient also had a small ramus intermedius vessel. This vessel was angiographically normal. Radial sheath removed and radial band placed without difficulty IMPRESSION 1. Mild to moderate diffuse coronary artery disease 2. Severe branch vessel disease in the small branch coming off the second obtuse marginal branch of the circumflex. This vessel was less than 2 mm in size 3. Normal left ventricular systolic function 4. Normal left ventricular end-diastolic pressure 5. Successful placement of a radial band on the right radial artery PLAN 1. Patient will continue with aggressive medical therapy. The small leak of cardiac enzymes is likely coming from the small branch that comes off of the second obtuse marginal branch of the circumflex. The second obtuse marginal branch of the circumflex is very large in size. That branch is small at less than 2 mm. There is normal PARISH-3 flow into that branch. It comes off at a 90 degree angle. Does not provide much flow to myocardium. That should be treated medically. Recommend Plavix 75 mg daily in addition to aspirin 81 mg daily. Aggressive risk factor modification. No intervention needed at this time. Follow-up in cardiology clinic in 1 to 2 weeks for further evaluation and treatment Electronically signed by : Wan Negron MD 02/10/2025 14:53:50
[2025-02-10] MEDS: SPIRONOLACTONE 25MG TABLET 25 MG PO (10:42)
[2025-02-10] MEDS: SACUBITRIL/VALSARTAN 24-26MG TABLET 1 EACH PO (10:42)
[2025-02-10] MEDS: EMPAGLIFLOZIN 10MG TABLET 10 MG PO (10:42)
[2025-02-10] MEDS: METOPROLOL SUCCINATE XL 25MG TABLET 12.5 MG PO (10:42)
[2025-02-10 13:56] LABS: POC Glucose,Bedside 122 gm/dL (70-110)
[2025-02-10] MEDS: LIDOCAINE 1% 10ML MDV 10 ML IJ (14:14)
[2025-02-10] MEDS: HEPARIN 1,000 UNITS/500ML NS (CATH LAB) 3000 UNIT IV (14:14)
[2025-02-10] MEDS: 0.9 % SODIUM CHLORIDE 500 ML 25 ML IV (14:14)
[2025-02-10] MEDS: NITROGLYCERIN 800MCG/8ML SYR (CATH LAB) 800 MCG IA (14:14)
[2025-02-10] MEDS: VERAPAMIL 2.5MG/ML 2ML VIAL 2.5 MG IV (14:15)
[2025-02-10] MEDS: HEPARIN 1,000 UNITS/ML 10ML VIAL (CATH LAB) 5000 UNIT IV (14:15)
[2025-02-10] MEDS: MIDAZOLAM HCL 1MG/ML 5ML VIAL 1 MG IV (14:16)
[2025-02-10] MEDS: FENTANYL 100MCG/2ML VIAL 50 MCG IV (14:16)
--- NOTE | 2025-02-10 15:11 | P.DS_ITS ---
<Statement entered by Manuel Nieves MD - 02/10/25 15:59> Rounded on patient after nurse practitioner. Personally examined and interviewed patient. Agree with exam findings and care plan as documented. General Admission date:: 02/09/25 Discharge date: 02/10/25 HPI HPI HPI: Patient is a 74-year-old female with past medical history of bigeminy tachybradycardia syndrome, PAD, hypertension hyperlipidemia, osteoarthritis who presents to the hospital due to complaints of bilateral shoulder pain, upper back pain that radiates to her head. According to the patient she also has numbness tingling in bilateral both legs, she thinks she. Patient denied associated nausea vomiting shortness of breath. On further evaluation patient was found to have elevated troponin. Patient denied fever chills. Hospital Course Hospital Course Hospital Course: Ms. Flynn is a 74-year-old female who presented to the emergency room yesterday with chest pain, new onset leg weakness, headache, and low back pain. She has a primary medical history of bigeminy tachybradycardia syndrome, PAD, hypertension, hyperlipidemia, osteoarthritis, spinal stenosis, DJD, anxiety, GERD, type 2 diabetes, OAB. Broad workup was done in the emergency department including EKG, head/neck CTA, chest x-ray, CBC, CMP. Workup was remarkable for elevated troponin 0.15 trending upward to 0.42, no other lab abnormalities noted. Initial EKG showed NSR without STEMI changes noted. Patient does follow with [facility] cardiology and has been being worked up for tachybradycardia syndrome. She wore a recent event monitor which showed a 78% burden of bradycardia, lowest in the 30s during the day. She also showed episodes of nonsustained V. tach, beta-blockers previously not initiated due to her bradycardia. Heart rate has been controlled during admission, sinus rhythm with frequent PVCs noted. Patient recently had echo which showed slightly reduced EF of 45% with moderate RV dilation. Renal arteries were noted as normal. CT scans showed no acute findings. Patient continued to complain of intermittent chest pain/pressure. She was admitted to the medical surgical floor for NSTEMI. She has remained hemodynamically stable during admission. Patient taken today for a [facility]. Heart cath findings show small leak of cardiac enzymes is likely coming from small branch that comes off of the second obtuse marginal branch of the circumflex. The second obtuse marginal branch of the circumflex is very large in size, that branch is small at less than 2 mm. Recommendations for medical management. No intervention needed at this time. Patient remains medically stable for discharge today. Repeat limited echo shows EF of 45% which is unchanged from 1 week ago. Changes to her medication regimen as recommended by cardiology are as follows: Start Entresto 24/26 mg p.o. twice daily, metoprolol 12.5 mg p.o. daily, Aldactone 25 mg p.o. daily, aspirin 81 mg daily, Plavix 75 mg daily, Lipitor 40 mg daily and Jardiance 10 mg p.o. daily. Stop valsartan 320 mg daily, metoprolol succinate 50 mg daily, and rosuvastatin 20 mg daily. Per cardiology patient may need pacemaker workup on an outpatient basis pending heart cath and toleration of medication. Patient should continue oxybutynin 5 mg at bedtime, omeprazole 40 mg daily, metformin 500 mg daily, melatonin 5 mg at bedtime as needed, fexofenadine 180 mg daily, iron 325 mg twice daily, famotidine 40 mg at bedtime, duloxetine 30 mg daily, diclofenac 75 mg twice daily, vitamin D3 1250 mcg weekly, and albuterol inhaler as needed for shortness of breath. Total time spent on discharge 32 minutes in counseling, documentation, chart review, and direct care with patient. Exam Data for Last 24 hours Vital signs and Labs for Last 24 Hours: Temp Pulse Resp BP Pulse Ox O2 Del Method 98.1 F 72 16 155/89 H 92 L Room Air 02/10/25 15:00 02/10/25 15:00 02/10/25 15:00 02/10/25 15:00 02/10/25 15:00 02/10/25 15:00 Laboratory Results - last 24 hr 02/09/25 15:35: POC Glucose 116 H 02/09/25 20:01: POC Glucose 120 H 02/10/25 04:53: POC Glucose 122 H 02/10/25 05:25: WBC 7.1, RBC 4.14 L, Hgb 11.8 L, Hct 35.1 L, MCV 84.8, MCH 28.5, MCHC 33.6, RDW 12.9, Plt Count 291, MPV 9.4, Neut % (Auto) 58.1, Lymph % (Auto) 25.7, [place] % (Auto) 10.1 H, Eos % (Auto) 4.8, Baso % (Auto) 1.0, Neut # (Auto) 4.1, Lymph # (Auto) 1.8, [place] # (Auto) 0.7, Eos # (Auto) 0.3, Baso # (Auto) 0.1, Sodium 130 L, Potassium 4.2, Chloride 97 L, Carbon Dioxide 23, Anion Gap 14.2, BUN 8, Creatinine 0.80, Estimated Creat Clear 46, Estimated GFR 70, Est GFR ( Amer) 84, Glucose 111 H, Calcium 9.5, Magnesium 1.7, Total Bilirubin 0.6, AST 35, ALT 15, Alkaline Phosphatase 69, Total Protein 6.9, Albumin 4.5, Globulin 2.4, Albumin/Globulin Ratio 1.9 H I & O for Last 24 hours: Intake & Output 02/07/25 02/08/25 02/09/25 02/10/25 23:59 23:59 23:59 23:59 Intake Total 1190 / 1190 720 / 720 Output Total 1050 / 1050 1300 / 1300 Balance 140 / 140 -580 / -580 Weight 62.596 kg 62.959 kg 61.235 kg Constitutional Constitutional: no acute distress, average body habitus, chronically ill appearing and cooperative *Routine HEENT Exam Head: Present normocephalic Eye: Present EOMI and PERRL ENT: Present mucous membranes moist *Routine Neck Exam Neck: Present supple and full ROM; Absent JVD *Routine Respiratory Exam Respiratory: Present CTA bilaterally, normal respiratory effort, able to speak in complete sentences and symmetric chest movement; Absent wheezes or crackles *Routine Cardiovascular Exam Cardiovascular: Present RRR, Normal S1 and Normal S2; Absent murmur *Routine Abdominal Exam Abdominal: Present soft and normoactive bowel sounds; Absent tenderness or distended *Routine Extremities Exam Extremities: Present full ROM, pulses intact and normal capillary refill; Absent edema *Routine Skin Exam Skin: Present intact and dry; Absent rash *Routine Neurological Exam Neurological: Present alert, oriented X3, moving all extremities, vision grossly intact, hearing grossly intact and normal speech Routine Psychiatric Exam Psychiatric: Present normal affect Results Data Completed and Pending Labs on day of discharge: Labs from last 24 hours 02/10/25 02/10/2502/09/25 05:25 04:53 20:01 WBC 7.1 RBC 4.14 L Hgb 11.8 L Hct 35.1 L MCV 84.8 MCH 28.5 MCHC 33.6 RDW 12.9 Plt Count 291 MPV 9.4 Neut % (Auto) 58.1 Lymph % (Auto) 25.7 [place] % (Auto) 10.1 H Eos % (Auto) 4.8 Baso % (Auto) 1.0 Neut # (Auto) 4.1 Lymph # (Auto) 1.8 [place] # (Auto) 0.7 Eos # (Auto) 0.3 Baso # (Auto) 0.1 Sodium 130 L Potassium 4.2 Chloride 97 L Carbon Dioxide 23 Anion Gap 14.2 BUN 8 Creatinine 0.80 Estimated Creat Clear 46 Estimated GFR 70 Est GFR ( Amer) 84 Glucose 111 H POC Glucose 122 H 120 H Calcium 9.5 Magnesium 1.7 Total Bilirubin 0.6 AST 35 ALT 15 Alkaline Phosphatase 69 Total Protein 6.9 Albumin 4.5 Globulin 2.4 Albumin/Globulin Ratio 1.9 H 02/09/25 15:35 WBC RBC Hgb Hct MCV MCH MCHC RDW Plt Count MPV Neut % (Auto) Lymph % (Auto) [place] % (Auto) Eos % (Auto) Baso % (Auto) Neut # (Auto) Lymph # (Auto) [place] # (Auto) Eos # (Auto) Baso # (Auto) Sodium Potassium Chloride Carbon Dioxide Anion Gap BUN Creatinine Estimated Creat Clear Estimated GFR Est GFR ( Amer) Glucose POC Glucose 116 H Calcium Magnesium Total Bilirubin AST ALT Alkaline Phosphatase Total Protein Albumin Globulin Albumin/Globulin Ratio DS: Diagnosis Discharge Diagnosis (1) Elevated troponin: Status: Acute Code(s): R79.89 - Other specified abnormal findings of blood chemistry (2) Left shoulder pain: Status: Acute Code(s): M25.512 - Pain in left shoulder (3) Tachy-beth syndrome: Status: Acute Code(s): I49.5 - Sick sinus syndrome (4) NSTEMI (non-ST elevated myocardial infarction): Status: Acute Code(s): I21.4 - Non-ST elevation (NSTEMI) myocardial infarction (5) HFrEF (heart failure with reduced ejection fraction): Status: Acute Code(s): I50.20 - Unspecified systolic (congestive) heart failure (6) Status post left heart catheterization (LHC): Status: Acute Code(s): Z98.890 - Other specified postprocedural states Meds Home Medications and Allergies Home Medications ?Medication ?Instructions ?Recorded ?Confirmed ?Type cholecalciferol (vitamin D3) 1,250 1,250 mcg PO WEEKLY 6 weeks #6 caps 08/02/24 02/09/25 Rx mcg (50,000 unit) capsule duloxetine 30 mg capsule,delayed 30 mg PO DAILY 02/09/25 History release albuterol sulfate 90 mcg/actuation 1 inh inhalation Q4 HP PRN 02/09/25 02/09/25 History aerosol inhaler Shortness Of Breath diclofenac sodium 75 mg 75 mg PO BID 02/09/25 History tablet,delayed release famotidine 40 mg tablet 40 mg PO HS 02/09/25 5 History ferrous sulfate 325 mg (65 mg 325 mg PO BID 02/09/25 0 02/09/25 History iron) tablet (FeroSul) fexofenadine 180 mg tablet 180 mg PO DAILY 02/09/25 History melatonin 5 mg tablet 5 mg PO HS 02/09/25 02/09/25 History metformin 500 mg tablet,extended 500 mg PO QPMWITHMEAL 02/09/25 02/09/25 History release 24 hr omeprazole 40 mg capsule,delayed 40 mg PO DAILY 02/09/25 History release oxybutynin chloride 5 mg 5 mg PO HS 02/09/25 02/09/25 History tablet,extended release 24 hr aspirin 81 mg tablet,delayed 81 mg PO DAILY #0 tabs Rx release atorvastatin 40 mg tablet 40 mg PO HS 30 days #30 tabs 02/10/25 Rx clopidogrel 75 mg tablet (Plavix) 75 mg PO DAILY #30 t abs 02/10/25 Rx empagliflozin 10 mg tablet 10 mg PO DAILY 30 days #30 tabs 02/10/25 Rx (Jardiance) metoprolol succinate 25 mg 12.5 mg (1/2 x 25 mg) PO DA DIANA 30 02/10/25 Rx tablet,extended release 24 hr days #15 tabs sacubitril 24 mg-valsartan 26 mg 1 tab PO BID 30 days #60 tabs 02/10/25 Rx tablet (Entresto) spironolactone 25 mg tablet 25 mg PO DAILY 30 days #30 tabs 02/10/25 Rx New Prescriptions to Start Prescriptions: atorvastatin Dari Power clopidogrel [Plavix] Dari Power empagliflozin [Jardiance] Dari Power metoprolol succinate TonoDari sacubitril-valsartan [Entresto] Tono,Dari spironolactone Dari Power Allergies Allergy/AdvReac Type Severity Reaction Status Date / Time Penicillins (PENICILLINS) Allergy Intermediate Rash Verified 01/28/25 10:26 codeine (CODEINE) AdvReac Severe Nausea Verified 01/28/25 10:26 Discharge Plan Disposition Patient Disposition: Home, Self-Care Condition: Good Follow up Plan Follow up with: Sue Dean APRN [Nurse Practitioner, Cardiology] - 1 week Fe Tracey APRN [Nurse Practitioner, Family Practice] - Enter time for follow up Prescriptions/Medication Reconciliation: New aspirin 81 mg Tablet,Delayed Release (Dr/Ec) 81 mg PO DAILY Qty: 0 0RF atorvastatin 40 mg Tablet 40 mg PO HS 30 Days Qty: 30 0RF Jardiance 10 mg Tablet 10 mg PO DAILY 30 Days Qty: 30 0RF spironolactone 25 mg Tablet 25 mg PO DAILY 30 Days Qty: 30 0RF metoprolol succinate 25 mg Tablet Extended Release 24 Hr 12.5 mg PO DAILY 30 Days Qty: 15 0RF sacubitril-valsartan [Entresto] 24-26 mg Tablet 1 tab PO BID 30 Days Qty: 60 0RF clopidogrel [Plavix] 75 mg tablet 75 mg PO DAILY Qty: 30 0RF Continued duloxetine 30 mg capsule,delayed release(DR/EC) 30 mg PO DAILY Patient Comments: TAKE ONE CAPSULE BY MOUTH EVERY DAY cholecalciferol (vitamin D3) 1,250 mcg (50,000 unit) capsule 1,250 mcg PO WEEKLY 42 Days Qty: 6 4RF omeprazole 40 mg capsule,delayed release(DR/EC) 40 mg PO DAILY melatonin 5 mg tablet 5 mg PO HS Patient Comments: TAKE ONE TABLET BY MOUTH EVERY EVENING prior TO SLEEP ferrous sulfate [FeroSul] 325 mg (65 mg iron) tablet 325 mg PO BID Rx Instructions: TAKE ONE TABLET BY MOUTH TWICE DAILY oxybutynin chloride 5 mg tablet extended release 24hr 5 mg PO HS diclofenac sodium 75 mg tablet,delayed release (DR/EC) 75 mg PO BID metformin 500 mg tablet extended release 24 hr 500 mg PO QPMWITHMEAL Patient Comments: TAKE ONE TABLET BY MOUTH EVERY DAY WITH EVENING MEAL famotidine 40 mg tablet 40 mg PO HS Patient Comments: TAKE ONE TABLET BY MOUTH EVERY NIGHT AT BEDTIME fexofenadine 180 mg tablet 180 mg PO DAILY Patient Comments: TAKE ONE TABLET BY MOUTH EVERY DAY albuterol sulfate 90 mcg/actuation HFA aerosol inhaler 1 inh INHALATION Q4HP PRN (Reason: Shortness Of Breath) Discontinued rosuvastatin 20 mg tablet 20 mg PO DAILY valsartan 320 mg tablet 320 mg PO DAILY Qty: 30 2RF metoprolol succinate 50 mg tablet extended release 24 hr 50 mg PO DAILY Patient Comments: TAKE ONE TABLET BY MOUTH EVERY DAY Problem Reconciliation Problems Reviewed?: Yes Patient Discharge Instructions ACTIVITY: Ambulate as tolerated and No heavy lifting DIET: continue same diet and cardiac Patient Instructions: Angina, DI for High Blood Pressure Print Language: Mexican Providers Primary Care Provider: Provider,Referral Admit Provider: Manuel Nieves Attending Provider: Manuel Nieves
[2025-02-10] MEDS: IOPAMIDOL-370 (76%);100ML BOTTLE 50 ML IV (15:20)
[2025-02-10 16:39] LABS: POC Glucose,Bedside 110 gm/dL (70-110)
== END 2025-02-10 17:49 | disposition home or self-care (01) | DRG 281 ==
LOC: ER 02-09 03:34 → 2ND 02-09 08:35
PROVIDERS: Internal Medicine; Internal Medicine Cardiovascular Disease; Admitting Provider Internal Medicine Adolescent Medicine; Emergency Provider Emergency Medicine; Visit Provider Internal Medicine Adolescent Medicine
PROC: 4A023N7 Measurement of Cardiac Sampling and Pressure, Left Heart, Percutaneous Approach (ICD-10-PCS; CPT 93452; principal; 2025-02-10 14:00)
DX: I21.4 Non-ST elevation (NSTEMI) myocardial infarction (principal); I47.20 Ventricular tachycardia, unspecified; I50.22 Chronic systolic (congestive) heart failure; M25.512 Pain in left shoulder; I49.8 Other specified cardiac arrhythmias; I49.5 Sick sinus syndrome; E11.51 Type 2 diabetes mellitus with diabetic peripheral angiopathy without gangrene; M19.90 Unspecified osteoarthritis, unspecified site; F41.9 Anxiety disorder, unspecified; K21.9 Gastro-esophageal reflux disease without esophagitis; E78.5 Hyperlipidemia, unspecified; N32.81 Overactive bladder; I49.3 Ventricular premature depolarization; I11.0 Hypertensive heart disease with heart failure; M47.812 Spondylosis without myelopathy or radiculopathy, cervical region; G89.29 Other chronic pain; I08.1 Rheumatic disorders of both mitral and tricuspid valves; M48.061 Spinal stenosis, lumbar region without neurogenic claudication; F32.A Depression, unspecified; Z79.84 Long term (current) use of oral hypoglycemic drugs; Z79.899 Other long term (current) drug therapy; Z88.0 Allergy status to penicillin; Z88.5 Allergy status to narcotic agent
CPT/HCPCS: 36415; 70450; 70496; 70498; 71045; 72131; 80048; 80053; 82962; 83735; 83880; 84484; 85025; 93005; 93308; 99285; J1200; J1644; J1650; J1885; J2003; J2250; J3010; J7040; Q9957; Q9967

== ENCOUNTER 2025-03-14 07:29 | Outpatient (CLI) | payer MEDICARE, OTHER, SELFPAY ==
--- OUTSIDE RECORDS SUMMARY | 2025-03-13 06:45 | XMS_ITS | Continuity of Care Document ---
Author Organization [facility] Address [address] [place] [address] Phone Care Team Providers Care Gas Refrigerator Servicer Name Role Phone Kyle MSN, SOFTWARE DEVELOPMENT LEADER, Kelsea Unavailable Unavai lable Allergies, Adverse Reactions, Alerts Substance Reaction Status Criticality Penicillins Hives / Skin Rash(moderate)Itching(modera te) Active No Information Medications Medication Instructions Dosage Effective Dates (start - stop) Status Comments Tylenol Arthritis Pain 650 mg tablet,extended release TAKE ONE TABLET BY MOUTH EVERY 6 HOURS WITH water NEEDED -SWALLOW WHOLE. DO NOT CRUSH OR CHEW- dissolve OR break - Active Airsupra 90 mcg-80 mcg/actuation HFA aerosol inhaler INHALE TWO PUFFS BY MOUTH NEEDED; DO not exceed 6 doses PER DAY - Active albuterol sulfate HFA 90 mcg/actuation aerosol inhaler inhale 2 puff by inhalation route every 4 - 6 hours as needed 180 MCG - Active Indira Allergy 180 mg tablet take 1 tablet by oral route every day 180 MG - Active aspirin 81 mg tablet,delayed release take 1 tablet by oral route every day 81 MG - Active atorvastatin 40 mg tablet take 1 tablet by oral route every bedtime 40 MG - Active clopidogrel 75 mg tablet take 1 tablet by oral route every day 75 MG - Active diclofenac 1 % topical gel apply 2 gram by topical route 4 times every day to the affected area(s) 2.00 gram - Active diclofenac sodium 75 mg tablet,delayed release take 1 tablet by oral route every other day - Active Entresto 24 mg-26 mg tablet take 1 tablet by oral route 2 times every day 1.00 tablet - Active famotidine 40 mg tablet TAKE ONE TABLET BY MOUTH EVERY NIGHT AT BEDTIME - Active ferrous sulfate 325 mg (65 mg iron) tablet take 1 tablet by oral route every day 325 MG - Active Jardiance 10 mg tablet take 1 tablet by oral route every day in the morning 10 MG - Active melatonin 5 mg capsule Take one capsule at night prior to sleep. - Active metformin ER 500 mg tablet,extended release 24 hr take 1 tablet by oral route every day with the evening meal 500 MG - Active metoprolol succinate ER 25 mg tablet,extended release 24 hr take 1 tablet by oral route every day 25 MG - Active montelukast 10 mg tablet take 1 tablet by oral route every day in the evening 10 MG - Active oxybutynin chloride 5 mg tablet TAKE 1/2 TABLET BY MOUTH TWICE DAILY - Active spironolactone 25 mg tablet take 1 tablet by oral route 2 times every day 25 MG - Active duloxetine 30 mg capsule,delayed release take 1 capsule by oral route every day 30 MG - Active nystatin 100,000 unit/mL oral suspension take 5 milliliter by oral route 4 times every day [id number] UNITS - Active Advance Directives Directive Yes / No Effective Date File Name No Information Encounters Encounter Description Practice Location Reason(s) For Visit Diagnoses Date Provider [facility], [address] [place] [address], [id number], tel:[phone] [facility] [place] No Information 5 Kyel Enamorado. [address], [place], [id number] , . tel:[phone] [facility], [address] [place] [address], [id number], tel:[phone] [facility] [place] ER f/u (chief complaint) Body mass index [BMI] 28.0-28.9, adultEssential (primary) hypertensionSick sinus syndromeNon-ST elevation (NSTEMI) myocardial infarctionUnspecified systolic (congestive) heart failure 5 Wright Kelsea. [address], [place], [id number] , . tel: [phone] [facility], [address] [place] [address], [facility], tel:[phone] [facility] [place] Follow up on Lab Results (chief complaint) Medication s (chief complaint) Body mass index [BMI] 29.0-29.9, adultAnemiaDepressionEsse ntial (primary) hypertensionHyperlipidemi a, unspecifiedObesity, unspecifiedType 2 diabetes mellitus without complicationsVitamin B12 deficiency 5 Wright Kelsea. [address], [place], [id number] , . tel:[phone] [facility], [address] [place] [address], [facility], tel:[phone] [facility] [place] FASTING LABS (chief complaint) Essential (primary) hypertension 5 Wright Kelsea. [address] [place] [address], [id number] , . tel:[phone] [facility], [address] [place] [address], [facility], tel:[phone] [facility] [place] No Information 5 Wright Kelsea. [address] [place] [address], [id number] , [place]. tel:[phone] [address], [place], tel:[phone] [facility] [place] No Information 5 Wright Kelsea. [address] [place] [address], [id number] , . tel:[phone] [facility], [address] [place] [address], [facility], tel:[phone] [facility] [place] T2DM (chief complaint) left knee pain (chief complaint) Type 2 diabetes mellitus without complicationsObesity, unspecifiedPain in left kneeEssential (primary) hypertensionOther hammer toe of left footOther hammer toe of right footBody mass index [BMI] 30.0-30.9, adult 5 Wright Kelsea. [address], [place], [id number] , [place]. tel: [phone] [facility], [address] [place] [address], [facility], tel:[phone] [facility] [place] f/u on labs (chief complaint) Essential (primary) hypertensionHyperlipidemi a, unspecifiedObesity, unspecifiedType 2 diabetes mellitus without complicationsAsthmaOral candidiasisBody mass index [BMI] 32.0-32.9, adult 5 Wright Kelsea. [address], [place], [id number] , [place]. tel: [phone] [facility], [address] [place] [address], [facility], tel:[phone] [facility] [place] New to establish care (chief complaint) Depression screening (chief complaint) Prapare (chief complaint) Encntr for general adult medical exam w/o abnormal findingsExtreme povertyEncounter for screening for depressionBack painEssential (primary) hypertensionDepressionAnx ietySleep disorder, unspecifiedObesity, unspecifiedType 2 diabetes mellitus without complicationsAnemiaHyperl ipidemia, unspecifiedGERD without esophagitisAsthmaEnuresis Other seasonal allergic rhinitis Aug- 5 Wright Kelsea. [address], [place], [id number] , [place]. tel: [phone] Family History Family Member Type Diagnosis Age [...] administered Source: Other R egistry COVID-19 Vector-NR (ERICAN) administered Mai rce: Other Registry Influenza, Seasonal administered Source: Other Registry Payers Payer name Insurance type Covered republican ID Authoriza tion(s) Mcr Adv [facility] [id number] CI [id number] [facility]- Medicaid [employer] [place] [id number] [facility]- Medicaid Aetna Wrap Payer [id number] Social History Type Description Quantity Date Captured Comments Alcohol Use Details Unknown Caffeine Use Details Unknown Tobacco Use Status No Information Smoking Status No Information Sex Female Sexual Orientation Straight or heterosexual Aug Gender Identity Female Chief Complaint And Reason For Visit No Information Plan Of Treatment Date Type Action Status Goal Vitamin D. Due on due Goal CBC. Due on due Goal Drug Abuse Scree milad Test (DAST-10). Due on due Goal Obtain Height, Weight, and B [place]. Due on due Goal Follow up Plan f or abnormal BMI (Less than 18.5, greater than 25). Due on due Goal Urine microalbumin. Due on A due Goal ASCVD 10 year risk. Due on O due Goal Dilated eye exam. Due on Feb due Goal Dental exam. Due on due Goal CMP. Due on due Goal Lipid panel. Due on due Goal Foot exam. Due on due Goal Hemoglobin A1C. Due on due Goal Tobacco screening. Due on Se due Goal Generalized Anxi ety Disorder - 7 (TRISH-7). Due on due Goal Diabetes screening. Due on A due Goal Tobacco Use Screening. Due o n due Goal TSH. Due on due Goal Unhealthy drug use screening due Goal GFR. Due on due Goal Influenza vaccine. Due on Oc due Goal DEXA scan. Due on due Goal Pneumococcal vaccine due Goal Hemoglobin (Pree michelle/HR 9 months). Due on due Goal Vitamin B12. Due on due Goal ECG. Due on due Goal Depression screening. Due on due Goal Obtain blood Pressure. Due o n due Goal Hematocrit/Hemoglobin. Due o n due Goal Urinalysis due Goal Taking Aspirin o r other anti-coagulant. Due on due Goal Taking Aspirin o r other anti-coagulant. Due on due Goal Urinalysis due Goal Influenza vaccine. Due on due Goal Obtain blood Pressure. Due o n due Goal Urine microalbumin. Due on A due Goal Dilated eye exam. Due on Jan due Goal Hemoglobin A1C. Due on due Goal Obtain Height, Weight, and B WA. Due on due Goal DEXA scan. Due on due Goal Depression screening. Due on due Goal Vitamin B12. Due on due Goal Unhealthy drug use screening due Goal Pneumococcal vaccine due Goal Tobacco screening. Due on due Goal ECG. Due on due Goal GFR. Due on due Goal Drug Abuse Scree milad Test (DAST-10). Due on due Goal ASCVD 10 year risk. Due on S due Goal Tobacco Use Screening. Due o n due Goal TSH. Due on due Goal Diabetes screening. Due on A due Goal CBC. Due on due Goal CMP. Due on due Goal Follow up Plan f or abnormal BMI (Less than 18.5, greater than 25). 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 Due on due Goal Foot exam. Due on due Goal Dental exam. Due on due Goal Lipid panel. Due on due Goal Vitamin D. Due on due Goal Hemoglobin (Pree michelle/HR 9 months). Due on due Goal Hematocrit/Hemoglobin. Due o n due Goal Lifestyle education regardin g diet completed Goal Lipid panel. Due on due Goal [...] due Goal ECG. 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 Due on due Goal Dental exam. Due on due Goal Tobacco Use Screening. [...] Goal Hematocrit/Hemoglobin. Due o n due Goal Tobacco screening. Due on due Goal TSH. Due on due Goal Hemoglobin (Pree michelle/HR 9 months). Due on due Goal Obtain Height, Weight, and B WA. Due on due Goal CMP. Due on due Goal Urinalysis due Goal Obtain blood Pressure. Due o n due Goal Diabetes screening. Due on due Goal Lifestyle education regardin g diet completed Goal TSH. Due on due Goal Drug Abuse Scree milad Test (DAST-10). Due on due Goal Unhealthy drug use screening due Goal Obtain Height, Weight, and B WA. Due on due Goal Urine microalbumin. Due on due Goal DEXA scan. Due on due Goal Vitamin B12. Due on due Goal Dental exam. Due on 025 due Goal Dilated eye exam. Due on Dec due Goal Hemoglobin A1C. Due on due Goal GFR. Due on due Goal Foot exam. Due on due Goal Lipid panel. Due on 026 due Goal ASCVD 10 year risk. Due on A due Goal Diabetes screening. Due on A due Goal Obtain blood Pressure. Due o n due Goal Pneumococcal vaccine due Goal ECG. Due on due Goal Depression screening. Due on due Goal Urinalysis due Goal CBC. Due on due Goal [...] due Goal CMP. Due on due Goal Hemoglobin (Pree michelle/HR 9 months). Due on due Goal Lipid 9-11 y due Goal Lipid 17-20 y due Goal Dental exam. Due on 025 due Goal GFR. Due on due Goal Vitamin D. Due on due Goal Hemoglobin A1C. Due on due Goal ASCVD 10 year risk. Due on due Goal Drug Abuse Scree milad Test (DAST-10). Due on due Goal Lipid panel. Due on due Goal DEXA scan. Due [...] due Goal Obtain Height, Weight, and B WA. Due on due Goal Depression screening. Due on due Goal ECG. Due on due Goal Influenza vaccine. Due on due Goal Pneumococcal vaccine due Goal Urinalysis due Goal Obtain blood Pressure. Due o n due Goal Lifestyle education regardin g diet completed Goal Lipid panel. Due on due Goal Dental exam. Due on 025 due Goal Hemoglobin A1C. Due on due Goal Obtain Height, Weight, and B WA. Due on due Goal Vitamin D. Due on due Goal Vitamin B12. Due on 026 due Goal GFR. Due on due Goal Diabetes screening. Due on A due Goal Foot exam. [...] Use Screening. Due o n due Goal TSH. Due on due Goal Obtain blood Pressure. Due o n due Goal Influenza vaccine. Due on due [...] Goal Lipid panel. Due on due Goal DEXA scan. Due on due Goal Obtain Height, Weight, and B WA. Due on due Goal Vitamin D. Due on due Goal Drug Abuse Scree milad Test (DAST-10). Due on due Goal Diabetes screening. 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 Due on due Goal Unhealthy drug use screening due Goal Follow up Plan f or abnormal BMI (Less than 18.5, greater than 25). Due on due Goal Dental exam. Due on due Goal Foot exam. Due on due Goal ASCVD 10 year risk. Due on A due Goal Urine microalbumin. Due on A due Goal GFR. Due on due Goal Dilated eye exam. Due on Aug due Goal Hemoglobin A1C. Due on due Goal Urinalysis due Goal ECG. Due on due Goal Obtain blood Pressure. Due o n due Goal Lifestyle education regardin g diet completed Referral Referred To: [facility] Ordered: Referrals: Orthopedic Surgery. [facility]. Location: [place]. Evaluate and treat Appointment date/timeframe: 11/27/2024 ordered Appointment Shaunna [facility] History Of Present Illness Encounter Date Complaint History Of Prese nt Illness ER f/u Shaunna is here t virgen for f/u from ER visit on 02/12/25 [facility] for possible [place]/lost feeling in her legs. She was transported by ambulance.She has her BP log fomr 01/28/25 to 02/17/25. It has significantly reduced from 150's down to 120's systolically and from upper 70's to lower 60's diastolic. Today is 121/72. She voices compliance with her medication. (they have changed and her list has been updated). She does see Cardiology ([facility]) tomorrow for follow up.Per previous Cardiology note: 02/05/25 she was to discuss possible pacemaker at this next visit.Echo 01/2025 Mild reduced LV systolic function (LVEF 45%)Asynchronous septumModerated RV dilation w/ mild reduction in RV functionBiatrial dilationMild MR, mild TR.She was originally scheduled to f/u on her BP and repeat CMP- as her creatinine was 1.6 in December. Since recent visit to ER and labs collected there, I will not repeat those today.I will see her back in 1 month.She will f/u w/ cardiology tomorrowER records obtained: creatinine was 0.90, creat clearance 47, and GFR 61Elevated Troponin I 0.15CT Lumbar scan: no acute or aggressive osseous abnormality.Probable moderate to severe spinal stenosis at L4-L5. Superimposed severe right neural foraminal narrowing at this level. Recommended MRIN for assessment. CT angio Neck: no large vessel occlusion, significant stenosis or dissection identified.CT angio Head: No hemodynamically significant stenosis, large vessel occlusion or aneurysm is defined.CT head/brain w/o con: no acute process, mass, or bleed.CXR: No acute cardioplumonary findings. Incidental findings: cardiomegaly. Degenerative change of the visualized osseous structures. Suggested bilateral superior rotator cuff injuries. DextroConvex scoliosis.Clinical Impression: Bigeminy, Spinal stenosis, Left should pain, cervical Sponylosis, elevated Triponin.Pt had heart cath dx: NSTEMI, acute, Tachy-Ho syndrome Medications Shaunna is here t virgen to [...] DM f oot exam today:Micro 09/13/24DM eye bynnL6g 6.3Needs repeat labs after 12/13/24 left knee [...] time- however confirmed med list shows D2 70003 IU weeklyShe has depression- on trazadone, but would like [...] availabletaking metoprolol 25 mg bidSees Sue at [facility]- [facility], but has not been seen recentlyBP is 182/73, repeat 151/76I am adding valsartan 80 mg dailyAnemia- on iron dailyOsteoarthritis- was taking both alieve and diclofenac dailyadvised to stop aleive r/t NSAID/HTN/GI complicationMay take diclofenac every other day as needed and use tylenol arthritis as adjunct therapyContinue with main managementdiscussed alternative therapies such as heat application, OTC diclofenac gel (topical)[id number] w/ metformin ER 500 mg dailydoes not [...] sleeps in the bedno naps in the dayAsthmaStacey is not on a maintenance inhaleruses albuterol [...] Pt scored 21, provider aware. -ERMA NEAL Oscar Guerreroenedina complete d 09/13/24. -AW,CM Instructions Date Instruction Additional Infor fiona Patient currently do ing well. BP in goal range. No medication changes. Patient instructed to follow a low salt diet, continuing taking blood pressure medications as prescribed. Keep routine follow up with clinic. Related to Essential (primary) hypertension Giving encouragement to exercise Related to Body mass index [BMI] 28.0-28.9, adult Lifestyle education regarding di et Related to Body mass index [BMI] 28.0-28.9, adult Dietary Instructions for a healthy weight: BMI should be between the range of 18.5-24.9 for an adult; and Caloric intake should be around 4281-4721 for a female, and 4883-5218 for an adult male. Fiber intake should [...] education. You may also refer to the [place] [employer] website for further low sodium, [...] adult; and Caloric intake should be around 5443-0016 for a female, and 0397-3719 for an adult male. Fiber intake should [...] education. You may also refer to the [place] [employer] website for further low sodium, [...] adult; and Caloric intake should be around 5374-0213 for a female, and 1265-0878 for an adult male. Fiber intake should [...] education. You may also refer to the [place] [employer] website for further low sodium, [...] adult; and Caloric intake should be around 3637-2419 for a female, and 0690-0584 for an adult male. Fiber intake should [...] are recommend to be 13-30 grams each. linkedFA.Gusto is a good source for meal planning and dietary education. You may also refer to the [place] [employer] website for further low sodium, [...] depression symptoms Related to Depression Counseled on taylor deee of sleep hygiene. Maintain a consistent sleep [...] to Obesity, unspecified Assessments Type Assessment Date No Information
--- OUTSIDE RECORDS SUMMARY | 2025-03-14 07:31 | XMS_ITS | Data Portability ---
Author Organization [facility] Office Address [address] [address] Care Team Providers Care Senior Net C Developer Name Role Phone [facility] Primary Care Provider Assessment Encounter Date [...] the patient's last fill date as per Donan. I base the next prescription date to [...] , GABAPENTIN 2024 025 FELTON Cerna MD [facility] (In House Lab), [facility] [place] [place], [address], 5 11:55:33 CMP, serum or plasma 2024 025 eliza Cerna MD [facility] (In House Lab), [address] [place], [place] [address], [address], 5 12:07:51 gamma-gluta myl transferase (ggt), serum 2024 025 eliza Cerna MD [facility] (In House Lab), [address] [place] [address], [id number], 5 12:07:51 CBC w/ auto diff 2024 025 eliza Cerna MD [facility] (In House Lab), [address] [place], [place] [address], [address], 5 12:07:51 venipunctur e 2024 025 eliza Cerna MD [facility] (In House Lab), [address] [place], [place] [address], [address], 5 12:07:51 Referral behavioral psychothera py referral 2024 025 [email or web address] Not available 15:44:42 Procedures None recorded. Surgeries None recorded. Imaging None recorded. Medication Orders None recorded. Patient TargetsNo targets recorded. Patient Instructions Encounter Date Encounter Id Patient Instructions Last Modified By Organization Details Last Modified Time 09/06/2024 [id number] chronic pain: care instructions Not available 09/06/2024 17:40:34 depression treatment: care instructions Not available 09/06/2024 17:40:34 learning about mood disorders Not available 09/06/2024 17:40:34 recovering from depression: care instructions Not available 09/06/2024 17:40:34 home exercise program* [email or web address] Not available 09/16/2024 14:08:48 Reason for Referral Behavioral Psychotherapy Ref erral for Mood swings Referring Physician: Maggie Desir, Pain Management, Encounter Date: 09/06/2024 Results Created Date Observation Date Name Description Value Unit Range Abnormal Flag Note LastModifiedBy Organization Detail LastModifiedTime 09/07/1909/12/2024 OPIAT E DEFIN ITIVE PANEL LC/MS codeine 0.0 NG/mL <75.0 Not Available Mallory Cerna MD [facility] (In House Lab) [address] [place] [address], [id number], 09/12/2024 11:55:34 09/07/19 25 09/12/2024 OPIAT E DEFIN ITIVE PANEL LC/MS morphine 0 NG/mL <75.0 Not Available Mallory Cerna MD [facility] (In House Lab) [address] [place] [address], [id number], 09/12/2024 11:55:34 09/07/19 25 09/12/2024 OPIAT E DEFIN ITIVE PANEL LC/MS 6-CRISTO 0 NG/mL <15.0 Not Available Mallory Cerna MD [facility] (In House Lab) [address] [place] [address], [id number], 09/12/2024 11:55:34 09/07/19 25 09/12/2024 OPIAT E DEFIN ITIVE PANEL LC/MS hydromorphon e 0 NG/mL <75.0 Not Available Wale Cerna MD [facility] (In House Lab) [address] [place] [address], [id number], 09/12/2024 11:55:34 09/07/19 25 09/12/2024 OPIAT E DEFIN ITIVE PANEL LC/MS hydrocodone 0 NG/mL <75.0 Not Available Wale Cerna MD [facility] (In House Lab) [address] [place] [address], [id number], 09/12/2024 11:55:34 09/07/19 25 09/12/2024 OPIAT E DEFIN ITIVE PANEL LC/MS norhydrocodo ne 0 NG/mL <75.0 Not Available Wale Cerna MD [facility] (In House Lab) [address] [place] [address], [id number], 09/12/2024 11:55:34 09/07/19 25 09/12/2024 GABAP ENTIN DEFIN ITIVE PANEL -LC/M S gabapentin <5000 NG/mL <5000. 0 Not Available Mallory Cerna MD [facility] (In House Lab) [address] [place] [address], [id number], 09/12/2024 11:55:34 09/07/19 25 09/06/2024 D-PRE SUMPT MIKEL URINE DRUG REPOR T amphetamine NEGATI VE NG/mL <1000. 0 Not Available Mallory Cerna MD [facility] (In House Lab) [address] [place] [address], [id number], 09/12/2024 11:55:33 09/07/19 25 09/06/2024 D-PRE SUMPT MIKEL URINE DRUG REPOR T benzodiazepi ne <3.3 NG/mL <200.0 Curre nt metho d may not detec t low level s of Klono pin Not Available Mallory Cerna MD [facility] (In House Lab) [address] [place] [address], [id number], 09/12/2024 11:55:33 09/07/19 25 09/06/2024 D-PRE SUMPT MIKEL URINE DRUG REPOR T buprenorphin e NEGATI VE NG/mL <10.0 Not Available Mallory Cerna MD [facility] (In House Lab) [address] [place] [address], [id number], 09/12/2024 11:55:33 09/07/19 25 09/06/2024 D-PRE SUMPT MIKEL URINE DRUG REPOR T cannabinoid NEGATI VE NG/mL <50.0 Not Available Mallory Cerna MD [facility] (In House Lab) [address] [place] [address], [id number], 09/12/2024 11:55:33 09/07/19 25 09/06/2024 D-PRE SUMPT MIKEL URINE DRUG REPOR T cocaine NEGATI VE NG/mL <300.0 Not Available Mallory Cerna MD [facility] (In House Lab) [address] [place] [address], [id number], 09/12/2024 11:55:33 09/07/19 25 09/06/2024 D-PRE SUMPT MIKEL URINE DRUG REPOR T ethanol NEGATI VE mg/dL <50.0 Not Available Mallory Cerna MD [facility] (In House Lab) [address] [place] [address], [address], 09/12/2024 11:55:33 09/07/19 25 09/06/2024 D-PRE SUMPT MIKEL URINE DRUG REPOR T methadone <0.8 NG/mL <300.0 Not Available Mallory Cerna MD [facility] (In House Lab) [address] [place] [address], [id number], 09/12/2024 11:55:33 09/07/19 25 09/06/2024 D-PRE SUMPT MIKEL URINE DRUG REPOR T opiates <6.4 NG/mL <300.0 Opiat es inclu yana Codei ne,Mo rphin e, [place] morph one,H ydroc odone Not Available Mallory Cerna MD [facility] (In House Lab) [address] [place] [address], [id number], 09/12/2024 11:55:33 09/07/19 25 09/06/2024 D-PRE SUMPT MIKEL URINE DRUG REPOR T oxycodone 0 NG/mL <300.0 Not Available Mallory Cerna MD [facility] (In House Lab) [address], [place], [address], 09/12/2024 11:55:33 09/07/19 25 09/06/2024 D-PRE SUMPT MIKEL URINE DRUG REPOR T urine creatinine (validity test) 55.2 mg/dL 20.0 - 300.0 Not Available Mallory Cerna MD [facility] (In House Lab) [address], [place], [address], 09/12/2024 11:55:33 09/20/19 MRI, cervi josh spine , w/o contr ast No observ ation record ed. [email or web address] Not Available 2024 11:12:54 Result Notes None recorded. Problems Name Problem SNOMED Code Status Onset Date Resolution Date Notes Provider Name and Address Organization Details Recorded Time Chronic low back pain 908351125 Active 2024 Maggie Desir MD [address] [place], [address], [facility] 5 03:57:45 Chronic neck pain 8320929616896 Active 2024 [place] [address] [place] [address], [address], [facility] 5 03:57:55 Fibromyalgi a 603159946 Active 2024 [place] [address] [place] [address], [address], [facility] 5 03:58:05 Osteoarthri tis 066761187 Active 2024 [place] [address] [place] [address], [address], [facility] 5 03:58:19 Peripheral neuropathy due to type 2 diabetes mellitus 9939609378460 Active 2024 Maggie Desir MD [address] [place], [place] [address], [address], [facility] 5 04:01:42 Cervical spondylosis without myelopathy 451510375 Active 2024 MD [address] [place], [place] [address], [address], [facility] 5 17:26:18 Degeneratio n of cervical interverteb ral disc 39888322 Active 2024 MD [address] [place], [place] [address], [address], [facility] 5 17:26:23 Depressed mood 530881759 Active 2024 MD [address] [place], [place] [address], [address], [facility] 5 17:26:59 Mood swings 23460180 Active 2024 Maggie Desir MD [address] [place], [place] [address], [address], [facility] 5 17:27:10 Stability of mood - finding 120706388 Active 2024 Maggie Desir MD [address] [place], [place] [address], [address], [facility] 5 17:27:17 Problem Notes None recorded. Medical Equipment None Reported. Allergies Allergen ID Allergen Name Allergen Category Reaction Reaction Severity Criticality Documentation Date Start Date Code Code System Note Provider Name and Address Organization Details Recorded Time 95037 Product containin g penicilli n (product) medicatio n itching Not available Not available 09/06/2024 57232 8001 SNOMED Elyse Wilfred[place], [place] [...] Address Organization Details Last Updated DateTime 5 99427.8 2 g 97.9 [degF] 31.3 kg/m2 149.86 [...] SARS-COV-2 (COVID-19) vaccine, UNSPECIFIED 08/21/2024 completed [place] - [facility] 09/06/2024 09:33:43 Past Encounters Encounter ID Performer Location Encounter Start Date Encounter Closed Date Diagnosis/Indication Diagnosis SNOMED-CT Code Diagnosis ICD10 Code Diagnosis IMO Codes Diagnosis Note [id number] Maggie Desir MD [address] [facility] [address] [place] [address] 09/06/2024 08:29:29 09/10/2024 10:03:39 Chronic neck pain 5818933483 107 M54.2 G89.29 354581 Fibromyalgia 782827326 M 79.7 99253 Peripheral neuropathy due to type 2 diabetes mellitus 0892950861 107 E11.42 6831263 Long-term current use of opiate analgesic drug 2403071012 94648 Z79.891 Diagnostic /Lab: Order Presumptiv e UDT [...] tapentadol and carisoprod ol). HP2 (CBC/CMP/G GT) C BC - ordered to monitor the effects of prescribed medication CMP/GGT - ordered to obtain baseline levels for renal and hepatic functions and electrolyt e statusdraw n to monitor the fpc effects of current medication . Cervical s pondylosis without myelopathy 488357056 M47.812 4082857580 Degenerati on of cervical intervertebral disc 41956485 M50.30 66336078 Depressed mood 629803861 R45.89 6758663 Mood swings 14389423 R45 .86 647465 Stability of mood - finding 137622417 R45.89 [id number] Health Concerns Section Related Observation LastModified by Organization Detai ls LastModified Time None Recorded Concern Status LastModified by Organization Details LastModified Time None Recorded Advance Directives Directive None Recorded Payers Insurance Date Sequence Insurance Name Policy Number Policy Barnett Covered Member ID Barnett Member ID Guarantor Name 10/08/2024 1 [facility] (MEDICARE REPLACEMENT/A DVANTAGE - HMO) [place] Shaunna E Warmout [id number] [facility]na [facility] 10/08/2024 2 [facility] (MEDICAID HMO) Shaunna Warmout [id number] Shaunna [facility] Notes Date Note Type Note Provider Name and Address Organization Details Recorded Time 09/06/2024 text/html ROS as noted in the HPI Dr. Desir dictating a new patient evaluation [...] pain medication on 07/22/24. Maggie Desir MD [address], [place], [address], [facility] 09/06/2024 17:40:46 OBGyn Episode No OBEpisode recorded.
--- OUTSIDE RECORDS SUMMARY | 2025-03-14 07:32 | XMS_ITS | Data Portability ---
Author Organization TONG Paredes [facility] Address [address] [facility] [address] [place] [address] Assessment No assessment recorded. Plan of Treatment Reminders Order Date Submit Date Provider Last Modified By Organization Details Last Modified Time Details Appointments None recorded. Lab None recorded. Referral None recorded. Procedures None recorded. Surgeries None recorded. Imaging None recorded. Medication Orders [place] 5 mg-325 mg tablet 2020 021 [facility], [address] [place] [address] E Richy Velazquez [place], [id number], 1 09:19:48 [place] 5 mg-325 mg tablet 2020 021 [facility], [address] [place] [address] Cedric Han [place], [place], [id number], 1 08:26:41 gabapentin 300 mg capsule 2019 020 [facility], [address] [place] [address] Cedric Han [place], [place], [id number], 0 09:07:47 diclofenac sodium 75 mg tablet,del ayed release 2019 020 [facility], [address] [place] [address] [place], [id number], 0 09:07:47 cyclobenza jo ann 10 mg tablet 2019 020 [place] [address] Joaquín Pisano [place], [id number], 0 09:07:47 [place] 5 mg-325 mg tablet 2019 [facility], [address] [place] [address] E Joaquín Han [place], [id number], 0 09:07:47 [place] 5 mg-325 mg tablet 2019 [facility], [address] [place] [address] E Joaquín Han [place], [id number], 0 08:51:48 [place] 5 mg-325 mg tablet 2019 [facility], [address] [place] [address] E Joaquín Han [place], [id number], 0 14:11:17 Patient TargetsNo targets recorded. Patient Instructions Encounter Date Encounter Id Patient Instructions Last Modified By Organization Details Last Modified Time 03/04/2020 [id number] osteoarthritis: care instructions smoberly Not available 03/04/2020 14:09:58 04/01/2020 [id number] osteoarthritis: care instructions smoberly Not available 04/01/2020 08:50:24 05/01/2020 [id number] osteoarthritis: care instructions smoberly Not available 05/01/2020 09:06:21 06/01/2020 [id number] osteoarthritis: care instructions smoberly Not available 06/01/2020 08:25:19 07/01/2020 [id number] osteoarthritis: care instructions smoberly Not available 07/01/2020 09:17:45 Reason for Referral None Reported. Problems Name Problem SNOMED Code Status Onset Date Resolution Date Notes Provider Name and Address Organization Details Recorded Time Pain in left foot 66819326573 9107 Active 2014 From Automated Load;Prov ider: Janet Paredes;Sta tus: Active Not Available [facility] 6 08:14:16 Pain in right foot 93811129674 9107 Active 2014 From Automated Load;Prov ider: Janet Paredes;Sta tus: Active Not Available [facility] 6 08:14:20 Low back pain 078905305 Active 2014 From Automated Load;Prov ider: Janet Paredes;Sta tus: Active Not Available [facility] 6 08:14:20 Idiopathi c osteoarth ritis 480641172 Active 2014 From Automated Load;Prov ider: Saranya Frederick;Sunny tatus: Active Not Available [facility] 6 08:14:20 Carpal tunnel syndrome 77816765 Active 2015 From Automated Load;Prov ider: Saranya Frederick;Sunny tatus: Active Not Available [facility] 6 08:14:20 Idiopathi c chronic neuropath y 470452198 Active 2017 bilateral feet SARANYA FREDERICK, BAND LINING BANDER [address] [place], [address] , [facility] 8 10:44:55 Fibromyal natalio 475650014 Active 2018 SARANYA FREDERICK, BAND LINING BANDER [address] [place], [address] , [facility] 9 10:28:45 Generaliz ed osteoarth ritis 421968323 Active 2018 SARANYA FREDERICK, BAND LINING BANDER [address] [place], [address] , [facility] 9 10:28:48 Problem Notes None recorded. Procedures Surgical History Date Name Laterality Status Provider Name and Address Organization Details Recorded Time 07/02/19 20 Injection - Joint/Bursa, Major, w/o US completed SARANYA FREDERICK APRN [address] [place], [address], [facility] 07/14/2019 12:59:50 07/04/19 17 Injection - Joint/Bursa, Major, w/o US completed SARANYA FREDERICK, BAND LINING BANDER [address] [place], [address], [facility] 07/04/2016 11:43:14 Remove tonsils and adenoids completed [facility] 11/25/2016 10:51:52 Appendectomy completed [facility] 11/25/2016 10:51:59 Other completed [facility] 11/25/2016 10:52:20 Imaging Results None recorded. Procedure Notes None recorded. Medical Equipment None Reported. Allergies Allergen ID Allergen Name Allergen Category Reaction Reaction Severity Criticality Documentation Date Start Date Code Code System Note Provider Name and Address Organization Details Recorded Time 033527 naproxen sodium medicatio n Not available Not available Not available 04/15/20162010 87885 2 RxNorm Comme nt: Creat ed By: Gabriel thompson;Cre ated Date: 05/03 1:57: 04 PM; Not Available [facility] 6 05:00:12 983028 Product containin g penicilli n (product) medicatio n Not available Not available Not available 04/15/20162010 91695 8001 SNOMED Comme nt: Creat ed By: Gabriel thompson;Cre ated Date: 05/03 1:56: 47 PM; Not Available [facility] 6 09:14:31 [id number] Flonase medicatio n Not available Not available Not available 04/15/20162010 96404 RxNorm Comme nt: Creat ed By: Gabriel thompson;Cre ated Date: 05/03 1:58: 11 PM; Not Available [facility] 6 09:14:32 Medications Name Sig Start Date [...] day by oral route. 2019 active Saranya Lisa Not Available Not Available Not Available diclofena c sodium 75 mg tablet,de layed release TAKE ONE TABLET BY MOUTH TWICE DAILY --TAKE WITH FOOD-- active Not Available Not Available No t Available [place] 7.5 mg-325 mg tablet Take 1 tablet 3 times a day by oral route as needed for 30 days. 09/30 completed Not Available Not Available Not Available oxybutyni n chloride 5 mg tablet TAKE 1 TABLET BY MOUTH THREE TIMES DAILY MAY CAUSE DROWSINE SS 2018 active Not Available Not Available Not Avai lable [place] 5 mg-325 mg tablet Take 1 tablet [...] NO PA required per [employer] ref #[id number] Not Available Not Available Not Available NyQuil [...] 06/01/2020 152.4 cm SARANYA FREDERICK, DARLING [address] [place], [address] [place] [address] 06/01/2020 08:23:42 Date Recorded Body height Provider Name an d Address Organization Details Last Updated DateTime 07/01/2020 152.4 cm SARANYA FREDERICK, DARLING [address] [place], [address] [place] [address] 07/01/2020 09:16:45 Date Recorded Body height Provider Name an d Address Organization Details Last Updated DateTime 03/04/2020 152.4 cm SARANYA FREDERICK APRN [address] [place], [address] 03/04/2020 14:08:12 Date Recorded Body height Provider Name an d Address Organization Details Last Updated DateTime 04/01/2020 152.4 cm SARANYA FREDERICK, BAND LINING BANDER [address] [place], [address] 04/01/2020 08:44:51 Date Recorded Body height Provider Name an d Address Organization Details Last Updated DateTime 05/01/2020 152.4 cm SARANYA FREDERICK, BAND LINING BANDER [address] [place], [address] 05/01/2020 09:03:48 Social History Question Answer Notes LastModified by [employer] Details LastModified Time Tobacco Smoking Status Former Smoker [facility] 06/01/2016 10:42:17 How Much Tobacco Do You Chew? None [email or web address] Information not available 08/16/2018 What Was The Date Of Your Most Recent Tobacco Screening? 07/02/2019 [email or web address] Information not available 07/02/2019 How Much Tobacco Do You Smoke? No [email or web address] Information not available 08/16/2018 Has Tobacco Cessation Counseling Been Provided? No [email or web address] Information not available 08/16/2018 How Many Years Have You Smoked Tobacco? 5 [email or web address] Information not available 08/16/2018 Sex: Unknown Functional Status Question Answer Note LastModified by [employer] Details LastModified Time What is your level of alcohol consumption? None [email or web address] Information not available 09/28/2016 Do you or [...] 10:41:21 Mother No current problems or disability [email or web address] Not available 06/01 10:41:21 Paternal Aunt Diabetes mellitus Not available 11/25 10:51:07 Sister Myocardial infarction [email or web address] Not available 11/2016 10:51:18 Sister Arthritis [email or web address] Not availa ble 11/25/2016 10:51:33 Medical History [...] ICD10 Code Diagnosis IMO Codes Diagnosis Note [id number] SARANYA FREDERICK APRN RHEUMATOL SUE [facility] [address] [place] [address] 06/01/2016 10:32:42 06/01/2016 11:17:18 Osteoarthritis 884601030 M19.90 Long-term drug therapy 386218409 Z79.899 Idiopathic osteoarthritis 235974576 M19.91 Muscle weakness 55567066 M62.81 Low back pain 333113722 M54.5 Carpal ulises dedrick syndrome 94454380 G56.01 G56.02 Muscle pain 59477694 M79 .1 Falls 070809928 R29.6 [id number] SARANYA FREDERICK APRN RHEUMATOL SUE [address] [address] 07/04/2016 11:00:12 07/04/2016 12:04:53 Osteoarthritis 186964007 M19.90 Seropositi ve rheumatoid arthritis 218632878 M05.9 Idiopathic osteoarthritis 210057435 M19.91 Greater [address] ochanteric pain syndrome 5510394 M70.62 Fibromyalgia 005108246 M 79.7 Pain of oulder region 90062982 M25.537 [id number] SARANYA FREDERICK APRN RHEUMATOL SUE [address] [address] 07/28/2016 09:31:32 07/28/2016 11:21:43 Osteoarthritis 404363488 M19.90 chronic and recurring oa with some dip and pip changesno synovitis or dactylitis normal systemic examstable and without crippling deformityw ill provide with refills of norco todaykaspe r todayopioi d screening today Idiopathic osteoarthritis 287601529 M19.91 Long-term drug therapy 422224574 Z79.950 [id number] SARANYA FREDERICK APRN RHEUMATOL [facility] [address] [place] [address] 1 08/29/2016 10:28:32 08/29/2016 11:51:31 Seropositive rheumatoid arthritis 334619631 M05.9 no seropositi ve RA; oa only Osteoarthritis 766246828 M19.90 chronic and recurring oa with some dip and pip changesno synovitis or dactylitis normal systemic examstable and without crippling deformityw ill provide with refills of norco todaykaspe r todayopioi d screening today Idiopathic osteoarthritis 991896232 M19.91 Long-term drug therapy 193043535 Z79.553 [id number] [place] [address] [place] [address] 1 09/28/2016 09:16:10 09/28/2016 10:37:21 Osteoarthritis 066221440 M19.90 chronic and recurring oa with some dip and pip changesno synovitis or dactylitis normal systemic examstable and without crippling deformityw ill provide with refills of norco todaykaspe r todayopioi d screening today Idiopathic osteoarthritis 933697874 M19.91 Long-term drug therapy 611568814 Z79.899 Seropositi ve rheumatoid arthritis 785807472 M05.9 no seropositi ve RA; oa only [id number] SARANYA FREDERICK APRN RHEUMATOL [facility] [address] [place] [address] 1 10/19/2016 10:48:26 10/19/2016 14:43:30 Osteoarthritis 429253911 M19.90 chronic and recurring oa with some dip and pip changesno synovitis or dactylitis normal systemic examstable and without crippling deformityw ill provide with refills of norco todaykaspe r todayopioi d screening today Idiopathic osteoarthritis 426510633 M19.91 [id number] SARANYA FREDERICK APRN RHEUMATOL OGY [address] [place] [address] 1 11/25/2016 09:53:51 11/25/2016 13:06:09 Osteoarthritis 587918385 M19.90 chronic and recurring oa with some dip and pip changesno synovitis or dactylitis normal systemic examstable and without crippling deformityw ill provide with refills of norco todaykaspe r todayopioi d screening today Long-term drug therapy 042994159 Z79.899 Idiopathic osteoarthritis 025974119 M19.91 Neuropathy 435836244 G62 .9 [id number] [facility] [address] [place] [address] 12/23/2016 09:47:48 12/23/2016 10:25:56 Osteoarthritis 518194392 M19.90 chronic and recurring oa with some dip and pip changesno synovitis or dactylitis normal systemic examstable and without crippling deformityw ill provide with refills of norcogabap entin provided last monthkaspe r todayopioi d screening today Body mass index 25-29 - overweight 104438627 Z68.27 Long-term drug therapy 398408966 Z79.899 Seropositi ve rheumatoid arthritis 114067661 M05.9 no seropositi ve RA; oa only Pruritic rash 85444905 L 28.2 bilateral armsusing benadryl and benadryl creammay be sun relatedwil l further assess after having her stay out of the [facility] provide with 120 mg IM injection today [id number] SARANYA FREDERICK APRN RHEUMATOL [facility] [address] [place] [address] 01/25/2017 09:59:54 01/25/2017 12:41:39 Osteoarthritis 488304259 M19.90 chronic and recurring oa with some dip and pip changesno synovitis or dactylitis normal systemic examstable and without crippling deformityw ill provide with refills of norcogabap entin provided last monthkaspe r todayopioi d screening today Long-term drug therapy 919703093 Z79.899 Idiopathic osteoarthritis 209525774 M19.91 Intercosta l post-herpetic neuralgia 285070932 B02.29 chronic and recurringh as worn lidoderm patches in the pastrecent flarewill prescribe again [id number] SARANYA FREDERICK APRN RHEUMATOL [facility] [address] [place] [address] 02/22/2017 09:37:59 02/22/2017 10:47:06 Osteoarthritis 525726808 M19.90 chronic and recurring oa with some dip and pip changesno synovitis or dactylitis normal systemic examstable and without crippling deformityw ill provide with refills of norcogabap entin provided last monthkaspe r todayopioi d screening today Long-term drug therapy 983886488 Z79.899 refills and labs today Pain in right arm 899704 004 M79.601 occuring at nightshe is concerned about carpal tunnel syndromeaw akening at night; she reports she has been taking a muscle relaxer to help and it doeswill have her start one every night before bedtime and will make her a referral if it's needed [id number] SARANYA FREDERICK APRN [facility] [place] [address] [place] [address] 1 03/27/2017 09:52:48 03/27/2017 10:31:51 Osteoarthritis 075805205 M19.90 chronic and recurring oa with some dip and pip changesno synovitis or dactylitis normal systemic examstable and without crippling deformityw ill provide with refills of norcokaspe r today opioid screening today Long-term drug therapy 906990306 Z79.899 refills and labs today Pain in right arm 586853 004 M79.601 occuring at nightsjarocho is concerned about carpal tunnel syndromeaw akening at night; she reports she has been taking a muscle relaxer to help and it doeswill have her start one every night before bedtime and will make her a referral if it's needed Neuropathy 682379560 G62 .9 chronic and recurring with bilateral arm and leg painsburni ng and tingling [id number] GRACE KRAFT APRN RHEUMATOL OGY [facility] [address] [place] [address] 1 04/27/2017 09:42:35 04/27/2017 11:26:13 Osteoarthritis 101115218 M19.90 OA chronic and symptomati c.no synovitis or effusions. normal systemic examMainta in [place] TID. lissa and UDS today.rech turner 1 month, sooner if needed. Long-term drug therapy 763315329 Z79.372 [id number] GRACE KRAFT APRN [place] [address] 05/26/2017 10:09:20 05/26/2017 11:20:59 Fibromyalgia 823541499 M79.7 fibromyalg iaWith diffuse tenderness .Refill cymbalta today. Osteoarthritis 043610801 M19.90 OA remains symptomati c.no synovitis or effusions. Maintain norco TID. lissa today.rech turner 1 month, sooner if needed. [id number] SARANYA FREDERICK APRN RHEUMATOL [place] [address] 1 06/26/2017 09:36:39 06/26/2017 10:21:23 Osteoarthritis 533308218 M19.90 OA remains symptomati c.no synovitis or effusions. Maintain norco TID. lissa today.rech turner 1 month, sooner if needed. Fibromyalgia 703039841 M 79.7 fibromyalg iaWith diffuse tenderness .Refill cymbalta today. Neuropathy 899758501 G62 .9 chronic and recurring with bilateral arm and leg painsburni ng and tingling Long-term drug therapy 159580124 Z79.899 refills and labs today Idiopathic osteoarthritis 569407206 M19.91 [id number] SARANYA FREDERICK APRN RHEUMATOL [place] [address] 1 07/24/2017 09:59:03 07/24/2017 11:19:29 Osteoarthritis 427541955 M19.90 OA remains symptomati cno synovitis or effusionsn o obvious nodulesMai ntain norco TIDkasper todaydiscu ssed today Idiopathic chronic neuropathy 391734850 G60.9 recurring; takes neurontin tid no refills needed today gabapentin filled last month [id number] RIVER SAUCEDA APRN [place]OL [place] [address] 1 08/21/2017 09:52:27 08/21/2017 11:14:40 Osteoarthritis 419527350 M19.90 OA remains symptomati c lower back, hands, knees, feetno synovitis or effusions. Maintain norco TID.lissa today. CS consent in place.rech turner 1 month, sooner if needed. Fibromyalgia 382045965 M 79.7 fibromyalg iaWith diffuse tenderness .Refill cymbalta today.main tain gabapentin Neuropathy 533570015 G62 .9 chronic and recurring with bilateral arm and leg painsburni ng and tinglingne eds EMG, start with BUE rule out CTS vs cervical vs idiopathic ;after results, consider BLE; Long-term drug therapy 170410584 Z79.899 refills and labs today Generalize d osteoarthritis 156563451 M15.9 get images of bilateral knees, declined injection today, but worsening knee pain; Pain of bi lateral hands 4197205178 1220772 M79.641 M79.642 symptoms and exam suggestive of CTS she is dropping items will get EMG/NCS, work up for potential repair of CTS xray bilat hands today will trial cock up wrist brace bilateral, wear for house work/use at home, and for sleep [id number] SARANYA FREDERICK APRN RHEUMATOL SUE [address] [place] [address] 09/21/2017 10:01:31 09/21/2017 11:43:54 Osteoarthritis 013385936 M19.90 OA remains symptomati c lower back, hands, knees, feetno synovitis or effusions. Maintain norco TID.lissa today. CS consent in place.rech turner 1 month, sooner if needed. Fibromyalgia 095939334 M 79.7 fibromyalg iaWith diffuse tenderness .Refill cymbalta today.main tain gabapentin --filled two months ago and again last month [id number] SARANYA FREDERICK APRN [facility]OL [place] [facility] [address] [place] [address] 10/23/2017 10:09:03 10/23/2017 11:59:12 Osteoarthritis 874363002 M19.90 OA remains symptomati c lower back, hands, knees, feetunable to tolerate nsaidscont inues on norco tidkasper today; controlled substance agreement signedneed s refillsuri ne ok, no need for assessment today Fibromyalgia 245623611 M 79.7 fibromyalg iaWith diffuse tenderness .Refill cymbalta today.main tain gabapentin --filled two months ago and again last month [id number] RIVER SAUCEDA APRN RHEUMATOL [facility] [address] [place] [address] 11/20/2017 10:18:37 11/20/2017 16:53:38 Osteoarthritis 321600367 M19.90 OA remains symptomati c lower back, hands, knees, feetunable to tolerate nsaidscont inues on norco tid-reques ts refill [place] and cymbalta today she is also taking [...] S today with urine gabapentin . Fibromyalgia 535881819 M 79.7 fibromyalg iahaving a good day, few tender trigger points today.Refi ll cymbalta today.main tains gabapentin also, denies need for refill today [id number] RIVER SAUCEDA APRN RHEUMATOL OGY [address] [place] [address] 12/21/2017 10:18:10 12/21/2017 14:54:02 Osteoarthritis 418444471 M19.90 OA remains symptomati c lower back,knees have severe changes needs spine imaging, consider injections Knee steroid has not benefitted in past, will try approval for simvisc series of 3. continues on norco tid-reques ts refill [place] and gabapentin , diclofenac topical todayUDS recently appropriat e.maintain lowest effective dose of Norcomaint ain gabapentin for radicular symptom from her low back pain She did stop the flexeril at my request ( was combining with baclofen) and only on the baclofen now, doing fine and no worsening, less sedating.ju eric topical and po diclofenac . recent Creatinine normal. lissa reviewed, CS agreement in place. Fibromyalgia M 79.7 fibromyalg iahaving a good day, few tender trigger points today.Refi ll cymbalta today.main tains gabapentin also, denies need for refill today Lumbar radiculopathy 128 M54.16 order for aquatic pool therapy for severe OA in knees and lumbar pain/radic ulopathy, with fibromyalg ia component. Neck pain 04743829 M54.2 [id number] AWILDA SANCHEZ MD RHEUMATOL OGY [address] [place] [address] 01/17/2018 10:41:41 01/17/2018 12:07:01 Osteoarthritis 185412718 M19.90 OA chronic and diffuse. remains symptomati c lower back and knees. Anticipati ng knee ARECHIGA injections , but wants to do them locally in her area. Knee steroid has not benefitted her in past. due to leg edema minimize the use of oral NSAIDS. OK to continue on norco 7.5 mg tid. UDS recently appropriat e.maintain lowest effective dose of [place] she will also maintain gabapentin for radicular [...] management of her neck and back pains. [id number] RIVER SAUCEDA APRN RHEUMATOL OGY [address] [place] [address] 02/21/2018 10:07:38 02/21/2018 15:04:00 Fibromyalgia 826932072 M79.7 fibromyalg iahaving a good day, few tender trigger points today.Refi ll medication s gabapentin , cymbalta Osteoarthritis 809191784 M19.90 In the knees and the spine, [...] CS agreement in place. Long-term drug therapy 244480432 Z79.899 refills and labs today [id number] SARANYA FREDERICK APRN RHEUMATOL [facility] [address] [place] [address] 03/20/2018 09:24:01 03/20/2018 10:11:53 Fibromyalgia 340531235 M79.7 fibromyalg iastable with normal labs and refills 02/21/18 Osteoarthritis 855882401 M19.90 In the knees and the spine, chronic. Not interested in spine injections hsa been to PT long ago, did not help a lot. OA remains symptomati c lower back, knees have severe changes continues on norco tid- refilled todayUDS recently appropriat emaintain lowest effective dose of [place] lissa reviewed, CS agreement in place. Long-term drug therapy 645712248 Z79.899 refills today; labs are good [id number] SARANYA FREDERICK APRN RHEUMATOL [facility] [address] [place] [address] 04/19/2018 10:18:23 04/20/2018 09:41:55 Osteoarthritis 346998999 M19.90 In the knees and the spine, chronic. Not interested in spine injections hsa been to PT long ago, did not help a lot. OA remains symptomati c lower back, knees have severe changes continues on norco tid- refilled today maintain lowest effective dose of [place] lissa reviewed, CS agreement in place Fibromyalgia 446696141 M 79.7 fibromyalg iastable with normal labs and refills 02/21/18 Long-term drug therapy 715337221 Z79.899 refills today; labs are good [id number] SARANYA FREDERICK APRN RHEUMATOL OGY [address] [place] [address] 05/18/2018 09:13:40 05/23/2018 09:22:57 Fibromyalgia 309831620 M79.7 fibromyalg iahaving a good day, few tender trigger points today.Refi ll medication s gabapentin , cymbalta Osteoarthritis 734429668 M19.90 In the knees and the spine, [...] CS agreement in place. Long-term drug therapy 049673524 Z79.899 refills today labs are good from 02.21.18 [id number] SARANYA FREDERICK APRN RHEUMATOL OGY [address] [place] [address] 06/21/2018 11:01:50 06/26/2018 09:36:56 Osteoarthritis 399299676 M19.90 chronic recurring the knees and the [...] and po diclofenac . recent Creatinine normal. kaspercont rolled substance agreement signedno need for urine today Fibromyalgia 706644232 M 79.7 fibromyalg iahaving a good day, few tender trigger points today.refi lls sent last month Long-term drug therapy 730451244 Z79.899 refills today labs are good from 10.3.18 Screening for osteoporosis 425264662 Z13.820 with deep bone pain and tenderness reports no dexa in the past [id number] SARANYA FREDERICK APRN RHEUMATOL OGY [address] [place] [address] 07/19/2018 08:42:39 07/31/2018 15:57:51 Osteopenia [id number] M85.80 Lumbar radiculopathy 128 511220 M54.16 Osteoarthritis 636751384 M19.90 chronic recurring the knees and the [...] and po diclofenac . recent Creatinine normal. kaspercont rolled substance agreement signedno need for urine today [id number] AWILDA SANCHEZ MD RHEUMATOL [facility] [address] [place] [address] 08/16/2018 09:33:23 08/17/2018 09:54:47 Lumbar radiculopathy [id number] M54.16 she is chronic mechanical neck and [...] decision to Dr. Frederick. Generalize d osteoarthritis 821936058 M15.9 she has generalize d osteoarthr itis, with chronic mechanical back, hips and knee pains.she needs to consider left total knee arthroplas ty. However I would leave this decision between her and Kerrie Frederick. 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 kasramonitacont rolled substance agreement signedno need for urine today Long-term drug therapy [id number] Z79.899 she will follow with the opioid drug screen. [id number] SARANYA FREDERICK APRN RHEUMATOL [facility] [address] [address] [place] [address] 09/14/2018 09:17:58 09/18/2018 16:05:23 Fibromyalgia 668591674 M79.7 fibromyalg iahaving a good day, few tender trigger points today.refi lls sent last month Generalize d osteoarthritis 814663332 M15.9 [id number] SARANYA FREDERICK APRN RHEUMATOL [address] [address] [place] [address] 10/12/2018 09:22:18 10/17/2018 13:06:43 Generalized osteoarthritis 630405042 M15.9 chronic and recurring djd and on norco for years she will maintain the norco, low dose and has titrated down from 4/10 mg tablets daily lissa today Long-term drug therapy 958011003 Z79.899 refills today labs are good from 10.3.18 [id number] SARANYA FREDERICK APRN [facility]HEUMATOL [place] [address] [place] [address] 11/12/2018 09:56:35 11/14/2018 10:33:37 Generalized osteoarthritis 037151379 M15.9 chronic and recurring djd and on norco for years unable to take nsaids she will maintain the norco, low dose and has titrated down from 4/10 mg tablets daily to 3/7.5 mg daily lissa today; no need for opitates urine today; normal on last assessment refills today Long-term drug therapy 114641723 Z79.899 refills today [id number] SARANYA FREDERICK APRN RHEUMATOL [facility] [place] [address] [place] [address] 1 12/12/2018 09:57:21 12/14/2018 10:22:47 Generalized osteoarthritis 128262650 M15.9 chronic and recurring djd and on norco for years unable to take nsaids she will maintain the norco, low dose and has titrated down from 4/10 mg tablets daily to 3/7.5 mg daily lissa today; no need for opiates urine today; normal on last assessment refills today Long-term drug therapy 302368698 Z79.899 refills today Fibromyalgia 149697800 M 79.7 fibromyalg iahaving a good day, few tender trigger points today.refi lls sent last month [id number] SARANYA FREDERICK APRN RHEUMATOL [place] [address] [place] [address] 1 01/11/2019 09:57:39 01/11/2019 14:16:36 Generalized osteoarthritis 109924176 M15.9 chronic and recurring djd and on norco for years unable to take nsaids she will maintain the norco, low dose and has titrated down from 4/10 mg tablets daily to 3/7.5 mg daily lissa today; no need for opiates urine today; normal on last assessment refills today [id number] SARANYA FREDERICK APRN RHEUMATOL [address] [place] [address] 1 02/11/2019 09:43:50 02/13/2019 09:41:54 Body mass index 30+ - obesity 251689636 Z68.30 Generalize d osteoarthritis 403951123 M15.9 chronic and recurring djd and on norco for years unable to take nsaids she will maintain the norco, low dose and has titrated down from 4/10 mg tablets daily to 3/7.5 mg daily lissa today; no need for opiates urine today; normal on last assessment refills today [id number] SARANYA FREDERICK APRN RHEUMATOL [facility] [address] [place] [address] 03/13/2019 09:25:17 03/15/2019 10:45:20 Generalized osteoarthritis 465985562 M15.9 chronic and recurring djd and on norco for years unable to take nsaids she will maintain the norco, low dose and has titrated down from 4/10 mg tablets daily to 3/7.5 mg daily lissa today; no need for opiates urine today; normal on last assessment refills today Body mass index 30+ - obesity 151830061 Z68.30 Fibromyalgia 381817149 M 79.7 fibromyalg iahaving a good day, few tender trigger points today.refi lls sent last month [id number] SAR[place] [address] [place] [address] 1 04/12/2019 09:48:04 04/13/2019 18:34:16 Generalized osteoarthritis 320902934 M15.9 chronic and recurring djd and on norco for years unable to take nsaids she will maintain the norco, low dose and has titrated down from 4/10 mg tablets daily to 3/7.5 mg daily lissa today; no need for opiates urine today; normal on last assessment refills today Fibromyalgia 387852906 M 79.7 fibromyalg iahaving a good day, few tender trigger points today.refi lls sent last month Body mass index 30+ - obesity 735910150 Z68.30 Long-term drug therapy 467256449 Z79.899 refills today [id number] SARANYA [place] [address] [place], [place] [address] 05/31/2019 08:33:20 05/31/2019 09:19:47 Generalized osteoarthritis 613519310 M15.9 chronic and recurring djd and on norco for years unable to take nsaids she will maintain the norco, low dose and has titrated down from 4/10 mg tablets daily to 3/7.5 mg daily lissa today; no need for opiates urine today; normal on last assessment refills today Fibromyalgia 095377078 M 79.7 fibromyalg iahaving a good day, few tender trigger points today.refi lls sent last month Body mass index 30+ - obesity 811000623 Z68.30 Long-term drug therapy 609438426 Z79.899 refills today [id number] SARANYA FREDERICK APRN [place]AT[place] [facility] [place] [address] [place] [address] 07/02/2019 09:42:08 07/02/2019 11:21:03 Generalized osteoarthritis 571851006 M15.9 chronic and recurring djd and on norco for years unable to take nsaids she will maintain the norco, low dose and has titrated down from 4/10 mg tablets daily to 3/7.5 mg daily lissa today; no need for opiates urine today; normal on last assessment refills today Body mass index 30+ - obesity 938711813 Z68.30 Pain in left knee 396146 7643 01045 M25.562 with left knee pain and tenderness requests injections today; will provide injection into left knee today h/o the same, though it has been a long time will obtain further xrays today [id number] AWILDA SANCHEZ MD RHEUMATOL [facility] [address] [place] [address] 09/02/2019 08:03:53 09/02/2019 15:34:46 Generalized osteoarthritis 810297739 M15.9 she has generalize d osteoarthr itis, with chronic mechanical back, hips and knee pains.she has severe bilateral knee osteoarthr itis and needs to consider left total knee arthroplas ty. 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 Fibromyalgia 257527423 M 79.7 she has chronic fibromyalg ia syndrome with typical good days and bad days. Overall her pains are well controlled . she can maintain the cymbalta 60 mg poqd along with gabapentin 300mg tid. no refills given today. [id number] [place] [address] [place] [address] 10/01/2019 09:00:20 10/01/2019 12:34:08 Generalized osteoarthritis 565789018 M15.9 68-year-ol d female with generalize d osteoarthr itis. followed by Saranya Frederick and is currently covered on at 7.5 mg 3 times a day. I suggested her to reduce the dose to 5 mg 3 times a day. she can't take over-the-c ounter Aleve once or twice a day for breakthrou gh pain. Follow-up in one month. [id number] SARANYA FREDERICK APRN RHEUMATEARL [place] [address] [place] [address] 11/01/2019 07:52:25 11/01/2019 08:12:51 Generalized osteoarthritis 819338110 M15.9 68-year-ol d female with generalize d osteoarthr itis. reduced the dose to 5 mg 3 times a day. she can take over-the-c ounter diclofenac once or twice a day for breakthrou gh pain. Follow-up in one month. [id number] SARANYA FREDERICK APRN RHEUMATEARL [address] [address] [place] [address] 12/02/2019 08:26:06 12/02/2019 09:37:43 Fibromyalgia 129136799 M79.7 fibromyalg iahaving a good day, few tender trigger points today.refi lls today of gabapentin 300 mg tid; cyclobenza jo ann prn for muscle spasms; baclofen didn't work for her;no s/e with meds; stable disease process Generalize d osteoarthritis 517684983 M15.9 68-year-ol d female with generalize d osteoarthr itis. reduced the dose to 5 mg 3 times a day. she can take over-the-c ounter diclofenac once or twice a day for breakthrou gh pain. Follow-up in one month. [id number] SARANYA FREDERICK APRN RHEUMATOL [facility] [address] [place] [address] 01/03/2020 08:03:32 01/03/2020 09:00:29 Generalized osteoarthritis 305119365 M15.9 68-year-ol d female with generalize d osteoarthr itis. reduced the dose to 5 mg 3 times a day. she can take over-the-c ounter diclofenac once or twice a day for breakthrou gh pain. Follow-up in one month. Fibromyalgia M 79.7 fibromyalg iahaving a good day, few tender trigger points today.refi lls today of gabapentin 300 mg tid; cyclobenza jo ann prn for muscle spasms; baclofen didn't work for her;no s/e with meds; stable disease process [id number] SARANYA FREDERICK APRN RHEUMATOL [facility] [address] [place] [address] 01/31/2020 08:05:37 01/31/2020 09:46:50 Generalized osteoarthritis 330106875 M15.9 68-year-ol d female with generalize d osteoarthr itis. reduced the dose to 5 mg 3 times a day. she can take over-the-c ounter diclofenac once or twice a day for breakthrou gh pain. Follow-up in one month. Fibromyalgia M 79.7 fibromyalg iahaving a good day, few tender trigger points today.refi lls today of gabapentin 300 mg tid; cyclobenza jo ann prn for muscle spasms; baclofen didn't work for her;no s/e with meds; stable disease process [id number] SARANYA FREDERICK APRN RHEUMATOL [facility] [address] [place] [address] 03/04/2020 08:08:31 03/04/2020 14:20:54 Generalized osteoarthritis 530467783 M15.9 68-year-ol d female with generalize d osteoarthr itis. reduced the dose to 5 mg 3 times a day. she can take over-the-c ounter diclofenac once or twice a day for breakthrou gh pain. phone call for 5 minutes Follow-up in one month. Fibromyalgia 909987447 M 79.7 fibromyalg iahaving a good day, few tender trigger points today.refi lls today of gabapentin 300 mg tid; cyclobenza jo ann prn for muscle spasms; baclofen didn't work for her;no s/e with meds; stable disease process [id number] [facility] [address] [place] [address] 04/01/2020 08:06:12 04/01/2020 09:03:16 Generalized osteoarthritis 918456817 M15.9 68-year-ol d female with generalize d osteoarthr itis. reduced the dose to 5 mg 3 times a day. she can take over-the-c ounter diclofenac once or twice a day for breakthrou gh pain. phone call for 7 minutes Follow-up in one month. [id number] SARANYA FREDERICK APRN RHEUMATOL [facility] [address] [place] [address] 05/01/2020 08:06:40 05/01/2020 09:06:59 Generalized osteoarthritis 727412388 M15.9 68-year-ol d female with generalize d osteoarthr itis. reduced the dose to 5 mg 3 times a day. she can take over-the-c ounter diclofenac once or twice a day for breakthrou gh pain. phone call for 6 minutes Follow-up in one month. Fibromyalgia 023553771 M 79.7 fibromyalg iahaving a good day, few tender trigger points today.refi lls today of gabapentin 300 mg tid; cyclobenza jo ann prn for muscle spasms; baclofen didn't work for her;no s/e with meds; stable disease process [id number] SARANYA FREDERICK APRN RHEUMATOL [place] [address] [place] [address] 06/01/2020 08:07:10 06/01/2020 08:58:12 Generalized osteoarthritis 011103858 M15.9 68-year-ol d female with generalize d osteoarthr itis. reduced the dose to 5 mg 3 times a day. she can take over-the-c ounter diclofenac once or twice a day for breakthrou gh pain. phone call for 4 minutes Follow-up in one month. [id number] SAR[facility] FREDERICK [facility] [address] [place] [address] 07/01/2020 08:03:42 07/01/2020 09:41:37 Generalized osteoarthritis 216840528 M15.9 68-year-ol d female with generalize d [...] 07/08/2020 1 [place] Shaunna E [place] [id number] Shaunna E [place] 07/27/2020 1 [facility] (MEDICARE REPLACEMENT/A DVANTAGE - HMO) [id number] Shaunna E [place] [id number] Shaunna E [place] 07/04/2016 2 [employer] [facility]TER [facility] (MEDICAID HMO) Shaunna E [place] [id number] Shaunna E [place] 04/15/2020 1 [place] Shaunna E [place] [id number] Shaunna E [place] 04/15/2020 [place] Shaunna E [place] [id number] Shaunna E [place] 10/06/2016 2 [employer] [place] Shaunna E [place] [id number] Shaunna E [place] 09/28/2016 3 [employer] [facility]TER [facility] (MEDICAID HMO) Shaunna E [place] [id number] Shaunna E [place] 07/30/2020 2 [employer] [facility]TER [facility] (MEDICAID HMO) Shaunna E [place] [id number] Shaunna E [place] 09/28/2016 2 [employer] (MEDICARE REPLACEMENT/A DVANTAGE - PPO) Shaunna E [place] [id number] Shaunna E [place] 10/06/2016 3 [place] - FFS/TRADITION AL Shaunna E [place] [id number] Shaunna E [place] 09/21/2017 1 [place] Shaunna E [place] [id number] Shaunna E [place] 09/21/2017 [place] Shaunna E [place] [id number] Shaunna E [place] Notes Date Note Type Note Provider Name and Address Organization Details Recorded Time 03/04/2020 text/html ROS as noted in the HPI Visit today is being conducted via telehealth using both audio and video. Patient has expressed an understanding of the telehealth process and has consented. Patient confirms that he/she is physically located in [place] at the time of this visit. phone call only. Chronic pain management for generalized osteoarthritis mechanical pains. On hydrocodone 5 mg every 8 hours. Denies any side effects. Denies any interval infections. SARANYA FREDERICK APRN [address] [place], [address], [facility] 03/04/2020 14:10:44 05/01/2020 text/html ROS as noted in the HPI Visit today is being conducted via telehealth using both audio and video. Patient has expressed an understanding of the telehealth process and has consented. Patient confirms that he/she is physically located in [place] at the time of this visit. phone call only. Chronic pain management for generalized osteoarthritis mechanical pains. On hydrocodone 5 mg every 8 hours. Denies any side effects. Denies any interval infections. SARANYA FREDERICK APRN [address] [place], [address], [facility] 05/01/2020 09:06:57 06/01/2020 text/html ROS as noted in the HPI Visit today is being conducted via telehealth using both audio and video. Patient has expressed an understanding of the telehealth process and has consented. Patient confirms that he/she is physically located in [place] at the time of this visit. phone call only. Chronic pain management for generalized osteoarthritis mechanical pains. On hydrocodone 5 mg every 8 hours. Denies any side effects. Denies any interval infections. SARANYA FREDERICK APRN [address] [place], [address], [facility] 06/01/2020 08:25:42 07/01/2020 text/html ROS as noted in the HPI Visit today is being conducted via telehealth using both audio and video. Patient has expressed an understanding of the telehealth process and has consented. Patient confirms that he/she is physically located in [place] at the time of this visit. phone call only. Chronic pain management for generalized osteoarthritis mechanical pains. On hydrocodone 5 mg every 8 hours. Denies any side effects. Denies any interval infections. SARANYA FREDERICK, [place] [address] [place], [address], [facility] 07/01/2020 09:18:55 OBGyn Episode No OBEpisode recorded.
--- OUTSIDE RECORDS SUMMARY | 2025-03-14 07:32 | XMS_ITS ---
Laboratory report Created on: February 21, 2025 MARILOU BRO : 1950 Sex: Female Author Name ISELA HDEZ Organization Unknown PROBLEMS Problems List Code Description D64.9 E11.9 E66.9 E78.5 F32.A I10 K21.9 RESULTS Laboratory Orders Date Order Code Test 2024-12-27 488414 VITAMIN D, 25-HY DROXY 2024-12-27 210876 ANEMIA PROFILE B 2024-12-27 [id number] COMP. METABOLIC PANEL (14) 2024-12-27 787994 TSH RFX ON ABNOR MAL TO FREE T4 2024-12-27 015730 LIPID PANEL 2024-12-27 992618 HEMOGLOBIN A1C Laboratory Results Date LOINC Test Value Unit Reference Range Interpre tation 2024-12-27 19349-1 VITAMIN D, 25-HYDROXY 107 NG/ML 30.0-100.0 H 2024-12-27 2500-7 IRON BINDCAP(TIBC) 267 UG/DL 741-434 0117-08-08 2501-5 UIBC 192 UG/DL 096-919 1978-08-08 2498-4 IRON 75 UG/DL 27-139 2024-12-27 2502-3 [...] % 11.7-15.4 2024-12-27 777-3 PLATELETS 227 X10E3/UL 255-102 9273-08-08 770-8 NEUTROPHILS 66 % 2024-12-27 736-9 LYMPHS 23 % 2024-12-27 5905-5 MONOCYTES 7 % 2024-12-27 713-8 EOS 3 % 2024-12-27 706-2 BASOS 1 % 2024-12-27 751-8 NEUTROPHILS (ABSOLUTE) 5.4 X10E3/UL 1.4-7.0 2024-12-27 731-0 LYMPHS (ABSOLUTE) 1.9 X10E3/UL 0.7-3.1 2024-12-27 742-7 MONOCYTES(ABSOLUTE) .5 X10E3/UL 0.1-0.9 2024-12-27 711-2 EOS (ABSOLUTE) .2 X10E3/UL 0.0-0.4 2024-12-27 704-7 BASO (ABSOLUTE) .1 X10E3/UL 0.0-0.2 2024-12-27 38505-8 IMMATURE GRANULOCYTES 0 % 2024-12-27 61617-4 IMMATURE GRANS (ABS) 0 X10E3/UL 0.0-0.1 2024-12-27 96420-8 RETICULOCYTE COUNT 1.1 % 0.6-2.6 2024-12-27 2345-7 GLUCOSE IMSPUN MG/DL 70-99 2024-12-27 3094-0 BUN 23 MG/DL 8-27 2024-12-27 2160-0 CREATININE 1.12 MG/DL 0.57-1.00 H 2024-12-27 64490-7 EGFR 51 ML/MIN/1.7 3 >59 L 2024-12-27 3097-3 BUN/CREATININE RATIO 21 12-2024-12-27 2951-2 SODIUM 135 MMOL/L 828-742 1818-08-08 2823-3 POTASSIUM IMSPUN MMOL/L 3.5-5.2 2024-12-27 2075-0 CHLORIDE 98 MMOL/L 96-106 2024-12-27 2028-9 CARBON DIOXIDE, TOTAL 17 MMOL/L 20-29 L 2024-12-27 34184-6 CALCIUM 9.4 MG/DL 8.7-10.3 2024-12-27 2885-2 PROTEIN, TOTAL 6.5 G/DL 6.0-8.5 2024-12-27 1751-7 ALBUMIN 4.5 G/DL 3.8-4.8 2024-12-27 85985-3 GLOBULIN, TOTAL 2 G/DL 1.5-4.5 2024-12-27 1975-2 BILIRUBIN, TOTAL .3 MG/DL 0.0-1.2 2024-12-27 6768-6 ALKALINE PHOSPHATASE 65 IU/L 44-121 2024-12-27 1920-8 AST (SGOT) 20 IU/L 0-40 2024-12-27 1742-6 ALT (SGPT) 15 IU/L 0-32 2024-12-27 03340-3 TSH 1.28 UIU/ML 0.450-4.500 2024-12-27 2093-3 CHOLESTEROL, TOTAL 127 MG/DL 328-562 1599-08-08 2571-8 TRIGLYCERIDES 225 MG/DL 0-149 H 2024-12-27 2085-9 HDL CHOLESTEROL 38 MG/DL >39 L 2024-12-27 57208-3 VLDL CHOLESTEROL DIANNA 36 MG/DL 5-40 2024-12-27 20927-5 LDL CHOL CALC ([facility]) 53 MG/DL 0-99 2024-12-27 4548-4 HEMOGLOBIN A1C 6.6 % 4.8-5.6 H
[2025-03-14 07:51] LABS: Blood Urea Nitrogen 16 mg/dl (7-17); Creatinine,Serum 1.20 mg/dl (0.52-1.04); Estimated Glomerular Filt Rate 44 ml/min (>60); GFR (African American) 53 ML/MIN (>60)
--- NOTE | 2025-03-14 08:00 | CT_ITS ---
FINAL REPORT TECHNIQUE: Routine axial images were obtained from the lung apices to below the diaphragm following IV contrast administration. Individualized dose reduction techniques using automated exposure control or adjustment of the mA and/or kV according to the patient size were employed. CLINICAL HISTORY: mass palpable chest mass in suprasternal region COMPARISON: None FINDINGS: CT CHEST WITH CONTRAST: There is no mediastinal or hilar adenopathy present. There is a noncalcified nodule in the left upper lobe measuring 4 mm in size, best seen on image #17 of series 2. No infiltrates or pleural effusions are present. There is a lobular mass in the medial aspect of the distal right clavicle at the sternoclavicular joint. This produces mild subluxation of the right sternoclavicular joint, and a mass is noted medial and anterior to the clavicular head. This mass is low-density, measures 22 x 18 mm in size, and appears cystic. This is best seen on image 11 of series 2. This may represent a synovial cyst. IMPRESSION: Lobular mass on the medial aspect of the right clavicle at the sternoclavicular joint. A low-density mass medial and anterior to the clavicular head measures 22 x 18 mm in size, appears cystic, may represent a synovial cyst. Reviewed, Interpreted and Dictated by Reji House MD Transcribed by Josefina Chiang Authenticated and [facility]
[2025-03-14] MEDS: IOPAMIDOL-370 (76%);100ML BOTTLE 75 ML IV (08:24)
[2025-03-14] MEDS: SODIUM CHLORIDE 0.9% 10ML SYR (RAD ONLY) 10 ML IV (08:24)
== END 2025-03-14 23:59 | disposition home or self-care (01) ==
LOC: RAD 07:30
PROVIDERS: PCP Nurse Practitioner Family; Visit Provider Nurse Practitioner Family
DX: R22.2 Localized swelling, mass and lump, trunk (principal)
CPT/HCPCS: 36415; 71260; 82565; 84520; Q9967